=== PATIENT | male | born 1960 | race African-American/Black ===

== ENCOUNTER 2020-09-04 15:46 | Outpatient (RCR) | payer OTHER, SELFPAY ==
[2017-06-15 15:11] VITALS: BMI 32.7
[2020-09-04] MEDS: COVID-19 VACC, MRNA(PFIZER)/PF 30 MCG/0.3 ML SYRINGE IM (13:17)
[2020-09-25] MEDS: COVID-19 VACC, MRNA(PFIZER)/PF 30 MCG/0.3 ML SYRINGE IM (13:04)
== END 2020-09-04 23:59 ==
LOC: IMMUN 15:46
PROVIDERS: PCP Family Medicine; Visit Provider Family Medicine
DX: Z23 Encounter for immunization (principal)
CPT/HCPCS: 0001A; 0002A; 91300

== ENCOUNTER → 2023-06-22 | Outpatient (CLI) | payer BC, SELFPAY ==
--- NOTE | 2023-06-22 | ASPOS_PTH ---
PATHOLOGY RESULTS PATIENT: OTF YIN LOC: LAB U#:[id number] AGE/SX: 62/M ROOM: RE06/22/[address]: Dr. Jhony Cox MD : 1960 BED: DIS: 06/22/2023 SPEC #: [id number] RECD: 06/22/23 10:24 STATUS: KELLI RERos #: [id number] RUDY: 06/22/23 00:[address]: Jhony Cox DEPT: CYTOLOGY RECD BY: Valarie Casillas ENTERED: 06/22/23 10:24 SP TYPE: ASP HERE OTHR DR: Dr. Kermit Fuentes, DO Tissues: Parotid gland, NOS Procedures: Surgery Specimen Level IV Cytology Other Fine Needle Asp on Site HEADER OPERATION: Fine needle aspiration left parotid mass PRE-OP DIAGNOSIS: Left parotid mass TISSUE SUBMITTED: Left parotid mass DIAGNOSIS CYTOLOGY Fine needle aspiration, left parotid mass (smears and cell block): Benign epithelial lesion with cystic change. 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 AM:tima 06/23/2023 COMMENT A fine needle aspiration was performed and the specimen is evaluated at the time of FNA by Dr. Martins. Immediate Evaluation = Benign epithelial neoplasm with cyst change. Case has been reviewed in consultation with Dr. Berg who concurs with the above diagnosis. IDC:[facility] CYTOLOGY STUDY Slides are reviewed. CYTOLOGY GROSS Received is 2.5 ml of clear yellowish fluid labeled with the patient's name, and designated left parotid mass. Four imprints and two paps are made from the submitted fluid and the rest is added to CytoL[employer] for cell block preparation. Submitted for cytology study. / AM:tima 06/22/2023 TC:5 CPT: 55795, 68860, 76243, 37969
--- OUTSIDE RECORDS SUMMARY | 2023-06-22 10:18 | XMS RPT_ITS | CCD ---
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 Name Role Phone SONNY BLANCHARD, DR OSMAN Primary Care Physician ([facility] Anabel PT, Kayy Unavailable Unavailable GARRETT GARCIA, SOFYA Xavier Attending Unavailable ROMAR DO, DR OSMAN Primary Care Unavailable ROMAR DO, DR OSMAN Primary Care Unavailable ROMAR DO, DR OSMAN Attending Unavailable ROMAR DO, DR OSMAN Attending Unavailable ROMAR DO, DR OSMAN Primary Care Unavailable ROMAR DO, DR OSMAN Attending Unavailable ROMAR DO, DR OSMAN Primary Care Unavailable ROMAR DO, DR OSMAN Primary Care Unavailable ROMAR DO, DR OSMAN Attending Unavailable GARRETT GARCIA, SOFYA Xavier Attending Unavailable ROMAR DO, DR OSMAN Primary Care Unavailable ROMAR DO, DR OSMAN Primary Care Unavailable ROMAR DO, DR OSMAN Attending Unavailable ROMAR DO, DR OSMAN Primary Care Unavailable ROMAR DO, DR OSMAN Attending Unavailable THUY GARCIA, DR COLLINS Xavier Attending Unavailable ROMAR DO, DR OSMAN Primary Care Unavailable ROMAR DO, DR OSMAN Attending Unavailable ROMAR DO, DR OSMAN Primary Care Unavailable ROMAR DO, DR OSMAN Attending Unavailable ROMAR DO, DR OSMAN Primary Care Unavailable FROMMELT DO, CHALINO Attending Unavailable ROMAR DO, DR OSMAN Primary Care Unavailable Medications Current Medications Medication Drug Class(es) Dates Sig (Normalized) Sig (Original) amLODIPine 10 mg / benazepril hydrochloride 20 mg oral capsule (12 sources) Dihydropyridine Calcium Channel Jenni, Angiotensin Converting Enzyme Inhibitor Start: 03-21-2023 take 1 capsule by mouth once daily amlodipine-benaz epril 10 mg-20 mg oral capsule Dose = 1 cap(s), Oral, qDay, # 90 cap(s), 1 Refill(s), [facility], 187, cm, 03/15/23 8:32:00 EDT, Height, kg, 03/15/23 8:32:00 EDT, Dosing Weight Start Date: 03/21/23 Status: Ordered Completed/Discontinued Medications Medication Drug Class(es) Dates Sig (Normalized) Sig (Original) busPIRone hydrochloride 10 mg oral tablet (5 sources) Start: 07-20-2022 End: 03-13-2023 busPIRone 10 mg oral tablet Dose : 10 mg = 1 tab(s), Oral, BID, # 180 tab(s), 1 Refill(s), Pharmacy: [facility]/pharmacy #[id number], 185, cm, 09/14/22 8:32:00 EDT, Height, kg, 09/14/22 8:32:00 EDT, Dosing Weight Start Date: 09/14/22 Stop Date: 03/13/23 Status: Ordered Problems Problem Classification Problem Date Documented Date Episodic/Chronic Abdominal pain (8 sources) Generalized abdominal pain; Translations: [Generalized abdominal pain] 06-23-2022 Episodic Acute and chronic tonsillitis (1 source) Enlarged tonsil 05-30-2023 Chronic Acute bronchitis (1 source) Acute bronchitis 06-15-2023 Episodic Adjustment disorders (10 sources) Caregiver stress syndrome 08-05-2021 Chronic Anxiety disorders (8 sources) Anxiety 06-01-2022 Chronic Chronic kidney disease (10 sources) Chronic kidney disease stage 2 08-05-2021 Chronic Deficiency and other anemia (3 sources) Anemia 07-02-2022 Episodic Diabetes mellitus without complication (3 sources) Prediabetes 03-15-2023 Episodic Diseases of mouth; excluding dental (3 sources) Cyst of left parotid gland 05-23-2023 Episodic Diseases of white blood cells (5 sources) Neutropenia 08-25-2022 Chronic Essential hypertension (13 sources) Benign essential hypertension; Translations: [Hypertensive disorder] Onset: 03-16-2019 Chronic Lymphadenitis (1 source) Cervical lymphadenopathy 05-30-2023 Episodi c Mycoses (3 sources) Onychomycosis of toenails 03-15-2023 Episodic Nonspecific chest pain (9 sources) Chest discomfort 08-25-2021 Episodic Osteoarthritis (1 source) Osteoarthritis of right sternoclavicular joint 05-30-2023 Chronic Other and unspecified benign neoplasm (1 source) Adenolymphoma 05-30-2023 Episodic Other circulatory disease (1 source) Vascular calcification 05-30-2023 Episodic Other liver diseases (3 sources) Steatosis of liver 05-23-2023 Chronic Other non-traumatic joint disorders (10 sources) Shoulder pain 03-16-2019 Episodic Other nutritional; endocrine; and metabolic disorders (10 sources) Body mass index 30+ - obesity 08-05-2021 Chronic Other nutritional; endocrine; and metabolic disorders (1 source) Obesity 03-16-2019 Chronic Other nutritional; endocrine; and metabolic disorders (10 sources) Raised low density lipoprotein cholesterol 08-13-2021 Chronic Other nutritional; endocrine; and metabolic disorders (3 sources) Hyperbilirubinemia 03-15-2023 Chronic Other nutritional; endocrine; and metabolic disorders (7 sources) Unintentional weight loss 06-23-2022 Episodic Other nutritional; endocrine; and metabolic disorders (1 source) Abnormal weight loss; Translations: [Abnormal weight loss] Episodic Other screening for suspected conditions (not mental disorders or infectious disease) (2 sources) Renal function tests abnormal; Translations: [Abnormal results of kidney function studies] Episodic Other skin disorders (3 sources) Mass of neck 03-15-2023 Episodic Other skin disorders (3 sources) Mass of wrist 03-15-2023 Episodic Other upper respiratory infections (1 source) Sinusitis 06-15-2023 Chronic Spondylosis; intervertebral disc disorders; other back problems (1 source) Cervical spondylosis 05-30-2023 Chronic Thyroid disorders (20 sources) Goiter; Translations: [Thyroid nodule] 08-05-2021 Chronic Results Test Name Value Interpretation Reference Range Facil ity Vital Signs Date Time Vital Sign Value Performing Clinician Faci lity 06-30-2022 22:06-0500 Diastolic Blood Pressure Non-Invasive 68 1 CHALINO [facility] [employer] [facility] 06-30-2022 22:06-0500 Heart rate 70 /min [facility] [employer] [facility] 06-30-2022 22:06-0500 Respiratory rate 18 /min [facility] [employer] [facility] 06-30-2022 22:06-0500 Systolic Blood Pressure Non-Invasive 120 1 CHALINO SMITHT DO [facility] 06-30-2022 21:05-0500 Body temperature 98.06 [degF] CHALINO SMITHT DO [facility] 06-30-2022 21:05-0500 Diastolic Blood Pressure Non-Invasive 77 1 CHALINO SMITHT DO [facility] 06-30-2022 21:05-0500 Heart rate 66 /min CHALINO SMITHT DO [facility] 06-30-2022 21:05-0500 Respiratory rate 18 /min CHALINO SMITHT DO [facility] 06-30-2022 21:05-0500 Systolic Blood Pressure Non-Invasive 119 1 CHALINO SMITHT DO [facility] 06-16-2022 07:57-0500 Body height 188 cm NILSON ELY DO [facility] 06-16-2022 07:57-0500 Body temperature 98.42 [degF] NILSON ELY DO [facility] 06-16-2022 07:57-0500 Body weight 110 kg NILSON ELY DO [facility] 06-16-2022 07:57-0500 Diastolic Blood Pressure Non-Invasive 79 1 NILSON ELY DO [facility] 06-16-2022 07:57-0500 Heart rate 71 /min NILSON ELY DO [facility] 06-16-2022 07:57-0500 Respiratory rate 16 /min NILSON ELY DO [facility] 06-16-2022 07:57-0500 Systolic Blood Pressure Non-Invasive 114 1 NISLON ELY DO [facility] Encounters Encounter Date Encounter Type Care Provider Facility Start: 06-15-[address] DAWSON DENNIS DO Facili ty:B Start: 06-15-2023 End: 06-15-[address] DAWSON DENNIS DO [facility] Start: 05-26-2023 End: 05-27-[address] COLLINS DALEY MD Facility:B Start: 05-26-2023 End: 05-26-[address] DAWSON DENNIS DO [facility] Start: 04-13-2023 End: 04-14-[address] DAWSON DENNIS DO Facility:A Start: 04-11-2023 End: 04-12-[address] DAWSON DENNIS DO Facility:B Start: 03-15-2023 End: 03-20-[address] DAWSON DENNIS DO Facility:B Start: 02-24-2023 End: 02-25-[address] DAWSON DENNIS DO Facility:B Start: 09-08-2022 End: 09-09-[address] DAWSON DENNIS DO Facility:B Start: 09-08-2022 End: 09-08-[address] DAWSON DENNIS DO [facility] Start: 08-26-2022 End: 08-27-2022 ambulatory SOFYA TUCKER MD Facility:B Start: 08-26-2022 End: 08-26-2022 Patient encounter procedure SOFYA TUCKER MD [facility] Start: 08-25-2022 End: 08-26-2022 ambulatory SOFYA TUCKER MD Facility:A Start: 07-02-2022 End: 07-03-[address] DAWSON DENNIS DO Facility:B Start: 07-02-2022 End: 07-02-[address] DAWSON DENNIS DO [facility] Start: 06-30-2022 End: 07-01-2022 Emergency department patient visit CHALINO ESPINOZA DO Facility:B Start: 06-30-2022 End: 06-30-2022 Emergency department patient visit CHALINO ESPINOZA DO [facility] Start: 06-16-2022 End: 06-16-2022 Emergency department patient visit NILSON ELY DO [facility] Start: 01-12-2022 End: 01-12-[address] DAWSON DENNIS DO [facility] Start: 08-24-2021 End: 08-24-[address] DAWSON DENNIS DO [facility] Procedures Date Procedure Procedure Detail Performing Clinician Start: 03-10-2023 Oral surgery (qualif ier value) DR DAWSON DENNIS DO Immunizations Immunization Date Immunization Notes Care Provider [facility] 01-22-2022 SARS-CoV-2 mRNA (qwfpqvgwkkg-mblh-yqszg se) vaccine SOFYA TUCKER MD [facility] 05-13-2021 SARS-CoV-2 mRNA (tozinameran) vaccine NILSON ELY DO [facility] 04-07-2021 zoster vaccine recombinant NILSON ELY DO [facility] 01-22-2021 zoster vaccine, live DR DAWSON DENNIS DO [facility] 09-25-2020 SARS-CoV-2 mRNA (tozinameran) vaccine DR DAWSON DENNIS DO [facility] 09-04-2020 SARS-CoV-2 mRNA (tozinameran) vaccine DR DAWSON DENNIS DO [facility] Payers Date Payer Category Payer Unknown [id number] 2022 Unknown [id number] 1960 Unknown [id number] 2.16.8 [id number] 1960 Unknown [id number] 2.16.8 [id number] 1960 Unknown [id number] 2.16.8 [id number] 1960 Unknown [id number] 2.16.8 [id number] 1960 Unknown [id number] 2.16.8 [id number] 1960 Unknown [id number] 2.16.8 [id number]. 1960 Unknown [id number] 2.16.8 [id number] 1960 Unknown [id number] 2.16.8 [id number] 1960 Unknown [id number] 2.16.8 [id number] 1960 Unknown [id number] 2.16.8 [id number] 1960 Unknown [id number] 2.16.8 [id number] 1960 Unknown [id number] 2.16.8 [id number] Social History Date Type Detail Facility Start: 03-16-2019 Never smoked tobacco (f inding) [facility] Functional Status Date Assessment Result Facility 06-30-2022 Functional Status ID band on, Call device within reach, Bed in low position [facility] 06-16-2022 Functional Status Independent [facility] 06-16-2022 Functional Status ID band on, Call device within reach, Bed in low position, Wheels locked, Visitor at bedside [facility] Mental Status Date Assessment Result Facility 06-30-2022 Mental Status Oriented x 4 [facility] 06-16-2022 Mental Status Orientation Oriented x 4 [facility] 06-16-2022 Mental Status [facility] Clinical Notes 02-06-2021 to 07-01-2022 LaboratoryRadiologyRadiologyRadiologyLaboratory Note Date & Type Note Facility 07-01-2022 Hospital Discharge instructions Patient Education 06/30/2022 22:01:32 Rib Contusion Rib Contusion A rib contusion is a bruise to one or more rib bones. It may cause pain, tenderness, swelling and a purplish discoloration. There may be a sharp pain while breathing. You will be assessed for other injuries. You will likely be given pain medicine. Rib contusions heal on their own, without further treatment. However, pain may take weeks to months to go away. Note that a small crack (fracture) in the rib may cause the same symptoms as a rib contusion. The small crack may not be seen on a chest X-ray. However, the conditions are managed in the same way. Home care Rest. Avoid heavy lifting, strenuous exertion, or any activity that causes pain. Ice the area to reduce pain and swelling. Put ice cubes in a plastic bag or use a cold pack. (Wrap the cold source in a thin towel. Do not place it directly on your skin.) Ice the injured area for 20 minutes every 1 to 2 hours the first day. Continue with ice packs 3 to 4 times a day for the next 2 days, then as needed for the relief of pain and swelling. Take any prescribed pain medicine as directed by your healthcare provider. If none was prescribed, take acetaminophen, ibuprofen, or naproxen to control pain. If you have a significant injury, you may be given a device called an incentive spirometer to keep your lungs healthy. Use as directed. Follow-up care Follow up with your healthcare provider during the next week or as directed. When to seek medical advice Call your healthcare provider for any of the following: Shortness of breath or trouble breathing Increasing chest pain with breathing Coughing Dizziness, weakness, or fainting New or worsening pain Fever of 100.4 F (38 C) or higher, or as directed by your healthcare provider [phone] [employer]. [address] [place] [address]. All rights reserved. This information is not intended as a substitute for professional medical care. Always follow your healthcare professional's instructions. Follow Up Care 06/30/2022 21:01:12 With:DAWSON DENNIS DO Address: [address] [place] [phone] When:2-4 days [facility] 06-30-2022 Note Discharge Instructions Thank you for allowing [facility] to assist you with your healthcare needs. The following is important discharge information regarding your hospital visit. Diagnosis from Today's Visit Rib/trunk pain-swelling What to Do Next Instructions from Your Care Team No qualifying data available. Post Acute Orders No qualifying data available. You Need to Schedule the Following Appointments Follow Up with DAWSON DENNIS DO When Within 2-4 days Where: [address] [place] [id number] [phone] Allergies NKA Medications Please ask your primary doctor or pharmacist before taking any other medication not listed, including over the counter drugs, herbal medications, vitamins and or supplements as they may interact with your home medications. What How Much When Instructions Last Dose Unchanged amlodipine-benazepril (amlodipine-benazepril 10 mg-20 mg oral capsule) 1 cap by mouth Once a day Unchanged atorvastatin (atorvastatin 10 mg oral tablet) 1 tab(s) by mouth Once a day (in the evening) Unchanged hydroCHLOROthiazide (hydroCHLOROthiazide 12.5 mg oral capsule) 1 cap by mouth Once a day Unchanged ondansetron (ondansetron 4 mg oral tablet, disintegrating) 1 tab(s) by mouth Every 8 hours as needed for Nausea Duration: 14 Days allow tablet to dissolve on tongue Unchanged sertraline (sertraline 100 mg oral tablet) 1 tab(s) by mouth Once a day Please take this list to your next doctor s visit. Bring all medications you take, including over the counter medications, herbals and other supplements with you to your doctor s visit. Patients and families are reminded to discard old lists and to update any records with all medication providers or retail pharmacies. Education Materials Rib Contusion A rib contusion is a bruise to one or more rib bones. It may cause pain, tenderness, swelling and a purplish discoloration. There may be a sharp pain while breathing. You will be assessed for other injuries. You will likely be given pain medicine. Rib contusions heal on their own, without further treatment. However, pain may take weeks to months to go away. Note that a small crack (fracture) in the rib may cause the same symptoms as a rib contusion. The small crack may not be seen on a chest X-ray. However, the conditions are managed in the same way. Home care Rest. Avoid heavy lifting, strenuous exertion, or any activity that causes pain. Ice the area to reduce pain and swelling. Put ice cubes in a plastic bag or use a cold pack. (Wrap the cold source in a thin towel. Do not place it directly on your skin.) Ice the injured area for 20 minutes every 1 to 2 hours the first day. Continue with ice packs 3 to 4 times a day for the next 2 days, then as needed for the relief of pain and swelling. Take any prescribed pain medicine as directed by your healthcare provider. If none was prescribed, take acetaminophen, ibuprofen, or naproxen to control pain. If you have a significant injury, you may be given a device called an incentive spirometer to keep your lungs healthy. Use as directed. Follow-up care Follow up with your healthcare provider during the next week or as directed. When to seek medical advice Call your healthcare provider for any of the following: Shortness of breath or trouble breathing Increasing chest pain with breathing Coughing Dizziness, weakness, or fainting New or worsening pain Fever of 100.4 F (38 C) or higher, or as directed by your healthcare provider [phone] [employer]. [address] [place] [address]. All rights reserved. This information is not intended as a substitute for professional medical care. Always follow your healthcare professional's instructions. Additional Information VACCINATE! IT SAVES LIVES! Members of the community who have not yet received the COVID-19 vaccine and would like to receive it can visit one of [facility] vaccine clinics. There are many vaccine clinic locations within the [facility]. For locations and available times, please visit [email or web address] g. It is important to note that some COVID mobile vaccine clinics are held outdoors and may be canceled in rainy or stormy conditions. To learn more about pediatric vaccinations (ages 5-11), we invite you to visit the [facility] webpage. https://[email or web address].org/pag es/5382-Brurc-Etyyiqvagiu-[email or web address] qn-Libih-Tmeqmoqzk.html To learn more about the COVID-19 vaccine, we invite you to visit the [facility] website for a list of frequently asked questions. [email or web address]/assets/Patient a-fif-Wsthaowg/kaiyk-Thxuroe-Rrhzy ently_[email or web address]-Questions.pdf [facility] Patient Portal Access Instructions: Stay connected with your healthcare team and access your personal medical information anytime with the [facility] Patient Portal. If you would like a full copy of your medical records please contact the [facility] Medical Records Department Tuesday through Tuesday between 8a.m. and 4:30p.m. Please follow the directions below to access the portal: 1.Access the email account you provided upon registration to the [facility].2.Look for an invitation email from [facility].3.Open the email and access the invitation link: Accept Invitation to [employer].Fill in the required ferrara to create your account. Sign into www.[employer] 360 with your username and password that you created in the above steps to stay up to date. You can then view a summary of results, a summary of your visits, and the ability to download your summaries to your computer or send the information securely to a physician. Remember that your healthcare information is confidential, so carefully consider who you will allow to register on the [facility] Patient Portal for access to your information. You can also access the [facility] Patient Portal on the [employer]. Simply click on Health Records under Health Data and then click on the [employer] logo. HOW TO SAFELY DISPOSE OF PRESCRIPTION MEDICATIONS Please use one of the following methods to safely dispose of your unused medications. 1.Use a drug disposal kit: the drug disposal pouch allows you to safely discard your old and unused drugs. Ask your nurse to give you one when you are discharged.2.Visit a local take-back location: Many local pharmacies and police departments have programs that collect old and unwanted prescription drugs. Call your local pharmacy or go to http://[employer].Tradoria/0G4Zn1g to find one close to you.3.Make use of household items: Use cat litter or old coffee grounds to dispose medications if other options are not available. Mix your drugs with these household products, seal them in an airtight container and throw it into the garbage. Call [facility]: [phone] to be sure your drugs can be disposed of in this way. Some medicines may require a different approach.4.Never flush your medications down the toilet. IF YOU HAVE BEEN PRESCRIBED AN OPIOIDS FOR PAIN If you have been prescribed an opioid (such as hydrocodone, oxycodone or morphine), it is critical to understand the possible side effects and risks of opioid pain medications. Even when taken as directed, opioids can have several side effects including: Tolerance, meaning you might need to take more of a medication for the same pain relief. Nausea, vomiting and/or constipation. Sleepiness, dizziness, dry mouth, confusion, depression or itching. Physical dependence, meaning you have withdrawal symptoms when a medication is stopped ? this can develop within a few days. KNOW YOUR RESPONSIBILITIES It is important to know exactly how much and how often to take the opioid pain medications you are prescribed. Never take opioids in higher amounts or more often than prescribed. Do not combine opioids with alcohol or other drugs that cause drowsiness, such as benzodiazepines, also known as benzos, including diazepam and alprazolam, muscle relaxants or sleep aids. Never sell or share prescription opioids. This is illegal. Store opioids in a secure place and out of reach of others (including children, family, friends and visitors). The last page(s) of this document has been signed and retained as a CHART COPY Signatures Patient Education Materials Rib Contusion Medication Leaflets My discharge plan and instructions have been reviewed and explained to me and I,SHORT, OTF M understand my current condition and have read and understand these discharge instructions. I have received a written copy of the plan/instructions. If I have questions, I am aware that I should contact my doctor. Patient/Supervisor Salvage Signature: Date/Time: Relationship to Patient: ___ Witness Name/Signature: Date/Time: [facility] 06-30-2022 Note ORIGINAL EXAMINATION: 2 XRAY VIEWS OF THE RIGHT RIB06/30/2022 9:24 pm RIBS RIGHT HISTORY: ORDERING SYSTEM PROVIDED HISTORY: Reason for Exam: right lower rib pain/trauma FINDINGS: No displaced fracture seen. No aggressive bony lesions. Advanced degenerative changes seen of the visualized right glenohumeral joint. IMPRESSION: No displaced fractures Interpreted by: Nilson Chavez MD Preliminary Report By: Nilson Chavez MD Electronically signed By Nilson Chavez MD Dictated Date: 06/30/2022 9:54:09 PM Prelim Date: 06/30/2022 9:55:49 PM Sign Date: 06/30/2022 9:55:49 PM [facility] Note ORIGINAL EXAMINATION: 2 XRAY VIEWS OF THE RIGHT RIB06/30/2022 9:24 pm RIBS RIGHT HISTORY: ORDERING SYSTEM PROVIDED HISTORY: Reason for Exam: right lower rib pain/trauma FINDINGS: No displaced fracture seen. No aggressive bony lesions. Advanced degenerative changes seen of the visualized right glenohumeral joint. IMPRESSION: No displaced fractures Interpreted by: Nilson Chavez MD Preliminary Report By: Nilson Chavez MD Electronically signed By Nilson Chavez MD Dictated Date: 06/30/2022 9:54:09 PM Prelim Date: 06/30/2022 9:55:49 PM Sign Date: 06/30/2022 9:55:49 PM [facility] Discharge instructions Patient Education 06/16/2022 09:49:14 Abdominal Pain, Unknown Cause, (Male) Unknown Causes of Abdominal Pain (Male) Based on your visit today, the exact cause of your abdominal pain is not clear. Your exam and tests don't suggest a dangerous cause at this time. However, the signs of a serious problem may take more time to appear. Although your evaluation was reassuring today, sometimes early in the course of many conditions, exam and lab tests can appear normal. Therefore, it is important for you to watch for any new symptoms or worsening of your condition. It may not be obvious what caused your symptoms. Pay attention to things that do seem to make your symptoms worse or better and discuss this with your doctor when you follow up. The evaluation of abdominal pain in the emergency department may only require an exam by the doctor or it may include blood, urine or imaging studies, depending on many factors. Sometimes exams and tests can identify a cause but in many cases, a clear cause is not found. Further testing at follow up visits may help to suggest a clear diagnosis. Home care Rest as much as you can until your next exam. Try to avoid any medicines (unless otherwise directed by your doctor), foods, activities, or other factors that may have contributed to your symptoms. Try to eat foods that you know that you have tolerated well in the past. Certain diets may be recommended for some conditions that cause abdominal pain. However, since the cause of your symptoms may not be clear, discuss your diet more with your healthcare provider or specialist for further recommendations. If you have diarrhea, it may help to avoid dairy (lactose) for the time being. A low fat, low fiber diet can also help. Eating several small meals per day as opposed to 2 or 3 larger meals may help. Avoid dehydration. Make sure to drink plenty of water. Other options include broth, soup, gelatin, sports drinks, or other clear liquids. Watch closely for anything that may make your symptoms worse or better. Pay close attention to symptoms below that may mean your condition is getting worse. Follow-up care Follow up with your healthcare provider if your symptoms are not improving, or as advised. In some cases, you may need more testing. When to seek medical advice Call your healthcare provider right away if any of these occur: Pain is becoming worse You are unable to take your medicines or can't keep water down due to excessive vomiting Swelling of the abdomen Fever of 100.4 F (38 C) or higher, or as directed by your healthcare provider Blood in vomit or bowel movements (dark red or black color) Jaundice (yellow color of eyes and skin) New onset of weakness, dizziness or fainting New onset of chest, arm, back, neck or jaw pain [id number] [employer]. [address] [place] [address]. All rights reserved. This information is not intended as a substitute for professional medical care. Always follow your healthcare professional's instructions. Follow Up Care 06/16/2022 07:49:29 With:DAWSON DENNIS DO Address: [address] [place] [address] [phone] When:2-4 days [facility] 06-16-2022 Note Discharge Instructions Thank you for allowing [facility] to assist you with your healthcare needs. The following is important discharge information regarding your hospital visit. Diagnosis from Today's Visit Abdominal pain What to Do Next Instructions from Your Care Team No qualifying data available. Post Acute Orders No qualifying data available. You Need to Schedule the Following Appointments Follow Up with DAWSON DENNIS DO When Within 2-4 days Where: [address] [place] [address] [phone] Allergies NKA Medications Please ask your primary doctor or pharmacist before taking any other medication not listed, including over the counter drugs, herbal medications, vitamins and or supplements as they may interact with your home medications. What How Much When Instructions Last Dose Unchanged amlodipine-benazepril (amlodipine-benazepril 10 mg-20 mg oral capsule) 1 cap by mouth Once a day Unchanged atorvastatin (atorvastatin 10 mg oral tablet) 1 tab(s) by mouth Once a day (in the evening) Unchanged hydroCHLOROthiazide (hydroCHLOROthiazide 12.5 mg oral capsule) 1 cap by mouth Once a day Unchanged ondansetron (ondansetron 4 mg oral tablet, disintegrating) 1 tab(s) by mouth Every 8 hours as needed for Nausea Duration: 5 Days allow tablet to dissolve on tongue Unchanged sertraline (sertraline 50 mg oral tablet) See instructions Take 1/ 2 tablet daily for 4 days, then 1 tablet daily for 1 week, then 2 tablets daily Please take this list to your next doctor s visit. Bring all medications you take, including over the counter medications, herbals and other supplements with you to your doctor s visit. Patients and families are reminded to discard old lists and to update any records with all medication providers or retail pharmacies. Education Materials Unknown Causes of Abdominal Pain (Male) Based on your visit today, the exact cause of your abdominal pain is not clear. Your exam and tests don't suggest a dangerous cause at this time. However, the signs of a serious problem may take more time to appear. Although your evaluation was reassuring today, sometimes early in the course of many conditions, exam and lab tests can appear normal. Therefore, it is important for you to watch for any new symptoms or worsening of your condition. It may not be obvious what caused your symptoms. Pay attention to things that do seem to make your symptoms worse or better and discuss this with your doctor when you follow up. The evaluation of abdominal pain in the emergency department may only require an exam by the doctor or it may include blood, urine or imaging studies, depending on many factors. Sometimes exams and tests can identify a cause but in many cases, a clear cause is not found. Further testing at follow up visits may help to suggest a clear diagnosis. Home care Rest as much as you can until your next exam. Try to avoid any medicines (unless otherwise directed by your doctor), foods, activities, or other factors that may have contributed to your symptoms. Try to eat foods that you know that you have tolerated well in the past. Certain diets may be recommended for some conditions that cause abdominal pain. However, since the cause of your symptoms may not be clear, discuss your diet more with your healthcare provider or specialist for further recommendations. If you have diarrhea, it may help to avoid dairy (lactose) for the time being. A low fat, low fiber diet can also help. Eating several small meals per day as opposed to 2 or 3 larger meals may help. Avoid dehydration. Make sure to drink plenty of water. Other options include broth, soup, gelatin, sports drinks, or other clear liquids. Watch closely for anything that may make your symptoms worse or better. Pay close attention to symptoms below that may mean your condition is getting worse. Follow-up care Follow up with your healthcare provider if your symptoms are not improving, or as advised. In some cases, you may need more testing. When to seek medical advice Call your healthcare provider right away if any of these occur: Pain is becoming worse You are unable to take your medicines or can't keep water down due to excessive vomiting Swelling of the abdomen Fever of 100.4 F (38 C) or higher, or as directed by your healthcare provider Blood in vomit or bowel movements (dark red or black color) Jaundice (yellow color of eyes and skin) New onset of weakness, dizziness or fainting New onset of chest, arm, back, neck or jaw pain [id number] [employer]. [address] [place] [address]. All rights reserved. This information is not intended as a substitute for professional medical care. Always follow your healthcare professional's instructions. Additional Information VACCINATE! IT SAVES LIVES! Members of the community who have not yet received the COVID-19 vaccine and would like to receive it can visit one of [facility] vaccine clinics. There are many vaccine clinic locations within the [facility]. For locations and available times, please visit [email or web address] g. It is important to note that some COVID mobile vaccine clinics are held outdoors and may be canceled in rainy or stormy conditions. To learn more about pediatric vaccinations (ages 5-11), we invite you to visit the [facility] webpage. [email or web address] [email or web address]-Coxub-Amwjskipwtb-[email or web address] rz-Otjpe-Frcojtzrv.html To learn more about the COVID-19 vaccine, we invite you to visit the [facility] website for a list of frequently asked questions. [email or web address]/[email or web address] n-[email or web address]/ttjda-Wddsull-[email or web address] ently_[email or web address]-Questions.pdf [facility] Patient Portal Access Instructions: Stay connected with your healthcare team and access your personal medical information anytime with the [facility] Patient Portal. If you would like a full copy of your medical records please contact the [facility] Medical Records Department Tuesday through Tuesday between 8a.m. and 4:30p.m. Please follow the directions below to access the portal: 1.Access the email account you provided upon registration to the [facility].2.Look for an invitation email from [facility].3.Open the email and access the invitation link: Accept Invitation to [facility]4.Fill in the required ferrara to create your account. Sign into www.Live Life 360 with your username and password that you created in the above steps to stay up to date. You can then view a summary of results, a summary of your visits, and the ability to download your summaries to your computer or send the information securely to a physician. Remember that your healthcare information is confidential, so carefully consider who you will allow to register on the [facility] Patient Portal for access to your information. You can also access the [facility] Patient Portal on the [employer] jose angel. Simply click on Health Records under Health Data and then click on the [facility] logo. HOW TO SAFELY DISPOSE OF PRESCRIPTION MEDICATIONS Please use one of the following methods to safely dispose of your unused medications. 1.Use a drug disposal kit: the drug disposal pouch allows you to safely discard your old and unused drugs. Ask your nurse to give you one when you are discharged.2.Visit a local take-back location: Many local pharmacies and police departments have programs that collect old and unwanted prescription drugs. Call your local pharmacy or go to http://bit.ly/1R3Fy2f to find one close to you.3.Make use of household items: Use cat litter or old coffee grounds to dispose medications if other options are not available. Mix your drugs with these household products, seal them in an airtight container and throw it into the garbage. Call [facility]: [phone] to be sure your drugs can be disposed of in this way. Some medicines may require a different approach.4.Never flush your medications down the toilet. IF YOU HAVE BEEN PRESCRIBED AN OPIOIDS FOR PAIN If you have been prescribed an opioid (such as hydrocodone, oxycodone or morphine), it is critical to understand the possible side effects and risks of opioid pain medications. Even when taken as directed, opioids can have several side effects including: Tolerance, meaning you might need to take more of a medication for the same pain relief. Nausea, vomiting and/or constipation. Sleepiness, dizziness, dry mouth, confusion, depression or itching. Physical dependence, meaning you have withdrawal symptoms when a medication is stopped ? this can develop within a few days. KNOW YOUR RESPONSIBILITIES It is important to know exactly how much and how often to take the opioid pain medications you are prescribed. Never take opioids in higher amounts or more often than prescribed. Do not combine opioids with alcohol or other drugs that cause drowsiness, such as benzodiazepines, also known as benzos, including diazepam and alprazolam, muscle relaxants or sleep aids. Never sell or share prescription opioids. This is illegal. Store opioids in a secure place and out of reach of others (including children, family, friends and visitors). The last page(s) of this document has been signed and retained as a CHART COPY Signatures Patient Education Materials Abdominal Pain, Unknown Cause, (Male) Medication Leaflets My discharge plan and instructions have been reviewed and explained to me and I,OTF LEAL M understand my current condition and have read and understand these discharge instructions. I have received a written copy of the plan/instructions. If I have questions, I am aware that I should contact my doctor. Patient/Supervisor Salvage Signature: Date/Time: Relationship to Patient: ___ Witness Name/Signature: Date/Time: [facility] 06-16-2022 Note ORIGINAL EXAMINATION: TWO XRAY VIEWS OF THE ABDOMEN AND SINGLE XRAY VIEW OF THE CHEST 06/16/2022 8:43 am COMPARISON: CT abdomen/pelvis 10/11/2016, small-bowel series 08/20/2016 HISTORY: ORDERING SYSTEM PROVIDED HISTORY: Reason for Exam: pain Pain and tightness in abdomen for 1.5 weeks FINDINGS: CHEST: Cardiomediastinal contours are within normal limits. No focal consolidation. No visible pneumothorax or pleural effusion. ABDOMEN: The bowel gas pattern is nonobstructive. No dilated bowel loops or air-fluid levels are identified. No evidence of pneumoperitoneum. Included osseous structures are grossly unremarkable. IMPRESSION: No acute cardiopulmonary findings. Nonobstructive bowel gas pattern. Interpreted by: Lakia Victoria Preliminary Report By: Lakia Victoria Electronically signed By Lakia Victoria Dictated Date: 06/16/2022 8:51:33 AM Prelim Date: 06/16/2022 8:54:41 AM Sign Date: 06/16/2022 8:54:41 AM Ordering Provider: NILSON ELY [facility] 06-16-2022 Note ORIGINAL EXAMINATION: TWO XRAY VIEWS OF THE ABDOMEN AND SINGLE XRAY VIEW OF THE CHEST 06/16/2022 8:43 am COMPARISON: CT abdomen/pelvis 10/11/2016, small-bowel series 08/20/2016 HISTORY: ORDERING SYSTEM PROVIDED HISTORY: Reason for Exam: pain Pain and tightness in abdomen for 1.5 weeks FINDINGS: CHEST: Cardiomediastinal contours are within normal limits. No focal consolidation. No visible pneumothorax or pleural effusion. ABDOMEN: The bowel gas pattern is nonobstructive. No dilated bowel loops or air-fluid levels are identified. No evidence of pneumoperitoneum. Included osseous structures are grossly unremarkable. IMPRESSION: No acute cardiopulmonary findings. Nonobstructive bowel gas pattern. Interpreted by: Lakia Victoria Preliminary Report By: Lakia Victoria Electronically signed By Lakia Victoria Dictated Date: 06/16/2022 8:51:33 AM Prelim Date: 06/16/2022 8:54:41 AM Sign Date: 06/16/2022 8:54:41 AM Ordering Provider: NILSON [facility] 02-06-2021 Note HNO ID: [id number] Author: Geraldine Corrales APRN.DREDGE PUMP OPERATOR Service: ? Author Type: Nurse Practitioner Type: Progress Notes Filed: 02/06/2021 11:40 AM Note Text: SUBJECTIVE Otf Leal is a 60 year old male who presents with 1 week of symptoms that are stable. Symptoms include: Fever (?100.4F): No or Chills: No Cough: Yes Shortness of breath: No or Difficulty breathing: No Fatigue: Yes Muscle aches: No Headache: No New loss of smell or taste: No Sore throat: No Nasal congestion: No or Rhinorrhea: No Nausea: No or Vomiting: No Diarrhea: No High risk category assessment Age > 60 years old Exposures: Sick contacts? Yes- has been ill with COVID symptoms for past week. Family or close contacts with confirmed/probable COVID-19 in last 14 days? Yes He reports that he has never smoked. He has never used smokeless tobacco. BP 108/82 Pulse 67 Temp 36.8 ?C (98.2 ?F) Resp 14 Wt 123.6 kg (272 lb 6.4 oz) SpO2 97% BMI 35.94 kg/m? PAST MEDICAL HISTORY Diagnosis Date - HTN (hypertension), benign - Hypertrophy of prostate without urinary obstruction and other lower urinary tract symptoms (LUTS) - Mixed hyperlipidemia PAST SURGICAL HISTORY Procedure Laterality Date - COLONOSCOP W/ OR W/O [facility] SPE[facility] 04/28/2011 ALLERGIES Patient has no known allergies. MEDICATIONS loratadine (CLARITIN) 10 mg tablet Take 10 mg by mouth once daily. amLODIPine-benazepril (LOTREL) 10-20 mg per capsule Take 1 capsule by mouth once daily. Hydrochlorothiazide 12.5 mg ORAL capsule Take 1 capsule by mouth once daily. aspirin, enteric coated (ASPIR-LOW) 81 mg ORAL EC tablet Take 1 tablet by mouth once daily. FAMILY HISTORY Problem Relation Age of Onset - Cancer Mother Hodgkins lymphoma - Diabetes Father Social History Tobacco Use - Smoking status: Never Smoker - Smokeless tobacco: Never Used Substance Use Topics - Alcohol use: No - Drug use: No OBJECTIVE Physical Exam Vitals and nursing note reviewed. Constitutional: Appearance: Normal appearance. HENT: Mouth/Throat: Pharynx: Uvula midline. Cardiovascular: Rate and Rhythm: Normal rate and regular rhythm. Heart sounds: Normal heart sounds. Pulmonary: Effort: Pulmonary effort is normal. No respiratory distress. Breath sounds: Normal breath sounds. No wheezing or rales. Musculoskeletal: Cervical back: Neck supple. Skin: General: Skin is warm and dry. Findings: No erythema or rash. Neurological: Mental Status: He is alert. ASSESSMENT/PLAN ASSESSMENT/PLAN: 1. Suspected COVID-19 virus infection - ICD9: V01.79, ICD10: Z20.822 - 2019 CORONAVIRUS Geraldine JEREMY Corrales.DREDGE PUMP OPERATOR - Meets symptom-based criteria for testing and is high risk. - COVID swab collected at time of office visit - Instructed to isolate pending test results - Discussed symptom monitoring and supportive care - Red flag symptoms requiring follow up discussed This patient encounter involved the screening or treatment of novel coronavirus infection (COVID-19). [facility] Evaluation + Plan note Future Appointments Appointment Date:01/21/2022 08:00:00 AM Scheduled Provider:DAWSON DENNIS DO Location:[facility] Appointment Type: OV [facility] Evaluation + Plan note Future Appointments Appointment Date:07/15/2022 08:00:00 AM Scheduled Provider:DAWSON DENNIS DO Location:[facility] Appointment Type:PC OV Appointment Date:07/20/2022 08:00:00 AM Scheduled Provider:DAWSON DENNIS DO Location:[facility] Appointment Type: OV Follow Up [facility] Evaluation + Plan note Future Appointments Appointment Date:07/15/2022 08:00:00 AM Scheduled Provider:DAWSON DENNIS DO Location:[facility] Appointment Type: OV Appointment Date:07/20/2022 08:00:00 AM Scheduled Provider:DAWSON DENNIS DO Location:[facility] Appointment Type:PC OV Follow Up Appointment Date:09/01/2022 09:00:00 AM Scheduled Provider:DAWSON DENNIS DO Location:[facility] Appointment Type: OV Future Scheduled TestsBasic Metabolic Panel 06/23/22Cancer Antigen 125 06/23/22Prostate Specific Antigen 06/23/22AFP tumor marker 06/23/22Carcinoembryonic Antigen 06/23/22Complete Blood Count 06/23/22hCG, tumor marker 06/23/22US Thyroid 08/21/22 [facility] Evaluation + Plan note Future Appointments Appointment Date:07/15/2022 08:00:00 AM Scheduled Provider:DAWSON DENNIS DO Location:[facility] Appointment Type:PC OV Appointment Date:07/20/2022 08:00:00 AM Scheduled Provider:DAWSON DENNIS DO Location:[facility] Appointment Type:PC OV Follow Up Appointment Date:09/01/2022 09:00:00 AM Scheduled Provider:DAWSON DENNIS DO Location:[facility] Appointment Type:PC OV Diagnostic Tests PendingCancer Antigen 125 07/02/22AFP tumor marker 07/02/22hCG, tumor marker 07/02/22Carcinoembryonic Antigen 07/02/22 Future Scheduled TestsUS Thyroid 08/21/22 [facility] Evaluation + Plan note Future Appointments Appointment Date:09/14/2022 08:30:00 AM Scheduled Provider:DAWSON DENNIS DO Location:[facility] Appointment Type:PC OV Appointment Date:09/22/2022 11:30:00 AM Scheduled Provider: Location:[facility] Appointment Type:[facility] OV Follow Up Future Scheduled TestsUS Thyroid 08/21/22 [facility] Evaluation + Plan note Future Appointments Appointment Date:09/14/2022 08:30:00 AM Scheduled Provider:DAWSON DENNIS DO Location:[facility] Appointment Type:PC OV Appointment Date:09/22/2022 11:30:00 AM Scheduled Provider: Location:[facility] Appointment Type:[facility] OV Follow Up [facility] Evaluation + Plan note Future Appointments Appointment Date:08/23/2023 08:00:00 AM Scheduled Provider:DAWSON DENNIS DO Location:[facility] Appointment Type:PC OV Future Scheduled TestsHepatitis C Antibody IgG 03/17/23 [facility] Hospital course Narrative No data available for this section [facility] Hospital Discharge instructions No data available for this section [facility] Progress note No data available for this section [facility] Summary Purpose Family History No Family History Records Found No data available for this section No data available for this section No data available for this section No Family History Records Found Advance Directives No Advanced Directives Records FoundNo Advanced Directives Records Found Additional Source Comments (unrecognized sect ion and content) No Status Records FoundNo Status Records Found INFORMATION SOURCE (unrecogn ized section and content) DATE CREATED AUTHOR AUTHOR'S ORGANIZ ATION 06/19/2023 [facility] ([place]) Care Team (unrecognized sect ion and content) Care Team Personnel Name: Gilmer Little Cleryina Sultana PT Position: P3 Scheduling - Surveillance Analyst Advanced Member Role: Other Name: DAWSON DENNIS DO Position: P4 Physician - Primary Care Med Service: Active Provider Member Role: Primary Care Physician Address: Address: [address] [place] [address] Care Team Related Persons Name: TAVARES LEAL Address: [address] [place], [place] [id number] [place] Name: SHORT, EMERY Name: HUMPHREY, EMERY Name: MARTÍNEZ LEAL Care Team Personnel Name: Gilmer Little Cleryina Sultana PT Position: P3 Scheduling - Surveillance Analyst Advanced Member Role: Other Name: DAWSON DENNIS DO Position: P4 Physician - Primary Care Member Role: Primary Care Physician Address: Address: [address] [place] [address] Care Team Related Persons Name: TAVARES LEAL Address: Home [address] [place], [place] [id number] [place] Name: SHORT, EMERY Name: SHORT, EMERY Name: HUMPHREY MARTÍNEZ Care Team Personnel Name: Gilmer Little Clerk Kayy PT Position: P3 Scheduling - Surveillance Analyst Advanced Member Role: Other Name: DAWSON DENNIS DO Position: P4 Physician - Primary Care Member Role: Primary Care Physician Address: Address: [address] [place] [id number]- Care Team Related Persons Name: [facility] Address: Home [address] [place], [place] [phone] [place] Name: SHORT, EMERY Name: SHORT, EMERY Name: SHORT, MARTÍNEZ Care Team Personnel Name: Gilmer Little Clerk Kayy PT Position: P3 Scheduling - Surveillance Analyst Advanced Member Role: Other Name: DAWSON DENNIS DO Position: P4 Physician - Primary Care Member Role: Primary Care Physician Address: Address: [address] [place] [address] Care Team Related Persons Name: [facility] Address: Home [address] [place], [place] [id number] [place] Name: SHORT, EMERY Name: SHORT, EMERY Name: SHORT, [facility] Care Team Personnel Name: Gilmer Little Clerk Kayy PT Position: P3 Scheduling - Surveillance Analyst Advanced Member Role: Other Name: DAWSON DENNIS DO Position: P4 Physician - Primary Care Member Role: Primary Care Physician Address: Address: [address] [place] [phone] [place] [address] Care Team Related Persons Name: TAVARES LEAL Address: Home [address] [place], [place] [id number] [place] Name: SHORT, EMERY Name: SHORT, EMERY Name: SHORT, MARTÍNEZ Patient Care team informatio n (unrecognized section and content) Care Team Personnel Name: Gilmer Little Clerk Kayy PT Position: P3 Scheduling - Surveillance Analyst Advanced Member Role: Other Name: DAWSON DENNIS DO Position: P4 Physician - Primary Care Member Role: Primary Care Physician Address: Address: [address] [place] [id number] [place] [address] Care Team Related Persons Name: [facility] Address: Home [address] [place], [place] [id number] [place] Name: SHORT, EMERY Name: SHORT, EMERY Name: SHORT, MARTÍNEZ Care Team Personnel Name: Anabel Ssn/Ssbn Assistant Navigator Kayy PT Position: P3 Scheduling - Surveillance Analyst Advanced Member Role: Other Name: DAWSON DENNIS DO Position: P4 Physician - Primary Care Member Role: Primary Care Physician Address: Address: [address] [place] [address] Care Team Related Persons Name: TAVARES LEAL Address: [address] [phone] [place] Name: SHORT, EMERY Name: SHORT, EMERY Name: SHORT, MARTÍNEZ Care Team Personnel Name: Anabel Ssn/Ssbn Assistant Navigator Kayy PT Position: P3 Scheduling - Surveillance Analyst Advanced Member Role: Other Name: DAWSON DENNIS DO Position: P4 Physician - Primary Care Member Role: Primary Care Physician Address: Address: [address] [place] [address] Care Team Related Persons Name: TAVARES LEAL Address: [address] [phone] [place] Name: SHORT, EMERY Name: SHORT, EMERY Name: SHORT, MARTÍNEZ Care Team Personnel Name: Anabel Ssn/Ssbn Assistant Navigator Kayy PT Position: P3 Scheduling - Surveillance Analyst Advanced Member Role: Other Name: DAWSON DENNIS DO Position: P4 Physician - Primary Care Member Role: Primary Care Physician Address: Address: [address] [place] [address] Care Team Related Persons Name: TAVARES LEAL Address: [address] [phone] [place] Name: SHORT, EMERY Name: SHORT, EMERY Name: SHORT, MARÍTNEZ FOR RECORDS PERTAINING TO PATIENTS WHO ARE OR HAVE BEEN ENROLLED IN A CHEMICAL DEPENDENCY/SUBSTANCEABUSE PROGRAM, SOME INFORMATION MAY BE OMITTED. This clinical summary was aggregated from multiple sources. Caution should be exercised in using it in the provision of clinical care. This summary normalizes information from multiple sources, and as a consequence, information in this document may materially change the coding, format and clinical context of patient data. In addition, data may be omitted in some cases. CLINICAL DECISIONS SHOULD BE BASED ON THE PRIMARY CLINICAL RECORDS. [email or web address]. provides no warranty or guarantee of the accuracy or completeness of information in this document.
== END | disposition home or self-care (01) ==
LOC: LAB 09:10
PROVIDERS: PCP Student in an Organized Health Care Education/Training Program; Referring Provider Otolaryngology Otolaryngology/Facial Plastic Surgery; Visit Provider Otolaryngology Otolaryngology/Facial Plastic Surgery
DX: R22.1 Localized swelling, mass and lump, neck (principal)
CPT/HCPCS: 10021; 88161; 88305

== ENCOUNTER 2025-04-18 05:12 | Day surgery (SDC) | payer BC, SELFPAY ==
--- NOTE | 2025-04-16 17:05 | PAT.ANE_ITS ---
Pre-Assessment Diagnosis/Proposed Procedure Planned Operative Procedure(s): CSCOPE Anesthesia History Anesthesia History - civil structural designer: Anesthesia History - civil structural designer Hx Hospitalization No 04/16/25 12:39 Any Problems With Anesthesia No 04/16/25 12:39 Cholinesterase deficiency No 04/16/25 12:39 You/Your Family Experience No 04/16/25 12:39 fever (hyperthermia) with Relationship Recent Exposure to Contagious Disease Does patient have nerve No 04/16/25 12:39 stimulator Patient instructed to have device shut off --Does patient have Pacemaker or ICD? When Was Last Pacemaker Check QUESTION #4 FULL TEXT: You/Your Family Experience fever (hyperthermia) with Anesthesia Last Oral Intake Last Oral intake: Last Oral Intake NPO since Meds taken in AM with sips of water? Meds patient instructed to take am of surgery PONV PONV - civil structural designer: PONV - civil structural designer Female No 04/16/25 12:39 HX of Motion Sickness No 04/16/25 12:39 HX of N/V After Surgery No 04/16/25 12:39 Non-Smoker Yes 04/16/25 12:39 Duration of Surgery greater No 04/16/25 12:39 than 60 minutes Number of Risk Factors 1 04/16/25 12:39 PONV Score Low Risk 04/16/25 12:39 Height & Weight Height & Weight: Anesthesia: Height & Weight Height 6 ft 2 in 07/22/22 07:57 Respiratory Assessment Respiratory Assessment - civil structural designer: Respiratory Tract Infection Hx - civil structural designer Hx Respiratory Tract Infection No 04/16/25 12:39 STOP Sleep Apnea STOP Sleep Apnea - civil structural designer: STOP Sleep Apnea - civil structural designer Hx Hypertension Yes: CONTROLLED WITH MED 04/16/25 12:39 Hx Sleep Apnea No 04/16/25 12:39 CPAP BIPAP Do you snore loudly (louder No 04/16/25 12:39 than talking or can be heard Do you often feel tired/ Yes 04/16/25 12:39 fatigued/ sleepy during daytime? Has anyone observed you stop No 04/16/25 12:39 breathing during sleep? STOP Results Positive 04/16/25 12:39 QUESTION #5 FULL TEXT : Do you snore loudly (louder than talking or can be heard through closed doors)? Tobacco Use History Tobacco Use History - civil structural designer: Tobacco Use History - civil structural designer Tobacco Use Smoking Status Never smoker 04/16/25 12:39 Hx Tobacco Use No 04/16/25 12:39 Years Smoking Packs Smoked per Day Smoking Cessation Date was within the last 15 years Hx Smoking Cessation Date Hx Smoking Cessation Counseling Hematologic Medial History Hematologic Hx - civil structural designer: Hematologic Medical Hx - make up girl Hx of Blood Transfusion No 04/16/25 12:39 Hx of Transfusion in last 3 No 04/16/25 12:39 Months Date of Last Transfusion (if within last 3 months) Ever experience any problems No 04/16/25 12:39 with transfusion(s)? Specify any problems Hx of Preganancy in last 3 N/A 04/16/25 12:39 Months Nurse Filling Out Transfusion DSCHRIBER 04/16/25 12:39 & Questions: Date: 04/16/25 04/16/25 12:39 Time: 12:41 04/16/25 12:39 Patient unable to answer at this time (ie. 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 arthritis of cervical spine Cyst of left parotid gland Cervical radiculopathy Cervical lymphadenopathy Calcification of left carotid artery Anxiety BERTIN (generalized anxiety disorder) Home Medications Medication Instructions Recorded Last Taken Type atorvastatin 10 mg tablet 10 mg PO DAILY 07/22/22 Unkn own History hydrochlorothiazide 12.5 mg tablet 12.5 mg PO DAILY Unknown History amlodipine 10 mg-olmesartan 40 mg 1 tab PO QDAY Unknown History tablet apixaban 5 mg tablet 5 mg PO BID 09/18/2404/14/ 5 History buspirone 10 mg tablet 10 mg PO BID 09/18/24 Unknow n History cholecalciferol (vitamin D3) 100 100 mcg PO QDAY 09/18 Unknown History mcg (4,000 unit) tablet cyanocobalamin (vitamin B-12) 500 500 mcg PO QDAY 02/18 11/11 Unknown History mcg tablet tirzepatide 7.5 mg/0.5 mL 7.5 mg subcut MO 03/14/25 History subcutaneous pen injector (Dung) Allergy/AdvReac Type Severity Reaction Status Date / Time No Known Allergies Allergy Verified 04/16/25 12:37 Family History (Updated 03/14/25 @ 10:49 by Chey Cook) Brother Asthma Diabetes Mother Cancer Hodgkin's lymphoma Father CAD (coronary artery disease) Diabetes Hypertension Surgical History (Updated 04/16/25 @ 12:46 by Crystal Young) Hx of colonoscopy H/O uvulectomy Social History (Updated 03/14/25 @ 10:49 by Chey Cook) Smoking Status: Never smoker alcohol intake: current alcohol intake frequency: holidays/special occasions only Alcohol type: wine substance use type: does not use what type of physical activity do you participate in: walking and other details: golf frequency: 5-6 times per week Audit: Pertinent Findings Pertinent Findings EKG Perinent findings: EKG 07/08/2015. Sinus bradycardia. Recommendation Anesthesia Recommendation Anesthesia recommendation: OPTIMIZED for anesthesia
[2025-04-18] VITALS (7 sets, daily range): BP systolic 111–122; BP diastolic 69–86; PULSE 56–70; RESP 16; TEMP 36.3–36.7; O2SAT 100; BMI 30.4
--- OUTSIDE RECORDS SUMMARY | 2025-04-18 05:28 | XMS RPT_ITS | CCD ---
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 Name Role Phone SONNY BLANCHARD, DR OSMAN Primary Care Physician [phone] Anabel PT, Kayy Unavailable Unavailable ROMAR DO, DR OSAMN Primary Care Unavailable ROMAR DO, DR OSMAN Attending Unavailable ROMAR DO, DR OSMAN Primary Care Unavailable ROMAR DO, DR OSMAN Attending Unavailable ROMAR DO, DR OSMAN Primary Care Unavailable ROMAR DO, DR OSMAN Attending Unavailable CLOLINS MORRISSEY Attending Unavailable ROMAR DO, DR OSMAN Primary Care Unavailable ROMAR DO, DR OSMAN Primary Care Unavailable GISELE GARCIA, DR OSMAN Attending Unavailab le ROMAR DO, DR OSMAN Primary Care Unavailable ROMAR DO, DR OSMAN Attending Unavailable ROMAR DO, DR OSMAN Attending Unavailable ROMAR DO, DR OSMAN Primary Care Unavailable TERRA DO, DR RAMIRES Referring Unavailable TERRA DO, DR RAMIRES Attending Unavailable LOGAN, RAY Consulting Unavailable CAROLER SMALL ORDER CUTTER-LATENT PRINT EXAMINER, KAYY M Admitting Unavaila ble ROMAR DO, DR OSMAN Primary Care Unavailable ROMAR DO, DR OSMNA Primary Care Unavailable ROMAR DO, DR OSMAN [...] ROMAR DO, DR OSMAN Primary Care Unavailable DILIA SMALL ORDER CUTTER-LATENT PRINT EXAMINER, MONALISA Attending Unavai lable ROMAR DO, DR OSMAN Primary Care Unavailable ROMAR DO, DR OSMAN Attending Unavailable ROMAR DO, DR OSMAN Attending Unavailable ROMAR DO, DR OSMAN Primary Care Unavailable ROMAR DO, DR OSMAN Attending Unavailable ROMAR DO, DR OSMAN Primary Care Unavailable ROMAR DO, DR OSMAN Primary Care Unavailable SEBILLE SMALL ORDER CUTTER-LATENT PRINT EXAMINER, MONALISA Attending Unavai lable ROMAR DO, DR OSMAN Attending Unavailable ROMAR DO, DR OSMAN Primary Care Unavailable SEBILLE SMALL ORDER CUTTER-LATENT PRINT EXAMINER, MONALISA Attending Unavai lable ROMAR DO, DR OSMAN Primary Care Unavailable ROMAR DO, DR OSMAN Primary Care Unavailable SOFYA TUCKER MD Attending Unavailable ROMAR DO, DR OSMAN Attending Unavailable ROMAR DO, DR OSMAN Primary Care Unavailable ROMAR DO, DR OSMAN Attending Unavailable ROMAR DO, DR OSMAN Primary Care Unavailable ROMAR DO, DR OSMAN Attending Unavailable ROMAR DO, DR OSMAN Primary Care Unavailable ROMAR DO, DR OSMAN [facility] Care Unavailable ROMAR DO, DR OSMAN Attending Unavailable ROMAR DO, DR OSMAN [facility] Care Unavailable ROMAR DO, DR OSMAN Attending Unavailable ROMAR DO, DR OSMAN Primary Care Unavailable ROMAR DO, DR OSMAN Attending Unavailable TIFFANIE BURTON MD Attending Unavailable ROMAR DO, DR OSMAN [facility] Care Unavailable ROMAR DO, DR OSMAN Attending Unavailable ROMAR DO, DR OSMAN Primary Care Unavailable TIFFANIE BURTON MD Attending Unavailable ROMAR DO, DR OSMAN Primary Care Unavailable ROMAR DO, DR OSMAN Attending Unavailable ROMAR DO, DR OSMAN [facility] Care Unavailable ROMAR DO, DR OSMAN Attending Unavailable ROMAR DO, DR OSMAN Primary Care Unavailable ROMAR DO, DR OSMAN Attending Unavailable ROMAR DO, DR OSMAN Primary Care Unavailable Ubaldo Jules Attending Unavailable AjitharKermit Referring Unavailable Romar, Kermit Primary Care Unavailable Kermit Dennis Referring Unavailable Romar, Kermit Primary Care Unavailable Daylin Woody Attending Unavailable Medications Current Medications Medication Drug Class(es) Dates Sig (Normalized) Sig (Original) albuterol MDI (90 mcg/inh) CFC free inhalation aerosol (2 sources) Start: 12-07-2023 take 1 puff(s) by inhalation every four hours as needed for wheezing albuterol MDI (90 mcg/inh) CFC free inhalation aerosol 1 puff(s), Inhalation, q4h, PRN as needed for wheezing, # 18 gram(s), 0 Refill(s), [id number] 188, cm, 12/04/23 9:43:00 EDT, Height, kg, 12/05/23 6:41:00 EDT, Dosing Weight Start Date: 12/07/23 Status: Ordered amLODIPine 10 mg / benazepril hydrochloride 20 mg oral capsule (14 sources) Dihydropyridine Calcium Channel Jenni, Angiotensin Converting Enzyme Inhibitor Start: 08-23-2023 take 1 capsule by mouth once daily amlodipine-benaz epril 10 mg-20 mg oral capsule Dose = 1 cap(s), Oral, qDay, # 90 cap(s), 1 Refill(s), [id number] 183.5, cm, 08/23/23 15:37:00 EST, Height, kg, 08/23/23 15:37:00 EST, Dosing Weight Start Date: 08/23/23 Status: Ordered Start: 03-21-2023 take 1 capsule by [facility] once daily amlodipine-benazepril 10 mg-20 mg oral capsule Dose = 1 cap(s), Oral, qDay, # 90 cap(s), 1 Refill(s), Pharmacy: Pharmacy, 187, cm, 03/15/23 8:32:00 EDT, Height, kg, 03/15/23 8:32:00 EDT, Dosing Weight Start Date: 03/21/23 Status: Ordered Start: 06-23-2022 take 1 capsule by [facility] once daily amlodipine-benazepril 10 mg-20 mg oral capsule Dose = 1 cap(s), Oral, qDay, # 90 cap(s), 1 Refill(s), Pharmacy: Pharmacy, 184, cm, 06/23/22 8:21:00 EST, Height, kg, 06/23/22 8:21:00 EST, Dosing Weight Start Date: 06/23/22 Status: Ordered Start: 01-21-2022 take 1 capsule by [facility] once daily amlodipine-benazepril 10 mg-20 mg oral capsule Dose = 1 cap(s), Oral, qDay, # 90 cap(s), 1 Refill(s), Pharmacy: Pharmacy, 185, cm, 01/21/22 8:02:00 EDT, Height, kg, 01/21/22 8:02:00 EDT, Dosing Weight Start Date: 01/21/22 Status: Ordered Start: 06-17-2021 take 1 capsule by [facility] once daily amlodipine-benazepril 10 mg-20 mg oral capsule Dose = 1 cap(s), Oral, qDay, Temporary supply. Awaiting mail order delivery., # 90 cap(s), 0 Refill(s), Pharmacy: Pharmacy, 185, cm, 08/13/21 8:03:00 EST, Height, kg, 08/13/21 8:03:00 EST, Dosing Weight Start Date: 01/07/22 Status: Ordered amLODIPine 10 mg / olmesartan medoxomil 40 mg oral tablet (18 sources) Dihydropyridine Calcium Channel Jenni, Angiotensin 2 Receptor Jenni Start: 05-01-2024 End: 03-12-2025 take 1 tablet by mouth once daily amlodipine-olmesartan 10 mg-40 mg oral tablet Dose = 1 tab(s), Oral, qDay, # 90 tab(s), 1 Refill(s), [id number], 188, cm, 09/13/24 16:36:00 EDT, Height, kg, 09/13/24 16:36:00 EDT, Dosing Weight Start Date: 09/13/24 Stop Date: 03/12/25 Status: Ordered Quantity: 90.0 Unit: tab(s) Repeat number: 2 Start: 02-16-2024 End: 09-03-2024 take 1 tablet by mouth once daily amlodipine-olmesartan 5 mg-40 mg oral tablet Dose = 1 tab(s), Oral, qDay, # 100 tab(s), 1 Refill(s), [id number], 185.2, cm, 02/16/24 8:03:00 EDT, Height, kg, 02/16/24 7:55:00 EDT, Dosing Weight Start Date: 02/16/24 Stop Date: 09/03/24 Status: Ordered Start: 11-03-2023 End: 02-11-2024 take 1 tablet by mouth once daily amlodipine-olmesartan 5 mg-40 mg oral tablet Dose = 1 tab(s), Oral, qDay, # 100 tab(s), 0 Refill(s), Pharmacy: [facility]/pharmacy #[id number], 163.5, cm, 11/03/23 9:02:00 EDT, Height, kg, 11/03/23 9:02:00 EDT, Dosing Weight Start Date: 11/03/23 Stop Date: 02/11/24 Status: Ordered Start: 09-30-2023 End: 10-30-2023 take 1 tablet by mouth once daily amlodipine-olmesartan 5 mg-40 mg oral tablet Dose = 1 tab(s), Oral, qDay, # 30 tab(s), 0 Refill(s), Pharmacy: [facility] #[id number], 188, cm, 09/30/23 15:14:00 EDT, Height, kg, 09/30/23 15:14:00 EDT, Dosing Weight Start Date: 09/30/23 Stop Date: 10/30/23 Status: Ordered amoxicillin 875 mg / clavulanate 125 mg oral tablet (1 source) Penicillin-class Antibacterial Start: 12-09-2023 End: 12-19-2023 take 1 tablet by mouth every twelve hours at mealtime amoxicillin-clavulanate 875 mg-125 mg oral tablet 1 tab(s), Oral, q12h, with food or milk, X 10 day(s), # 20 tab(s), 0 Refill(s), 12/19/23 9:52:00 AM EDT, Pharmacy: [facility]/pharmacy #[id number], 185.2, cm, 12/09/23 9:02:00 EDT, Height, 111, kg, 12/09/23 9:02:00 EDT, Dosing Weight Start Date: 12/09/23 Stop Date: 12/19/23 Status: Ordered apixaban 5 mg oral tablet (17 sources) Factor Xa Inhibitor Start: 09-13-2024 End: 03-12-2025 apixaban 5 mg oral tablet Dose : 5 mg = 1 tab(s), Oral, BID, # 180 tab(s), 1 Refill(s), Pharmacy: [facility] #[id number], 188, cm, 09/13/24 16:36:00 EDT, Height, 119.1, kg, 09/13/24 16:36:00 EDT, Dosing Weight Start Date: 09/13/24 Stop Date: 03/12/25 Status: Ordered Quantity: 180.0 Unit: tab(s) Repeat number: 2 Start: 12-16-2023 End: 07-30-2024 apixaban 5 mg oral tablet Do se : 5 mg = 1 tab(s), Oral, BID, # 180 tab(s), 0 Refill(s), Pharmacy: [facility]/pharmacy #[id number], 185.2, cm, 05/01/24 8:30:00 EST, Height, 113.3, kg, 05/01/24 8:29:00 EST, Dosing Weight Start Date: 05/01/24 Stop Date: 07/30/24 Status: Ordered Quantity: 180.0 Unit: tab(s) Repeat number: 1 Start: 12-07-2023 apixaban 5 mg oral tablet Dose : 10 mg = 2 tab(s), Oral, BID, as directed on package labeling, # 22 tab(s), 0 Refill(s), Pharmacy: [facility] #[id number], 188, cm, 12/04/23 9:43:00 EDT, Height, 112.3, kg, 12/05/23 6:41:00 EDT, Dosing Weight Start Date: 12/07/23 Status: Ordered atorvastatin 10 mg oral tablet (20 sources) HMG-CoA Reductase Inhibitor Start: 09-13-2024 End: 04-01-2025 atorvastatin 10 mg oral tablet Dose : 10 mg = 1 tab(s), Oral, qPM, # 100 tab(s), 1 Refill(s), Pharmacy: [facility]/pharmacy #[id number], 188, cm, 09/13/24 16:36:00 EDT, Height, kg, 09/13/24 16:36:00 EDT, Dosing Weight Start Date: 09/13/24 Stop Date: 04/01/25 Status: Ordered Quantity: 100.0 Unit: tab(s) Repeat number: 2 Start: 02-16-2024 End: 09-03-2024 atorvastatin 10 mg oral tabl et Dose : 10 mg = 1 tab(s), Oral, qPM, # 100 tab(s), 1 Refill(s), [id number], 185.2, cm, 02/16/24 8:03:00 EDT, Height, kg, 02/16/24 7:55:00 EDT, Dosing Weight Start Date: 02/16/24 Stop Date: 09/03/24 Status: Ordered Quantity: 100.0 Unit: tab(s) Repeat number: 2 Start: 08-23-2023 atorvastatin 1 0 mg oral tablet Dose : 10 mg = 1 tab(s), Oral, qPM, # 90 tab(s), 1 Refill(s), [id number], 183.5, cm, 08/23/23 15:37:00 EST, Height, kg, 08/23/23 15:37:00 EST, Dosing Weight Start Date: 08/23/23 Status: Ordered Start: 03-21-2023 atorvastatin 1 0 mg oral tablet Dose : 10 mg = 1 tab(s), Oral, qPM, # 90 tab(s), 1 Refill(s), Pharmacy: Pharmacy, 187, cm, 03/15/23 8:32:00 EDT, Height, kg, 03/15/23 8:32:00 EDT, Dosing Weight Start Date: 03/21/23 Status: Ordered Start: 06-23-2022 atorvastatin 1 0 mg oral tablet Dose : 10 mg = 1 tab(s), Oral, qPM, # 90 tab(s), 1 Refill(s), Pharmacy: Pharmacy, 184, cm, 06/23/22 8:21:00 EST, Height, kg, 06/23/22 8:21:00 EST, Dosing Weight Start Date: 06/23/22 Status: Ordered Start: 01-21-2022 atorvastatin 1 0 mg oral tablet Dose : 10 mg = 1 tab(s), Oral, qPM, # 90 tab(s), 1 Refill(s), Pharmacy: Pharmacy, 185, cm, 01/21/22 8:02:00 EDT, Height, kg, 01/21/22 8:02:00 EDT, Dosing Weight Start Date: 01/21/22 Status: Ordered Start: 12-07-2021 atorvastatin 1 0 mg oral tablet Dose : 10 mg = 1 tab(s), Oral, qPM, # 90 tab(s), 0 Refill(s), Pharmacy: Pharmacy, 185, cm, 08/13/21 8:03:00 EST, Height, kg, 08/13/21 8:03:00 EST, Dosing Weight Start Date: 12/07/21 Status: Ordered Start: 08-13-2021 End: 10-12-2021 atorvastatin 10 mg oral tabl et Dose : 10 mg = 1 tab(s), Oral, qPM, # 60 tab(s), 0 Refill(s), [id number], 185, cm, 08/13/21 8:03:00 EST, Height, kg, 08/13/21 8:03:00 EST, Dosing Weight Start Date: 08/13/21 Stop Date: 10/12/21 Status: Ordered busPIRone hydrochloride 10 m g oral tablet (20 sources) Start: 09-13-2024 End: 04-01-2025 busPIRone 10 mg oral tablet Dose : 10 mg = 1 tab(s), Oral, BID, # 200 tab(s), 1 Refill(s), [id number], 188, cm, 09/13/24 16:36:00 EDT, Height, kg, 09/13/24 16:36:00 EDT, Dosing Weight Start Date: 09/13/24 Stop Date: 04/01/25 Status: Ordered Quantity: 200.0 Unit: tab(s) Repeat number: 2 Start: 08-23-2023 End: 09-03-2024 busPIRone 10 mg oral tablet Dose : 10 mg = 1 tab(s), Oral, BID, # 200 tab(s), 1 Refill(s), [id number], 185.2, cm, 02/16/24 8:03:00 EDT, Height, kg, 02/16/24 7:55:00 EDT, Dosing Weight Start Date: 02/16/24 Stop Date: 09/03/24 Status: Ordered Quantity: 200.0 Unit: tab(s) Repeat number: 2 Start: 07-20-2022 End: 03-13-2023 busPIRone 10 mg oral tablet Dose : 10 mg = 1 tab(s), Oral, BID, # 180 tab(s), 1 Refill(s), [id number], 185, cm, 09/14/22 8:32:00 EDT, Height, kg, 09/14/22 8:32:00 EDT, Dosing Weight Start Date: 09/14/22 Stop Date: 03/13/23 Status: Ordered cefdinir 300 mg oral capsule (1 source) Cephalosporin Antibacterial Start: 12-07-2023 End: 12-12-2023 cefdinir 300 mg oral capsule Dose : 300 mg = 1 cap(s), Oral, q12h, X 5 day(s), # 10 cap(s), 0 Refill(s), 12/12/23 9:00:00 PM EDT, [id number], 188, cm, 12/04/23 9:43:00 EDT, Height, 112.3, kg, 12/05/23 6:41:00 EDT, Dosing Weight Start Date: 12/07/23 Stop Date: 12/12/23 Status: Ordered cholecalciferol 0.1 mg oral tablet (15 sources) Vitamin D Start: 02-16-2024 End: 03-22-2025 cholecalciferol 100 mcg (4000 intl units) oral tablet Dose : 100 mcg = 1 tab(s), Oral, qDayM, with food, # 100 tab(s), 3 Refill(s), [id number], 185.2, cm, 02/16/24 8:03:00 EDT, Height, kg, 02/16/24 7:55:00 EDT, Dosing Weight Start Date: 02/16/24 Stop Date: 03/22/25 Status: Ordered Quantity: 100.0 Unit: tab(s) Repeat number: 4 Start: 10-17-2023 End: 01-25-2024 cholecalciferol 100 mcg (400 0 intl units) oral tablet Dose : 100 mcg = 1 tab(s), Oral, qDayM, with food, # 100 tab(s), 0 Refill(s), [id number], 182, cm, 10/07/23 11:01:00 EDT, Height, kg, 10/07/23 11:01:00 EDT, Dosing Weight Start Date: 10/17/23 Stop Date: 01/25/24 Status: Ordered ciclopirox 80 mg/ml topical solution (2 sources) Start: 03-15-2023 End: 01-15-2025 ciclopirox 8% topical solution Apply 1 jose angel, Topical, Daily, apply to affected toenails and surrounding area once daily, remove with alcohol every 7 days prior to reapplication, Apply to: toenails, X 48 week(s), # 6.6 mL, 1 Refill(s), Pharmacy: Pharmacy, 187, cm, 03/15/23 8:32:00 EDT, Height, 106.7, kg, 03/15/23 8:32:00 EDT, Dosing Weight Start Date: 03/15/23 Stop Date: 01/15/25 Status: Ordered codeine phosphate 2 mg/ml / guaiFENesin 20 mg/ml oral solution (1 source) Opioid Agonist Start: 06-15-2023 End: 06-22-2023 take 1 dose by mouth every four hours as needed for cough codeine-guaifenesin 10 mg-100 mg/5 mL oral syrup Dose = 5 mL, Oral, q4h, PRN as needed for cough, X 7 day(s), # 120 mL, 0 Refill(s), [id number], Sinusitis Acute bronchitis, 185.5, cm, 06/15/23 17:02:00 EST, Height, 107.9, kg, 06/15/23 17:02:00 EST, Dosing Weight Start Date: 06/15/23 Stop Date: 06/22/23 Status: Ordered dexamethasone 0.001 mg/mg / neomycin 0.0035 mg/mg / polymyxin b 10 unt/mg ophthalmic ointment (1 source) Aminoglycoside Antibacterial, Polymyxin-class Antibacterial, Corticosteroid Start: 07-28-2020 dexamethasone/neomycin /polymyxin B 1 mg-3.5 mg-10,000 units/g ophthalmic ointment 0 Refill(s) Start Date: 07/28/20 Status: Ordered dexamethasone/neomycin/ polymyxin B 1 mg-3.5 mg-10,000 units/g ophthalmic ointment (1 source) Start: 07-28-2020 dexamethasone/neomycin /polymyxin B 1 mg-3.5 mg-10,000 units/g ophthalmic ointment 0 Refill(s) Start Date: 07/28/20 Status: Ordered dextromethorphan hydrobromide 4 mg/ml / guaiFENesin 80 mg/ml oral solution (1 source) Uncompetitive Y-hrerhp-F-asparta te Receptor Antagonist, Sigma-1 Agonist Start: 12-09-2023 End: 01-06-2024 dextromethorphan-guaif enesin 20 mg-400 mg/5 mL oral liquid Dose = 5 mL, Oral, q4h, PRN Cough and congestion, not to exceed 6 doses/day. Do not take any other OTC medications containing dextromethorphan, mucinex, or guaifenesin while on this medication., X 14 day(s), # 120 mL, 1 Refill(s), Pharmacy: [facility]acy #[id number], 185.2, cm, 12/09/23 9:02:00 EDT, Height, kg, 12/09/23 9:02:00 EDT, Dosing Weight Start Date: 12/09/23 Stop Date: 01/06/24 Status: Ordered DME MISCellaneous (2 sources) Start: 11-03-2023 DME MISCellaneous See Instructions, BP cuff and machine, Dx: I10, # 1 EA, 0 Refill(s), 110.8 Start Date: 11/03/23 Status: Ordered 12 hr guaiFENesin 600 mg extended release oral tablet (1 source) Start: 12-07-2023 End: 12-08-2023 Mucinex 600 mg oral tablet, extended release Dose : 1,200 mg = 2 tab(s), Oral, BID, # 20 tab(s), 0 Refill(s), 12/08/23 12:50:00 PM EDT, Pharmacy: [facility] #[id number], 188, cm, 12/04/23 9:43:00 EDT, Height, kg, 12/05/23 6:41:00 EDT, Dosing Weight Start Date: 12/07/23 Stop Date: 12/08/23 Status: Ordered hydroCHLOROthiazide 12.5 mg oral capsule (20 sources) Thiazide Diuretic Start: 09-13-2024 End: 04-01-2025 hydroCHLOROthiazide 12.5 mg oral capsule Dose : 12.5 mg = 1 cap(s), Oral, qDay, # 100 cap(s), 1 Refill(s), [id number], 188, cm, 09/13/24 16:36:00 EDT, Height, kg, 09/13/24 16:36:00 EDT, Dosing Weight Start Date: 09/13/24 Stop Date: 04/01/25 Status: Ordered Quantity: 100.0 Unit: cap(s) Repeat number: 2 Start: 08-23-2023 End: 09-03-2024 hydroCHLOROthiazide 12.5 mg oral capsule Dose : 12.5 mg = 1 cap(s), Oral, qDay, # 100 cap(s), 1 Refill(s), [id number], 185.2, cm, 02/16/24 8:03:00 EDT, Height, kg, 02/16/24 7:55:00 EDT, Dosing Weight Start Date: 02/16/24 Stop Date: 09/03/24 Status: Ordered Quantity: 100.0 Unit: cap(s) Repeat number: 2 Start: 07-12-2023 hydroCHLOROthi azide 12.5 mg oral capsule Dose : 12.5 mg = 1 cap(s), Oral, qDay, # 90 cap(s), 0 Refill(s), [id number], 185.5, cm, 07/01/23 16:02:00 EST, Height, kg, 07/01/23 16:02:00 EST, Dosing Weight Start Date: 07/12/23 Status: Ordered Start: 04-19-2023 hydroCHLOROthi azide 12.5 mg oral capsule Dose : 12.5 mg = 1 cap(s), Oral, qDay, # 90 cap(s), 1 Refill(s), Pharmacy: Pharmacy, 187, cm, 03/15/23 8:32:00 EDT, Height, kg, 03/15/23 8:32:00 EDT, Dosing Weight Start Date: 04/19/23 Status: Ordered Start: 06-23-2022 hydroCHLOROthi azide 12.5 mg oral capsule Dose : 12.5 mg = 1 cap(s), Oral, qDay, # 90 cap(s), 1 Refill(s), Pharmacy: Pharmacy, 184, cm, 06/23/22 8:21:00 EST, Height, kg, 06/23/22 8:21:00 EST, Dosing Weight Start Date: 06/23/22 Status: Ordered Start: 01-21-2022 hydroCHLOROthi azide 12.5 mg oral capsule Dose : 12.5 mg = 1 cap(s), Oral, qDay, # 90 cap(s), 1 Refill(s), Pharmacy: Pharmacy, 185, cm, 01/21/22 8:02:00 EDT, Height, kg, 01/21/22 8:02:00 EDT, Dosing Weight Start Date: 01/21/22 Status: Ordered Start: 12-07-2021 hydroCHLOROthi azide 12.5 mg oral capsule Dose : 12.5 mg = 1 cap(s), Oral, qDay, # 90 cap(s), 0 Refill(s), Pharmacy: Pharmacy, 185, cm, 08/13/21 8:03:00 EST, Height, kg, 08/13/21 8:03:00 EST, Dosing Weight Start Date: 12/07/21 Status: Ordered Start: 06-17-2021 hydroCHLOROthi azide 12.5 mg oral capsule Dose : 12.5 mg = 1 cap(s), Oral, qDay, # 90 cap(s), 0 Refill(s), Pharmacy: Pharmacy, 188, cm, 09/05/20 8:20:00 EDT, Height, kg, 09/05/20 8:20:00 EDT, Dosing Weight Start Date: 06/17/21 Status: Ordered levoFLOXacin 750 mg oral tablet (1 source) Quinolone Antimicrobial Start: 06-15-2023 End: 06-25-2023 levoFLOXacin 750 mg oral tablet Dose : 750 mg = 1 tab(s), Oral, q24h, X 10 day(s), # 10 tab(s), 0 Refill(s), 1/6/24 6:07:00 PM EST, [id number], Sinusitis Acute bronchitis, 185.5, cm, 06/15/23 17:02:00 EST, Height, 107.9, kg, 06/15/23 17:02:00 EST, Dosing Weight Start Date: 06/15/23 Stop Date: 06/25/23 Status: Ordered loratadine 10 mg oral tablet (4 sources) Start: 06-29-2023 End: 12-26-2023 loratadine 10 mg oral tablet Dose : 10 mg = 1 tab(s), Oral, qDay, PRN as needed for allergy symptoms, # 90 tab(s), 1 Refill(s), [id number], 185.5, cm, 06/15/23 17:02:00 EST, Height, kg, 06/15/23 17:02:00 EST, Dosing Weight Start Date: 06/29/23 Stop Date: 12/26/23 Status: Ordered Start: 09-05-2020 Claritin 10 mg oral tablet Dose : 10 mg = 1 tab(s), Oral, qDay, # 30 tab(s), 11 Refill(s), [id number], Allergic rhinitis, 188, cm, 09/05/20 8:20:00 EDT, Height, kg, 09/05/20 8:20:00 EDT, Dosing Weight Start Date: 09/05/20 Status: Ordered ondansetron 4 mg oral tablet (4 sources) Serotonin-3 Receptor Antagonist Start: 12-07-2023 End: 12-08-2023 Zofran 4 mg oral tablet Dose : 4 mg = 1 tab(s), Oral, q8h, PRN Nausea/Vomiting, # 15 tab(s), 0 Refill(s), 12/08/23 12:47:00 PM EDT, [id number], 188, cm, 12/04/23 9:43:00 EDT, Height, kg, 12/05/23 6:41:00 EDT, Dosing Weight Start Date: 12/07/23 Stop Date: 12/08/23 Status: Ordered Start: 06-23-2022 End: 07-07-2022 ondansetron 4 mg oral tablet , disintegrating Dose : 4 mg = 1 tab(s), Oral, q8h, PRN Nausea, allow tablet to dissolve on tongue, X 14 day(s), # 42 tab(s), 0 Refill(s), 07/07/22 8:49:00 EST, Pharmacy: [facility]/pharmacy #[id number], 184, cm, 06/23/22 8:21:00 EST, Height, kg, 06/23/22 8:21:00 EST, Dosing Weight Start Date: 06/23/22 Stop Date: 07/07/22 Status: Ordered Start: 06-15-2022 End: 06-20-2022 ondansetron 4 mg oral tablet , disintegrating Dose : 4 mg = 1 tab(s), Oral, q8h, PRN Nausea, allow tablet to dissolve on tongue, X 5 day(s), # 15 tab(s), 0 Refill(s), 06/20/22 9:12:00 EST, [id number] 184, cm, 06/01/22 10:48:00 EST, Height, kg, 06/01/22 10:48:00 EST, Dosing Weight Start Date: 06/15/22 Stop Date: 06/20/22 Status: Ordered predniSONE 10 mg oral tablet (4 sources) Start: 11-03-2023 End: 11-11-2023 prednisone 10mg tab (TAPER) Taper 40-30-20-10 x 2 days each dose, Oral, qDayM, Take with food/meal. No NSAIDs while on this med., # 20 tab(s), 0 Refill(s), Pharmacy: [facility]/pharmacy #[id number], 163.5, cm, 11/03/23 9:02:00 EDT, Height, kg, 11/03/23 9:02:00 EDT, Dosing Weight Start Date: 11/03/23 Stop Date: 11/11/23 Status: Ordered Start: 09-30-2023 End: 10-08-2023 prednisone 10mg tab (TAPER) Taper 40-30-20-10 x 2 days each dose, Oral, qDayM, Take with food/meal. No NSAIDs while on this med., # 20 tab(s), 0 Refill(s), [id number] 188, cm, 09/30/23 15:14:00 EDT, Height, kg, 09/30/23 15:14:00 EDT, Dosing Weight Start Date: 09/30/23 Stop Date: 10/08/23 Status: Ordered Start: 07-01-2023 End: 07-09-2023 prednisone 10mg tab (TAPER) Taper 40-30-20-10 x 2 days each dose, Oral, qDayM, No NSAIDs while on med., # 20 tab(s), 0 Refill(s), [id number] 185.5, cm, 07/01/23 16:02:00 EST, Height, kg, 07/01/23 16:02:00 EST, Dosing Weight Start Date: 07/01/23 Stop Date: 07/09/23 Status: Ordered sertraline 100 mg oral tablet (3 sources) Serotonin Reuptake Inhibitor Start: 06-23-2022 sertraline 100 mg or al tablet Dose : 100 mg = 1 tab(s), Oral, qDay, # 90 tab(s), 0 Refill(s), Pharmacy: Pharmacy, 184, cm, 06/23/22 8:21:00 EST, Height, kg, 06/23/22 8:21:00 EST, Dosing Weight Start Date: 06/23/22 Status: Ordered Start: 06-01-2022 take 0.5 tablet by m outh once daily, then take 1 tablet by mouth once daily, then take 2 tablets by mouth once daily sertraline 50 mg oral tablet See Instructions, Take 1/2 tablet daily for 4 days, then 1 tablet daily for 1 week, then 2 tablets daily, # 60 tab(s), 3 Refill(s), [id number] 184, cm, 06/01/22 10:48:00 EST, Height Start Date: 06/01/22 Status: Ordered vitamin b12 0.5 mg sublingual tablet (16 sources) Vitamin B12 Start: 11-03-2023 End: 01-24-2025 cyanocobalamin 500 mcg sublingual tablet Dose : 500 mcg = 1 tab(s), Sublingual, qDay, dissolve under the tongue, # 90 tab(s), 0 Refill(s), Pharmacy: [facility]/pharmacy #[id number], 188, cm, 09/13/24 16:36:00 EDT, Height, kg, 09/13/24 16:36:00 EDT, Dosing Weight Start Date: 09/13/24 Stop Date: 12/12/24 Status: Ordered Quantity: 90.0 Unit: tab(s) Repeat number: 1 Vitamin D3 125 mcg (5000 intl units) oral capsule (3 sources) Start: 09-13-2024 Vitamin D3 125 mcg (5000 intl units) oral capsule Dose : 125 mcg = 1 cap(s), Oral, qDay, # 100 cap(s), 0 Refill(s) Start Date: 09/13/24 Status: Ordered Quantity: 100.0 Unit: cap(s) Repeat number: 1 Completed/Discontinued Medications Medication Drug Class(es) Dates Sig (Normalized) Sig (Original) 0.25 MG, 0.5 MG Dose 3 ML semaglutide 0.68 MG/ML Pen Injector (3 sources) Start: 08-07-2024 End: 09-06-2024 inject 0.5 mg by subcutaneous injection every week semaglutide 2 mg/3 mL (0.25 mg or 0.5 mg dose) subcutaneous solution Dose : 0.5 mg =, Subcutaneous, qWeek, rotate injection sites, # 5 EA, 0 Refill(s), Pharmacy: [facility], 183.5, cm, 07/03/24 8:01:00 EST, Height, kg, 07/03/24 7:55:00 EST, Dosing Weight Start Date: 08/07/24 Stop Date: 09/06/24 Status: Ordered Quantity: 5.0 Unit: EA Repeat number: 1 Start: 07-06-2024 semaglutide 2 mg/3 mL (0.25 mg or 0.5 mg dose) subcutaneous solution See Instructions, 0.25 mg Subcutaneous qWeek, # 3 mL, 0 Refill(s), Pharmacy: [facility], 183.5, cm, 07/03/24 8:01:00 EST, Height, kg, 07/03/24 7:55:00 EST, Dosing Weight Start Date: 07/06/24 Status: Ordered Quantity: 3.0 Unit: mL Repeat number: 1 Problems Active Problems Problem Classification Problem Date Documented Date Episodic/Chronic Abdominal pain (20 sources) Generalized abdominal pain; Translations: [Generalized abdominal pain] 06-23-2022 Episodic Acute and chronic tonsillitis (20 sources) Enlarged tonsil 05-30-2023 Chronic Acute bronchitis (3 sources) Acute bronchitis 06-15-2023 Episodic Adjustment disorders (20 sources) Caregiver stress syndrome 08-05-2021 Chronic Anxiety disorders (20 sources) Anxiety; Translations: [Anxiety disorder] Onset: 4 06-01-2022 Chronic Calculus of urinary tract (5 sources) Kidney stone 07-25-2024 Episodic Chronic kidney disease (20 sources) Chronic kidney disease stage 2; Translations: [Chronic kidney disease stage 3A ] Onset: 4 08-05-2021 Chronic Deficiency and other anemia (4 sources) Anemia; Translations: [Anemia, unspecified] Onset: 4 07-02-2022 Episodic Deficiency and other anemia (19 sources) Normocytic anemia 08-22-2023 Episodic Diabetes mellitus without complication (20 sources) Type 2 diabetes mellitus controlled by diet; Translations: [Type 2 diabetes mellitus without complication] Onset: 4 08-22-2023 Chronic Diabetes mellitus without complication (20 sources) Prediabetes 03-15-2023 Episodic Diseases of mouth; excluding dental (20 sources) Cyst of left parotid gland 05-23-2023 Episodic Diseases of white blood cells (20 sources) Neutropenia 08-25-2022 Chronic Disorders of lipid metabolism (7 sources) Hyperlipidemia 05-01-2024 Chronic Essential hypertension (20 sources) Benign essential hypertension; Translations: [Hypertensive disorder] Onset: 3 03-16-2019 Chronic Genitourinary symptoms and ill-defined conditions (15 sources) Nocturia 2023 Episodic Lymphadenitis (20 sources) Cervical lymphadenopathy 05-30-2023 Episodic Mycoses (20 sources) Onychomycosis of toenails 03-15-2023 Episodic Nausea and vomiting (16 sources) Nausea and vomiting; Translations: [Nausea with vomiting, unspecified] Onset: Episodic Nonspecific chest pain (20 sources) Chest discomfort 08-25-2021 Episodic Nutritional deficiencies (19 sources) Vitamin D deficiency; Translations: [Vitamin D deficiency, unspecified] 10-17-2023 Chronic Nutritional deficiencies (20 sources) Cobalamin deficiency; Translations: [Vitamin B deficiency] 08-22-2023 Episodic Osteoarthritis (20 sources) Osteoarthritis of right sternoclavicular joint; Translations: [Localized, primary osteoarthritis of the shoulder region] 05-30-2023 Chronic Other aftercare (1 source) Long-term current use of anticoagulant; 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] Onset: 4 Episodic Other aftercare (1 source) Other intermediate manager (current) drug therapy; Translations: [Other intermediate manager (current) drug therapy] Onset: 5 Episodic Other aftercare (1 source) Encounter for therapeutic drug level monitoring; Translations: [Encounter for therapeutic drug level monitoring] Onset: 5 Episodic Other and unspecified benign neoplasm (20 sources) Adenolymphoma 05-30-2023 Episodic Other bone disease and musculoskeletal deformities (1 source) Disorder of bone; Translations: [Other specified disorders of bone density and structure, right shoulder] Episodic Other circulatory disease (20 sources) Vascular calcification 05-30-2023 Episodic Other connective tissue disease (18 sources) Pain in calf 09-30-2023 Episodic Other connective tissue disease (18 sources) Swelling of lower limb 10-07-2023 Episodic Other connective tissue disease (16 sources) Tendinitis of right rotator cuff 11-03-2023 Episodic Other diseases of kidney and ureters (10 sources) Renal mass 07-25-2024 Chronic Other ear and sense organ disorders (18 sources) Impacted cerumen 10-07-2023 Episodic Other hematologic conditions (3 sources) Hyperglobulinemia 09-17-2024 Episodic Other injuries and conditions due to external causes (1 source) Injury of head; Translations: [Unspecified injury of head, initial encounter] Onset: 4 Episodic Other liver diseases (20 sources) Steatosis of liver 05-23-2023 Chronic Other non-traumatic joint disorders (20 sources) Shoulder pain 03-16-2019 Episodic Other non-traumatic joint disorders (1 source) Disorder of joint of shoulder region; Translations: [Other specified joint disorders, right shoulder] Episodic Other non-traumatic joint disorders (1 source) Bone spur of right shoulder; Translations: [Osteophyte, right shoulder] Episodic Other non-traumatic joint disorders (6 sources) Knee pain 09-13-2024 Episodic Other nutritional; endocrine; and metabolic disorders (20 sources) Body mass index 30+ - obesity 08-05-2021 Chronic Other nutritional; endocrine; and metabolic disorders (1 source) Obesity 03-16-2019 Chronic Other nutritional; endocrine; and metabolic disorders (20 sources) Raised low density lipoprotein cholesterol 08-13-2021 Chronic Other nutritional; endocrine; and metabolic disorders (20 sources) Hyperbilirubinemia 03-15-2023 Chronic Other nutritional; endocrine; and metabolic disorders (20 sources) Unintentional weight loss 06-23-2022 Episodic Other nutritional; endocrine; and metabolic disorders (1 source) Abnormal weight loss; Translations: [Abnormal weight loss] Episodic Other screening for suspected conditions (not mental disorders or infectious disease) (2 sources) Renal function tests abnormal; Translations: [Abnormal results of kidney function studies] Episodic Other skin disorders (20 sources) Mass of neck 03-15-2023 Episodic Other skin disorders (20 sources) Mass of wrist 03-15-2023 Episodic Other upper respiratory infections (2 sources) Sinusitis 06-15-2023 Chronic Pneumonia (except that caused by tuberculosis or sexually transmitted disease) (1 source) Pneumonia; Translations: [Pneumonia, unspecified organism] Onset: 4 Episodic Pulmonary heart disease (19 sources) Other pulmonary embolism without acute cor pulmonale; Translations: [Pulmonary embolism] Onset: 4 Episodic Spondylosis; intervertebral disc disorders; other back problems (20 sources) Cervical spondylosis 05-30-2023 Chronic Spondylosis; intervertebral disc disorders; other back problems (14 sources) Cervical radiculopathy; Translations: [Radiculopathy, cervical region] 01-05-2024 Episodic Thyroid disorders (20 sources) Goiter; Translations: [Thyroid nodule] 08-05-2021 Chronic Comment on above: 09/08, repeat one patricia rios 09/09 smaller TR2, no follow up needed Unclassified (20 sources) Patient encounter status 08-05-2021 Comment on above: 08/11 ASCVD risk 13.7 % Unclassified (20 sources) Glomerular filtration rate decreased 06-23-2022 Unclassified (15 sources) Pain of right shoulder region 2023 Unclassified (8 sources) Drug therapy finding 02-28-2024 Past or Other Problems Problem Classification Problem Date Documented Da te Episodic/Chronic Other non-traumatic joint disorders (2 sources) Pain in left knee; Translations: [Pain of left knee joint] Onset: 09-24-2024 Episodic Results Test Name Value Interpretation Reference Range Facility MR/Anthony 04-16-2025 MR/[facility] Medical Records Department [address] [place] [address] PAT - Anesthesia 04/16/25 1705 MR#: [id number] Acct: [id number] Name: OTF LEAL Rep #: [id number] : 1960 64 From: Dm Stephens MD PCP: Dr. Kermit Dennis, DO Status:PRE SDC Y Race: AA Location: EN Pre-Assessment Diagnosis/Proposed Procedure Planned Operative Procedure(s): CSCOPE Anesthesia History Anesthesia History - speech and language assistant: Anesthesia History - speech and language assistant Hx Hospitalization No 04/16/25 12:39 Any Problems With Anesthesia No 04/16/25 12:39 Cholinesterase deficiency No 04/16/25 12:39 You/Your Family Experience No 04/16/25 12:39 fever (hyperthermia) with Relationship Recent Exposure to Contagious Disease Does patient have nerve No 04/16/25 12:39 stimulator Patient instructed to have device shut off --Does patient have Pacemaker or ICD? When Was Last Pacemaker Check QUESTION #4 FULL TEXT: You/Your Family Experience fever (hyperthermia) with Anesthesia Last Oral Intake Last Oral intake: Last Oral Intake NPO since Meds taken in AM with sips of water? Meds patient instructed to take am of surgery PONV PONV - speech and language assistant: PONV - speech and language assistant Female No 04/16/25 12:39 HX of Motion Sickness No 04/16/25 12:39 HX of N/V After Surgery No 04/16/25 12:39 Non-Smoker Yes 04/16/25 12:39 Duration of Surgery greater No 04/16/25 12:39 than 60 minutes Number of Risk Factors 1 04/16/25 12:39 PONV Score Low Risk 04/16/25 12:39 Height Weight Height Weight: Anesthesia: Height Weight Height 6 ft 2 in 07/22/22 07:57 Respiratory Assessment Respiratory Assessment - speech and language assistant: Respiratory Tract Infection Hx - speech and language assistant Hx Respiratory Tract Infection No 04/16/25 12:39 STOP Sleep Apnea STOP Sleep Apnea - speech and language assistant: STOP Sleep Apnea - speech and language assistant Hx Hypertension Yes: CONTROLLED WITH MED 04/16/25 12:39 Hx Sleep Apnea No 04/16/25 12:39 CPAP BIPAP Do you snore loudly (louder No 04/16/25 12:39 than talking or can be heard Do you often feel tired/ Yes 04/16/25 12:39 fatigued/ sleepy during daytime? Has anyone observed you stop No 04/16/25 12:39 breathing during sleep? STOP Results Positive 04/16/25 12:39 QUESTION #5 FULL TEXT : Do you snore loudly (louder than talking or can be heard through closed doors)? Tobacco Use History Tobacco Use History - speech and language assistant: Tobacco Use History - speech and language assistant Tobacco Use Smoking Status Never smoker 04/16/25 12:39 Hx Tobacco Use No 04/16/25 12:39 Years Smoking Packs Smoked per Day Smoking Cessation Date was within the last 15 years Hx Smoking Cessation Date Hx Smoking Cessation Counseling Hematologic Medial History Hematologic Hx - speech and language assistant: Hematologic Medical Hx - rn documentation Hx of Blood Transfusion No 04/16/25 12:39 Hx of Transfusion in last 3 No 04/16/25 12:39 Months Date of Last Transfusion (if within last 3 months) Ever experience any problems No 04/16/25 12:39 with transfusion(s)? Specify any problems Hx of Preganancy in last 3 N/A 04/16/25 12:39 Months Nurse Filling Out Transfusion DSCHRIBER 04/16/25 12:39 Questions: Date: 04/16/25 04/16/25 12:39 Time: 12:41 04/16/25 12:39 Patient unable to answer at this time (ie. confused, unrespo /Reproduction History /Reproductive History - speech and language assistant: /Reproductive Hx- speech and language assistant Hx Now No 04/16/25 12:39 Gestational Age (in weeks): EDC: Hx Hx Para Hx Section SAB No 04/16/25 12:39 PFSH Medical History (Updated 04/16/25 @ 12:46 by Crystal Young) History of steroid therapy Diabetes DVT (deep venous thrombosis) Hypertension Cardiology follow-up encounter 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 Degenerative arthritis of cervical spine Cyst of left parotid gland Cervical radiculopathy Cervical lymphadenopathy Calcification of left carotid artery Anxiety BERTIN (generalized anxiety disorder) Home Medications ???Medication ???Instructions ???Recorded ???Last Taken ???Type atorvastatin 10 mg tablet 10 mg PO DAILY 07/22/22 Unknown Hi story hydrochlorothiazide 12.5 mg tablet 12.5 mg PO DAILY 07/22/22 Unknow n History amlodipine 10 mg-olmesartan 40 mg 1 tab PO QDAY 09/18/24 Unknown Hi story tablet apixaban 5 mg tablet 5 mg PO BID 09/18/24 04/14/25 Hist ory buspirone 10 mg tablet 10 mg PO BID 09/18/24 Unknown Hist ory cholecalciferol (vitamin D3) 100 100 mcg PO QDAY 09/18/24 Unknown H istory mcg (4,000 u (more content not included)... Normal [facility] Gastroenterology Visit Repor ton 03-14-2025 Gastroenterology Visit Report [facility] Gastroenterology [address] [place] [address] OFFICE VISIT Date of Service: 03/14/25 MR#: [id number] Acct: [id number] Name: OTF LEAL Rep #: [id number] : 1960 Provider: TARUN Dempsey Age/Sex: 64/M Location: [facility] Status: Signed Intake Vital Signs 07/22/22 07:57 Height 6 ft 2 in Intake Visit Reasons: PRE COLONOSCOPY Chief Complaint: Screening colonoscopy Allergies No Known Allergies Allergy (Verified 03/04/25 07:57) Medications ???Medication ???Instructions ???Recorded ???Confirmed ???Type atorvastatin 10 mg tablet 10 mg PO DAILY 07/22/22 03/04/25 H istory hydrochlorothiazide 12.5 mg tablet 12.5 mg PO DAILY 07/22/22 History amlodipine 10 mg-olmesartan 40 mg 1 tab PO QDAY 09/18/24 03/04/25 H istory tablet apixaban 5 mg tablet 5 mg PO BID 09/18/24 03/04/25 Hist ory buspirone 10 mg tablet 10 mg PO BID 09/18/24 03/04/25 His tory cholecalciferol (vitamin D3) 100 100 mcg PO QDAY 09/18/24 03/04/25 History mcg (4,000 unit) tablet cyanocobalamin (vitamin B-12) 500 500 mcg PO QDAY 03/04/25 03/04/25 History mcg tablet bisacodyl 5 mg tablet,delayed 20 mg (4 x 5 mg) PO ONCE #4 tabs 0 03/14/25 03/14/25 Rx release polyethylene glycol 3350 17 238 g PO ONCE #238 grams 03/14/25 03/14/25 Rx gram/dose oral powder tirzepatide 7.5 mg/0.5 mL 7.5 mg subcut QWEEK 03/14/2503/14 History subcutaneous pen injector (Dung) Nurse's Note: Pt was scheduled for colonoscopy on 04.18.25 at the end of their appt today. Reviewed prep instructions and which medications to hold prior to procedure with pt in office. A paper copy of Miralax prep instructions were given to pt. Pt denies any questions or concerns at this time. 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 Degenerative arthritis of cervical spine Cyst of left parotid gland Cervical radiculopathy Cervical lymphadenopathy Calcification of left carotid artery Anxiety Obesity due to excess calories Chronic kidney disease, stage 3a Hyperbilirubinemia Type 2 diabetes mellitus BERTIN (generalized anxiety disorder) Weight loss Hypertension Surgical History (Updated 03/14/25 @ 10:48 by Chey Cook) H/O uvulectomy H/O excision of ganglion cyst Family History (Updated 03/14/25 @ 10:49 by Chey Cook) Brother Asthma Diabetes Mother Cancer Hodgkin's lymphoma Father CAD (coronary artery disease) Diabetes Hypertension Social History (Updated 03/14/25 @ 10:49 by Chey Cook) Smoking Status: Never smoker alcohol intake: current alcohol intake frequency: holidays/special occasions only Alcohol type: wine substance use type: does not use what type of physical activity do you participate in: walking and other details: golf frequency: 5-6 times per week HPI HPI Chief Complaint: Screening colonoscopy Details: OTF SHORT, is a 64 M who presents to the office today for establishment. Patient referred from primary care provider to be scheduled for screening colonoscopy. Patient's last colonoscopy was in 2019 and he had 1 polyp. Pathology was consistent with a tubular adenoma. Recommendation was to repeat colonoscopy in 5 years. Patient denies any GI symptoms today. He has a normal bowel movement 2 times per day. Patient does have a cousin who had colon cancer who was diagnosed in his 40s. Patient is on Eliquis due to pulmonary embolisms that were found in November 2024. ROS Const Constitutional: No fatigue, fever(s) or weight change ENT ENT: No difficulty swallowing Gastro GI: No abdominal pain, belching, bloating, change in bowel habits, change in stool character, coffee ground emesis, constipation, cramping, diarrhea, heartburn, difficulty swallowing, feeling full early, excessive flatus, incontinent of stools, Vomiting blood/hematemesis, Blood in stool, loose stools, Black,tarry stools, nausea/dyspepsia, pain with swallowing, vomiting or other Musc Musculoskeletal: No joint pain Skin Skin: No yellowing of the eye or itchy eyes Psych Psychiatric: Positive for anxiety and No depression Endo Endocrine: No fatigue or weight change Aller/Imm Allergy/Immunologic: No itchy eyes Carlos/Lymp Hematologic/Lymphatic: No easy bleeding or easy bruising Exam Const General: cooperative, healthy appearing and comfortable Nutritional Appearance: average body habitus Orientation: alert [facility] Head: normal to inspection Ears: hearing grossly normal bilaterally Nose: external nose normal Eyes General: appearance normal, both e (more content not included)... Normal [facility] UPEon 12-17-2024 UPE Interpretation There was no appreciable protein detected by electrophoresis of concentrated urine. Normal [facility] Comment on above: Result Comment: Elec tronically Signed by: PARKER UMAÑA 12/17/2024 15:03 EDT Performed By: #### U PE #### [place] [address] SPEon 09-18-2024 SPE Interpretation Normal serum protein electrophoresis pattern. No abnormality detected. Normal [facility] Comment on above: Result Comment: Elec tronically Signed by: BETSY ALLEN 09/18/2024 13:30 EDT Performed By: #### U PE #### [address] [address] Albumin 3.6 G/dL Normal 3.3-5.0 [facility] Comment on above: Performed By: #### U PE #### [place] [address] Alpha 1 0.2 G/dL Normal 0.1-0.4 [facility] Comment on above: Performed By: #### U PE #### [place] [address] Alpha 2 0.7 G/dL Normal 0.6-1.2 [facility] Comment on above: Performed By: #### U PE #### [place] [address] Beta 1.1 G/dL Normal 0.6-1.3 [facility] Comment on above: Performed By: #### U PE #### [place] [id number] Gamma 1.6 G/dL Normal 0.7-1.6 [facility] Comment on above: Performed By: #### U PE #### [place] [address] Total Protein 7.3 G/dL Normal 5.7-8.2 [facility] Comment on above: Performed By: #### U PE #### [place] [address] XR KNEE THREE VIEWS LEFTon 0 09-16-2024 XR KNEE THREE VIEWS LEFT ORIGINAL EXAMINATION: THREE XRAY VIEWS OF THE LEFT KNEE09/14/2024 4:00 pm COMPARISON: None. HISTORY: ORDERING SYSTEM PROVIDED HISTORY: Reason for Exam: left knee pain chronic bilateral knee pain. increasing anterior lt knee pain since a golf outing about 2 weeks ago. FINDINGS: No acute fracture or dislocation is identified. No joint effusion is seen. Moderate to severe tricompartmental joint space loss and spurring visualized. Patellar enthesophytes seen. There is no radiopaque foreign body. IMPRESSION: No acute fracture or dislocation. Moderate to severe degenerative changes Interpreted by: Nilson Chavez MD Preliminary Report By: Nilson Chavez MD Electronically signed By Nilson Chavez MD Dictated Date: 09/16/2024 9:47:34 AM Prelim Date: 09/16/2024 9:48:11 AM Sign Date: 09/16/2024 9:48:11 AM Ordering Provider: KERMIT DENNIS [facility] XR KNEE THREE VIEWS RIGHTon 09-16-2024 XR KNEE THREE VIEWS RIGHT ORIGINAL EXAMINATION: THREE XRAY VIEWS OF THE RIGHT KNEE09/14/2024 4:01 pm COMPARISON: None. HISTORY: ORDERING SYSTEM PROVIDED HISTORY: Reason for Exam: right knee pain chronic bilateral knee pain FINDINGS: No acute fracture or dislocation is identified. No joint effusion is seen. Moderate to severe tricompartmental joint space loss and spurring seen. There is no radiopaque foreign body. IMPRESSION: No acute fracture or dislocation. Moderate to severe tricompartmental degenerative changes Interpreted by: Nilson Chavez MD Preliminary Report By: Nilson Chavez MD Electronically signed By Nilson Chavez MD Dictated Date: 09/16/2024 9:48:15 AM Prelim Date: 09/16/2024 9:48:43 AM Sign Date: 09/16/2024 9:48:43 AM Ordering Provider: KERMIT DENNIS [facility] .GFRon 09-14-2024 Estimated Glomerular Filtration Rate 52 ml/min/1.73sqm [facility] Comment on above: Result Comment: Stages of Chronic Kidney Disease (CKD) Stage Description eGFR(ml/min/1.73 sq.m.) CKD 1 Normal kidney function or >=90 normal kindney function with possible kidney damage (ex. Proteinuria) CKD 2 Kidney damage with mild loss 60-89 of kidney function CKD 3a Mild to moderate loss of kidney 45-59 function CKD 3b Moderate to severe loss of 30-44 of kindey function CKD 4 Severe loss of kidney function 15-29 CKD 5 Kidney failure <15 Note: (go live 2024) the eGFR calculation was updated to the 2020 CKD-EPI creatinine equation without a race factor to calculate the eGFR results. Performed By: #### G , [facility] #### [address] [address] CMPon 03-28-2025 Albumin Level 3.6 G/dL Normal 3.4-4.8 [facility] Comment on above: Performed By: #### G , CMP #### [address] [address] Albumin/Globulin [Mass ratio] 0.9 {ratio} Low 1.1-2.5 [facility] Comment on above: Performed By: #### G , CMP #### [address] [address] ALP [Catalytic activity/Vol] 71 U/L Normal 40-135 [facility] Comment on above: Performed By: #### G , CMP #### [address] [address] ALT [Catalytic activity/Vol] 24 U/L Normal 16-63 [facility] Comment on above: Performed By: #### G , CMP #### [place] [id number] AST [Catalytic activity/Vol] 16 U/L Normal 10-40 [facility] Comment on above: Performed By: #### G , CMP #### [address] [address] Bili Total 0.9 mg/dL Normal 0.2-1.0 [facility] Comment on above: Result Comment: Use of this assay is not recommended for patients undergoing treatment with eltrombopag due to the potential for falsely elevated results. Performed By: #### G , CMP #### [address] [address] BUN/Creatinine Ratio 17 ratio Normal 7-27 [facility] Comment on above: Performed By: #### G FR, CMP #### [address] [address] Calcium [Mass/Vol] 9.4 mg/dL Normal 8.4-10.2 [facility] Comment on above: Performed By: #### G FR, CMP #### [address] [address] Chloride [Moles/Vol] 102 mmol/L Normal 98-107 [facility] Comment on above: Performed By: #### G FR, CMP #### [address] [address] CO2 [Moles/Vol] 30 mmol/L Normal 23-31 [facility] Comment on above: Performed By: #### G FR, CMP #### [address] [address] Creatinine [Mass/Vol] 1.49 mg/dL High 0.70-1.30 [facility] Comment on above: Result Comment: Test ing performed on Siemens Dimension EXL analyzer using a modified kinetic Damon technique. Performed By: #### G , CMP #### [address] [address] Electrolyte Balance 5.0 mEq/L Normal 4.0-15.0 [facility] Comment on above: Performed By: #### G FR, CMP #### [address] [address] Globulin 4.0 G/dL High 1.5-3.8 [facility] Comment on above: Performed By: #### G FR, CMP #### [address] [address] Glucose [Mass/Vol] 89 mg/dL Normal 80-115 [facility] Comment on above: Performed By: #### G FR, CMP #### [address] [address] Potassium [Moles/Vol] 3.8 mmol/L Normal 3.5-5.1 [facility] Comment on above: Performed By: #### G FR, CMP #### [address] [address] Sodium [Moles/Vol] 137 mmol/L Normal 136-145 [facility] Comment on above: Performed By: #### G FR, CMP #### [address] [address] Total Protein 7.6 G/dL Normal 6.4-8.2 [facility] Comment on above: Performed By: #### Jorge PICKETT, CMP #### [address] [address] Urea nitrogen [Mass/Vol] 25 mg/dL High - [facility] Comment on above: Performed By: #### G , CMP #### [address] [address] .GFRon 08-07-2024 Estimated Glomerular Filtration Rate 48 ml/min/1.73sqm Normal [facility] Comment on above: Result Comment: Stages of Chronic Kidney Disease (CKD) Stage Description eGFR(ml/min/1.73 sq.m.) CKD 1 Normal kidney function or >=90 normal kindney function with possible kidney damage (ex. Proteinuria) CKD 2 Kidney damage with mild loss 60-89 of kidney function CKD 3a Mild to moderate loss of kidney 45-59 function CKD 3b Moderate to severe loss of 30-44 of kindey function CKD 4 Severe loss of kidney function 15-29 CKD 5 Kidney failure <15 Note: (go live 2024) the eGFR calculation was updated to the 2020 CKD-EPI creatinine equation without a race factor to calculate the eGFR results. Performed By: #### G , CMP #### [address] [address] CMPon 08-07-2024 Albumin Level 3.6 G/dL Normal 3.4-4.8 [facility] Comment on above: Performed By: #### Jorge PICKETT, CMP #### [address] [address] Albumin/Globulin [Mass ratio] 0.9 {ratio} Low 1.1-2.5 [facility] Comment on above: Performed By: #### Jorge PICKETT, CMP #### [address] [address] ALP [Catalytic activity/Vol] 73 U/L Normal 40-135 [facility] Comment on above: Performed By: #### G , CMP #### [address] [address] ALT [Catalytic activity/Vol] 18 U/L Normal 16-63 [facility] Comment on above: Performed By: #### G , CMP #### [place] [id number] AST [Catalytic activity/Vol] 13 U/L Normal 10-40 [facility] Comment on above: Performed By: #### G FR, CMP #### [place] [id number] Bili Total 1.2 mg/dL High 0.2-1.0 [facility] Comment on above: Result Comment: Use of this assay is not recommended for patients undergoing treatment with eltrombopag due to the potential for falsely elevated results. Performed By: #### G , CMP #### [place] [id number] BUN/Creatinine Ratio 12 ratio Normal 7-27 [facility] Comment on above: Performed By: #### G , CMP #### [place] [id number] Calcium [Mass/Vol] 9.0 mg/dL Normal 8.4-10.2 [facility] Comment on above: Performed By: #### G , CMP #### [place] [address] Chloride [Moles/Vol] 104 mmol/L Normal 98-107 [facility] Comment on above: Performed By: #### G FR, CMP #### [place] [id number] CO2 [Moles/Vol] 31 mmol/L Normal 23-31 [facility] Comment on above: Performed By: #### G FR, CMP #### [place] [id number] Creatinine [Mass/Vol] 1.59 mg/dL High 0.70-1.30 [facility] Comment on above: Result Comment: Test ing performed on Siemens Dimension EXL analyzer using a modified kinetic Damon technique. Performed By: #### G FR, CMP #### [place] [id number] Electrolyte Balance 8.0 mEq/L Normal 4.0-15.0 [facility] Comment on above: Performed By: #### Jorge , CMP #### [address] [address] Globulin 4.1 G/dL High 1.5-3.8 [facility] Comment on above: Performed By: #### G , CMP #### [place] [id number] Glucose [Mass/Vol] 123 mg/dL High 80-115 [facility] Comment on above: Performed By: #### Jorge PICKETT, CMP #### [place] [id number] Potassium [Moles/Vol] 4.3 mmol/L Normal 3.5-5.1 [facility] Comment on above: Performed By: #### Jorge PICKETT, CMP #### [place] [id number] Sodium [Moles/Vol] 143 mmol/L Normal 136-145 [facility] Comment on above: Performed By: #### Jorge PICKETT, CMP #### [place] [id number] Total Protein 7.7 G/dL Normal 6.4-8.2 [facility] Comment on above: Performed By: #### Jorge PICKETT, CMP #### [address] [address] Urea nitrogen [Mass/Vol] 19 mg/dL High 7-18 [facility] Comment on above: Performed By: #### Jorge PICKETT, CMP #### [address] [address] LABORATORYOrdered By: SYSTEM SYSTEM on 08-07-2024 Albumin BCP dye [Mass/Vol] 3.6 G/dL Normal 3.4 - 4.8 G/dL AO ADM SS Albumin/Globulin [Mass ratio] 0.9 {ratio} Low 1.1 - 2.5 ratio AO ADM SS ALP [Catalytic activity/Vol] 73 U/L Normal 40 - 135 U/L AO ADM SS ALT With P-5'-P [Catalytic activity/Vol] 18 U/L Normal 16 - 63 U/L AO ADM SS AST With P-5'-P [Catalytic activity/Vol] 13 U/L Normal 10 - 40 U/L AO ADM SS Bilirubin [Mass/Vol] 1.2 mg/dL High 0.2 - 1 .0 mg/dL AO ADM SS Comment on above: Interpretive Data: U se of this assay is not recommended for patients undergoing treatment with eltrombopag due to the potential for falsely elevated results. Calcium [Mass/Vol] 9.0 mg/dL Normal 8.4 - 10. 2 mg/dL AO ADM SS Chloride [Moles/Vol] 104 mmol/L Normal 98 - 10 7 mmol/L AO ADM SS CO2 [Moles/Vol] 31 mmol/L Normal 23 - 31 mmol/L AO ADM SS Creatinine [Mass/Vol] 1.59 mg/dL High 0.70 - 1.30 mg/dL AO ADM SS Comment on above: Interpretive Data: T esting performed on Siemens Dimension EXL analyzer using a modified kinetic Damon technique. Electrolyte Balance 8.0 mEq/L Normal 4.0 - 15 .0 mEq/L AO ADM SS Estimated Glomerular Filtration Rate 48 ml/min/1.73sqm Invalid Interpretation Code AO Chemistry S Comment on above: Interpretive Data: Stages of Chronic Kidney Disease (CKD) Stage Description eGFR(ml/min/1.73 sq.m.) CKD 1 Normal kidney function or >=90 normal kindney function with possible kidney damage (ex. Proteinuria) CKD 2 Kidney damage with mild loss 60-89 of kidney function CKD 3a Mild to moderate loss of kidney 45-59 function CKD 3b Moderate to severe loss of 30-44 of kindey function CKD 4 Severe loss of kidney function 15-29 CKD 5 Kidney failure <15 Note: (go live 2024) the eGFR calculation was updated to the 2020 CKD-EPI creatinine equation without a race factor to calculate the eGFR results. Globulin 4.1 G/dL High 1.5 - 3.8 G/dL AO ADM SS Glucose [Mass/Vol] 123 mg/dL High 80 - 115 mg/dL AO ADM SS Potassium [Moles/Vol] 4.3 mmol/L Normal 3.5 - 5.1 mmol/L AO ADM SS Protein [Mass/Vol] 7.7 G/dL Normal 6.4 - 8.2 G/dL AO ADM SS Sodium [Moles/Vol] 143 mmol/L Normal 136 - 145 mmol/L AO ADM SS Urea nitrogen [Mass/Vol] 19 mg/dL High 7 - 18 mg/dL AO ADM SS Urea nitrogen/Creatinine [Mass ratio] 12 ratio Normal 7 - 27 ratio AO ADM SS MRI KIDNEYon 08-07-2024 MRI KIDNEY ORIGINAL EXAMINATION: MRI OF THE ABDOMEN WITH AND WITHOUT CONTRAST, 08/07/2024 7:25 am TECHNIQUE: Multiplanar multisequence MRI of the abdomen was performed with and without the administration of intravenous contrast. COMPARISON: Ultrasound 07/25/[address] abdomen/pelvis 10/11/2016. HISTORY: ORDERING SYSTEM PROVIDED HISTORY: Reason for Exam: bilateral renal masses on US FINDINGS: Right kidney: Normal enhancement. Bilateral T2 hyperintense nonenhancing renal cysts measuring up to 6.1 cm. No suspicious enhancing renal mass. Left kidney: Normal enhancement. Bilateral simple appearing renal cysts measuring up to 3.2 cm. A few of the cysts demonstrate thin internal septations. A left inferior renal cyst demonstrates minimally increased signal on precontrast T1 images likely representing minimal hemorrhagic/proteinace ous content. No suspicious enhancing renal mass. Previously seen echogenic left inferior pole focus on comparison ultrasound is not well evaluated on this modality. Vasculature: Patent renal arteries. No filling defects in the renal veins or vena cava. Ureters: Normal. No obstructive uropathy. Accessory organs: Normal liver, gallbladder, pancreas, spleen, and adrenal glands. Pancreatic divisum. Lymph Nodes and Soft Tissues: No lymphadenopathy. Perirenal and pararenal spaces are normal. IMPRESSION: Bilateral Bosniak 1 and II benign renal cysts. No suspicious renal lesion. Pancreatic divisum. I have personally reviewed the images of this examination and agree with the resident's findings and interpretations. Interpreted by: Cathy Hammonds MD Preliminary Report By: Todd Strickland Electronically signed By Cathy Hammonds MD Dictated Date: 08/07/2024 9:08:32 AM Prelim Date: 08/07/2024 11:00:42 AM Sign Date: 08/07/2024 11:00:42 AM Ordering Provider: KERMIT José [facility] US RENALon 07-25-2024 US RENAL ORIGINAL EXAMINATION: ULTRASOUND OF THE KIDNEYS 07/25/2024 7:32 am COMPARISON: Abdominal ultrasound dated 04/11/2023 HISTORY: ORDERING SYSTEM PROVIDED HISTORY: Reason for Exam: chronic kidney disease stage 3a, rule out obstruction FINDINGS: Prostate volume of 25.7 mL. Bladder volume prevoid of 202.7 mL. Bladder wall thickness of 3.9 mm. No intraluminal debris or masses. Postvoid bladder volume of 7.2 mL which is in adequate postvoid residual. Ureteral jets were not visualized. The right kidney measures 12.5 cm. There is normal renal corticomedullary differentiation. Seen dating back to 04/11/2023 at the midpole of the right kidney there is an anechoic simple cyst with posterior acoustic enhancement measuring 5.9 x 6 x 7.5 cm, stable to minimally increased in size from prior. An additional anechoic cyst is also seen at the inferior pole measuring 4.2 x 3.3 x 3.9 cm, increased in size from prior and showing a internal septation. The left kidney measures 11.2 cm. At the inferior pole of the left kidney there is an anechoic simple cyst with posterior acoustic enhancement measuring 2.8 x 2.6 x 2.9 cm. There is an echogenic 0.7 x 0.5 x 1.3 cm focus at the inferior pole. There is no hydronephrosis. IMPRESSION: Bilateral renal cysts, mildly increased in size from prior with a cyst at the inferior pole of the right kidney showing and internal septation. Consider correlation with CT or MRI renal mass protocol for definitive Bosniak classification. Echogenic 1.3 cm focus at the inferior pole of the left kidney, difficult to evaluate if there is posterior acoustic shadowing, may reflect a nonobstructing calculus. No hydronephrosis. Interpreted by: Latasha Dobson Preliminary Report By: Latasha Dobson Electronically signed By Latasha Dobson Dictated Date: 07/25/2024 10:10:56 AM Prelim Date: 07/25/2024 10:17:25 AM Sign Date: 07/25/2024 10:17:25 AM Ordering Provider: KERMIT José [facility] LABORATORYOrdered By: Eli Carver on 07-03-2024 Albumin DL <= 20 mg/L (U) [Mass/Vol] 460 mcg/dL Invalid Interpretation Code AO ADM SS Albumin/Creatinine DL <= 20 mg/L (U) [Mass ratio] 4 mcg/mg Normal 0 - 30 mcg/mg AO Chemistry S Creatinine (U) [Mass/Vol] 116.3 mg/dL Invalid Interpretation Code AO ADM SS MALBRon 07-03-2024 U Creatinine 116.3 mg/dL Normal [facility] Comment on above: Performed By: #### M ALBR #### [address] [address] U Microalb 460 mcg/dL Normal [facility] Comment on above: Performed By: #### M ALBR #### [address] [address] U Ratio Alb/Cre 4 mcg/mg Normal 0-30 [facility] Comment on above: Performed By: #### M ALBR #### [address] [address] .Auto Diffon 06-26-2024 Basophil, Absolute 0.0 10 3/mcL Normal 0.0-0.2 [facility] Comment on above: Performed By: #### A MARIAH, ADIFF, CMP, LIPID, A1C, CBC, GFR, PHOS, PSA #### [place] [address] #### PTH #### [address] [address] Basophils/100 WBC (Bld) 0.6 % Normal 0.0-2.5 [facility] Comment on above: Performed By: #### A MARIAH, ADIFF, CMP, LIPID, A1C, CBC, GFR, PHOS, PSA #### [place] [address] #### PTH #### [address] [address] Eosinophil, Absolute 0.2 10 3/mcL Normal 0.0-0.7 [facility] Comment on above: Performed By: #### A MARIAH, ADIFF, CMP, LIPID, A1C, CBC, GFR, PHOS, PSA #### [place] [address] #### PTH #### [address] [address] Eosinophils/100 WBC (Bld) 3.6 % Normal 0.0-7.0 [facility] Comment on above: Performed By: #### A MARIAH, ADIFF, CMP, LIPID, A1C, CBC, GFR, PHOS, PSA #### [address] [address] #### PTH #### [address] [address] Lymphocyte, Absolute 1.9 10 3/mcL Normal 0.9-4.3 [facility] Comment on above: Performed By: #### A MARIAH, ADIFF, CMP, LIPID, A1C, CBC, GFR, PHOS, PSA #### [place] [address] #### PTH #### [address] [address] Lymphocytes/100 WBC (Bld) 40.6 % High 20.0-40.0 [facility] Comment on above: Performed By: #### A MARIAH, ADIFF, CMP, LIPID, A1C, CBC, GFR, PHOS, PSA #### [place] [address] #### PTH #### [address] [address] Monocyte, Absolute 0.6 10 3/mcL Normal 0.1-1.4 [facility] Comment on above: Performed By: #### A MARIAH, ADIFF, CMP, LIPID, A1C, CBC, GFR, PHOS, PSA #### [place] [address] #### PTH #### [address] [address] Monocytes/100 WBC (Bld) 13.1 % High 2.0-13.0 [facility] Comment on above: Performed By: #### A MARIAH, ADIFF, CMP, LIPID, A1C, CBC, GFR, PHOS, PSA #### [address] [address] #### PTH #### [address] [address] Neutrophils/100 WBC (Bld) 42.1 % Low 50.0-75.0 [facility] Comment on above: Performed By: #### A MARIAH, ADIFF, CMP, LIPID, A1C, CBC, GFR, PHOS, PSA #### [address] [address] #### PTH #### [address] [address] .GFRon 06-26-2024 GFR 62 ml/min/1.73sqm [facility] Comment on above: Result Comment: GFR Population mean for , Non- Americans Ages 20-29 = 116 mL/min/1.73 sq.m. Ages 30-39 = 107 mL/min/1.73 sq.m. Ages 40-49 = 99 mL/min/1.73 sq.m. Ages 50-59 = 93 mL/min/1.73 sq.m. Ages 60-69 = 85 mL/min/1.73 sq.m. Ages 70+ = 75 mL/min/1.73 sq.m. Chronic Kidney Disease: Less than 60 mL/min/1.73 square meters End Stage Renal Disease: Less than 15 mL/min/1.73 square meters Performed By: #### U PE #### [address] [address] GFR Non- 51 ml/min/1.73sqm Normal [facility] Comment on above: Result Comment: GFR Population mean for , Non- Americans Ages 20-29 = 116 mL/min/1.73 sq.m. Ages 30-39 = 107 mL/min/1.73 sq.m. Ages 40-49 = 99 mL/min/1.73 sq.m. Ages 50-59 = 93 mL/min/1.73 sq.m. Ages 60-69 = 85 mL/min/1.73 sq.m. Ages 70+ = 75 mL/min/1.73 sq.m. Chronic Kidney Disease: Less than 60 mL/min/1.73 square meters End Stage Renal Disease: Less than 15 mL/min/1.73 square meters Performed By: #### U PE #### [place] [address] .NEUABSon 06-26-2024 Neutrophil, Absolute 2.0 10 3/mcL Low 2.3-8.1 [facility] Comment on above: Performed By: #### U PE #### [place] [address] A1Con 06-26-2024 Glucose [Mass/Vol] 140 mg/dL Normal [facility] Comment on above: Result Comment: Mariajose mated Average Glucose calculated by equation ((28.7xA1C)-46.7) Estimated average glucose (eAG) is a calculated value from Hemoglobin A1C and is parts representative of the average blood glucose level in the last 2-3 month period. Normal range: less than 114 mg/dL Performed By: #### U PE #### [place] [address] HbA1c (Bld) [Mass fraction] 6.5 % High 4.3-6.4 [facility] Comment on above: Performed By: #### U PE #### [place] [address] BILAIon 06-26-2024 Bili Indirect 1.1 mg/dL Normal [facility] Comment on above: Performed By: #### U PE #### [place] [address] Bili Direct 0.3 mg/dL High 0.0-0.2 [facility] Comment on above: Result Comment: Use of this assay is not recommended for patients undergoing treatment with eltrombopag due to the potential for falsely elevated results. Performed By: #### U PE #### [place] [address] Bili Total 1.4 mg/dL High 0.2-1.0 [facility] Comment on above: Result Comment: Use of this assay is not recommended for patients undergoing treatment with eltrombopag due to the potential for falsely elevated results. Performed By: #### U PE #### [place] [address] CBCon 06-26-2024 Erythrocyte distribution width (RBC) [Ratio] 13.8 % Normal 11.5-15.5 [facility] Comment on above: Performed By: #### A MARIAH, ADIFF, CMP, LIPID, A1C, CBC, GFR, PHOS, PSA #### [address] [address] #### PTH #### [place] [address] Hematocrit (Bld) [Volume fraction] 43.4 % Normal 40.0-52.0 [facility] Comment on above: Performed By: #### A MARIAH, ADIFF, CMP, LIPID, A1C, CBC, GFR, PHOS, PSA #### [address] [address] #### PTH #### [place] [address] Hgb 14.5 G/dL Normal 13.0-17.5 [facility] Comment on above: Performed By: #### A MARIAH, ADIFF, CMP, LIPID, A1C, CBC, GFR, PHOS, PSA #### [address] [address] #### PTH #### [place] [address] MCH (RBC) [Entitic mass] 30.4 pg Normal 27.0-33.0 [facility] Comment on above: Performed By: #### A MARIAH, ADIFF, CMP, LIPID, A1C, CBC, GFR, PHOS, PSA #### [address] [address] #### PTH #### [place] [address] MCHC 33.4 G/dL Normal 32.0-36.0 [facility] Comment on above: Performed By: #### A MARIAH, ADIFF, CMP, LIPID, A1C, CBC, GFR, PHOS, PSA #### [place] [address] #### PTH #### [place] [address] MCV (RBC) [Entitic vol] 91.1 fL Normal 81.0-100.0 [facility] Comment on above: Performed By: #### A MARIAH, ADIFF, CMP, LIPID, A1C, CBC, GFR, PHOS, PSA #### [place] [address] #### PTH #### [place] [address] Platelet 231 10 3/mcL Normal 150-450 [facility] Comment on above: Performed By: #### A MARIAH, ADIFF, CMP, LIPID, A1C, CBC, GFR, PHOS, PSA #### [place] [address] #### PTH #### [place] [address] Platelet mean volume (Bld) [Entitic vol] 7.6 fL Normal 6.4-10.5 [facility] Comment on above: Performed By: #### A MARIAH, ADIFF, CMP, LIPID, A1C, CBC, GFR, PHOS, PSA #### [place] [address] #### PTH #### [place] [address] RBC 4.76 10 6/mcL Normal 4.50-6.00 [facility] Comment on above: Performed By: #### A MARIAH, ADIFF, CMP, LIPID, A1C, CBC, GFR, PHOS, PSA #### [place] [address] #### PTH #### [place] [address] WBC 4.7 10 3/mcL Normal 4.5-10.8 [facility] Comment on above: Performed By: #### A MARIAH, ADIFF, CMP, LIPID, A1C, CBC, GFR, PHOS, PSA #### [address] [place] [address] #### PTH #### [address] [address] CMPon 06-26-2024 Albumin Level 3.5 G/dL Normal 3.4-4.8 [facility] Comment on above: Performed By: #### U PE #### [place] [id number] Albumin/Globulin [Mass ratio] 1.0 {ratio} Low 1.1-2.5 [facility] Comment on above: Performed By: #### U PE #### [place] [id number] ALP [Catalytic activity/Vol] 73 U/L Normal 40-135 [facility] Comment on above: Performed By: #### U PE #### [place] [address] ALT [Catalytic activity/Vol] 24 U/L Normal 16-63 [facility] Comment on above: Performed By: #### U PE #### [place] [id number] AST [Catalytic activity/Vol] 16 U/L Normal 10-40 [facility] Comment on above: Performed By: #### U PE #### [place] [address] Bili Total 1.4 mg/dL High 0.2-1.0 [facility] Comment on above: Result Comment: Use of this assay is not recommended for patients undergoing treatment with eltrombopag due to the potential for falsely elevated results. Performed By: #### U PE #### [place] [id number] BUN/Creatinine Ratio 12 ratio Normal 7-27 [facility] Comment on above: Performed By: #### U PE #### [place] [id number] Calcium [Mass/Vol] 8.9 mg/dL Normal 8.4-10.2 [facility] Comment on above: Performed By: #### U PE #### [place] [address] Chloride [Moles/Vol] 107 mmol/L Normal 98-107 [facility] Comment on above: Performed By: #### U PE #### [address] [address] CO2 [Moles/Vol] 29 mmol/L Normal 23-31 [facility] Comment on above: Performed By: #### U PE #### [address] [address] Creatinine [Mass/Vol] 1.40 mg/dL High 0.70-1.30 [facility] Comment on above: Result Comment: Test ing performed on Siemens Dimension EXL analyzer using a modified kinetic Damon technique. Performed By: #### U PE #### [address] [address] Electrolyte Balance 7.0 mEq/L Normal 4.0-15.0 [facility] Comment on above: Performed By: #### U PE #### [address] [address] Globulin 3.6 G/dL Normal [facility] Comment on above: Performed By: #### U PE #### [address] [address] Glucose [Mass/Vol] 124 mg/dL High 80-115 [facility] Comment on above: Performed By: #### U PE #### [address] [address] Potassium [Moles/Vol] 4.1 mmol/L Normal 3.5-5.1 [facility] Comment on above: Performed By: #### U PE #### [address] [address] Sodium [Moles/Vol] 143 mmol/L Normal 136-145 [facility] Comment on above: Performed By: #### U PE #### [address] [address] Total Protein 7.1 G/dL Normal 6.4-8.2 [facility] Comment on above: Performed By: #### U PE #### [address] [address] Urea nitrogen [Mass/Vol] 17 mg/dL Normal 7-18 [facility] Comment on above: Performed By: #### U PE #### [address] [address] LABORATORYOrdered By: SYSTEM SYSTEM on 06-26-2024 Albumin BCP dye [Mass/Vol] 3.5 G/dL Normal 3.4 - 4.8 G/dL AO ADM SS Albumin/Globulin [Mass ratio] 1.0 {ratio} Low 1.1 - 2.5 ratio AO ADM SS ALP [Catalytic activity/Vol] 73 U/L Normal 40 - 135 U/L AO ADM SS ALT With P-5'-P [Catalytic activity/Vol] 24 U/L Normal 16 - 63 U/L AO ADM SS AST With P-5'-P [Catalytic activity/Vol] 16 U/L Normal 10 - 40 U/L AO ADM SS Basophils (Bld) [#/Vol] 0.0 103/mcL Normal 0.0 - 0.2 10^3/mcL AO Workflow SS Basophils/100 WBC (Bld) 0.6 % Normal 0.0 - 2.5 % AO Workflow SS Bilirubin.direct [Mass/Vol] 0.3 mg/dL High 0.0 - 0.2 mg/dL AO ADM SS Comment on above: Interpretive Data: U se of this assay is not recommended for patients undergoing treatment with eltrombopag due to the potential for falsely elevated results. Bilirubin.direct [Mass/Vol] 1.1 mg/dL Invalid Interpretation Code AO Chemistry S Calcium [Mass/Vol] 8.9 mg/dL Normal 8.4 - 10. 2 mg/dL AO ADM SS Chloride [Moles/Vol] 107 mmol/L Normal 98 - 10 7 mmol/L AO ADM SS CO2 [Moles/Vol] 29 mmol/L Normal 23 - 31 mmol/L AO ADM SS Creatinine [Mass/Vol] 1.40 mg/dL High 0.70 - 1.30 mg/dL AO ADM SS Comment on above: Interpretive Data: T esting performed on Siemens Dimension EXL analyzer using a modified kinetic Damon technique. Electrolyte Balance 7.0 mEq/L Normal 4.0 - 15 .0 mEq/L AO ADM SS Eosinophil, Absolute 0.2 103/mcL Normal 0.0 - 0 .7 10^3/mcL AO Workflow SS Eosinophils/100 WBC (Bld) 3.6 % Normal 0.0 - 7.0 % AO Workflow SS Erythrocyte distribution width (RBC) [Ratio] 13.8 % Normal 11.5 - 15.5 % AO Workflow SS GFR/1.73 sq M.predicted among blacks MDRD (S/P/Bld) [Vol rate/Area] 62 ml/min/1.73sqm Invalid Interpretation Code AO Chemistry S Comment on above: Interpretive Data: GFR Population mean for , Non- Americans Ages 20-29 = 116 mL/min/1.73 sq.m. Ages 30-39 = 107 mL/min/1.73 sq.m. Ages 40-49 = 99 mL/min/1.73 sq.m. Ages 50-59 = 93 mL/min/1.73 sq.m. Ages 60-69 = 85 mL/min/1.73 sq.m. Ages 70+ = 75 mL/min/1.73 sq.m. Chronic Kidney Disease: Less than 60 mL/min/1.73 square meters End Stage Renal Disease: Less than 15 mL/min/1.73 square meters GFR/1.73 sq M.predicted among non-blacks MDRD (S/P/Bld) [Vol rate/Area] 51 ml/min/1.73sqm Invalid Interpretation Code AO Chemistry S Comment on above: Interpretive Data: GFR Population mean for , Non- Americans Ages 20-29 = 116 mL/min/1.73 sq.m. Ages 30-39 = 107 mL/min/1.73 sq.m. Ages 40-49 = 99 mL/min/1.73 sq.m. Ages 50-59 = 93 mL/min/1.73 sq.m. Ages 60-69 = 85 mL/min/1.73 sq.m. Ages 70+ = 75 mL/min/1.73 sq.m. Chronic Kidney Disease: Less than 60 mL/min/1.73 square meters End Stage Renal Disease: Less than 15 mL/min/1.73 square meters Globulin 3.6 G/dL Invalid Interpretation Code AO ADM SS Glucose [Mass/Vol] 124 mg/dL High 80 - 115 mg/dL AO ADM SS Glucose [Mass/Vol] 140 mg/dL Invalid Interpretation Code AO Chemistry S Comment on above: Interpretive Data: E stimated average glucose (eAG) is a calculated value from Hemoglobin A1C and is parts representative of the average blood glucose level in the last 2-3 month period. Normal range: less than 114 mg/dL HbA1c (Bld) [Mass fraction] 6.5 % High 4.3 - 6.4 % AO ADM SS Hematocrit (Bld) [Volume fraction] 43.4 % Normal 40.0 - 52.0 % AO Workflow SS Hemoglobin (Bld) [Mass/Vol] 14.5 G/dL Normal 13.0 - 17.5 G/dL AO Workflow SS Lymphocytes (Bld) [#/Vol] 1.9 103/mcL Normal 0.9 - 4.3 10^3/mcL AO Workflow SS Lymphocytes/100 WBC (Bld) 40.6 % High 20.0 - 40.0 % AO Workflow SS MCH (RBC) [Entitic mass] 30.4 pg Normal 27.0 - 33.0 pg AO Workflow SS MCHC 33.4 G/dL Normal 32.0 - 36.0 G/dL AO Workflow SS MCV (RBC) [Entitic vol] 91.1 fL Normal 81.0 - 100.0 fL AO Workflow SS Monocytes (Bld) [#/Vol] 0.6 103/mcL Normal 0.1 - 1.4 10^3/mcL AO Workflow SS Monocytes/100 WBC (Bld) 13.1 % High 2.0 - 13.0 % AO Workflow SS Neutrophils (Bld) [#/Vol] 2.0 103/mcL Low 2.3 - 8.1 10^3/mcL AO Workflow SS Neutrophils/100 WBC (Bld) 42.1 % Low 50.0 - 75.0 % AO Workflow SS Parathyrin.intact [Mass/Vol] 67.3 pg/mL Normal 18.5 - 88.0 pg/mL AH ADM SS Phosphate [Mass/Vol] 3.1 mg/dL Normal 2.3 - 4 .1 mg/dL AO ADM SS Platelet mean volume (Bld) [Entitic vol] 7.6 fL Normal 6.4 - 10.5 fL AO Workflow SS Platelets (Bld) [#/Vol] 231 103/mcL Normal 150 - 450 10^3/mcL AO Workflow SS Potassium [Moles/Vol] 4.1 mmol/L Normal 3.5 - 5.1 mmol/L AO ADM SS Prostate specific Ag [Mass/Vol] 0.64 ng/mL Normal 0.00 - 4.00 ng/mL AO ADM SS Protein [Mass/Vol] 7.1 G/dL Normal 6.4 - 8.2 G/dL AO ADM SS RBC (Bld) [#/Vol] 4.76 106/mcL Normal 4.50 - 6.0 0 10^6/mcL AO Workflow SS Sodium [Moles/Vol] 143 mmol/L Normal 136 - 145 mmol/L AO ADM SS Urea nitrogen [Mass/Vol] 17 mg/dL Normal 7 - 18 mg/dL AO ADM SS Urea nitrogen/Creatinine [Mass ratio] 12 ratio Normal 7 - 27 ratio AO ADM SS WBC (Bld) [#/Vol] 4.7 103/mcL Normal 4.5 - 10.8 10^3/mcL AO Workflow SS LABORATORYOrdered By: Eli Carver on 06-26-2024 Cholesterol [Mass/Vol] 141 mg/dL Normal 0 - 200 mg/dL AO ADM SS Comment on above: Interpretive Data: C holesterol Reference Interval: Less than 200 Desirable 200-239 Borderline high risk 240 and above High risk Cholesterol in HDL [Mass/Vol] 51 mg/dL Normal 40 - 60 mg/dL AO ADM SS Cholesterol in LDL [Mass/Vol] 81 mg/dL Normal 0 - 130 mg/dL AO ADM SS Triglyceride [Mass/Vol] 44 mg/dL Normal 0 - 150 mg/dL AO ADM SS Comment on above: Interpretive Data: T riglyceride Reference Interval: Less than 150 Normal 150-199 Borderline high risk 200-499 High risk 500 or higher Very high risk LIPIDon 06-26-2024 Cholesterol [Mass/Vol] 141 mg/dL Normal 0-200 [facility] Comment on above: Result Comment: Chol esterol Reference Interval: Less than 200 Desirable 200-239 Borderline high risk 240 and above High risk Performed By: #### U PE #### [address] [address] Cholesterol in HDL [Mass/Vol] 51 mg/dL Normal 40-60 [facility] Comment on above: Performed By: #### U PE #### [address] [address] Cholesterol in LDL [Mass/Vol] 81 mg/dL Normal 0-130 [facility] Comment on above: Performed By: #### U PE #### [place] [address] Triglyceride [Mass/Vol] 44 mg/dL Normal 0-150 [facility] Comment on above: Result Comment: Trig lyceride Reference Interval: Less than 150 Normal 150-199 Borderline high risk 200-499 High risk 500 or higher Very high risk Performed By: #### U PE #### [place] [address] Laboratory - Chemistry and C hemistry - challengeOrdered By: SYSTEM SYSTEM on 06-26-2024 Bilirubin [Mass/Vol] 1.4 mg/dL High 0.2 - 1 .0 mg/dL AO ADM SS Comment on above: Interpretive Data: U se of this assay is not recommended for patients undergoing treatment with eltrombopag due to the potential for falsely elevated results. PHOSon 06-26-2024 Phosphate [Mass/Vol] 3.1 mg/dL Normal 2.3-4.1 [facility] Comment on above: Performed By: #### U PE #### [place] [address] PSAon 06-26-2024 Prostate Specific Antigen 0.64 ng/mL Normal 0.00-4.00 [facility] Comment on above: Performed By: #### U PE #### [place] [address] PTHon 06-26-2024 PTH, Intact 67.3 pg/mL Normal 18.5-88.0 [facility] Comment on above: Performed By: #### U PE #### [place] [address] CUSon 03-02-2024 Copper Lvl 98 UG/DL Normal 69-132 [facility] Comment on above: Result Comment: This test was developed and its performance characteristics determined by [employer]. It has not been cleared or approved by the Food and Drug Administration. Detection Limit = 5 Performed At: [address] [id number] Mickey Ramos MD Ph:[phone] Performed By: #### H IV, [id number] #### [facility] [address] [place] [address] HIVon 02-28-2024 HIV 1/2 Ab Non-Reactive Normal Non-Reactive [facility] Comment on above: Result Comment: Spec imen is negative for anti-HIV-1 and anti-HIV-2. Performed By: #### H IV, [id number] #### [facility] [address] [place] [address] LABORATORYOrdered By: Ana wheeler on 02-28-2024 HIV 1+2 Ab IA Ql Negative Invalid Interpretation Code AH Chemistry S HIV 1/2 Ab Non-Reactive (02/28/24 10:35 AM) Normal Non-Reactive AH ADM SS .GFRon 02-22-2024 GFR Non- 52 ml/min/1.73sqm Normal [facility] ([place]) Comment on above: Result Comment: GFR Population mean for , Non- Americans Ages 20-29 = 116 mL/min/1.73 sq.m. Ages 30-39 = 107 mL/min/1.73 sq.m. Ages 40-49 = 99 mL/min/1.73 sq.m. Ages 50-59 = 93 mL/min/1.73 sq.m. Ages 60-69 = 85 mL/min/1.73 sq.m. Ages 70+ = 75 mL/min/1.73 sq.m. Chronic Kidney Disease: Less than 60 mL/min/1.73 square meters End Stage Renal Disease: Less than 15 mL/min/1.73 square meters Performed By: #### G FR, ANEU, CMP, FERR, TSH, LD, FES, CBC, ADIFF ####[address] [place], [place] [address]#### B12, FOL ####[place] [address] GFR 64 ml/min/1.73sqm Normal [facility] ([place]) Comment on above: Result Comment: GFR Population mean for , Non- Americans Ages 20-29 = 116 mL/min/1.73 sq.m. Ages 30-39 = 107 mL/min/1.73 sq.m. Ages 40-49 = 99 mL/min/1.73 sq.m. Ages 50-59 = 93 mL/min/1.73 sq.m. Ages 60-69 = 85 mL/min/1.73 sq.m. Ages 70+ = 75 mL/min/1.73 sq.m. Chronic Kidney Disease: Less than 60 mL/min/1.73 square meters End Stage Renal Disease: Less than 15 mL/min/1.73 square meters Performed By: #### G FR, ANEU, CMP, FERR, TSH, LD, FES, CBC, ADIFF ####[place] [address]#### B12, FOL ####[place] [address] CMPon 02-22-2024 Albumin Level 3.7 G/dL Normal 3.4-4.8 [facility] ([place]) Comment on above: Performed By: #### G FR, ANEU, CMP, FERR, TSH, LD, FES, CBC, ADIFF ####[place] [address]#### B12, FOL ####[place] [address] Albumin/Globulin [Mass ratio] 0.9 {ratio} Low 1.1-2.5 [facility] ([place]) Comment on above: Performed By: #### G FR, ANEU, CMP, FERR, TSH, LD, FES, CBC, ADIFF ####[place] [address]#### B12, FOL ####[address] [address] ALP [Catalytic activity/Vol] 77 U/L Normal 40-135 [facility] ([place]) Comment on above: Performed By: #### G FR, ANEU, CMP, FERR, TSH, LD, FES, CBC, ADIFF ####[place] [address]#### B12, FOL ####[address] [address] ALT [Catalytic activity/Vol] 24 U/L Normal 16-63 [facility] ([place]) Comment on above: Performed By: #### G FR, ANEU, CMP, FERR, TSH, LD, FES, CBC, ADIFF ####[place] [address] [place] [address]#### B12, FOL ####[place] [address] AST [Catalytic activity/Vol] 18 U/L Normal 10-40 [facility] ([place]) Comment on above: Performed By: #### G FR, ANEU, CMP, FERR, TSH, LD, FES, CBC, ADIFF ####[place] [address]#### B12, FOL ####[place] [address] Bili Total 1.2 mg/dL High 0.2-1.0 [facility] ([place]) Comment on above: Result Comment: Use of this assay is not recommended for patients undergoing treatment with eltrombopag due to the potential for falsely elevated results. Performed By: #### G FR, ANEU, CMP, FERR, TSH, LD, FES, CBC, ADIFF ####[place] [address]#### B12, FOL ####[place] [address] BUN/Creatinine Ratio 12 ratio Normal 7-27 [facility] ([place]) Comment on above: Performed By: #### G FR, ANEU, CMP, FERR, TSH, LD, FES, CBC, ADIFF ####[place] [address] [place] [address]#### B12, FOL ####[place] [address] Calcium [Mass/Vol] 9.0 mg/dL Normal 8.4-10.2 [facility] ([place]) Comment on above: Performed By: #### G FR, ANEU, CMP, FERR, TSH, LD, FES, CBC, ADIFF ####[place] [address]#### B12, FOL ####[address] [address] Chloride [Moles/Vol] 104 mmol/L Normal 98-107 [facility] ([place]) Comment on above: Performed By: #### G FR, ANEU, CMP, FERR, TSH, LD, FES, CBC, ADIFF ####[place] [address]#### B12, FOL ####[place] [address] CO2 [Moles/Vol] 26 mmol/L Normal 23-31 [facility] ([place] Comment on above: Performed By: #### G FR, ANEU, CMP, FERR, TSH, LD, FES, CBC, ADIFF ####[place] [address]#### B12, FOL ####[place] [address] Creatinine [Mass/Vol] 1.37 mg/dL High 0.70-1.30 [facility] ([place]) Comment on above: Result Comment: Test ing performed on Siemens Dimension EXL analyzer using a modified kinetic Damon technique. Performed By: #### G FR, ANEU, CMP, FERR, TSH, LD, FES, CBC, ADIFF ####[place] [address]#### B12, FOL ####[place] [address] Electrolyte Balance 10.0 mEq/L Normal 4.0-15.0 [facility] ([place]) Comment on above: Performed By: #### G FR, ANEU, CMP, FERR, TSH, LD, FES, CBC, ADIFF ####[place] [address]#### B12, FOL ####[place] [address] Globulin 4.1 G/dL Normal [facility] ([place]) Comment on above: Performed By: #### G FR, ANEU, CMP, FERR, TSH, LD, FES, CBC, ADIFF ####[place] [address]#### B12, FOL ####[address] [address] Glucose [Mass/Vol] 117 mg/dL High 80-115 [facility] ([place]) Comment on above: Performed By: #### G FR, ANEU, CMP, FERR, TSH, LD, FES, CBC, ADIFF ####[place] [address]#### B12, FOL ####[address] [address] Potassium [Moles/Vol] 4.1 mmol/L Normal 3.5-5.1 [facility] ([place] Comment on above: Performed By: #### G FR, ANEU, CMP, FERR, TSH, LD, FES, CBC, ADIFF ####[place] [address]#### B12, FOL ####[address] [address] Sodium [Moles/Vol] 140 mmol/L Normal 136-145 [facility] ([place]) Comment on above: Performed By: #### G FR, ANEU, CMP, FERR, TSH, LD, FES, CBC, ADIFF ####[place] [address]#### B12, FOL ####[address] [address] Total Protein 7.8 G/dL Normal 6.4-8.2 [facility] ([place]) Comment on above: Performed By: #### G FR, ANEU, CMP, FERR, TSH, LD, FES, CBC, ADIFF ####[place] [address]#### B12, FOL ####[address] [address] Urea nitrogen [Mass/Vol] 16 mg/dL Normal 7-18 [facility] ([place] Comment on above: Performed By: #### G FR, ANEU, CMP, FERR, TSH, LD, FES, CBC, ADIFF ####[place] [address]#### B12, FOL ####[place] [address] Prakash 02-22-2024 Ferritin [Mass/Vol] 238.0 ng/mL Normal 26.0-388.0 [facility] ([place] Comment on above: Performed By: #### G FR, ANEU, CMP, FERR, TSH, LD, FES, CBC, ADIFF ####[place] [address]#### B12, FOL ####[place] [address] LDHon 02-22-2024 LDH 185 U/L Normal 85-227 [facility] ([place] Comment on above: Performed By: #### G FR, ANEU, CMP, FERR, TSH, LD, FES, CBC, ADIFF ####[place] [address]#### B12, FOL ####[place] [address] TSHon 02-22-2024 TSH Qn 1.51 m[IU]/L Normal 0.36-3.74 [facility] ([place] Comment on above: Performed By: #### G FR, ANEU, CMP, FERR, TSH, LD, FES, CBC, ADIFF ####[place] [address]#### B12, FOL ####[place] [address] .Auto Diffon 02-21-2024 Basophil, Absolute 0.0 10 3/mcL Normal 0.0-0.2 [facility] ([place] Comment on above: Performed By: #### G FR, ANEU, CMP, FERR, TSH, LD, FES, CBC, ADIFF ####[place] [address]#### B12, FOL ####[place] [address] Basophils/100 WBC (Bld) 0.6 % Normal 0.0-2.5 [facility] ([place] Comment on above: Performed By: #### G FR, ANEU, CMP, FERR, TSH, LD, FES, CBC, ADIFF ####[place] [address]#### B12, FOL ####[address] [address] Eosinophil, Absolute 0.2 10 3/mcL Normal 0.0-0.4 [facility] ([place]) Comment on above: Performed By: #### G FR, ANEU, CMP, FERR, TSH, LD, FES, CBC, ADIFF ####[place] [address]#### B12, FOL ####[address] [address] Eosinophils/100 WBC (Bld) 4.6 % Normal 0.0-7.0 [facility] ([place]) Comment on above: Performed By: #### G FR, ANEU, CMP, FERR, TSH, LD, FES, CBC, ADIFF ####[place] [address]#### B12, FOL ####[address] [address] Lymphocyte, Absolute 1.5 10 3/mcL Normal 0.8-3.9 [facility] ([place]) Comment on above: Performed By: #### G FR, ANEU, CMP, FERR, TSH, LD, FES, CBC, ADIFF ####[place] [address]#### B12, FOL ####[address] [address] Lymphocytes/100 WBC (Bld) 33.5 % Normal 10.0-50.0 [facility] ([place]) Comment on above: Performed By: #### G FR, ANEU, CMP, FERR, TSH, LD, FES, CBC, ADIFF ####[place] [address]#### B12, FOL ####[address] [address] Monocyte, Absolute 0.5 10 3/mcL Normal 0.2-1.0 [facility] ([place] Comment on above: Performed By: #### G FR, ANEU, CMP, FERR, TSH, LD, FES, CBC, ADIFF ####[place] [address]#### B12, FOL ####[address] [address] Monocytes/100 WBC (Bld) 12.0 % Normal 1.7-13.0 [facility] ([place] Comment on above: Performed By: #### G FR, ANEU, CMP, FERR, TSH, LD, FES, CBC, ADIFF ####[place] [address]#### B12, FOL ####[place] [address] Neutrophils/100 WBC (Bld) 49.3 % Normal 37.0-80.0 [facility] ([place] Comment on above: Performed By: #### G FR, ANEU, CMP, FERR, TSH, LD, FES, CBC, ADIFF ####[place] [address]#### B12, FOL ####[place] [address] .NEUABSon 02-21-2024 Neutrophil, Absolute 2.2 10 3/mcL Low 2.9-6.2 [facility] ([place]) Comment on above: Performed By: #### G FR, ANEU, CMP, FERR, TSH, LD, FES, CBC, ADIFF ####[place] [address]#### B12, FOL ####[place] [address] B12on 02-21-2024 Cobalamin (Vitamin B12) [Mass/Vol] 740 pg/mL Normal 211-911 [facility] ([place]) Comment on above: Performed By: #### G FR, ANEU, CMP, FERR, TSH, LD, FES, CBC, ADIFF ####[place] [address]#### B12, FOL ####[place] [address] CBCon 02-21-2024 Erythrocyte distribution width (RBC) [Ratio] 15.3 % High 11.5-14.5 [facility] ([place] Comment on above: Performed By: #### G FR, ANEU, CMP, FERR, TSH, LD, FES, CBC, ADIFF ####[place] [address]#### B12, FOL ####[place] [address] Hematocrit (Bld) [Volume fraction] 41.1 % Low 42.0-52.0 [facility] ([place] Comment on above: Performed By: #### G FR, ANEU, CMP, FERR, TSH, LD, FES, CBC, ADIFF ####[place] [address]#### B12, FOL ####[place] [address] Hgb 13.7 G/dL Low 14.0-18.0 [facility] ([place] Comment on above: Performed By: #### G FR, ANEU, CMP, FERR, TSH, LD, FES, CBC, ADIFF ####[place] [address]#### B12, FOL ####[place] [address] MCH (RBC) [Entitic mass] 30.0 pg Normal 27.0-31.2 [facility] ([place] Comment on above: Performed By: #### G FR, ANEU, CMP, FERR, TSH, LD, FES, CBC, ADIFF ####[place] [address]#### B12, FOL ####[place] [address] MCHC 33.2 G/dL Normal 31.8-35.4 [facility] ([place] Comment on above: Performed By: #### G FR, ANEU, CMP, FERR, TSH, LD, FES, CBC, ADIFF ####[place] [address]#### B12, FOL ####[address] [address] MCV (RBC) [Entitic vol] 90.3 fL Normal 80.0-94.0 [facility] ([place] Comment on above: Performed By: #### G FR, ANEU, CMP, FERR, TSH, LD, FES, CBC, ADIFF ####[place] [address]#### B12, FOL ####[place] [address] Platelet 235 10 3/mcL Normal 130-400 [facility] ([place] Comment on above: Performed By: #### G FR, ANEU, CMP, FERR, TSH, LD, FES, CBC, ADIFF ####[place] [address]#### B12, FOL ####[place] [address] Platelet mean volume (Bld) [Entitic vol] 7.8 fL Normal 7.4-10.4 [facility] ([place] Comment on above: Performed By: #### G FR, ANEU, CMP, FERR, TSH, LD, FES, CBC, ADIFF ####[place] [address]#### B12, FOL ####[address] [address] RBC 4.56 10 6/mcL Normal 4.04-6.13 [facility] ([place] Comment on above: Performed By: #### G FR, ANEU, CMP, FERR, TSH, LD, FES, CBC, ADIFF ####[place] [address] [place] [address]#### B12, FOL ####[place] [address] WBC 4.4 10 3/mcL Low 4.6-10.8 [facility] ([place] Comment on above: Performed By: #### G FR, ANEU, CMP, FERR, TSH, LD, FES, CBC, ADIFF ####[place] [address]#### B12, FOL ####[place] [address] FESon 02-21-2024 Iron [Mass/Vol] 86 ug/dL Normal 65-175 [facility] ([place] Comment on above: Performed By: #### G FR, ANEU, CMP, FERR, TSH, LD, FES, CBC, ADIFF ####[place] [address]#### B12, FOL ####[place] [address] Iron Sat 35 % Normal [facility] ([place] Comment on above: Performed By: #### G FR, ANEU, CMP, FERR, TSH, LD, FES, CBC, ADIFF ####[place] [address]#### B12, FOL ####[place] [address] TIBC 246 mcg/dL Low 250-450 [facility] ([place] Comment on above: Performed By: #### G FR, ANEU, CMP, FERR, TSH, LD, FES, CBC, ADIFF ####[place] [address]#### B12, FOL ####[place] [address] FOLon 02-21-2024 Folate 12.15 ng/mL Normal 5.38-24.00 [facility] ([place]) Comment on above: Performed By: #### G FR, ANEU, CMP, FERR, TSH, LD, FES, CBC, ADIFF ####[place] [address]#### B12, FOL ####[place] [id number] LABORATORYOrdered By: SYSTEM SYSTEM on 02-21-2024 Basophil, Absolute 0.0 103/mcL Normal 0.0 - 0.2 10^3/mcL AO Workflow SS Basophils/100 WBC (Bld) 0.6 % Normal 0.0 - 2.5 % AO Workflow SS Cobalamin (Vitamin B12) [Mass/Vol] 740 pg/mL Normal 211 - 911 pg/mL ADM SS Eosinophil, Absolute 0.2 103/mcL Normal 0.0 - 0 .4 10^3/mcL AO Workflow SS Eosinophils/100 WBC (Bld) 4.6 % Normal 0.0 - 7.0 % AO Workflow SS Erythrocyte distribution width (RBC) [Ratio] 15.3 % High 11.5 - 14.5 % AO Workflow SS Folate [Mass/Vol] 12.15 ng/mL Normal 5.38 - 24. 00 ng/mL ADM SS Hematocrit (Bld) [Volume fraction] 41.1 % Low 42.0 - 52.0 % AO Workflow SS Hemoglobin (Bld) [Mass/Vol] 13.7 G/dL Low 14.0 - 18.0 G/dL AO Workflow SS Iron [Mass/Vol] 86 ug/dL Normal 65 - 175 mcg/dL AO ADM SS Iron binding capacity [Mass/Vol] 246 mcg/dL Low 250 - 450 mcg/dL AO ADM SS Iron Sat 35 % Invalid Interpretation Code AO ADM SS Lymphocyte, Absolute 1.5 103/mcL Normal 0.8 - 3 .9 10^3/mcL AO Workflow SS Lymphocytes/100 WBC (Bld) 33.5 % Normal 10.0 - 50.0 % AO Workflow SS MCH (RBC) [Entitic mass] 30.0 pg Normal 27.0 - 31.2 pg AO Workflow SS MCHC 33.2 G/dL Normal 31.8 - 35.4 G/dL AO Workflow SS MCV (RBC) [Entitic vol] 90.3 fL Normal 80.0 - 94.0 fL AO Workflow SS Monocyte, Absolute 0.5 103/mcL Normal 0.2 - 1.0 10^3/mcL AO Workflow SS Monocytes/100 WBC (Bld) 12.0 % Normal 1.7 - 13.0 % AO Workflow SS Neutrophil, Absolute 2.2 103/mcL Low 2.9 - 6 .2 10^3/mcL AO Workflow SS Neutrophils/100 WBC (Bld) 49.3 % Normal 37.0 - 80.0 % AO Workflow SS Platelet mean volume (Bld) [Entitic vol] 7.8 fL Normal 7.4 - 10.4 fL AO Workflow SS Platelets (Bld) [#/Vol] 235 103/mcL Normal 130 - 400 10^3/mcL AO Workflow SS RBC (Bld) [#/Vol] 4.56 106/mcL Normal 4.04 - 6.1 3 10^6/mcL AO Workflow SS WBC (Bld) [#/Vol] 4.4 103/mcL Low 4.6 - 10.8 10^3/mcL AO Workflow SS LABORATORYOrdered By: Eli Carver on 02-16-2024 Albumin DL <= 20 mg/L (U) [Mass/Vol] 664 mcg/dL Invalid Interpretation Code AO ADM SS Albumin/Creatinine DL <= 20 mg/L (U) [Mass ratio] 5 mcg/mg Normal 0 - 30 mcg/mg AO ADM SS Creatinine (U) [Mass/Vol] 145.2 mg/dL Normal 39.0 - 259.0 mg/dL AO ADM SS MALBRon 02-16-2024 U Creatinine 145.2 mg/dL Normal 39.0-259.0 [facility] ([place]) Comment on above: Performed By: #### M ALBR ####[id number] [place], [place] [address] U Microalb 664 mcg/dL Normal [facility] ([place]) Comment on above: Performed By: #### M ALBR ####[id number] [place], [place] [address] U Ratio Alb/Cre 5 mcg/mg Normal 0-30 [facility] ([place]) Comment on above: Performed By: #### M ALBR ####[id number] [place], [place] [address] CT HEAD OR BRAIN W/O CONTRAS Ton 02-14-2024 CT HEAD OR BRAIN W/O CONTRAST ORIGINAL EXAMINATION: CT OF THE HEAD WITHOUT CONTRAST 02/14/2024 9:43 pm TECHNIQUE: CT of the head was performed without the administration of intravenous contrast. Automated exposure control, iterative reconstruction, and/or weight based adjustment of the mA/kV was utilized to reduce the radiation dose to as low as reasonably achievable. COMPARISON: CT head 12/07/2023 HISTORY: ORDERING SYSTEM PROVIDED HISTORY: Reason for Exam: slipped on deck and hit head, is on blood thinners INJURY FINDINGS: BRAIN/VENTRICLES: No evidence of acute intracranial hemorrhage, midline shift, or mass effect. Godoy-white matter differentiation is maintained without evidence of acute large territorial infarction. No intra-axial mass or extra-axial fluid collection. The ventricular system and basal cisterns are patent. Scattered white matter hypodensities are nonspecific but statistically most consistent with mild chronic microvascular angiopathy. The ventricles are enlarged with commensurate enlargement of the sulci most consistent with mild volume loss. Carotid siphon calcifications are present. ORBITS: The visualized portions of the orbits demonstrate no acute abnormality. SINUSES: The visible paranasal sinuses and mastoid air cells are essentially clear. SOFT TISSUE/SKULL: No acute abnormality of the visualized skull or soft tissues. IMPRESSION: No acute intracranial abnormality. I have personally reviewed the images of this examination and agree with the resident's findings and interpretation. Interpreted by: Parker Seo Preliminary Report By: Gamaliel Gonzalez Electronically signed By Parker Seo Dictated Date: 02/14/2024 10:19:15 PM Prelim Date: 02/14/2024 10:27:39 PM Sign Date: 02/14/2024 10:35:11 PM Ordering Provider: DAWSON JAQUEZ Normal [facility]) Prakash 01-10-2024 Ferritin [Mass/Vol] 280.0 ng/mL Normal 26.0-388.0 [facility]) Comment on above: Performed By: #### F ERR, FES #### [address] [address] FESon 01-10-2024 Iron [Mass/Vol] 69 ug/dL Normal 65-175 [facility]) Comment on above: Performed By: #### F ERR, FES #### [address] [address] Iron Sat 27 % Normal [facility] ([place]) Comment on above: Performed By: #### F ERR, FES #### [address] [address] TIBC 253 mcg/dL Normal 250-450 [facility] ([place] Comment on above: Performed By: #### F ERR, FES #### [place] [address] [place], [place] [address] B12on 01-07-2024 Cobalamin (Vitamin B12) [Mass/Vol] 653 pg/mL Normal 211-911 [facility] ([place] Comment on above: Performed By: #### G FR, BMP, ANEU, ADIFF, CBC, VIDH ####[place] [address] [place], [place] [address]#### B12 ####[place] [address] XR SPINE CERVICAL W/ OBLIQUE S 5 VIEWSon 01-07-2024 XR SPINE CERVICAL W/ OBLIQUES 5 VIEWS ORIGINAL EXAMINATION: FIVE XRAY VIEWS OF THE CERVICAL SPINE01/05/2024 5:21 pm COMPARISON: 11/17/2018 HISTORY: ORDERING SYSTEM PROVIDED HISTORY: Reason for Exam: left C5-C6 radiculopathy symptoms, FINDINGS: Lateral view shows normal cervical body height and alignment with no aggressive lesion or compression fracture. There is moderate to severe disc space narrowing at multiple levels with endplate spurring. Multilevel [id number] facet arthropathy. Oblique views show multilevel at least moderate foraminal stenosis in the lower cervical region. Normal C1-C2 and prevertebral soft tissue space. IMPRESSION: Moderate degenerative changes with bilateral multilevel foraminal stenosis. Interpreted by: Kraig Dempsey MD Preliminary Report By: Kraig Dempsey MD Electronically signed By Kraig Dempsey MD Dictated Date: 01/07/2024 4:03:13 PM Prelim Date: 01/07/2024 4:04:11 PM Sign Date: 01/07/2024 4:04:11 PM Ordering Provider: KERMIT José [facility] ([place]) .Auto Diffon 01-06-2024 Basophil, Absolute 0.0 10 3/mcL Normal 0.0-0.2 [facility] ([place]) Comment on above: Performed By: #### F ERR, FES #### [place] [address] [place], [place] [address] Basophils/100 WBC (Bld) 0.2 % Normal 0.0-2.5 [facility] ([place] Comment on above: Performed By: #### F ERR, FES #### [address] [address] Eosinophil, Absolute 0.1 10 3/mcL Normal 0.0-0.4 [facility] ([place]) Comment on above: Performed By: #### F ERR, FES #### [address] [address] Eosinophils/100 WBC (Bld) 1.7 % Normal 0.0-7.0 [facility] ([place]) Comment on above: Performed By: #### F ERR, FES #### [address] [address] Lymphocyte, Absolute 2.1 10 3/mcL Normal 0.8-3.9 [facility] ([place]) Comment on above: Performed By: #### F ERR, FES #### [address] [address] Lymphocytes/100 WBC (Bld) 38.6 % Normal 10.0-50.0 [facility] ([place]) Comment on above: Performed By: #### F ERR, FES #### [address] [address] Monocyte, Absolute 0.6 10 3/mcL Normal 0.2-1.0 [facility] ([place]) Comment on above: Performed By: #### F ERR, FES #### [address] [address] Monocytes/100 WBC (Bld) 11.0 % Normal 1.7-13.0 [facility] ([place]) Comment on above: Performed By: #### F ERR, FES #### [address] [address] Neutrophils/100 WBC (Bld) 48.5 % Normal 37.0-80.0 [facility] ([place]) Comment on above: Performed By: #### F ERR, FES #### [address] [address] .GFRon 01-06-2024 GFR 69 ml/min/1.73sqm Normal [facility] ([place]) Comment on above: Result Comment: GFR Population mean for , Non- Americans Ages 20-29 = 116 mL/min/1.73 sq.m. Ages 30-39 = 107 mL/min/1.73 sq.m. Ages 40-49 = 99 mL/min/1.73 sq.m. Ages 50-59 = 93 mL/min/1.73 sq.m. Ages 60-69 = 85 mL/min/1.73 sq.m. Ages 70+ = 75 mL/min/1.73 sq.m. Chronic Kidney Disease: Less than 60 mL/min/1.73 square meters End Stage Renal Disease: Less than 15 mL/min/1.73 square meters Performed By: #### G FR, BMP, ANEU, ADIFF, CBC, VIDH ####[address] [place] [address]#### B12 ####[place] [address] GFR Non- 57 ml/min/1.73sqm Normal [facility] ([place]) Comment on above: Result Comment: GFR Population mean for , Non- Americans Ages 20-29 = 116 mL/min/1.73 sq.m. Ages 30-39 = 107 mL/min/1.73 sq.m. Ages 40-49 = 99 mL/min/1.73 sq.m. Ages 50-59 = 93 mL/min/1.73 sq.m. Ages 60-69 = 85 mL/min/1.73 sq.m. Ages 70+ = 75 mL/min/1.73 sq.m. Chronic Kidney Disease: Less than 60 mL/min/1.73 square meters End Stage Renal Disease: Less than 15 mL/min/1.73 square meters Performed By: #### G FR, BMP, ANEU, ADIFF, CBC, VIDH ####[address] [place], [place] [address]#### B12 ####[address] [address] .NEUABSon 01-06-2024 Neutrophil, Absolute 2.6 10 3/mcL Low 2.9-6.2 [facility] ([place]) Comment on above: Performed By: #### G FR, BMP, ANEU, ADIFF, CBC, VIDH ####[place] [address]#### B12 ####[address] [address] BMPon 01-06-2024 BUN/Creatinine Ratio 10 ratio Normal 7-27 [facility] ([place]) Comment on above: Performed By: #### G FR, BMP, ANEU, ADIFF, CBC, VIDH ####[place] [address]#### B12 ####[place] [address] Calcium [Mass/Vol] 9.0 mg/dL Normal 8.4-10.2 [facility] ([place]) Comment on above: Performed By: #### G FR, BMP, ANEU, ADIFF, CBC, VIDH ####[place] [address]#### B12 ####[place] [address] Chloride [Moles/Vol] 105 mmol/L Normal 98-107 [facility] ([place]) Comment on above: Performed By: #### G FR, BMP, ANEU, ADIFF, CBC, VIDH ####[place] [address]#### B12 ####[place] [address] CO2 [Moles/Vol] 30 mmol/L Normal 23-31 [facility] ([place]) Comment on above: Performed By: #### G FR, BMP, ANEU, ADIFF, CBC, VIDH ####[place] [address]#### B12 ####[place] [address] Creatinine [Mass/Vol] 1.27 mg/dL Normal 0.70-1.30 [facility] ([place]) Comment on above: Performed By: #### G FR, BMP, ANEU, ADIFF, CBC, VIDH ####[place] [address]#### B12 ####[address] [address] Electrolyte Balance 5.0 mEq/L Normal 4.0-15.0 [facility] ([place]) Comment on above: Performed By: #### G FR, BMP, ANEU, ADIFF, CBC, VIDH ####[place] [address]#### B12 ####[address] [address] Glucose [Mass/Vol] 81 mg/dL Normal 80-115 [facility] ([place]) Comment on above: Performed By: #### G FR, BMP, ANEU, ADIFF, CBC, VIDH ####[place] [address]#### B12 ####[address] [address] Potassium [Moles/Vol] 3.7 mmol/L Normal 3.5-5.1 [facility] ([place]) Comment on above: Performed By: #### G FR, BMP, ANEU, ADIFF, CBC, VIDH ####[place] [address]#### B12 ####[address] [address] Sodium [Moles/Vol] 140 mmol/L Normal 136-145 [facility] ([place]) Comment on above: Performed By: #### G FR, BMP, ANEU, ADIFF, CBC, VIDH ####[place] [address]#### B12 ####[address] [address] Urea nitrogen [Mass/Vol] 13 mg/dL Normal 7-18 [facility] ([place]) Comment on above: Performed By: #### G FR, BMP, ANEU, ADIFF, CBC, VIDH ####Siva [address] [address]#### B12 ####[place] [address] CBCon 01-06-2024 Erythrocyte distribution width (RBC) [Ratio] 15.3 % High 11.5-14.5 [facility] ([place]) Comment on above: Performed By: #### F ERR, FES #### [address] [address] Hematocrit (Bld) [Volume fraction] 38.2 % Low 42.0-52.0 [facility] ([place]) Comment on above: Performed By: #### F ERR, FES #### [address] [address] Hgb 12.6 G/dL Low 14.0-18.0 [facility] ([place]) Comment on above: Performed By: #### F ERR, FES #### [address] [address] MCH (RBC) [Entitic mass] 29.7 pg Normal 27.0-31.2 [facility] ([place] Comment on above: Performed By: #### F ERR, FES #### [address] [address] MCHC 32.9 G/dL Normal 31.8-35.4 [facility] ([place] Comment on above: Performed By: #### F ERR, FES #### [address] [address] MCV (RBC) [Entitic vol] 90.3 fL Normal 80.0-94.0 [facility] ([place]) Comment on above: Performed By: #### F ERR, FES #### [address] [address] Platelet 207 10 3/mcL Normal 130-400 [facility] ([place]) Comment on above: Performed By: #### F ERR, FES #### [address] [address] Platelet mean volume (Bld) [Entitic vol] 7.9 fL Normal 7.4-10.4 [facility] ([place]) Comment on above: Performed By: #### F ERR, FES #### [address] [address] RBC 4.23 10 6/mcL Normal 4.04-6.13 [facility] ([place]) Comment on above: Performed By: #### F ERR, FES #### [address] [address] WBC 5.4 10 3/mcL Normal 4.6-10.8 [facility] ([place]) Comment on above: Performed By: #### F ERR, FES #### [address] [address] LABORATORYOrdered By: SYSTEM SYSTEM on 01-06-2024 25-hydroxyvitamin D3 [Mass/Vol] 44.4 ng/mL Invalid Interpretation Code AO ADM SS Comment on above: Interpretive Data: I nterpretive Values Based on Total 25(OH) Vitamin D: Deficient <20 ng/mL Insufficient 20 - <30 ng/mL Sufficient 30-100 ng/mL Basophil, Absolute 0.0 103/mcL Normal 0.0 - 0.2 10^3/mcL AO Workflow SS Basophils/100 WBC (Bld) 0.2 % Normal 0.0 - 2.5 % AO Workflow SS Calcium [Mass/Vol] 9.0 mg/dL Normal 8.4 - 10. 2 mg/dL AO ADM SS Chloride [Moles/Vol] 105 mmol/L Normal 98 - 10 7 mmol/L AO ADM SS CO2 [Moles/Vol] 30 mmol/L Normal 23 - 31 mmol/L AO ADM SS Creatinine [Mass/Vol] 1.27 mg/dL Normal 0.70 - 1.30 mg/dL AO ADM SS Electrolyte Balance 5.0 mEq/L Normal 4.0 - 15 .0 mEq/L AO ADM SS Eosinophil, Absolute 0.1 103/mcL Normal 0.0 - 0 .4 10^3/mcL AO Workflow SS Eosinophils/100 WBC (Bld) 1.7 % Normal 0.0 - 7.0 % AO Workflow SS Erythrocyte distribution width (RBC) [Ratio] 15.3 % High 11.5 - 14.5 % AO Workflow SS GFR/1.73 sq M.predicted among blacks MDRD (S/P/Bld) [Vol rate/Area] 69 ml/min/1.73sqm Invalid Interpretation Code AO Chemistry S Comment on above: Interpretive Data: GFR Population mean for , Non- Americans Ages 20-29 = 116 mL/min/1.73 sq.m. Ages 30-39 = 107 mL/min/1.73 sq.m. Ages 40-49 = 99 mL/min/1.73 sq.m. Ages 50-59 = 93 mL/min/1.73 sq.m. Ages 60-69 = 85 mL/min/1.73 sq.m. Ages 70+ = 75 mL/min/1.73 sq.m. Chronic Kidney Disease: Less than 60 mL/min/1.73 square meters End Stage Renal Disease: Less than 15 mL/min/1.73 square meters GFR/1.73 sq M.predicted among non-blacks MDRD (S/P/Bld) [Vol rate/Area] 57 ml/min/1.73sqm Invalid Interpretation Code AO Chemistry S Comment on above: Interpretive Data: GFR Population mean for , Non- Americans Ages 20-29 = 116 mL/min/1.73 sq.m. Ages 30-39 = 107 mL/min/1.73 sq.m. Ages 40-49 = 99 mL/min/1.73 sq.m. Ages 50-59 = 93 mL/min/1.73 sq.m. Ages 60-69 = 85 mL/min/1.73 sq.m. Ages 70+ = 75 mL/min/1.73 sq.m. Chronic Kidney Disease: Less than 60 mL/min/1.73 square meters End Stage Renal Disease: Less than 15 mL/min/1.73 square meters Glucose [Mass/Vol] 81 mg/dL Normal 80 - 115 mg/dL AO ADM SS Hematocrit (Bld) [Volume fraction] 38.2 % Low 42.0 - 52.0 % AO Workflow SS Hemoglobin (Bld) [Mass/Vol] 12.6 G/dL Low 14.0 - 18.0 G/dL AO Workflow SS Lymphocyte, Absolute 2.1 103/mcL Normal 0.8 - 3 .9 10^3/mcL AO Workflow SS Lymphocytes/100 WBC (Bld) 38.6 % Normal 10.0 - 50.0 % AO Workflow SS MCH (RBC) [Entitic mass] 29.7 pg Normal 27.0 - 31.2 pg AO Workflow SS MCHC 32.9 G/dL Normal 31.8 - 35.4 G/dL AO Workflow SS MCV (RBC) [Entitic vol] 90.3 fL Normal 80.0 - 94.0 fL AO Workflow SS Monocyte, Absolute 0.6 103/mcL Normal 0.2 - 1.0 10^3/mcL AO Workflow SS Monocytes/100 WBC (Bld) 11.0 % Normal 1.7 - 13.0 % AO Workflow SS Neutrophil, Absolute 2.6 103/mcL Low 2.9 - 6 .2 10^3/mcL AO Workflow SS Neutrophils/100 WBC (Bld) 48.5 % Normal 37.0 - 80.0 % AO Workflow SS Platelet mean volume (Bld) [Entitic vol] 7.9 fL Normal 7.4 - 10.4 fL AO Workflow SS Platelets (Bld) [#/Vol] 207 103/mcL Normal 130 - 400 10^3/mcL AO Workflow SS Potassium [Moles/Vol] 3.7 mmol/L Normal 3.5 - 5.1 mmol/L AO ADM SS RBC (Bld) [#/Vol] 4.23 106/mcL Normal 4.04 - 6.1 3 10^6/mcL AO Workflow SS Sodium [Moles/Vol] 140 mmol/L Normal 136 - 145 mmol/L AO ADM SS Urea nitrogen [Mass/Vol] 13 mg/dL Normal 7 - 18 mg/dL AO ADM SS Urea nitrogen/Creatinine [Mass ratio] 10 ratio Normal 7 - 27 ratio AO ADM SS WBC (Bld) [#/Vol] 5.4 103/mcL Normal 4.6 - 10.8 10^3/mcL AO Workflow SS VIDHon 01-06-2024 Vit. D 25-Hydroxy 44.4 ng/mL Normal [facility] ([place]) Comment on above: Result Comment: Inte rpretive Values Based on Total 25(OH) Vitamin D: Deficient <20 ng/mL Insufficient 20 - <30 ng/mL Sufficient 30-100 ng/mL Performed By: #### G FR, BMP, ANEU, ADIFF, CBC, VIDH ####[address] [address]#### B12 ####[address] [address] MYCOon 12-10-2023 Mycoplasma IgG Positive Normal [facility] ([place]) Comment on above: Result Comment: INTE RPRETATION OF MYCOPLASMA IgG BY EIA: Negative: No detectable M. pneumoniae IgG antibody. Positive: Mycoplasma pneumoniae IgG antibody Detected. Equivocal: Equivocal for IgG antibodies to Mycoplasma pneumoniae. Suggest repeat testing in 10-14 days. Performed By: #### M YCO ####[place] [address] .Auto Diffon 12-07-2023 Basophil, Absolute 0.0 10 3/mcL Normal 0.0-0.2 [facility] ([place]) Comment on above: Performed By: #### A NILAM LEMUS, CBC ####[place] [address] [place], [place] [address] Basophils/100 WBC (Bld) 0.3 % Normal 0.0-2.5 [facility] ([place]) Comment on above: Performed By: #### A NILAM LEMUS, CBC ####[facility] [place], [place] [address] Eosinophil, Absolute 0.0 10 3/mcL Normal 0.0-0.4 [facility] ([place]) Comment on above: Performed By: #### A NILAM LEMUS, CBC ####[facility] [place], [place] [address] Eosinophils/100 WBC (Bld) 0.2 % Normal 0.0-7.0 [facility] ([place]) Comment on above: Performed By: #### A NILAM ELMUS, CBC ####[facility] [place], [place] [address] Lymphocyte, Absolute 1.0 10 3/mcL Normal 0.8-3.9 [facility] ([place]) Comment on above: Performed By: #### A MARIAHNILAM, CBC ####[facility] [place], [place] [address] Lymphocytes/100 WBC (Bld) 7.7 % Low 10.0-50.0 [facility] ([place]) Comment on above: Performed By: #### A NILAM LEMUS, CBC ####[address] [place], [place] [address] Monocyte, Absolute 1.9 10 3/mcL High 0.2-1.0 [facility] ([place] Comment on above: Performed By: #### A JOLENE LEMUSIFF, CBC ####[address] [place], [place] [address] Monocytes/100 WBC (Bld) 15.0 % High 1.7-13.0 [facility] ([place]) Comment on above: Performed By: #### A JOLENE LEMUSIFF, CBC ####[address] [place], [place] [address] Neutrophils/100 WBC (Bld) 76.8 % Normal 37.0-80.0 [facility] ([place]) Comment on above: Performed By: #### A NILAM LEMUS, CBC ####[address] [place], [place] [address] .GFRon 12-07-2023 GFR 87 ml/min/1.73sqm Normal [facility] ([place]) Comment on above: Result Comment: GFR Population mean for , Non- Americans Ages 20-29 = 116 mL/min/1.73 sq.m. Ages 30-39 = 107 mL/min/1.73 sq.m. Ages 40-49 = 99 mL/min/1.73 sq.m. Ages 50-59 = 93 mL/min/1.73 sq.m. Ages 60-69 = 85 mL/min/1.73 sq.m. Ages 70+ = 75 mL/min/1.73 sq.m. Chronic Kidney Disease: Less than 60 mL/min/1.73 square meters End Stage Renal Disease: Less than 15 mL/min/1.73 square meters Performed By: #### G FR, MG, BMP ####[address] [place], [place] [address] GFR Non- 72 ml/min/1.73sqm Normal [facility] ([place]) Comment on above: Result Comment: GFR Population mean for , Non- Americans Ages 20-29 = 116 mL/min/1.73 sq.m. Ages 30-39 = 107 mL/min/1.73 sq.m. Ages 40-49 = 99 mL/min/1.73 sq.m. Ages 50-59 = 93 mL/min/1.73 sq.m. Ages 60-69 = 85 mL/min/1.73 sq.m. Ages 70+ = 75 mL/min/1.73 sq.m. Chronic Kidney Disease: Less than 60 mL/min/1.73 square meters End Stage Renal Disease: Less than 15 mL/min/1.73 square meters Performed By: #### G FR, MG, BMP ####[address] [place], [place] [address] .NEUABSon 12-07-2023 Neutrophil, Absolute 9.7 10 3/mcL High 2.9-6.2 [facility] ([place]) Comment on above: Performed By: #### NILAM SINHA, CBC ####[address] [place], [place] [address] BMPon 12-07-2023 BUN/Creatinine Ratio 12 ratio Normal 7-27 [facility] ([place]) Comment on above: Performed By: #### Jorge FR, MG, BMP ####[address] [place], [place] [address] Calcium [Mass/Vol] 8.4 mg/dL Normal 8.4-10.2 [facility] ([place]) Comment on above: Performed By: #### Jorge FR, MG, BMP ####[address] [place], [place] [address] Chloride [Moles/Vol] 99 mmol/L Normal 98-107 [facility] ([place] Comment on above: Performed By: #### G FR, MG, BMP ####[address] [place], [place] [address] CO2 [Moles/Vol] 32 mmol/L High 23-31 [facility] ([place] Comment on above: Performed By: #### G FR, MG, BMP ####[address] [place], [place] [address] Creatinine [Mass/Vol] 1.04 mg/dL Normal 0.70-1.30 [facility] ([place]) Comment on above: Performed By: #### MG LILIAN, BMP ####[address] [place], [place] [address] Electrolyte Balance 6.0 mEq/L Normal 4.0-15.0 [facility] ([place]) Comment on above: Performed By: #### MG LILIAN, BMP ####[address] [place], [place] [address] Glucose [Mass/Vol] 147 mg/dL High 80-115 [facility] ([place] Comment on above: Performed By: #### MG LILIAN, BMP ####[address] [place], [place] [address] Potassium [Moles/Vol] 3.6 mmol/L Normal 3.5-5.1 [facility] ([place] Comment on above: Performed By: #### MG LILIAN, BMP ####[address] [place], [place] [address] Sodium [Moles/Vol] 137 mmol/L Normal 136-145 [facility] ([place] Comment on above: Performed By: #### MG LILIAN, BMP ####[address] [place], [place] [address] Urea nitrogen [Mass/Vol] 13 mg/dL Normal 7-18 [facility] ([place] Comment on above: Performed By: #### MG LILIAN, BMP ####[address] [place], [place] [address] CBCon 12-07-2023 Erythrocyte distribution width (RBC) [Ratio] 14.2 % Normal 11.5-14.5 [facility] ([place] Comment on above: Performed By: #### A NILAM LEMUS, CBC ####[address] [place], [place] [address] Hematocrit (Bld) [Volume fraction] 38.4 % Low 42.0-52.0 [facility] ([place] Comment on above: Performed By: #### A NILAM LEMUS, CBC ####[address] [place], [place] [address] Hgb 12.6 G/dL Low 14.0-18.0 [facility] ([place] Comment on above: Performed By: #### A NILAM LEMUS, CBC ####[address] [place], [place] [address] MCH (RBC) [Entitic mass] 29.5 pg Normal 27.0-31.2 [facility] ([place]) Comment on above: Performed By: #### A NILAM LEMUS, CBC ####[address] [place], [place] [address] MCHC 32.9 G/dL Normal 31.8-35.4 [facility] ([place] Comment on above: Performed By: #### A NILAM LEMUS, CBC ####[address] [place], [place] [address] MCV (RBC) [Entitic vol] 89.8 fL Normal 80.0-94.0 [facility] ([place]) Comment on above: Performed By: #### A INLAM LEMUS, CBC ####[address] [place], [place] [address] Platelet 283 10 3/mcL Normal 130-400 [facility] ([place]) Comment on above: Performed By: #### A NILAM LEMUS, CBC ####[address] [place], [place] [address] Platelet mean volume (Bld) [Entitic vol] 6.9 fL Low 7.4-10.4 [facility] ([place]) Comment on above: Performed By: #### A NILAM LEMUS, CBC ####[address] [place], [place] [address] RBC 4.28 10 6/mcL Normal 4.04-6.13 [facility] ([place]) Comment on above: Performed By: #### A NILAM LEMUS, CBC ####[address] [place], [place] [address] WBC 12.6 10 3/mcL High 4.6-10.8 [facility] ([place]) Comment on above: Performed By: #### A NILAM LEMUS, CBC ####[place] [address] [place], [place] [address] CT HEAD OR BRAIN W/O LAURA Velasquez 12-07-2023 CT HEAD OR BRAIN W/O CONTRAST ORIGINAL EXAMINATION: CT OF THE HEAD WITHOUT CONTRAST 12/07/2023 10:25 am TECHNIQUE: CT of the head was performed without the administration of intravenous contrast. Automated exposure control, iterative reconstruction, and/or weight based adjustment of the mA/kV was utilized to reduce the radiation dose to as low as reasonably achievable. COMPARISON: None available HISTORY: ORDERING SYSTEM PROVIDED HISTORY: Reason for Exam: headaches. Pneumonia. Patient had PEs a couple days ago. FINDINGS: [employer] (topogram) images: Unremarkable BRAIN/VENTRICLES: No evidence of acute hemorrhage, mass effect, or midline shift. The godoy white matter differentiation is well maintained. No evidence of intra-axial mass lesion or extra-axial fluid collection. The ventricular system basal cisterns are patent and normal in morphology. Atherosclerotic calcifications are present in the cavernous carotid arteries. ORBITS: The visualized portions of the orbits demonstrate no acute abnormality. SINUSES: Dependent fluid within the right maxillary sinus. Aerated secretions in the ethmoid air cells bilaterally. The mild aerated secretions left maxillary sinus. May represent acute sinusitis in the appropriate clinical setting. Mastoid air cells are clear. The SOFT TISSUE/SKULL: No acute abnormality of the visualized skull or soft tissues. IMPRESSION: Acute sinusitis. No acute intracranial hemorrhage, hydrocephalus, or mass effect. I have personally reviewed the images of this examination and agree with the resident's findings and interpretation. Interpreted by: Collins Morrissey MD Preliminary Report By: Law Bruce Electronically signed By Collins Morrissey MD Dictated Date: 12/07/2023 10:29:54 AM Prelim Date: 12/07/2023 11:24:53 AM Sign Date: 12/07/2023 11:24:53 AM Ordering Provider: KAYY José [facility] ([place]) LABORATORYOrdered By: SYSTEM SYSTEM on 12-07-2023 Basophil, Absolute 0.0 103/mcL Normal 0.0 - 0.2 10^3/mcL AO Workflow SS Basophils/100 WBC (Bld) 0.3 % Normal 0.0 - 2.5 % AO Workflow SS Eosinophil, Absolute 0.0 103/mcL Normal 0.0 - 0 .4 10^3/mcL AO Workflow SS Eosinophils/100 WBC (Bld) 0.2 % Normal 0.0 - 7.0 % AO Workflow SS Erythrocyte distribution width (RBC) [Ratio] 14.2 % Normal 11.5 - 14.5 % AO Workflow SS Hematocrit (Bld) [Volume fraction] 38.4 % Low 42.0 - 52.0 % AO Workflow SS Hemoglobin (Bld) [Mass/Vol] 12.6 G/dL Low 14.0 - 18.0 G/dL AO Workflow SS Lymphocyte, Absolute 1.0 103/mcL Normal 0.8 - 3 .9 10^3/mcL AO Workflow SS Lymphocytes/100 WBC (Bld) 7.7 % Low 10.0 - 50.0 % AO Workflow SS MCH (RBC) [Entitic mass] 29.5 pg Normal 27.0 - 31.2 pg AO Workflow SS MCHC 32.9 G/dL Normal 31.8 - 35.4 G/dL AO Workflow SS MCV (RBC) [Entitic vol] 89.8 fL Normal 80.0 - 94.0 fL AO Workflow SS Monocyte, Absolute 1.9 103/mcL High 0.2 - 1.0 10^3/mcL AO Workflow SS Monocytes/100 WBC (Bld) 15.0 % High 1.7 - 13.0 % AO Workflow SS Neutrophil, Absolute 9.7 103/mcL High 2.9 - 6 .2 10^3/mcL AO Workflow SS Neutrophils/100 WBC (Bld) 76.8 % Normal 37.0 - 80.0 % AO Workflow SS Platelet mean volume (Bld) [Entitic vol] 6.9 fL Low 7.4 - 10.4 fL AO Workflow SS Platelets (Bld) [#/Vol] 283 103/mcL Normal 130 - 400 10^3/mcL AO Workflow SS RBC (Bld) [#/Vol] 4.28 106/mcL Normal 4.04 - 6.1 3 10^6/mcL AO Workflow SS WBC (Bld) [#/Vol] 12.6 103/mcL High 4.6 - 10.8 10^3/mcL AO Workflow SS Calcium [Mass/Vol] 8.4 mg/dL Normal 8.4 - 10. 2 mg/dL AO ADM SS Chloride [Moles/Vol] 99 mmol/L Normal 98 - 10 7 mmol/L AO ADM SS CO2 [Moles/Vol] 32 mmol/L High 23 - 31 mmol/L AO ADM SS Creatinine [Mass/Vol] 1.04 mg/dL Normal 0.70 - 1.30 mg/dL AO ADM SS Electrolyte Balance 6.0 mEq/L Normal 4.0 - 15 .0 mEq/L AO ADM SS GFR/1.73 sq M.predicted among blacks MDRD (S/P/Bld) [Vol rate/Area] 87 ml/min/1.73sqm Invalid Interpretation Code AO Chemistry S Comment on above: Interpretive Data: GFR Population mean for , Non- Americans Ages 20-29 = 116 mL/min/1.73 sq.m. Ages 30-39 = 107 mL/min/1.73 sq.m. Ages 40-49 = 99 mL/min/1.73 sq.m. Ages 50-59 = 93 mL/min/1.73 sq.m. Ages 60-69 = 85 mL/min/1.73 sq.m. Ages 70+ = 75 mL/min/1.73 sq.m. Chronic Kidney Disease: Less than 60 mL/min/1.73 square meters End Stage Renal Disease: Less than 15 mL/min/1.73 square meters GFR/1.73 sq M.predicted among non-blacks MDRD (S/P/Bld) [Vol rate/Area] 72 ml/min/1.73sqm Invalid Interpretation Code AO Chemistry S Comment on above: Interpretive Data: GFR Population mean for , Non- Americans Ages 20-29 = 116 mL/min/1.73 sq.m. Ages 30-39 = 107 mL/min/1.73 sq.m. Ages 40-49 = 99 mL/min/1.73 sq.m. Ages 50-59 = 93 mL/min/1.73 sq.m. Ages 60-69 = 85 mL/min/1.73 sq.m. Ages 70+ = 75 mL/min/1.73 sq.m. Chronic Kidney Disease: Less than 60 mL/min/1.73 square meters End Stage Renal Disease: Less than 15 mL/min/1.73 square meters Glucose [Mass/Vol] 147 mg/dL High 80 - 115 mg/dL AO ADM SS Magnesium [Mass/Vol] 1.8 mg/dL Normal 1.8 - 2 .4 mg/dL AO ADM SS Potassium [Moles/Vol] 3.6 mmol/L Normal 3.5 - 5.1 mmol/L AO ADM SS Sodium [Moles/Vol] 137 mmol/L Normal 136 - 145 mmol/L AO ADM SS Urea nitrogen [Mass/Vol] 13 mg/dL Normal 7 - 18 mg/dL AO ADM SS Urea nitrogen/Creatinine [Mass ratio] 12 ratio Normal 7 - 27 ratio AO ADM SS MGon 12-07-2023 Magnesium [Mass/Vol] 1.8 mg/dL Normal 1.8-2.4 [facility] ([place]) Comment on above: Performed By: #### G FR, MG, BMP ####[address] [place], [place] [address] .Auto Diffon 12-06-2023 Basophil, Absolute 0.1 10 3/mcL Normal 0.0-0.2 [facility] ([place]) Comment on above: Performed By: #### M G, GFR, ADIFF, CBC, BMP, ANEU ####[address] [place], [place] [address] Basophils/100 WBC (Bld) 0.5 % Normal 0.0-2.5 [facility] ([place]) Comment on above: Performed By: #### M G, GFR, ADIFF, CBC, BMP, ANEU ####[address] [place], [place] [address] Eosinophil, Absolute 0.1 10 3/mcL Normal 0.0-0.4 [facility] ([place]) Comment on above: Performed By: #### M G, GFR, ADIFF, CBC, BMP, ANEU ####[address] [place], [place] [address] Eosinophils/100 WBC (Bld) 0.4 % Normal 0.0-7.0 [facility] ([place]) Comment on above: Performed By: #### M G, GFR, ADIFF, CBC, BMP, ANEU ####[address] [place], [place] [address] Lymphocyte, Absolute 1.3 10 3/mcL Normal 0.8-3.9 [facility] ([place]) Comment on above: Performed By: #### M G, GFR, ADIFF, CBC, BMP, ANEU ####[address] [place], [place] [address] Lymphocytes/100 WBC (Bld) 10.4 % Normal 10.0-50.0 [facility] ([place] Comment on above: Performed By: #### M G, GFR, ADIFF, CBC, BMP, ANEU ####[address] [place], [place] [address] Monocyte, Absolute 1.9 10 3/mcL High 0.2-1.0 [facility] ([place]) Comment on above: Performed By: #### M G, GFR, ADIFF, CBC, BMP, ANEU ####[address] [place], [place] [address] Monocytes/100 WBC (Bld) 14.6 % High 1.7-13.0 [facility] ([place]) Comment on above: Performed By: #### M G, GFR, ADIFF, CBC, BMP, ANEU ####[address] [place], [place] [address] Neutrophils/100 WBC (Bld) 74.1 % Normal 37.0-80.0 [facility] ([place]) Comment on above: Performed By: #### M G, GFR, ADIFF, CBC, BMP, ANEU ####[id number] [place], [place] [address] .GFRon 12-06-2023 GFR Non- 68 ml/min/1.73sqm Normal [facility] ([place]) Comment on above: Result Comment: GFR Population mean for , Non- Americans Ages 20-29 = 116 mL/min/1.73 sq.m. Ages 30-39 = 107 mL/min/1.73 sq.m. Ages 40-49 = 99 mL/min/1.73 sq.m. Ages 50-59 = 93 mL/min/1.73 sq.m. Ages 60-69 = 85 mL/min/1.73 sq.m. Ages 70+ = 75 mL/min/1.73 sq.m. Chronic Kidney Disease: Less than 60 mL/min/1.73 square meters End Stage Renal Disease: Less than 15 mL/min/1.73 square meters Performed By: #### Shaka G, GFR, ADIFF, CBC, BMP, ANEU ####[address] [place], [place] [address] GFR 82 ml/min/1.73sqm Normal [facility] ([place]) Comment on above: Result Comment: GFR Population mean for , Non- Americans Ages 20-29 = 116 mL/min/1.73 sq.m. Ages 30-39 = 107 mL/min/1.73 sq.m. Ages 40-49 = 99 mL/min/1.73 sq.m. Ages 50-59 = 93 mL/min/1.73 sq.m. Ages 60-69 = 85 mL/min/1.73 sq.m. Ages 70+ = 75 mL/min/1.73 sq.m. Chronic Kidney Disease: Less than 60 mL/min/1.73 square meters End Stage Renal Disease: Less than 15 mL/min/1.73 square meters Performed By: #### Shaka G, GFR, ADIFF, CBC, BMP, ANEU ####[address] [place], [place] [address] .NEUABSon 12-06-2023 Neutrophil, Absolute 9.6 10 3/mcL High 2.9-6.2 [facility] ([place]) Comment on above: Performed By: #### Shaka G, GFR, ADIFF, CBC, BMP, ANEU ####[address] [place], [place] [address] APTTon 12-06-2023 aPTT Coag (Bld) [Time] 45.6 s High 25.0-35.0 [facility] ([place]) Comment on above: Result Comment: For Heparin anticoagulation therapy, the recommended therapeutic range is: 45.4-75.9 seconds. Patients on heparin therapy may have an extreme result. Performed By: #### Shaka G, GFR, ADIFF, CBC, BMP, ANEU ####[address] [place], [place] [address] Heparin dose (APTT) Heparin IV Normal [facility] ([place]) Comment on above: Performed By: #### M G, GFR, ADIFF, CBC, BMP, ANEU ####[address] [place], [place] [address] BMPon 12-06-2023 BUN/Creatinine Ratio 9 ratio Normal 7-27 [facility] ([place]) Comment on above: Performed By: #### M G, GFR, ADIFF, CBC, BMP, ANEU ####[address] [place], [place] [address] Calcium [Mass/Vol] 8.3 mg/dL Low 8.4-10.2 [facility] ([place]) Comment on above: Performed By: #### M G, GFR, ADIFF, CBC, BMP, ANEU ####[address] [place], [place] [address] Chloride [Moles/Vol] 99 mmol/L Normal 98-107 [facility] ([place]) Comment on above: Performed By: #### M G, GFR, ADIFF, CBC, BMP, ANEU ####[address] [place], [place] [address] CO2 [Moles/Vol] 34 mmol/L High 23-31 [facility] ([place] Comment on above: Performed By: #### M G, GFR, ADIFF, CBC, BMP, ANEU ####[address] [place], [place] [address] Creatinine [Mass/Vol] 1.10 mg/dL Normal 0.70-1.30 [facility] ([place] Comment on above: Performed By: #### M G, GFR, ADIFF, CBC, BMP, ANEU ####[address] [place], [place] [address] Electrolyte Balance 5.0 mEq/L Normal 4.0-15.0 [facility] ([place]) Comment on above: Performed By: #### M G, GFR, ADIFF, CBC, BMP, ANEU ####[address] [place], [place] [address] Glucose [Mass/Vol] 122 mg/dL High 80-115 [facility] ([place] Comment on above: Performed By: #### M G, GFR, ADIFF, CBC, BMP, ANEU ####[address] [place], [place] [address] Potassium [Moles/Vol] 3.8 mmol/L Normal 3.5-5.1 [facility] ([place] Comment on above: Performed By: #### M G, GFR, ADIFF, CBC, BMP, ANEU ####[address] [place], [place] [address] Sodium [Moles/Vol] 138 mmol/L Normal 136-145 [facility] ([place] Comment on above: Performed By: #### M G, GFR, ADIFF, CBC, BMP, ANEU ####[address] [place], [place] [address] Urea nitrogen [Mass/Vol] 10 mg/dL Normal 7-18 [facility] ([place] Comment on above: Performed By: #### M G, GFR, ADIFF, CBC, BMP, ANEU ####[address] [place], [place] [address] CBCon 12-06-2023 Erythrocyte distribution width (RBC) [Ratio] 13.9 % Normal 11.5-14.5 [facility] ([place] Comment on above: Performed By: #### M G, GFR, ADIFF, CBC, BMP, ANEU ####[address] [place], [place] [address] Hematocrit (Bld) [Volume fraction] 37.8 % Low 42.0-52.0 [facility] ([place] Comment on above: Performed By: #### M G, GFR, ADIFF, CBC, BMP, ANEU ####[address] [place], [place] [address] Hgb 12.4 G/dL Low 14.0-18.0 [facility] ([place] Comment on above: Performed By: #### M G, GFR, ADIFF, CBC, BMP, ANEU ####[address] [place], [place] [address] MCH (RBC) [Entitic mass] 29.9 pg Normal 27.0-31.2 [facility] ([place] Comment on above: Performed By: #### M G, GFR, ADIFF, CBC, BMP, ANEU ####[address] [place], [place] [address] MCHC 32.8 G/dL Normal 31.8-35.4 [facility] ([place] Comment on above: Performed By: #### M G, GFR, ADIFF, CBC, BMP, ANEU ####[address] [place], [place] [address] MCV (RBC) [Entitic vol] 91.0 fL Normal 80.0-94.0 [facility] ([place] Comment on above: Performed By: #### Shaka G, GFR, ADIFF, CBC, BMP, ANEU ####[address] [place], [place] [address] Platelet 221 10 3/mcL Normal 130-400 [facility] ([place] Comment on above: Performed By: #### Shaka G, GFR, ADIFF, CBC, BMP, ANEU ####[address] [place], [place] [address] Platelet mean volume (Bld) [Entitic vol] 7.6 fL Normal 7.4-10.4 [facility] ([place] Comment on above: Performed By: #### Shaka G, GFR, ADIFF, CBC, BMP, ANEU ####[address] [place], [place] [address] RBC 4.15 10 6/mcL Normal 4.04-6.13 [facility] ([place] Comment on above: Performed By: #### M G, GFR, ADIFF, CBC, BMP, ANEU ####[address] [place], [place] [address] WBC 13.0 10 3/mcL High 4.6-10.8 [facility] ([place] Comment on above: Performed By: #### M G, GFR, ADIFF, CBC, BMP, ANEU ####[address] [place], [place] [address] LABORATORYOrdered By: SYSTEM SYSTEM on 12-06-2023 Calcium [Mass/Vol] 8.3 mg/dL Low 8.4 - 10. 2 mg/dL AO ADM SS Chloride [Moles/Vol] 99 mmol/L Normal 98 - 10 7 mmol/L AO ADM SS CO2 [Moles/Vol] 34 mmol/L High 23 - 31 mmol/L AO ADM SS Creatinine [Mass/Vol] 1.10 mg/dL Normal 0.70 - 1.30 mg/dL AO ADM SS Electrolyte Balance 5.0 mEq/L Normal 4.0 - 15 .0 mEq/L AO ADM SS GFR/1.73 sq M.predicted among blacks MDRD (S/P/Bld) [Vol rate/Area] 82 ml/min/1.73sqm Invalid Interpretation Code AO Chemistry S Comment on above: Interpretive Data: GFR Population mean for , Non- Americans Ages 20-29 = 116 mL/min/1.73 sq.m. Ages 30-39 = 107 mL/min/1.73 sq.m. Ages 40-49 = 99 mL/min/1.73 sq.m. Ages 50-59 = 93 mL/min/1.73 sq.m. Ages 60-69 = 85 mL/min/1.73 sq.m. Ages 70+ = 75 mL/min/1.73 sq.m. Chronic Kidney Disease: Less than 60 mL/min/1.73 square meters End Stage Renal Disease: Less than 15 mL/min/1.73 square meters GFR/1.73 sq M.predicted among non-blacks MDRD (S/P/Bld) [Vol rate/Area] 68 ml/min/1.73sqm Invalid Interpretation Code AO Chemistry S Comment on above: Interpretive Data: GFR Population mean for , Non- Americans Ages 20-29 = 116 mL/min/1.73 sq.m. Ages 30-39 = 107 mL/min/1.73 sq.m. Ages 40-49 = 99 mL/min/1.73 sq.m. Ages 50-59 = 93 mL/min/1.73 sq.m. Ages 60-69 = 85 mL/min/1.73 sq.m. Ages 70+ = 75 mL/min/1.73 sq.m. Chronic Kidney Disease: Less than 60 mL/min/1.73 square meters End Stage Renal Disease: Less than 15 mL/min/1.73 square meters Glucose [Mass/Vol] 122 mg/dL High 80 - 115 mg/dL AO ADM SS Magnesium [Mass/Vol] 1.8 mg/dL Normal 1.8 - 2 .4 mg/dL AO ADM SS Potassium [Moles/Vol] 3.8 mmol/L Normal 3.5 - 5.1 mmol/L AO ADM SS Sodium [Moles/Vol] 138 mmol/L Normal 136 - 145 mmol/L AO ADM SS Urea nitrogen [Mass/Vol] 10 mg/dL Normal 7 - 18 mg/dL AO ADM SS Urea nitrogen/Creatinine [Mass ratio] 9 ratio Normal 7 - 27 ratio AO ADM SS Basophil, Absolute 0.1 103/mcL Normal 0.0 - 0.2 10^3/mcL AO Workflow SS Basophils/100 WBC (Bld) 0.5 % Normal 0.0 - 2.5 % AO Workflow SS Eosinophil, Absolute 0.1 103/mcL Normal 0.0 - 0 .4 10^3/mcL AO Workflow SS Eosinophils/100 WBC (Bld) 0.4 % Normal 0.0 - 7.0 % AO Workflow SS Erythrocyte distribution width (RBC) [Ratio] 13.9 % Normal 11.5 - 14.5 % AO Workflow SS Hematocrit (Bld) [Volume fraction] 37.8 % Low 42.0 - 52.0 % AO Workflow SS Hemoglobin (Bld) [Mass/Vol] 12.4 G/dL Low 14.0 - 18.0 G/dL AO Workflow SS Lymphocyte, Absolute 1.3 103/mcL Normal 0.8 - 3 .9 10^3/mcL AO Workflow SS Lymphocytes/100 WBC (Bld) 10.4 % Normal 10.0 - 50.0 % AO Workflow SS MCH (RBC) [Entitic mass] 29.9 pg Normal 27.0 - 31.2 pg AO Workflow SS MCHC 32.8 G/dL Normal 31.8 - 35.4 G/dL AO Workflow SS MCV (RBC) [Entitic vol] 91.0 fL Normal 80.0 - 94.0 fL AO Workflow SS Monocyte, Absolute 1.9 103/mcL High 0.2 - 1.0 10^3/mcL AO Workflow SS Monocytes/100 WBC (Bld) 14.6 % High 1.7 - 13.0 % AO Workflow SS Neutrophil, Absolute 9.6 103/mcL High 2.9 - 6 .2 10^3/mcL AO Workflow SS Neutrophils/100 WBC (Bld) 74.1 % Normal 37.0 - 80.0 % AO Workflow SS Platelet mean volume (Bld) [Entitic vol] 7.6 fL Normal 7.4 - 10.4 fL AO Workflow SS Platelets (Bld) [#/Vol] 221 103/mcL Normal 130 - 400 10^3/mcL AO Workflow SS RBC (Bld) [#/Vol] 4.15 106/mcL Normal 4.04 - 6.1 3 10^6/mcL AO Workflow SS WBC (Bld) [#/Vol] 13.0 103/mcL High 4.6 - 10.8 10^3/mcL AO Workflow SS LABORATORYOrdered By: Pamela Aguilar on 12-06-2023 aPTT Coag (PPP) [Time] 45.6 s High 25.0 - 35.0 seconds AO [facility] SS Comment on above: Interpretive Data: F or Heparin anticoagulation therapy, the recommended therapeutic range is: 45.4-75.9 seconds. Patients on heparin therapy may have an extreme result. Heparin dose (APTT) Heparin IV (12/06/23 5:38 AM) Normal AO Coagulation S MGon 12-06-2023 Magnesium [Mass/Vol] 1.8 mg/dL Normal 1.8-2.4 [facility] ([place]) Comment on above: Performed By: #### M G, GFR, ADIFF, CBC, BMP, ANEU ####[address] [place], [place] [address] MYCOon 12-06-2023 Mycoplasma IgM Negative Normal [facility] ([place]) Comment on above: Result Comment: INTE RPRETATION OF MYCOPLASMA IgM: Negative: IgM to M. pneumoniae Absent, or at levels below the assay limit of detection. Positive: IgM to M. pneumoniae Present. Invalid: Test results are invalid due to invalid internal control. Assay was performed in duplicate. Repeat testing is suggested if clinically indicated. Performed By: #### M YCO ####[address] [address] XR ABDOMEN APon 12-06-2023 XR ABDOMEN AP ORIGINAL EXAMINATION: ONE SUPINE XRAY VIEW(S) OF THE ABDOMEN12/06/2023 11:20 am ABDOMEN 1 VIEW/KUB TECHNIQUE: AP abdomen x-ray. COMPARISON: 06/16/2022 x-ray abdomen HISTORY: ORDERING SYSTEM PROVIDED HISTORY: Reason for Exam: nausea/vomiting FINDINGS: No evidence of intraperitoneal free air. Nonobstructive bowel gas pattern. A few phleboliths observed. Degenerative changes of the bilateral SI joints, pubic symphysis. No abnormal calcifications seen over the expected renal shadow or expected course of the ureters or urinary bladder. IMPRESSION: No cause for nausea or vomiting observed. I have personally reviewed the images of this examination and agree with the resident's findings and interpretation. Interpreted by: Ac Marcelino DO Preliminary Report By: Law Bruce Electronically signed By Ac Marcelino DO Dictated Date: 12/06/2023 11:24:36 AM Prelim Date: 12/06/2023 11:39:46 AM Sign Date: 12/06/2023 11:39:46 AM Ordering Provider: SAWYER QUEEN [facility]) XR CHEST 2 VIEWSon XR CHEST 2 VIEWS ORIGINAL HISTORY: Abnormal breath sounds COMPARISON: 2 days previously FINDINGS: There hazy opacities throughout the left base, possibly with a small underlying effusion. There is subsegmental atelectasis on the right. The pulmonary vasculature is unremarkable in appearance. The cardiac silhouette is somewhat obscured. IMPRESSION: Left lower lung consolidation. Right atelectasis. Interpreted by: Georgina Leal MD Preliminary Report By: Georgina Leal MD Electronically signed By Georgina Leal MD Dictated Date: 12/06/2023 12:43:44 PM Prelim Date: 12/06/2023 12:44:28 PM Sign Date: 12/06/2023 12:44:28 PM Ordering Provider: SAWYER QUEEN [facility] ([place]) .Auto Diffon 12-05-2023 Basophil, Absolute 0.0 10 3/mcL Normal 0.0-0.2 [facility] ([place]) Comment on above: Performed By: #### A DIFF, GFR, ANEU, BMP, CBC, MG ####[address] [place], [place] [address] Basophils/100 WBC (Bld) 0.4 % Normal 0.0-2.5 [facility] ([place] Comment on above: Performed By: #### A DIFF, GFR, ANEU, BMP, CBC, MG ####[address] [place], [place] [address] Eosinophil, Absolute 0.1 10 3/mcL Normal 0.0-0.4 [facility] ([place]) Comment on above: Performed By: #### A DIFF, GFR, ANEU, BMP, CBC, MG ####[address] [place], [place] [address] Eosinophils/100 WBC (Bld) 0.5 % Normal 0.0-7.0 [facility] ([place]) Comment on above: Performed By: #### A DIFF, GFR, ANEU, BMP, CBC, MG ####[address] [place], [place] [address] Lymphocyte, Absolute 1.5 10 3/mcL Normal 0.8-3.9 [facility] ([place]) Comment on above: Performed By: #### A DIFF, GFR, ANEU, BMP, CBC, MG ####[address] [place], [place] [address] Lymphocytes/100 WBC (Bld) 12.4 % Normal 10.0-50.0 [facility] ([place]) Comment on above: Performed By: #### A DIFF, GFR, ANEU, BMP, CBC, MG ####[address] [place], [place] [address] Monocyte, Absolute 1.8 10 3/mcL High 0.2-1.0 [facility] ([place]) Comment on above: Performed By: #### A DIFF, GFR, ANEU, BMP, CBC, MG ####[address] [place], [place] [address] Monocytes/100 WBC (Bld) 15.3 % High 1.7-13.0 [facility] ([place]) Comment on above: Performed By: #### A DIFF, GFR, ANEU, BMP, CBC, MG ####[address] [place], [place] [address] Neutrophils/100 WBC (Bld) 71.4 % Normal 37.0-80.0 [facility] ([place]) Comment on above: Performed By: #### A DIFF, GFR, ANEU, BMP, CBC, MG ####[place] [address] [place], [place] [address] .GFRon 12-05-2023 GFR 72 ml/min/1.73sqm Normal [facility] ([place]) Comment on above: Result Comment: GFR Population mean for , Non- Americans Ages 20-29 = 116 mL/min/1.73 sq.m. Ages 30-39 = 107 mL/min/1.73 sq.m. Ages 40-49 = 99 mL/min/1.73 sq.m. Ages 50-59 = 93 mL/min/1.73 sq.m. Ages 60-69 = 85 mL/min/1.73 sq.m. Ages 70+ = 75 mL/min/1.73 sq.m. Chronic Kidney Disease: Less than 60 mL/min/1.73 square meters End Stage Renal Disease: Less than 15 mL/min/1.73 square meters Performed By: #### A DIFF, GFR, ANEU, BMP, CBC, MG ####[place] [address] [place], [place] [address] GFR Non- 59 ml/min/1.73sqm Normal [facility] ([place] Comment on above: Result Comment: GFR Population mean for , Non- Americans Ages 20-29 = 116 mL/min/1.73 sq.m. Ages 30-39 = 107 mL/min/1.73 sq.m. Ages 40-49 = 99 mL/min/1.73 sq.m. Ages 50-59 = 93 mL/min/1.73 sq.m. Ages 60-69 = 85 mL/min/1.73 sq.m. Ages 70+ = 75 mL/min/1.73 sq.m. Chronic Kidney Disease: Less than 60 mL/min/1.73 square meters End Stage Renal Disease: Less than 15 mL/min/1.73 square meters Performed By: #### A DIFF, GFR, ANEU, BMP, CBC, MG ####[place] [address] [place], [place] [address] .NEUABSon 12-05-2023 Neutrophil, Absolute 8.4 10 3/mcL High 2.9-6.2 [facility] ([place]) Comment on above: Performed By: #### A DIFF, GFR, ANEU, BMP, CBC, MG ####[address] [place], [place] [address] APTTon 12-05-2023 aPTT Coag (Bld) [Time] 62.6 s High 25.0-35.0 [facility] ([place]) Comment on above: Result Comment: For Heparin anticoagulation therapy, the recommended therapeutic range is: 45.4-75.9 seconds. Patients on heparin therapy may have an extreme result. Performed By: #### A DIFF, GFR, ANEU, BMP, CBC, MG ####[address] [place], [place] [address] Heparin dose (APTT) Heparin IV Normal [facility] ([place]) Comment on above: Performed By: #### A DIFF, GFR, ANEU, BMP, CBC, MG ####[address] [place], [place] [address] aPTT Coag (Bld) [Time] 66.2 s High 25.0-35.0 [facility] ([place] Comment on above: Result Comment: For Heparin anticoagulation therapy, the recommended therapeutic range is: 45.4-75.9 seconds. Patients on heparin therapy may have an extreme result. Heparin dose (APTT) Heparin IV Normal [facility] ([place]) BMPon 12-05-2023 BUN/Creatinine Ratio 8 ratio Normal 7-27 [facility] ([place] Comment on above: Performed By: #### A DIFF, GFR, ANEU, BMP, CBC, MG ####[address] [place], [place] [address] Calcium [Mass/Vol] 8.1 mg/dL Low 8.4-10.2 [facility] ([place] Comment on above: Performed By: #### A DIFF, GFR, ANEU, BMP, CBC, MG ####[address] [place], [place] [address] Chloride [Moles/Vol] 102 mmol/L Normal 98-107 [facility] ([place]) Comment on above: Performed By: #### A DIFF, GFR, ANEU, BMP, CBC, MG ####[address] [place], [place] [address] CO2 [Moles/Vol] 32 mmol/L High 23-31 [facility] ([place] Comment on above: Performed By: #### A DIFF, GFR, ANEU, BMP, CBC, MG ####[address] [place], [place] [address] Creatinine [Mass/Vol] 1.23 mg/dL Normal 0.70-1.30 [facility] ([place] Comment on above: Performed By: #### A DIFF, GFR, ANEU, BMP, CBC, MG ####[address] [place], [place] [address] Electrolyte Balance 4.0 mEq/L Normal 4.0-15.0 [facility] ([place]) Comment on above: Performed By: #### A DIFF, GFR, ANEU, BMP, CBC, MG ####[address] [place], [place] [address] Glucose [Mass/Vol] 139 mg/dL High 80-115 [facility] ([place] Comment on above: Performed By: #### A DIFF, GFR, ANEU, BMP, CBC, MG ####[address] [place], [place] [address] Potassium [Moles/Vol] 4.0 mmol/L Normal 3.5-5.1 [facility] ([place] Comment on above: Performed By: #### A DIFF, GFR, ANEU, BMP, CBC, MG ####[address] [place], [place] [address] Sodium [Moles/Vol] 138 mmol/L Normal 136-145 [facility] ([place] Comment on above: Performed By: #### A DIFF, GFR, ANEU, BMP, CBC, MG ####[address] [place], [place] [address] Urea nitrogen [Mass/Vol] 10 mg/dL Normal 7-18 [facility] ([place]) Comment on above: Performed By: #### A DIFF, GFR, ANEU, BMP, CBC, MG ####[address] [place] [address] CBCon 12-05-2023 Erythrocyte distribution width (RBC) [Ratio] 14.3 % Normal 11.5-14.5 [facility] ([place]) Comment on above: Performed By: #### A DIFF, GFR, ANEU, BMP, CBC, MG ####[address] [place], [place] [address] Hematocrit (Bld) [Volume fraction] 39.8 % Low 42.0-52.0 [facility] ([place] Comment on above: Performed By: #### A DIFF, GFR, ANEU, BMP, CBC, MG ####[address] [place], [place] [address] Hgb 12.9 G/dL Low 14.0-18.0 [facility] ([place] Comment on above: Performed By: #### A DIFF, GFR, ANEU, BMP, CBC, MG ####[address] [place], [place] [address] MCH (RBC) [Entitic mass] 29.5 pg Normal 27.0-31.2 [facility] ([place] Comment on above: Performed By: #### A DIFF, GFR, ANEU, BMP, CBC, MG ####[address] [place], [place] [address] MCHC 32.3 G/dL Normal 31.8-35.4 [facility] ([place] Comment on above: Performed By: #### A DIFF, GFR, ANEU, BMP, CBC, MG ####[address] [place], [place] [address] MCV (RBC) [Entitic vol] 91.4 fL Normal 80.0-94.0 [facility] ([place] Comment on above: Performed By: #### A DIFF, GFR, ANEU, BMP, CBC, MG ####[address] [place], [place] [address] Platelet 187 10 3/mcL Normal 130-400 [facility] ([place] Comment on above: Performed By: #### A DIFF, GFR, ANEU, BMP, CBC, MG ####[address] [place], [place] [address] Platelet mean volume (Bld) [Entitic vol] 7.3 fL Low 7.4-10.4 [facility] ([place] Comment on above: Performed By: #### A DIFF, GFR, ANEU, BMP, CBC, MG ####[address] [place], [place] [address] RBC 4.36 10 6/mcL Normal 4.04-6.13 [facility] ([place] Comment on above: Performed By: #### A DIFF, GFR, ANEU, BMP, CBC, MG ####[address] [place], [place] [address] WBC 11.8 10 3/mcL High 4.6-10.8 [facility] ([place] Comment on above: Performed By: #### A DIFF, GFR, ANEU, BMP, CBC, MG ####[address] [place], [place] [address] CVFLURVon 12-05-2023 FLU A PCR Negative Normal Negative [facility] ([place] Comment on above: Result Comment: Note s Performed By: #### C VFLURV ####[place] [address] FLU B PCR Negative Normal Negative [facility] ([place]) Comment on above: Result Comment: Note s Performed By: #### C VFLURV ####[place] [address] RSV PCR Negative Normal Negative [facility] ([place] Comment on above: Result Comment: Note s Performed By: #### C VFLURV ####[place] [address] SARS-CoV-2 (COVID-19) RNA ELDA+probe Ql (Unsp spec) Negative Normal Negative [facility] ([place]) Comment on above: Result Comment: Note s This test has been authorized by FDA under an EUA for use by authorized laboratories and has not been FDA cleared or approved. Results from the Xpert Xpress SARS-CoV-2/Flu/RSV or Xpert Xpress SARS-CoV-2 only test should be correlated with the clinical history, epidemiological data, and other data available to the clinician evaluating the patient. Performance of the Xpert Xpress SARS-CoV-2/Flu/RSV or Xpert Xpress SARS-CoV-2 only test has only been established in nasopharyngeal swab specimens. Erroneous test results might occur from improper specimen collection; failure to follow the recommended sample collection, handling, and storage procedures; technical error; or sample mix-up.False negative results may occur if virus is present at levels below the analytical limit of detection. Viral nucleic acid may persist in vivo, independent of virus viability. Detection of analyte target(s) does not imply that the corresponding virus(es) are infectious or are the causative agents for clinical symptoms.Recent patient exposure to FluMist or other live attenuated influenza vaccines may cause inaccurate positive results. Performed By: #### [facility] ####[place] [address] LABORATORYOrdered By: Gemma Grady on 12-05-2023 aPTT Coag (PPP) [Time] 62.6 s High 25.0 - 35.0 seconds AO [facility] SS Comment on above: Interpretive Data: F or Heparin anticoagulation therapy, the recommended therapeutic range is: 45.4-75.9 seconds. Patients on heparin therapy may have an extreme result. Heparin dose (APTT) Heparin IV (12/05/23 5:24 AM) Normal AO Coagulation S LABORATORYOrdered By: SYSTEM SYSTEM on 12-05-2023 Basophil, Absolute 0.0 103/mcL Normal 0.0 - 0.2 10^3/mcL AO Workflow SS Basophils/100 WBC (Bld) 0.4 % Normal 0.0 - 2.5 % AO Workflow SS Calcium [Mass/Vol] 8.1 mg/dL Low 8.4 - 10. 2 mg/dL AO ADM SS Chloride [Moles/Vol] 102 mmol/L Normal 98 - 10 7 mmol/L AO ADM SS CO2 [Moles/Vol] 32 mmol/L High 23 - 31 mmol/L AO ADM SS Creatinine [Mass/Vol] 1.23 mg/dL Normal 0.70 - 1.30 mg/dL AO ADM SS Electrolyte Balance 4.0 mEq/L Normal 4.0 - 15 .0 mEq/L AO ADM SS Eosinophil, Absolute 0.1 103/mcL Normal 0.0 - 0 .4 10^3/mcL AO Workflow SS Eosinophils/100 WBC (Bld) 0.5 % Normal 0.0 - 7.0 % AO Workflow SS Erythrocyte distribution width (RBC) [Ratio] 14.3 % Normal 11.5 - 14.5 % AO Workflow SS GFR/1.73 sq M.predicted among blacks MDRD (S/P/Bld) [Vol rate/Area] 72 ml/min/1.73sqm Invalid Interpretation Code AO Chemistry S Comment on above: Interpretive Data: GFR Population mean for , Non- Americans Ages 20-29 = 116 mL/min/1.73 sq.m. Ages 30-39 = 107 mL/min/1.73 sq.m. Ages 40-49 = 99 mL/min/1.73 sq.m. Ages 50-59 = 93 mL/min/1.73 sq.m. Ages 60-69 = 85 mL/min/1.73 sq.m. Ages 70+ = 75 mL/min/1.73 sq.m. Chronic Kidney Disease: Less than 60 mL/min/1.73 square meters End Stage Renal Disease: Less than 15 mL/min/1.73 square meters GFR/1.73 sq M.predicted among non-blacks MDRD (S/P/Bld) [Vol rate/Area] 59 ml/min/1.73sqm Invalid Interpretation Code AO Chemistry S Comment on above: Interpretive Data: GFR Population mean for , Non- Americans Ages 20-29 = 116 mL/min/1.73 sq.m. Ages 30-39 = 107 mL/min/1.73 sq.m. Ages 40-49 = 99 mL/min/1.73 sq.m. Ages 50-59 = 93 mL/min/1.73 sq.m. Ages 60-69 = 85 mL/min/1.73 sq.m. Ages 70+ = 75 mL/min/1.73 sq.m. Chronic Kidney Disease: Less than 60 mL/min/1.73 square meters End Stage Renal Disease: Less than 15 mL/min/1.73 square meters Glucose [Mass/Vol] 139 mg/dL High 80 - 115 mg/dL AO ADM SS Hematocrit (Bld) [Volume fraction] 39.8 % Low 42.0 - 52.0 % AO Workflow SS Hemoglobin (Bld) [Mass/Vol] 12.9 G/dL Low 14.0 - 18.0 G/dL AO Workflow SS Lymphocyte, Absolute 1.5 103/mcL Normal 0.8 - 3 .9 10^3/mcL AO Workflow SS Lymphocytes/100 WBC (Bld) 12.4 % Normal 10.0 - 50.0 % AO Workflow SS Magnesium [Mass/Vol] 1.8 mg/dL Normal 1.8 - 2 .4 mg/dL AO ADM SS MCH (RBC) [Entitic mass] 29.5 pg Normal 27.0 - 31.2 pg AO Workflow SS MCHC 32.3 G/dL Normal 31.8 - 35.4 G/dL AO Workflow SS MCV (RBC) [Entitic vol] 91.4 fL Normal 80.0 - 94.0 fL AO Workflow SS Monocyte, Absolute 1.8 103/mcL High 0.2 - 1.0 10^3/mcL AO Workflow SS Monocytes/100 WBC (Bld) 15.3 % High 1.7 - 13.0 % AO Workflow SS Neutrophil, Absolute 8.4 103/mcL High 2.9 - 6 .2 10^3/mcL AO Workflow SS Neutrophils/100 WBC (Bld) 71.4 % Normal 37.0 - 80.0 % AO Workflow SS Platelet mean volume (Bld) [Entitic vol] 7.3 fL Low 7.4 - 10.4 fL AO Workflow SS Platelets (Bld) [#/Vol] 187 103/mcL Normal 130 - 400 10^3/mcL AO Workflow SS Potassium [Moles/Vol] 4.0 mmol/L Normal 3.5 - 5.1 mmol/L AO ADM SS RBC (Bld) [#/Vol] 4.36 106/mcL Normal 4.04 - 6.1 3 10^6/mcL AO Workflow SS Sodium [Moles/Vol] 138 mmol/L Normal 136 - 145 mmol/L AO ADM SS Urea nitrogen [Mass/Vol] 10 mg/dL Normal 7 - 18 mg/dL AO ADM SS Urea nitrogen/Creatinine [Mass ratio] 8 ratio Normal 7 - 27 ratio AO ADM SS WBC (Bld) [#/Vol] 11.8 103/mcL High 4.6 - 10.8 10^3/mcL AO Workflow SS LABORATORYOrdered By: Olinda Lees on 12-05-2023 M. pneumoniae IgM IA Ql (S) Negative 14 (12/05/23 5:24 AM) Normal [facility] Viro/Sero SS Comment on above: Interpretive Data: I NTERPRETATION OF MYCOPLASMA IgM: Negative: IgM to M. pneumoniae Absent, or at levels below the assay limit of detection. Positive: IgM to M. pneumoniae Present. Invalid: Test results are invalid due to invalid internal control. Assay was performed in duplicate. Repeat testing is suggested if clinically indicated. MGon 12-05-2023 Magnesium [Mass/Vol] 1.8 mg/dL Normal 1.8-2.4 [facility] ([place]) Comment on above: Performed By: #### A DIFF, GFR, ANEU, BMP, CBC, MG ####[address] [address] No Panel Informationon 12-04 Legionella Urine Ag Presumptive negative for L. pneumophila serogroup 1 antigen in urine, suggesting no recent or current infection. Legionnaire's disease cannot be ruled out since other serogroups and species may also cause disease. [facility] .Auto Diffon 12-04-2023 Basophil, Absolute 0.1 10 3/mcL Normal 0.0-0.2 [facility] ([place]) Comment on above: Performed By: #### F ERR, FES #### [address] [address] Basophils/100 WBC (Bld) 0.6 % Normal 0.0-2.5 [facility] ([place]) Comment on above: Performed By: #### F ERR, FES #### [address] [address] Eosinophil, Absolute 0.0 10 3/mcL Normal 0.0-0.4 [facility] ([place]) Comment on above: Performed By: #### F ERR, FES #### [address] [address] Eosinophils/100 WBC (Bld) 0.4 % Normal 0.0-7.0 [facility] ([place] Comment on above: Performed By: #### F ERR, FES #### [address] [address] Lymphocyte, Absolute 1.1 10 3/mcL Normal 0.8-3.9 [facility] ([place]) Comment on above: Performed By: #### F ERR, FES #### [address] [address] Lymphocytes/100 WBC (Bld) 12.3 % Normal 10.0-50.0 [facility] ([place] Comment on above: Performed By: #### F ERR, FES #### [address] [address] Monocyte, Absolute 1.3 10 3/mcL High 0.2-1.0 [facility] ([place] Comment on above: Performed By: #### F ERR, FES #### [address] [address] Monocytes/100 WBC (Bld) 14.6 % High 1.7-13.0 [facility] ([place] Comment on above: Performed By: #### F ERR, FES #### [address] [address] Neutrophils/100 WBC (Bld) 72.1 % Normal 37.0-80.0 [facility] ([place] Comment on above: Performed By: #### F ERR, FES #### [address] [address] .GFRon 12-04-2023 GFR 61 ml/min/1.73sqm Normal [facility] ([place] Comment on above: Result Comment: GFR Population mean for , Non- Americans Ages 20-29 = 116 mL/min/1.73 sq.m. Ages 30-39 = 107 mL/min/1.73 sq.m. Ages 40-49 = 99 mL/min/1.73 sq.m. Ages 50-59 = 93 mL/min/1.73 sq.m. Ages 60-69 = 85 mL/min/1.73 sq.m. Ages 70+ = 75 mL/min/1.73 sq.m. Chronic Kidney Disease: Less than 60 mL/min/1.73 square meters End Stage Renal Disease: Less than 15 mL/min/1.73 square meters Performed By: #### F ERR, FES #### [address] [address] GFR Non- 50 ml/min/1.73sqm Normal [facility] ([place] Comment on above: Result Comment: GFR Population mean for , Non- Americans Ages 20-29 = 116 mL/min/1.73 sq.m. Ages 30-39 = 107 mL/min/1.73 sq.m. Ages 40-49 = 99 mL/min/1.73 sq.m. Ages 50-59 = 93 mL/min/1.73 sq.m. Ages 60-69 = 85 mL/min/1.73 sq.m. Ages 70+ = 75 mL/min/1.73 sq.m. Chronic Kidney Disease: Less than 60 mL/min/1.73 square meters End Stage Renal Disease: Less than 15 mL/min/1.73 square meters Performed By: #### F ERR, FES #### [place] [address] .MDWon 12-04-2023 Monocyte Distribution Width 19.21 Normal 0.00-20.00 [facility] ([place]) Comment on above: Result Comment: For ED adult patients suspected of sepsis, MDW<=20.0 does not rule out sepsis or risk of sepsis Performed By: #### F ERR, FES #### [address] [address] .NEUABSon 12-04-2023 Neutrophil, Absolute 6.2 10 3/mcL Normal 2.9-6.2 [facility] ([place]) Comment on above: Performed By: #### F ERR, FES #### [place] [address] APTTon 12-04-2023 aPTT Coag (Bld) [Time] 63.0 s High 25.0-35.0 [facility] ([place]) Comment on above: Result Comment: For Heparin anticoagulation therapy, the recommended therapeutic range is: 45.4-75.9 seconds. Patients on heparin therapy may have an extreme result. Heparin dose (APTT) Heparin IV [facility] ([place] aPTT Coag (Bld) [Time] 119.0 s High 25.0-35.0 [facility] ([place] Comment on above: Result Comment: For Heparin anticoagulation therapy, the recommended therapeutic range is: 45.4-75.9 seconds. Patients on heparin therapy may have an extreme result. Heparin dose (APTT) Heparin Bolus Normal [facility] ([place]) aPTT Coag (Bld) [Time] 29.5 s Normal 25.0-35.0 [facility] ([place] Comment on above: Order Comment: PT/PT T ran off dimer tube collected earlier at 0507 per ER nurse Parker Result Comment: Samp le collected at 0507 orginally for Dimer Use this sample for baseline APTT result per CAM Ko For Heparin anticoagulation therapy, the recommended therapeutic range is: 45.4-75.9 seconds. Patients on heparin therapy may have an extreme result. Performed By: #### P RO #### [address] [address] Heparin dose (APTT) Heparin IV Normal [facility] ([place]) Comment on above: Order Comment: PT/PT T ran off dimer tube collected earlier at 0507 per ER nurse Parker Performed By: #### P RO #### [address] [address] BMPon 12-04-2023 BUN/Creatinine Ratio 9 ratio Normal 7-27 [facility] ([place] Comment on above: Performed By: #### F ERR, FES #### [address] [address] Calcium [Mass/Vol] 8.2 mg/dL Low 8.4-10.2 [facility] ([place]) Comment on above: Performed By: #### F ERR, FES #### [address] [address] Chloride [Moles/Vol] 104 mmol/L Normal 98-107 [facility] ([place] Comment on above: Performed By: #### F ERR, FES #### [address] [address] CO2 [Moles/Vol] 30 mmol/L Normal 23-31 [facility] ([place] Comment on above: Performed By: #### F ERR, FES #### [address] [address] Creatinine [Mass/Vol] 1.42 mg/dL High 0.70-1.30 [facility] ([place] Comment on above: Performed By: #### F ERR, FES #### [address] [address] Electrolyte Balance 5.0 mEq/L Normal 4.0-15.0 [facility] ([place]) Comment on above: Performed By: #### F ERR, FES #### [address] [address] Glucose [Mass/Vol] 142 mg/dL High 80-115 [facility] ([place]) Comment on above: Performed By: #### F ERR, FES #### [address] [address] Potassium [Moles/Vol] 3.7 mmol/L Normal 3.5-5.1 [facility] ([place] Comment on above: Performed By: #### F ERR, FES #### [address] [address] Sodium [Moles/Vol] 139 mmol/L Normal 136-145 [facility] ([place] Comment on above: Performed By: #### F ERR, FES #### [address] [address] Urea nitrogen [Mass/Vol] 13 mg/dL Normal 7-18 [facility] ([place] Comment on above: Performed By: #### F ERR, FES #### [address] [address] CBCon 12-04-2023 Erythrocyte distribution width (RBC) [Ratio] 14.4 % Normal 11.5-14.5 [facility] ([place] Comment on above: Performed By: #### F ERR, FES #### [address] [address] Hematocrit (Bld) [Volume fraction] 40.2 % Low 42.0-52.0 [facility] ([place] Comment on above: Performed By: #### F ERR, FES #### [address] [address] Hgb 13.3 G/dL Low 14.0-18.0 [facility] ([place] Comment on above: Performed By: #### F ERR, FES #### [address] [address] MCH (RBC) [Entitic mass] 29.9 pg Normal 27.0-31.2 [facility] ([place] Comment on above: Performed By: #### F ERR, FES #### [address] [address] MCHC 33.2 G/dL Normal 31.8-35.4 [facility] ([place] Comment on above: Performed By: #### F ERR, FES #### [address] [address] MCV (RBC) [Entitic vol] 90.3 fL Normal 80.0-94.0 [facility] ([place] Comment on above: Performed By: #### F ERR, FES #### [address] [address] Platelet 196 10 3/mcL Normal 130-400 [facility] ([place] Comment on above: Performed By: #### F ERR, FES #### [address] [address] Platelet mean volume (Bld) [Entitic vol] 7.2 fL Low 7.4-10.4 [facility] ([place] Comment on above: Performed By: #### F ERR, FES #### [address] [address] RBC 4.46 10 6/mcL Normal 4.04-6.13 [facility] ([place] Comment on above: Performed By: #### F ERR, FES #### [address] [address] WBC 8.6 10 3/mcL Normal 4.6-10.8 [facility] ([place] Comment on above: Performed By: #### F MIGUEL ÁNGEL, [facility] #### [place] [place], [place] [address] CT ANGIOGRAPHY CHEST W/CONTR Maxi 12-04-2023 CT ANGIOGRAPHY CHEST W/CONTRAST ORIGINAL EXAMINATION: CTA OF THE CHEST 12/04/2023 6:30 am TECHNIQUE: CTA of the chest was performed after the administration of intravenous contrast. Multiplanar reformatted images are provided for review. MIP images are provided for review. Automated exposure control, iterative reconstruction, and/or weight based adjustment of the mA/kV was utilized to reduce the radiation dose to as low as reasonably achievable. COMPARISON: None. HISTORY: ORDERING SYSTEM PROVIDED HISTORY: Reason for Exam: chest pain; suspect PE FINDINGS: Acute pulmonary emboli within the segmental and subsegmental pulmonary arteries supplying the left upper lobe and lingula. No saddle embolism. Pulmonary arteries are dilated measuring up to 2.8 cm at the level of the right main and 3.0 cm at the left main pulmonary arteries. Small left effusion. Hazy airspace disease at the left lung base. Heart size is mildly enlarged. Aorta is normal in caliber. No pneumothorax. No acute upper abdominal findings. No suspicious osseous lesions. IMPRESSION: Multiple pulmonary emboli within segmental and subsegmental arteries supplying the left lower lobe and lingula. Small left effusion. Patchy airspace disease in the left lower lobe could represent developing pulmonary infarct, atelectasis, or infiltrate. Interpreted by: Xavier Solitario MD Preliminary Report By: Xavier Solitario MD Electronically signed By Xavier Solitario MD Dictated Date: 12/04/2023 7:03:46 AM Prelim Date: 12/04/2023 7:06:42 AM Sign Date: 12/04/2023 7:06:42 AM Ordering Provider: WENDY José [facility] ([place]) DIMERon 12-04-2023 D-Dimer 1620 ng/mL D-DU High 0-230 [facility] ([place]) Comment on above: Result Comment: Resu lts reported in D-DU ng/mL. Positive for D-dimer. A positive D-Dimer may occur in the following: DVT, PE, DIC, Trauma, Cancer, Sepsis, , Rheumatoid arthritis, Myocardial infarction and Cirrhosis. The presence of Rheumatoid Factor and HAMA (human mouse antibody) produces an overestimation of test results. The result of the D-Dimer test should be evaluated in the context of all the clinical and laboratory data available. In those instances where the laboratory result does not agree with the clinical evaluation, additional tests should be performed accordingly. If the D-Dimer result is used to exclude DVT or PE, the recommended cutoff value is less than 230 ng/mL. The D-Dimer result should not be used alone to rule in DVT/PE, but should be used in conjunction with a clinical pretest probability (PTP)assessment model to exclude venous thromboembolism (VTE) in outpatients suspected of deep venous thrombosis (DVT) and pulmonary embolism (PE). Performed By: #### F [facility], [facility] #### [address] [place], [place] [address] LABORATORYOrdered By: Gemma Grady on 12-04-2023 aPTT Coag (PPP) [Time] 66.2 s High 25.0 - 35.0 seconds AO HemoHub SS Comment on above: Interpretive Data: F or Heparin anticoagulation therapy, the recommended therapeutic range is: 45.4-75.9 seconds. Patients on heparin therapy may have an extreme result. Heparin dose (APTT) Heparin IV (12/04/23 11:59 PM) Normal AO Coagulation S Fibrin D-dimer DDU (PPP) [Mass/Vol] 1620 ng/mL D-DU High 0 - 230 ng/mL D-DU AO HemoHub SS Comment on above: Result Comment: Resu lts reported in D-DU ng/mL. Positive for D-dimer. A positive D-Dimer may occur in the following: DVT, PE, DIC, Trauma, Cancer, Sepsis, , Rheumatoid arthritis, Myocardial infarction and Cirrhosis. The presence of Rheumatoid Factor and HAMA (human mouse antibody) produces an overestimation of test results. Interpretive Data: T he result of the D-Dimer test should be evaluated in the context of all the clinical and laboratory data available. In those instances where the laboratory result does not agree with the clinical evaluation, additional tests should be performed accordingly. If the D-Dimer result is used to exclude DVT or PE, the recommended cutoff value is less than 230 ng/mL. The D-Dimer result should not be used alone to rule in DVT/PE, but should be used in conjunction with a clinical pretest probability (PTP)assessment model to exclude venous thromboembolism (VTE) in outpatients suspected of deep venous thrombosis (DVT) and pulmonary embolism (PE). LABORATORYOrdered By: Eli Porter on 12-04-2023 FLUAV RNA ELDA+probe Ql (Resp) Negative 11 (12/04/23 7:15 PM) Normal Negative [facility] Viro/Sero SS Comment on above: Result Comment: Note s FLUBV RNA ELDA+probe Ql (Resp) Negative 12 (12/04/23 7:15 PM) Normal Negative [facility] Auto Viro/Sero SS Comment on above: Result Comment: Note s RSV PCR Negative 13 (12/04/23 7:15 PM) Normal Negative [facility] Auto Viro/Sero SS Comment on above: Result Comment: Note s SARS-CoV-2 (COVID-19) RNA ELDA+probe Ql (Resp) Negative 9, 10 (12/04/23 7:15 PM) Normal Negative [facility] Auto Viro/Sero SS Comment on above: Result Comment: Note s Interpretive Data: T his test has been authorized by FDA under an EUA for use by authorized laboratories and has not been FDA cleared or approved. Results from the Xpert Xpress SARS-CoV-2/Flu/RSV or Xpert Xpress SARS-CoV-2 only test should be correlated with the clinical history, epidemiological data, and other data available to the clinician evaluating the patient. Performance of the Xpert Xpress SARS-CoV-2/Flu/RSV or Xpert Xpress SARS-CoV-2 only test has only been established in nasopharyngeal swab specimens. Erroneous test results might occur from improper specimen collection; failure to follow the recommended sample collection, handling, and storage procedures; technical error; or sample mix-up.False negative results may occur if virus is present at levels below the analytical limit of detection. Viral nucleic acid may persist in vivo, independent of virus viability. Detection of analyte target(s) does not imply that the corresponding virus(es) are infectious or are the causative agents for clinical symptoms.Recent patient exposure to FluMist or other live attenuated influenza vaccines may cause inaccurate positive results. LABORATORYOrdered By: Alexis Che on 12-04-2023 Blood Glucose Testing Reason Routine (12/04/23 12:20 PM) [facility] Glucose [Mass/Vol] 126 mg/dL High 82 - 115 mg/dL [facility] LABORATORYOrdered By: Ana Luisa Pinto on 12-04-2023 INR Coag (PPP) [Relative time] 1.2 {INR} Invalid Interpretation Code AO HemoHub SS Comment on above: Interpretive Data: Chela bernal [employer] (CHEST, 1991, 102:[id number]) recommended therapeutic range for oral anticoagulant therapy is: LOW RISK: Prophylaxis of venous thrombosis INR: 2.0-3.0 Treatment of pulmonary embolism 2.0-3.0 Prevention of systemic embolism 2.0-3.0 HIGH RISK: Mechanical prosthetic valves 2.5-3.5 PT Coag (PPP) [Time] 14.1 s Normal 9.0 - 1 4.4 seconds AO HemoHub SS LABORATORYOrdered By: SYSTEM SYSTEM on 12-04-2023 Monocyte distribution width Auto (Bld) [Entitic vol] 19.21 1 Normal 0.00 - 20.00 AO Workflow SS Comment on above: Result Comment: For ED adult patients suspected of sepsis, MDW<=20.0 does not rule out sepsis or risk of sepsis Troponin I.cardiac DL <= 0.01 ng/mL [Mass/Vol] 6 ng/L Normal 0 - 76 ng/L AO ADM SS Comment on above: Interpretive Data: H igh Sensitive Troponin I Reference Ranges: Female: 0-51 ng/L Male: 0-76 ng/L Testing performed on [employer] using a homogeneous sandwich chemiluminescent immunoassay based on [employer] technology. PROon 12-04-2023 PT Coag (PPP) [Time] 14.1 s Normal 9.0-14.4 [facility] ([place]) Comment on above: Performed By: #### P RO #### [facility] [address] [place], [place] [address] PT International Ratio 1.2 Normal [facility] ([place]) Comment on above: Result Comment: [employer] (CHEST, 1991, [id number]) recommended therapeutic range for oral anticoagulant therapy is: LOW RISK: Prophylaxis of venous thrombosis INR: 2.0-3.0 Treatment of pulmonary embolism 2.0-3.0 Prevention of systemic embolism 2.0-3.0 HIGH RISK: Mechanical prosthetic valves 2.5-3.5 Performed By: #### P RO #### [address] [place], [place] [address] [facility]2023 High Sensitivity Troponin I 6 ng/L Normal 0-76 [facility] ([place]) Comment on above: Result Comment: High Sensitive Troponin I Reference Ranges: Female: 0-51 ng/L Male: 0-76 ng/L Testing performed on [employer] using a homogeneous sandwich chemiluminescent immunoassay based on [employer] technology. Performed By: #### F ERR, FES #### [address] [place], [place] [address] XR CHEST 2 VIEWSon 4 XR CHEST 2 VIEWS ORIGINAL EXAMINATION: TWO XRAY VIEWS OF THE CHEST 12/04/2023 5:31 am COMPARISON: None. HISTORY: ORDERING SYSTEM PROVIDED HISTORY: Reason for Exam: Chest Pain FINDINGS: Heart size is normal. Mild hazy airspace disease at the lung bases. No pneumothorax. No large effusion. IMPRESSION: Mild hazy airspace disease at the lung bases. Interpreted by: Xavier Solitario MD Preliminary Report By: Xavier Solitario MD Electronically signed By Xavier Solitario MD Dictated Date: 12/04/2023 5:54:10 AM Prelim Date: 12/04/2023 5:58:34 AM Sign Date: 12/04/2023 5:58:34 AM Ordering Provider: WENDY José [facility] ([place] XR SHOULDER MINIMUM 2 VIEWS RIGHTon 11-06-2023 XR SHOULDER MINIMUM 2 VIEWS RIGHT ORIGINAL EXAMINATION: 5 XRAY VIEWS OF THE RIGHT SHOULDER 11/03/2023 3:08 pm COMPARISON: None. HISTORY: ORDERING SYSTEM PROVIDED HISTORY: Reason for Exam: right shoulder pain Chronic right shoulder pain, no known injury. Limited range of motion IMPRESSION: AC joint is maintained with mild degenerative change. Severe glenohumeral joint osteoarthritis with joint space narrowing, subchondral sclerosis, subchondral cysts and marginal rim osteophytes. No acute fracture. Interpreted by: Latasha Dobson Preliminary Report By: Latasha Dobson Electronically signed By Latasha Dobson Dictated Date: 11/06/2023 6:28:09 PM Prelim Date: 11/06/2023 6:30:46 PM Sign Date: 11/06/2023 6:30:46 PM Ordering Provider: KERMIT José [facility] ([place]) METon 10-24-2023 Methylmalonic Acid 150 nmol/L Normal 0-378 [facility] ([place]) Comment on above: Result Comment: This test was developed and its performance characteristics determined by [facility]. It has not been cleared or approved by the Food and Drug Administration. Performed At: [facility] [id number] Mickey Ramos MD Ph:[phone] Performed By: #### P RO #### [address] [address] .GFRon 10-17-2023 GFR Non- 52 ml/min/1.73sqm Normal [facility] ([place]) Comment on above: Result Comment: GFR Population mean for , Non- Americans Ages 20-29 = 116 mL/min/1.73 sq.m. Ages 30-39 = 107 mL/min/1.73 sq.m. Ages 40-49 = 99 mL/min/1.73 sq.m. Ages 50-59 = 93 mL/min/1.73 sq.m. Ages 60-69 = 85 mL/min/1.73 sq.m. Ages 70+ = 75 mL/min/1.73 sq.m. Chronic Kidney Disease: Less than 60 mL/min/1.73 square meters End Stage Renal Disease: Less than 15 mL/min/1.73 square meters Performed By: #### P RO #### [address] [address] GFR 63 ml/min/1.73sqm Normal [facility] ([place]) Comment on above: Result Comment: GFR Population mean for , Non- Americans Ages 20-29 = 116 mL/min/1.73 sq.m. Ages 30-39 = 107 mL/min/1.73 sq.m. Ages 40-49 = 99 mL/min/1.73 sq.m. Ages 50-59 = 93 mL/min/1.73 sq.m. Ages 60-69 = 85 mL/min/1.73 sq.m. Ages 70+ = 75 mL/min/1.73 sq.m. Chronic Kidney Disease: Less than 60 mL/min/1.73 square meters End Stage Renal Disease: Less than 15 mL/min/1.73 square meters Performed By: #### P RO #### [place] [address] B12on 10-17-2023 Cobalamin (Vitamin B12) [Mass/Vol] 359 pg/mL Normal 211-911 [facility] ([place]) Comment on above: Performed By: #### P RO #### [place] [address] BMPon 10-17-2023 BUN/Creatinine Ratio 11 ratio Normal 7-27 [facility] ([place]) Comment on above: Performed By: #### B MP, [id number], PHOS, GFR, FERR, FES, VIDH #### [place] [address] #### FOL, PTH, HCV1, B12 #### [address] [address] Calcium [Mass/Vol] 9.0 mg/dL Normal 8.4-10.2 [facility] ([place]) Comment on above: Performed By: #### B MP, [id number], PHOS, GFR, FERR, FES, VIDH #### [place] [address] #### FOL, PTH, HCV1, B12 #### [address] [address] Chloride [Moles/Vol] 105 mmol/L Normal 98-107 [facility] ([place]) Comment on above: Performed By: #### B MP, [id number], PHOS, GFR, FERR, FES, VIDH #### [place] [address] #### FOL, PTH, HCV1, B12 #### [address] [address] CO2 [Moles/Vol] 32 mmol/L High 23-31 [facility] ([place] Comment on above: Performed By: #### B MP, [id number], PHOS, GFR, FERR, FES, VIDH #### [address] [address] #### FOL, PTH, HCV1, B12 #### [address] [address] Creatinine [Mass/Vol] 1.38 mg/dL High 0.70-1.30 [facility] ([place] Comment on above: Performed By: #### B MP, [id number], PHOS, GFR, FERR, FES, VIDH #### [place] [address] #### FOL, PTH, HCV1, B12 #### [place] [address] Electrolyte Balance 7.0 mEq/L Normal 4.0-15.0 [facility] ([place]) Comment on above: Performed By: #### B MP, [id number], PHOS, GFR, FERR, FES, VIDH #### [place] [address] #### FOL, PTH, HCV1, B12 #### [place] [address] Glucose [Mass/Vol] 93 mg/dL Normal 80-115 [facility] ([place] Comment on above: Performed By: #### B MP, [id number], PHOS, GFR, FERR, FES, VIDH #### [place] [address] #### FOL, PTH, HCV1, B12 #### [place] [address] Potassium [Moles/Vol] 4.1 mmol/L Normal 3.5-5.1 [facility] ([place] Comment on above: Performed By: #### B MP, [id number], PHOS, GFR, FERR, FES, VIDH #### [place] [address] #### FOL, PTH, HCV1, B12 #### [address] [address] Sodium [Moles/Vol] 144 mmol/L Normal 136-145 [facility] ([place] Comment on above: Performed By: #### B MP, [id number], PHOS, GFR, FERR, FES, VIDH #### [place] [address] #### FOL, PTH, HCV1, B12 #### [address] [address] Urea nitrogen [Mass/Vol] 15 mg/dL Normal 7-18 [facility] ([place] Comment on above: Performed By: #### B MP, [id number], PHOS, GFR, FERR, FES, VIDH #### [place] [address] #### FOL, PTH, HCV1, B12 #### [place] [id number] Prakash 10-17-2023 Ferritin [Mass/Vol] 243.0 ng/mL Normal 26.0-388.0 [facility] ([place] Comment on above: Performed By: #### P RO #### [address] [address] FESon 10-17-2023 Iron [Mass/Vol] 75 ug/dL Normal 65-175 [facility] ([place] Comment on above: Performed By: #### P RO #### [address] [address] Iron Sat 29 % Normal [facility] ([place]) Comment on above: Performed By: #### P RO #### [address] [address] TIBC 260 mcg/dL Normal 250-450 [facility] ([place] Comment on above: Performed By: #### P RO #### [address] [address] FOLon 10-17-2023 Folate 15.35 ng/mL Normal 5.38-24.00 [facility] ([place] Comment on above: Performed By: #### P RO #### [address] [address] HCVon 10-17-2023 Hep C Ab Non-Reactive Normal Non-Reactive [facility] ([place]) Comment on above: Performed By: #### P RO #### [address] [address] Hep C Ab Int Normal [facility] ([place]) Comment on above: Result Comment: Nonr eactive: Samples with a value < 0.80 are considered nonreactive (negative) for antibodies to HCV. A negative test result does not exclude the possibility of exposure to or infection with HCV. HCV antibodies may be undetectable in some stages of the infection and in some clinical conditions. See Interp Performed By: #### P RO #### [address] [address] LABORATORYOrdered By: SYSTEM SYSTEM on 10-17-2023 25-hydroxyvitamin D3 [Mass/Vol] 15.7 ng/mL Invalid Interpretation Code AO ADM SS Comment on above: Interpretive Data: I nterpretive Values Based on Total 25(OH) Vitamin D: Deficient <20 ng/mL Insufficient 20 - <30 ng/mL Sufficient 30-100 ng/mL Calcium [Mass/Vol] 9.0 mg/dL Normal 8.4 - 10. 2 mg/dL AO ADM SS Chloride [Moles/Vol] 105 mmol/L Normal 98 - 10 7 mmol/L AO ADM SS CO2 [Moles/Vol] 32 mmol/L High 23 - 31 mmol/L AO ADM SS Cobalamin (Vitamin B12) [Mass/Vol] 359 pg/mL Normal 211 - 911 pg/mL AH ADM SS Creatinine [Mass/Vol] 1.38 mg/dL High 0.70 - 1.30 mg/dL AO ADM SS Electrolyte Balance 7.0 mEq/L Normal 4.0 - 15 .0 mEq/L AO ADM SS Ferritin [Mass/Vol] 243.0 ng/mL Normal 26.0 - 3 88.0 ng/mL AO ADM SS Folate [Mass/Vol] 15.35 ng/mL Normal 5.38 - 24. 00 ng/mL AH ADM SS GFR/1.73 sq M.predicted among blacks MDRD (S/P/Bld) [Vol rate/Area] 63 ml/min/1.73sqm Invalid Interpretation Code AO Chemistry S Comment on above: Interpretive Data: GFR Population mean for , Non- Americans Ages 20-29 = 116 mL/min/1.73 sq.m. Ages 30-39 = 107 mL/min/1.73 sq.m. Ages 40-49 = 99 mL/min/1.73 sq.m. Ages 50-59 = 93 mL/min/1.73 sq.m. Ages 60-69 = 85 mL/min/1.73 sq.m. Ages 70+ = 75 mL/min/1.73 sq.m. Chronic Kidney Disease: Less than 60 mL/min/1.73 square meters End Stage Renal Disease: Less than 15 mL/min/1.73 square meters GFR/1.73 sq M.predicted among non-blacks MDRD (S/P/Bld) [Vol rate/Area] 52 ml/min/1.73sqm Invalid Interpretation Code AO Chemistry S Comment on above: Interpretive Data: GFR Population mean for , Non- Americans Ages 20-29 = 116 mL/min/1.73 sq.m. Ages 30-39 = 107 mL/min/1.73 sq.m. Ages 40-49 = 99 mL/min/1.73 sq.m. Ages 50-59 = 93 mL/min/1.73 sq.m. Ages 60-69 = 85 mL/min/1.73 sq.m. Ages 70+ = 75 mL/min/1.73 sq.m. Chronic Kidney Disease: Less than 60 mL/min/1.73 square meters End Stage Renal Disease: Less than 15 mL/min/1.73 square meters Glucose [Mass/Vol] 93 mg/dL Normal 80 - 115 mg/dL AO ADM SS Iron [Mass/Vol] 75 ug/dL Normal 65 - 175 mcg/dL AO ADM SS Iron binding capacity [Mass/Vol] 260 mcg/dL Normal 250 - 450 mcg/dL AO ADM SS Iron Sat 29 % Invalid Interpretation Code AO ADM SS Parathyrin.intact [Mass/Vol] 78.5 pg/mL Normal 18.5 - 88.0 pg/mL AH ADM SS Phosphate [Mass/Vol] 3.2 mg/dL Normal 2.3 - 4 .1 mg/dL AO ADM SS Potassium [Moles/Vol] 4.1 mmol/L Normal 3.5 - 5.1 mmol/L AO ADM SS Sodium [Moles/Vol] 144 mmol/L Normal 136 - 145 mmol/L AO ADM SS Urea nitrogen [Mass/Vol] 15 mg/dL Normal 7 - 18 mg/dL AO ADM SS Urea nitrogen/Creatinine [Mass ratio] 11 ratio Normal 7 - 27 ratio AO ADM SS LABORATORYOrdered By: Brandee Renteria on 10-17-2023 HCV Ab IA Ql Non-Reactive (10/17/23 10:37 AM) Normal Non-Reactive AH ADM SS HCV Ab IA Ql Nonreactive: Samples with a value < 0.80 are considered nonreactive (negative) for antibodies to HCV.A negative test result does not exclude the possibility of exposure to or infection with HCV. HCV antibodies may be undetectable in some stages of the infection and in some clinical conditions. Invalid Interpretation Code Chemistry S PHOSon 10-17-2023 Phosphate [Mass/Vol] 3.2 mg/dL Normal 2.3-4.1 [facility] ([place]) Comment on above: Performed By: #### P RO #### [address] [address] PTHon 10-17-2023 PTH, Intact 78.5 pg/mL Normal 18.5-88.0 [facility] ([place]) Comment on above: Performed By: #### P RO #### [address] [address] VIDHon 10-17-2023 Vit. D 25-Hydroxy 15.7 ng/mL Normal [facility] ([place]) Comment on above: Result Comment: Inte rpretive Values Based on Total 25(OH) Vitamin D: Deficient <20 ng/mL Insufficient 20 - <30 ng/mL Sufficient 30-100 ng/mL Performed By: #### P RO #### [address] [address] .Auto Diffon 08-19-2023 Basophil, Absolute 0.0 10 3/mcL Normal 0.0-0.2 [facility] ([place]) Comment on above: Performed By: #### F ERR, FES #### [address] [address] Basophils/100 WBC (Bld) 0.6 % Normal 0.0-2.5 [facility] ([place]) Comment on above: Performed By: #### F ERR, FES #### [address] [address] Eosinophil, Absolute 0.2 10 3/mcL Normal 0.0-0.4 [facility] ([place]) Comment on above: Performed By: #### F ERR, FES #### [address] [address] Eosinophils/100 WBC (Bld) 4.0 % Normal 0.0-7.0 [facility] ([place]) Comment on above: Performed By: #### F ERR, FES #### [address] [address] Lymphocyte, Absolute 1.8 10 3/mcL Normal 0.8-3.9 [facility] ([place]) Comment on above: Performed By: #### F ERR, FES #### [address] [address] Lymphocytes/100 WBC (Bld) 34.9 % Normal 10.0-50.0 [facility] ([place]) Comment on above: Performed By: #### F ERR, FES #### [address] [address] Monocyte, Absolute 0.7 10 3/mcL Normal 0.2-1.0 [facility] ([place]) Comment on above: Performed By: #### F ERR, FES #### [address] [address] Monocytes/100 WBC (Bld) 12.9 % Normal 1.7-13.0 [facility] ([place]) Comment on above: Performed By: #### F ERR, FES #### [address] [address] Neutrophils/100 WBC (Bld) 47.6 % Normal 37.0-80.0 [facility] ([place]) Comment on above: Performed By: #### F ERR, FES #### [address] [address] .GFRon 08-19-2023 GFR 59 ml/min/1.73sqm Normal [facility] ([place]) Comment on above: Result Comment: GFR Population mean for , Non- Americans Ages 20-29 = 116 mL/min/1.73 sq.m. Ages 30-39 = 107 mL/min/1.73 sq.m. Ages 40-49 = 99 mL/min/1.73 sq.m. Ages 50-59 = 93 mL/min/1.73 sq.m. Ages 60-69 = 85 mL/min/1.73 sq.m. Ages 70+ = 75 mL/min/1.73 sq.m. Chronic Kidney Disease: Less than 60 mL/min/1.73 square meters End Stage Renal Disease: Less than 15 mL/min/1.73 square meters Performed By: #### F ERR, FES #### [place] [address] GFR Non- 49 ml/min/1.73sqm Normal [facility] ([place]) Comment on above: Result Comment: GFR Population mean for , Non- Americans Ages 20-29 = 116 mL/min/1.73 sq.m. Ages 30-39 = 107 mL/min/1.73 sq.m. Ages 40-49 = 99 mL/min/1.73 sq.m. Ages 50-59 = 93 mL/min/1.73 sq.m. Ages 60-69 = 85 mL/min/1.73 sq.m. Ages 70+ = 75 mL/min/1.73 sq.m. Chronic Kidney Disease: Less than 60 mL/min/1.73 square meters End Stage Renal Disease: Less than 15 mL/min/1.73 square meters Performed By: #### F ERR, FES #### [address] [address] .NEUABSon 08-19-2023 Neutrophil, Absolute 2.5 10 3/mcL Low 2.9-6.2 [facility] ([place]) Comment on above: Performed By: #### F ERR, FES #### [address] [address] A1Con 08-19-2023 HbA1c (Bld) [Mass fraction] 6.5 % High 4.3-6.4 [facility] ([place]) Comment on above: Performed By: #### F ERR, FES #### [address] [address] CBCon 08-19-2023 Erythrocyte distribution width (RBC) [Ratio] 14.5 % Normal 11.5-14.5 [facility] ([place]) Comment on above: Performed By: #### F ERR, FES #### [address] [address] Hematocrit (Bld) [Volume fraction] 40.8 % Low 42.0-52.0 [facility] ([place]) Comment on above: Performed By: #### F ERR, FES #### [address] [address] Hgb 13.7 G/dL Low 14.0-18.0 [facility] ([place]) Comment on above: Performed By: #### F ERR, FES #### [address] [address] MCH (RBC) [Entitic mass] 30.1 pg Normal 27.0-31.2 [facility] ([place]) Comment on above: Performed By: #### F ERR, FES #### [address] [address] MCHC 33.7 G/dL Normal 31.8-35.4 [facility] ([place]) Comment on above: Performed By: #### F ERR, FES #### [address] [address] MCV (RBC) [Entitic vol] 89.4 fL Normal 80.0-94.0 [facility] ([place]) Comment on above: Performed By: #### F ERR, FES #### [address] [address] Platelet 259 10 3/mcL Normal 130-400 [facility] ([place]) Comment on above: Performed By: #### F ERR, FES #### [address] [address] Platelet mean volume (Bld) [Entitic vol] 7.2 fL Low 7.4-10.4 [facility] ([place]) Comment on above: Performed By: #### F ERR, FES #### [address] [address] RBC 4.56 10 6/mcL Normal 4.04-6.13 [facility] ([place] Comment on above: Performed By: #### F ERR, FES #### [address] [address] WBC 5.2 10 3/mcL Normal 4.6-10.8 [facility] ([place]) Comment on above: Performed By: #### F ERR, FES #### [address] [address] CMPon 08-19-2023 Albumin Level 3.4 G/dL Normal 3.4-4.8 [facility] ([place]) Comment on above: Performed By: #### F ERR, FES #### [address] [address] Albumin/Globulin [Mass ratio] 1.0 {ratio} Low 1.1-2.5 [facility] ([place]) Comment on above: Performed By: #### F ERR, FES #### [address] [address] ALP [Catalytic activity/Vol] 79 U/L Normal 40-135 [facility] ([place]) Comment on above: Performed By: #### F ERR, FES #### [address] [address] ALT [Catalytic activity/Vol] 30 U/L Normal 16-63 [facility] ([place] Comment on above: Performed By: #### F ERR, FES #### [address] [address] AST [Catalytic activity/Vol] 21 U/L Normal 10-40 [facility] ([place] Comment on above: Performed By: #### F ERR, FES #### [address] [address] Bili Total 1.0 mg/dL Normal 0.2-1.0 [facility] ([place]) Comment on above: Result Comment: Use of this assay is not recommended for patients undergoing treatment with eltrombopag due to the potential for falsely elevated results. Performed By: #### F ERR, FES #### [address] [address] BUN/Creatinine Ratio 12 ratio Normal 7-27 [facility] ([place]) Comment on above: Performed By: #### F ERR, FES #### [address] [address] Calcium [Mass/Vol] 8.6 mg/dL Normal 8.4-10.2 [facility] ([place]) Comment on above: Performed By: #### F ERR, FES #### [address] [address] Chloride [Moles/Vol] 106 mmol/L Normal 98-107 [facility] ([place]) Comment on above: Performed By: #### F ERR, FES #### [address] [address] CO2 [Moles/Vol] 28 mmol/L Normal 23-31 [facility] ([place]) Comment on above: Performed By: #### F ERR, FES #### [address] [address] Creatinine [Mass/Vol] 1.46 mg/dL High 0.70-1.30 [facility] ([place]) Comment on above: Performed By: #### F ERR, FES #### [address] [address] Electrolyte Balance 9.0 mEq/L Normal 4.0-15.0 [facility] ([place]) Comment on above: Performed By: #### F ERR, FES #### [address] [address] Globulin 3.5 G/dL Normal [facility] ([place]) Comment on above: Performed By: #### F ERR, FES #### [place] [place], [place] [address] Glucose [Mass/Vol] 138 mg/dL High 80-115 [facility] ([place]) Comment on above: Performed By: #### F ERR, FES #### [address] [place], [place] [address] Potassium [Moles/Vol] 4.2 mmol/L Normal 3.5-5.1 [facility] ([place]) Comment on above: Performed By: #### F ERR, FES #### [address] [address] Sodium [Moles/Vol] 143 mmol/L Normal 136-145 [facility] ([place]) Comment on above: Performed By: #### F ERR, FES #### [address] [address] Total Protein 6.9 G/dL Normal 6.4-8.2 [facility] ([place]) Comment on above: Performed By: #### F ERR, FES #### [address] [address] Urea nitrogen [Mass/Vol] 17 mg/dL Normal 7-18 [facility] ([place]) Comment on above: Performed By: #### F ERR, FES #### [address] [address] LABORATORYOrdered By: SYSTEM SYSTEM on 08-19-2023 Albumin BCP dye [Mass/Vol] 3.4 G/dL Normal 3.4 - 4.8 G/dL AO ADM SS Albumin/Globulin [Mass ratio] 1.0 {ratio} Low 1.1 - 2.5 ratio AO ADM SS ALP [Catalytic activity/Vol] 79 U/L Normal 40 - 135 U/L AO ADM SS ALT With P-5'-P [Catalytic activity/Vol] 30 U/L Normal 16 - 63 U/L AO ADM SS AST With P-5'-P [Catalytic activity/Vol] 21 U/L Normal 10 - 40 U/L AO ADM SS Basophil, Absolute 0.0 103/mcL Normal 0.0 - 0.2 10^3/mcL AO Workflow SS Basophils/100 WBC (Bld) 0.6 % Normal 0.0 - 2.5 % AO Workflow SS Bilirubin [Mass/Vol] 1.0 mg/dL Normal 0.2 - 1 .0 mg/dL AO ADM SS Comment on above: Interpretive Data: U se of this assay is not recommended for patients undergoing treatment with eltrombopag due to the potential for falsely elevated results. Calcium [Mass/Vol] 8.6 mg/dL Normal 8.4 - 10. 2 mg/dL AO ADM SS Chloride [Moles/Vol] 106 mmol/L Normal 98 - 10 7 mmol/L AO ADM SS CO2 [Moles/Vol] 28 mmol/L Normal 23 - 31 mmol/L AO ADM SS Creatinine [Mass/Vol] 1.46 mg/dL High 0.70 - 1.30 mg/dL AO ADM SS Electrolyte Balance 9.0 mEq/L Normal 4.0 - 15 .0 mEq/L AO ADM SS Eosinophil, Absolute 0.2 103/mcL Normal 0.0 - 0 .4 10^3/mcL AO Workflow SS Eosinophils/100 WBC (Bld) 4.0 % Normal 0.0 - 7.0 % AO Workflow SS Erythrocyte distribution width (RBC) [Ratio] 14.5 % Normal 11.5 - 14.5 % AO Workflow SS GFR/1.73 sq M.predicted among blacks MDRD (S/P/Bld) [Vol rate/Area] 59 ml/min/1.73sqm Invalid Interpretation Code AO Chemistry S Comment on above: Interpretive Data: GFR Population mean for , Non- Americans Ages 20-29 = 116 mL/min/1.73 sq.m. Ages 30-39 = 107 mL/min/1.73 sq.m. Ages 40-49 = 99 mL/min/1.73 sq.m. Ages 50-59 = 93 mL/min/1.73 sq.m. Ages 60-69 = 85 mL/min/1.73 sq.m. Ages 70+ = 75 mL/min/1.73 sq.m. Chronic Kidney Disease: Less than 60 mL/min/1.73 square meters End Stage Renal Disease: Less than 15 mL/min/1.73 square meters GFR/1.73 sq M.predicted among non-blacks MDRD (S/P/Bld) [Vol rate/Area] 49 ml/min/1.73sqm Invalid Interpretation Code AO Chemistry S Comment on above: Interpretive Data: GFR Population mean for , Non- Americans Ages 20-29 = 116 mL/min/1.73 sq.m. Ages 30-39 = 107 mL/min/1.73 sq.m. Ages 40-49 = 99 mL/min/1.73 sq.m. Ages 50-59 = 93 mL/min/1.73 sq.m. Ages 60-69 = 85 mL/min/1.73 sq.m. Ages 70+ = 75 mL/min/1.73 sq.m. Chronic Kidney Disease: Less than 60 mL/min/1.73 square meters End Stage Renal Disease: Less than 15 mL/min/1.73 square meters Globulin 3.5 G/dL Invalid Interpretation Code AO ADM SS Glucose [Mass/Vol] 138 mg/dL High 80 - 115 mg/dL AO ADM SS HbA1c (Bld) [Mass fraction] 6.5 % High 4.3 - 6.4 % AO ADM SS Hematocrit (Bld) [Volume fraction] 40.8 % Low 42.0 - 52.0 % AO Workflow SS Hemoglobin (Bld) [Mass/Vol] 13.7 G/dL Low 14.0 - 18.0 G/dL AO Workflow SS Lymphocyte, Absolute 1.8 103/mcL Normal 0.8 - 3 .9 10^3/mcL AO Workflow SS Lymphocytes/100 WBC (Bld) 34.9 % Normal 10.0 - 50.0 % AO Workflow SS MCH (RBC) [Entitic mass] 30.1 pg Normal 27.0 - 31.2 pg AO Workflow SS MCHC 33.7 G/dL Normal 31.8 - 35.4 G/dL AO Workflow SS MCV (RBC) [Entitic vol] 89.4 fL Normal 80.0 - 94.0 fL AO Workflow SS Monocyte, Absolute 0.7 103/mcL Normal 0.2 - 1.0 10^3/mcL AO Workflow SS Monocytes/100 WBC (Bld) 12.9 % Normal 1.7 - 13.0 % AO Workflow SS Neutrophil, Absolute 2.5 103/mcL Low 2.9 - 6 .2 10^3/mcL AO Workflow SS Neutrophils/100 WBC (Bld) 47.6 % Normal 37.0 - 80.0 % AO Workflow SS Platelet mean volume (Bld) [Entitic vol] 7.2 fL Low 7.4 - 10.4 fL AO Workflow SS Platelets (Bld) [#/Vol] 259 103/mcL Normal 130 - 400 10^3/mcL AO Workflow SS Potassium [Moles/Vol] 4.2 mmol/L Normal 3.5 - 5.1 mmol/L AO ADM SS Protein [Mass/Vol] 6.9 G/dL Normal 6.4 - 8.2 G/dL AO ADM SS RBC (Bld) [#/Vol] 4.56 106/mcL Normal 4.04 - 6.1 3 10^6/mcL AO Workflow SS Sodium [Moles/Vol] 143 mmol/L Normal 136 - 145 mmol/L AO ADM SS Urea nitrogen [Mass/Vol] 17 mg/dL Normal 7 - 18 mg/dL AO ADM SS Urea nitrogen/Creatinine [Mass ratio] 12 ratio Normal 7 - 27 ratio AO ADM SS WBC (Bld) [#/Vol] 5.2 103/mcL Normal 4.6 - 10.8 10^3/mcL AO Workflow SS CT SOFT TISSUE NECK W/ CONTR Maxi 05-30-2023 CT SOFT TISSUE NECK W/ CONTRAST ORIGINAL EXAMINATION: CT neck with intravenous contrast TECHNIQUE: CT of the neck was performed following the uneventful administration of 9 mL intravenous contrast. Axial images were obtained through the neck with multiplanar reformats. Low dose CT acquisition technique included one of the following options: 1. Automated exposure control, 2. Adjustment of the MA and/or KV according to patient size, or 3. Use of iterative reconstruction. DICOM images are available. COMPARISON: Ultrasound soft tissue 04/13/2023 HISTORY: ORDERING SYSTEM PROVIDED HISTORY: Reason for Exam: Left parotid cyst mass FINDINGS: Soft tissues: No soft tissue swelling or abscess. Aerodigestive tract: No primary lesion identified within the nasopharynx, oropharynx, hypopharynx, larynx, and proximal trachea. The palatine tonsils are mildly enlarged bilaterally. Salivary glands: Redemonstrated left parotid lobe mass with central hypodensity measuring 1.5 x 1.1 x 1.9 cm (AP X transverse X craniocaudal) posterior to the angle of the mandible. There is a 6 mm enhancing lesion along the posterosuperior aspect of the cystic mass which likely correlate with the solid-appearing component seen on the prior ultrasound (best visualized on sagittal image 23). A vessel courses along the medial aspect of this lesion. Unremarkable right parotid and submandibular glands. Thyroid: Unremarkable. Lymph nodes : There are non-specific scattered sub-centimeter lymph nodes in the neck bilaterally. No pathologically enlarged or morphologically suspicious adenopathy. 1.3 cm borderline enlarged right level 2A lymph node is most likely hyperplastic or reactive. Moderate to severe degenerative changes of the right sternoclavicular joint (coronal image 37). Vessels: Punctate atherosclerotic calcifications of the left carotid bulb. Bones: No acute osseous pathology. Straightening of the normal cervical lordosis. Moderate multilevel spondylotic changes most pronounced at C4-C5 through C6-C7. Visualized lung apices: Clear. Visualized brain parenchyma: No acute pathology. Additional comment: Moderate mucosal thickening of the right maxillary sinus. The remaining paranasal sinuses are predominantly clear. IMPRESSION: Left parotid lobe predominantly cystic lesion measuring 1.9 cm with a 6 mm peripheral enhancing nodule along its posterosuperior aspect likely correlating with the solid component seen on the prior ultrasound. 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 Parotid sialocele and branchial cleft cyst are considered less likely. Further characterization with tissue sampling is recommended. Mild bilateral tonsillar hypertrophy. I have personally reviewed the images of this examination and agree with the resident's findings and interpretation. Interpreted by: Michael Trevino MD Preliminary Report By: Rohan Garcia Electronically signed By Michael Trevino MD Dictated Date: 05/30/2023 9:18:56 AM Prelim Date: 05/30/2023 12:50:53 PM Sign Date: 05/30/2023 12:50:53 PM Ordering Provider: KERMIT DENNIS Normal [facility] ([place]) .GFRon 05-26-2023 GFR 68 ml/min/1.73sqm Normal [facility] ([place]) Comment on above: Result Comment: GFR Population mean for , Non- Americans Ages 20-29 = 116 mL/min/1.73 sq.m. Ages 30-39 = 107 mL/min/1.73 sq.m. Ages 40-49 = 99 mL/min/1.73 sq.m. Ages 50-59 = 93 mL/min/1.73 sq.m. Ages 60-69 = 85 mL/min/1.73 sq.m. Ages 70+ = 75 mL/min/1.73 sq.m. Chronic Kidney Disease: Less than 60 mL/min/1.73 square meters End Stage Renal Disease: Less than 15 mL/min/1.73 square meters Performed By: #### Jorge PICKETT, CRE ####[id number] [place], [place] [address] GFR Non- 56 ml/min/1.73sqm Normal [facility] ([place]) Comment on above: Result Comment: GFR Population mean for , Non- Americans Ages 20-29 = 116 mL/min/1.73 sq.m. Ages 30-39 = 107 mL/min/1.73 sq.m. Ages 40-49 = 99 mL/min/1.73 sq.m. Ages 50-59 = 93 mL/min/1.73 sq.m. Ages 60-69 = 85 mL/min/1.73 sq.m. Ages 70+ = 75 mL/min/1.73 sq.m. Chronic Kidney Disease: Less than 60 mL/min/1.73 square meters End Stage Renal Disease: Less than 15 mL/min/1.73 square meters Performed By: #### Jorge PICKETT, CRE ####[id number] [place], [place] [address] CREon 05-26-2023 Creatinine [Mass/Vol] 1.30 mg/dL Normal 0.70-1.30 [facility] ([place]) Comment on above: Performed By: #### Jorge PICKETT, CRE ####[id number] [place], [place] [address] LABORATORYOrdered By: SYSTEM SYSTEM on 05-26-2023 Creatinine [Mass/Vol] 1.30 mg/dL Normal 0.70 - 1.30 mg/dL AO ADM SS GFR/1.73 sq M.predicted among blacks MDRD (S/P/Bld) [Vol rate/Area] 68 ml/min/1.73sqm Invalid Interpretation Code AO Chemistry S Comment on above: Interpretive Data: GFR Population mean for , Non- Americans Ages 20-29 = 116 mL/min/1.73 sq.m. Ages 30-39 = 107 mL/min/1.73 sq.m. Ages 40-49 = 99 mL/min/1.73 sq.m. Ages 50-59 = 93 mL/min/1.73 sq.m. Ages 60-69 = 85 mL/min/1.73 sq.m. Ages 70+ = 75 mL/min/1.73 sq.m. Chronic Kidney Disease: Less than 60 mL/min/1.73 square meters End Stage Renal Disease: Less than 15 mL/min/1.73 square meters GFR/1.73 sq M.predicted among non-blacks MDRD (S/P/Bld) [Vol rate/Area] 56 ml/min/1.73sqm Invalid Interpretation Code AO Chemistry S Comment on above: Interpretive Data: GFR Population mean for , Non- Americans Ages 20-29 = 116 mL/min/1.73 sq.m. Ages 30-39 = 107 mL/min/1.73 sq.m. Ages 40-49 = 99 mL/min/1.73 sq.m. Ages 50-59 = 93 mL/min/1.73 sq.m. Ages 60-69 = 85 mL/min/1.73 sq.m. Ages 70+ = 75 mL/min/1.73 sq.m. Chronic Kidney Disease: Less than 60 mL/min/1.73 square meters End Stage Renal Disease: Less than 15 mL/min/1.73 square meters US SOFT TISSUE MASS OF LT AR M OR LEGon 04-14-2023 US SOFT TISSUE MASS OF LT ARM OR LEG ORIGINAL EXAMINATION: SOFT TISSUE ULTRASOUND OF THE LEFT RJSMNNBUI84/25/2023 2:10 pm TECHNIQUE: Duplex ultrasound using B-mode/godoy scaled imaging and Doppler spectral analysis and color flow was obtained of the left extremity. COMPARISON: None HISTORY: ORDERING SYSTEM PROVIDED HISTORY: Reason for Exam: left based of first digit soft tissue mass, history of ganglion cyst removal FINDINGS: Scanning of the visible palpable lump near the base of the left thumb shows a cystic mass of 2.5 x 1.9 x 0.7 cm consistent with a ganglion cyst. This has some septations and areas of synovial thickening without blood flow. There is no obvious communication with the adjacent tendons. 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 IMPRESSION: The palpable abnormality is a ganglion cyst as described. Interpreted by: Kraig Dempsey MD Preliminary Report By: Kraig Dempsey MD Electronically signed By Kraig Dempsey MD Dictated Date: 04/14/2023 10:43:30 AM Prelim Date: 04/14/2023 10:45:05 AM Sign Date: 04/14/2023 10:45:05 AM Ordering Provider: KERMIT José [facility] ([place]) US ABDOMEN LIMITEDon 023 US ABDOMEN LIMITED ORIGINAL EXAMINATION: LIMITED ABDOMINAL [id number]/23/2023 8:36 am COMPARISON: CT 10/11/2016 and ultrasound 07/09/2016 HISTORY: ORDERING SYSTEM PROVIDED HISTORY: Reason for Exam: hyperbilirubinemia FINDINGS: There is mild coarsening and increased echogenicity of the liver. No focal lesion is seen. No intrahepatic bile duct dilatation. There is antegrade flow in the main portal vein. Common duct is 5.5 mm at the huber hepatis The gallbladder is normal. Negative sonographic Ace's sign The pancreas is completely obscured by bowel gas artifacts The right kidney is normal in size and echogenicity with no pelvocaliectasis. There are a couple of simple cysts in the kidney that are 5.8 cm and 2.7 cm. No right upper quadrant ascites. IMPRESSION: No acute findings. Hepatic steatosis or other diffuse hepatocellular disease. Interpreted by: Kraig Dempsey MD Preliminary Report By: Kraig Dempsey MD Electronically signed By Kraig Dempsey MD Dictated Date: 04/12/2023 2:00:15 PM Prelim Date: 04/12/2023 2:02:02 PM Sign Date: 04/12/2023 2:02:02 PM Ordering Provider: KERMIT José [facility] ([place]) US SOFT TISSUE MASS OF NECKo n 04-12-2023 US SOFT TISSUE MASS OF NECK ORIGINAL EXAMINATION: ULTRASOUND OF THE SOFT TISSUES OF THE HEAD AND NECK04/11/2023 8:38 am COMPARISON: None HISTORY: ORDERING SYSTEM PROVIDED HISTORY: Reason for Exam: left posterior superior mass FINDINGS: The palpable lump in the left side of the neck is within the inferior aspect of the parotid gland. This is a predominantly cystic mass of at least 1.9 x 1.1 x 1.6 cm that is mostly anechoic. At its periphery however there is some heterogeneous solid-appearing component with some areas of blood flow within it. This is at least 5 x 3 mm. There are other smaller hypoechoic and anechoic nodules in the adjacent parotid and perhaps superficial to it also that are 4 mm. No comparison images of the right side. IMPRESSION: Large complex predominantly cystic mass of the parotid gland as described. Suggest ENT consultation and CT soft tissue neck with contrast. Interpreted by: Kraig Dempsey MD Preliminary Report By: Kraig Dempsey MD Electronically signed By Kraig Dempsey MD Dictated Date: 04/12/2023 3:15:16 PM Prelim Date: 04/12/2023 3:20:48 PM Sign Date: 04/12/2023 3:20:48 PM Ordering Provider: KERMIT DENNIS Normal [facility]) Vargas 03-15-2023 U Creatinine 194.6 mg/dL Normal 39.0-259.0 [facility]) Comment on above: Performed By: #### M ALBR ####[address] [place], [place] [address] U Microalb 1552 mcg/dL Normal [facility] ([place]) Comment on above: Performed By: #### M ALBR ####[address] [place], [place] [address] U Ratio Alb/Cre 8 mcg/mg Normal 0-30 [facility] ([place]) Comment on above: Performed By: #### M ALBR ####[address] [place], [place] [address] .GFRon 02-24-2023 GFR 67 ml/min/1.73sqm Normal [facility] ([place]) Comment on above: Result Comment: GFR Population mean for , Non- Americans Ages 20-29 = 116 mL/min/1.73 sq.m. Ages 30-39 = 107 mL/min/1.73 sq.m. Ages 40-49 = 99 mL/min/1.73 sq.m. Ages 50-59 = 93 mL/min/1.73 sq.m. Ages 60-69 = 85 mL/min/1.73 sq.m. Ages 70+ = 75 mL/min/1.73 sq.m. Chronic Kidney Disease: Less than 60 mL/min/1.73 square meters End Stage Renal Disease: Less than 15 mL/min/1.73 square meters Performed By: #### F ERR, FES #### [address] [address] GFR Non- 55 ml/min/1.73sqm Normal [facility] ([place]) Comment on above: Result Comment: GFR Population mean for , Non- Americans Ages 20-29 = 116 mL/min/1.73 sq.m. Ages 30-39 = 107 mL/min/1.73 sq.m. Ages 40-49 = 99 mL/min/1.73 sq.m. Ages 50-59 = 93 mL/min/1.73 sq.m. Ages 60-69 = 85 mL/min/1.73 sq.m. Ages 70+ = 75 mL/min/1.73 sq.m. Chronic Kidney Disease: Less than 60 mL/min/1.73 square meters End Stage Renal Disease: Less than 15 mL/min/1.73 square meters Performed By: #### F ERR, FES #### [address] [address] CMPon 02-24-2023 Albumin Level 3.6 G/dL Normal 3.4-4.8 [facility] ([place]) Comment on above: Performed By: #### F ERR, FES #### [address] [address] Albumin/Globulin [Mass ratio] 1.0 {ratio} Low 1.1-2.5 [facility] ([place]) Comment on above: Performed By: #### F ERR, FES #### [address] [address] ALP [Catalytic activity/Vol] 68 U/L Normal 40-135 [facility] ([place]) Comment on above: Performed By: #### F ERR, FES #### [address] [address] ALT [Catalytic activity/Vol] 32 U/L Normal 16-63 [facility] ([place]) Comment on above: Performed By: #### F ERR, FES #### [address] [address] AST [Catalytic activity/Vol] 22 U/L Normal 10-40 [facility] ([place]) Comment on above: Performed By: #### F ERR, FES #### [address] [address] Bili Total 1.1 mg/dL High 0.2-1.0 [facility] ([place]) Comment on above: Result Comment: Use of this assay is not recommended for patients undergoing treatment with eltrombopag due to the potential for falsely elevated results. Performed By: #### F ERR, FES #### [address] [address] BUN/Creatinine Ratio 14 ratio Normal 7-27 [facility] ([place]) Comment on above: Performed By: #### F ERR, FES #### [address] [address] Calcium [Mass/Vol] 8.6 mg/dL Normal 8.4-10.2 [facility] ([place]) Comment on above: Performed By: #### F ERR, FES #### [address] [address] Chloride [Moles/Vol] 108 mmol/L High 98-107 [facility] ([place]) Comment on above: Performed By: #### F ERR, FES #### [address] [address] CO2 [Moles/Vol] 28 mmol/L Normal 23-31 [facility] ([place]) Comment on above: Performed By: #### F ERR, FES #### [address] [address] Creatinine [Mass/Vol] 1.32 mg/dL High 0.70-1.30 [facility] ([place]) Comment on above: Performed By: #### F ERR, FES #### [address] [address] Electrolyte Balance 9.0 mEq/L Normal 4.0-15.0 [facility] ([place]) Comment on above: Performed By: #### F ERR, FES #### [address] [address] Globulin 3.7 G/dL Normal [facility] ([place]) Comment on above: Performed By: #### F ERR, FES #### [address] [address] Glucose [Mass/Vol] 127 mg/dL High 80-115 [facility] ([place]) Comment on above: Performed By: #### F ERR, FES #### [address] [address] Potassium [Moles/Vol] 4.3 mmol/L Normal 3.5-5.1 [facility] ([place]) Comment on above: Performed By: #### F ERR, FES #### [address] [address] Sodium [Moles/Vol] 145 mmol/L Normal 136-145 [facility] ([place]) Comment on above: Performed By: #### F ERR, FES #### [address] [address] Total Protein 7.3 G/dL Normal 6.4-8.2 [facility] ([place]) Comment on above: Performed By: #### F ERR, FES #### [address] [address] Urea nitrogen [Mass/Vol] 18 mg/dL Normal 7-18 [facility] ([place]) Comment on above: Performed By: #### F ERR, FES #### [address] [address] LIPIDon 02-24-2023 Cholesterol [Mass/Vol] 130 mg/dL Normal 0-200 [facility] ([place]) Comment on above: Result Comment: Chol esterol Reference Interval: Less than 200 Desirable 200-239 Borderline high risk 240 and above High risk Performed By: #### F ERR, FES #### [address] [address] Cholesterol in HDL [Mass/Vol] 49 mg/dL Normal 40-60 [facility] ([place]) Comment on above: Performed By: #### F ERR, FES #### [facility] [address] [place], [place] [address] Cholesterol in LDL [Mass/Vol] 73 mg/dL Normal 0-130 [facility] ([place]) Comment on above: Performed By: #### F ERR, FES #### [facility] [address] [place], [place] [address] Triglyceride [Mass/Vol] 39 mg/dL Normal 0-150 [facility] ([place]) Comment on above: Result Comment: Trig lyceride Reference Interval: Less than 150 Normal 150-199 Borderline high risk 200-499 High risk 500 or higher Very high risk Performed By: #### F ERR, FES #### [address] [place], [place] [address] LABORATORYOrdered By: Eli Carver on 08-26-2022 Basophil, Absolute 0.0 103/mcL Invalid Interpretation Code 0.0 - 0.2 10^3/mcL AO Workflow SS Basophils/100 WBC (Bld) 0.5 % Invalid Interpretation Code 0.0 - 2.5 % AO Workflow SS Eosinophil, Absolute 0.2 103/mcL Invalid Interpretation Code 0.0 - 0.4 10^3/mcL AO Workflow SS Eosinophils/100 WBC (Bld) 4.0 % Invalid Interpretation Code 0.0 - 7.0 % AO Workflow SS Erythrocyte distribution width (RBC) [Ratio] 13.8 % Invalid Interpretation Code 11.5 - 14.5 % AO Workflow SS Hematocrit (Bld) [Volume fraction] 42.1 % Invalid Interpretation Code 42.0 - 52.0 % AO Workflow SS Hemoglobin (Bld) [Mass/Vol] 14.0 G/dL Invalid Interpretation Code 14.0 - 18.0 G/dL AO Workflow SS Lymphocyte, Absolute 1.7 103/mcL Invalid Interpretation Code 0.8 - 3.9 10^3/mcL AO Workflow SS Lymphocytes/100 WBC (Bld) 36.0 % Invalid Interpretation Code 10.0 - 50.0 % AO Workflow SS MCH (RBC) [Entitic mass] 29.8 pg Invalid Interpretation Code 27.0 - 31.2 pg AO Workflow SS MCHC 33.1 G/dL Invalid Interpretation Code 31.8 - 35.4 G/dL AO Workflow SS MCV (RBC) [Entitic vol] 89.9 fL Invalid Interpretation Code 80.0 - 94.0 fL AO Workflow SS Monocyte, Absolute 0.5 103/mcL Invalid Interpretation Code 0.2 - 1.0 10^3/mcL AO Workflow SS Monocytes/100 WBC (Bld) 11.5 % Invalid Interpretation Code 1.7 - 13.0 % AO Workflow SS Neutrophil, Absolute 2.2 103/mcL Invalid Interpretation Code 2.9 - 6.2 10^3/mcL AO Workflow SS Neutrophils/100 WBC (Bld) 48.0 % Invalid Interpretation Code 37.0 - 80.0 % AO Workflow SS Platelet mean volume (Bld) [Entitic vol] 7.5 fL Invalid Interpretation Code 7.4 - 10.4 fL AO Workflow SS Platelets (Bld) [#/Vol] 265 103/mcL Invalid Interpretation Code 130 - 400 10^3/mcL AO Workflow SS RBC (Bld) [#/Vol] 4.69 106/mcL Invalid Interpretation Code 4.04 - 6.13 10^6/mcL AO Workflow SS WBC (Bld) [#/Vol] 4.6 103/mcL Invalid Interpretation Code 4.6 - 10.8 10^3/mcL AO Workflow SS LABORATORYOrdered By: [employer] SYSTEM on 08-26-2022 Cobalamin (Vitamin B12) [Mass/Vol] 337 pg/mL Invalid Interpretation Code 211 - 911 pg/mL ADM SS Folate [Mass/Vol] 12.56 ng/mL Invalid Interpretation Code 5.38 - 24.00 ng/mL ADM SS TSH Qn 1.50 m[IU]/L Invalid Interpretation Code 0.36 - 3.74 mcIU/mL ADM SS LABORATORYOrdered By: Pamela Aguilar on 07-02-2022 Basophil, Absolute 0.0 103/mcL Invalid Interpretation Code 0.0 - 0.2 10^3/mcL AO Workflow SS Basophils/100 WBC (Bld) 0.5 % Invalid Interpretation Code 0.0 - 2.5 % AO Workflow SS Eosinophil, Absolute 0.1 103/mcL Invalid Interpretation Code 0.0 - 0.4 10^3/mcL AO Workflow SS Eosinophils/100 WBC (Bld) 2.1 % Invalid Interpretation Code 0.0 - 7.0 % AO Workflow SS Erythrocyte distribution width (RBC) [Ratio] 14.6 % Invalid Interpretation Code 11.5 - 14.5 % AO Workflow SS Hematocrit (Bld) [Volume fraction] 40.3 % Invalid Interpretation Code 42.0 - 52.0 % AO Workflow SS Hemoglobin (Bld) [Mass/Vol] 13.6 G/dL Invalid Interpretation Code 14.0 - 18.0 G/dL AO Workflow SS Lymphocyte, Absolute 1.7 103/mcL Invalid Interpretation Code 0.8 - 3.9 10^3/mcL AO Workflow SS Lymphocytes/100 WBC (Bld) 35.1 % Invalid Interpretation Code 10.0 - 50.0 % AO Workflow SS MCH (RBC) [Entitic mass] 30.0 pg Invalid Interpretation Code 27.0 - 31.2 pg AO Workflow SS MCHC 33.7 G/dL Invalid Interpretation Code 31.8 - 35.4 G/dL AO Workflow SS MCV (RBC) [Entitic vol] 89.1 fL Invalid Interpretation Code 80.0 - 94.0 fL AO Workflow SS Monocyte, Absolute 0.6 103/mcL Invalid Interpretation Code 0.2 - 1.0 10^3/mcL AO Workflow SS Monocytes/100 WBC (Bld) 12.7 % Invalid Interpretation Code 1.7 - 13.0 % AO Workflow SS Neutrophil, Absolute 2.3 103/mcL Invalid Interpretation Code 2.9 - 6.2 10^3/mcL AO Workflow SS Neutrophils/100 WBC (Bld) 49.6 % Invalid Interpretation Code 37.0 - 80.0 % AO Workflow SS Platelet mean volume (Bld) [Entitic vol] 7.5 fL Invalid Interpretation Code 7.4 - 10.4 fL AO Workflow SS Platelets (Bld) [#/Vol] 244 103/mcL Invalid Interpretation Code 130 - 400 10^3/mcL AO Workflow SS RBC (Bld) [#/Vol] 4.53 106/mcL Invalid Interpretation Code 4.04 - 6.13 10^6/mcL AO Workflow SS WBC (Bld) [#/Vol] 4.7 103/mcL Invalid Interpretation Code 4.6 - 10.8 10^3/mcL AO Workflow SS LABORATORYOrdered By: SYSTEM SYSTEM on 07-02-2022 Calcium [Mass/Vol] 9.1 mg/dL Invalid Interpretation Code 8.4 - 10.2 mg/dL AO ADM SS Chloride [Moles/Vol] 106 mmol/L Invalid Interpretation Code 98 - 107 mmol/L AO ADM SS CO2 [Moles/Vol] 31 mmol/L Invalid Interpretation Code 23 - 31 mmol/L AO ADM SS Creatinine [Mass/Vol] 1.32 mg/dL Invalid Interpretation Code 0.70 - 1.30 mg/dL AO ADM SS Electrolyte Balance 4.0 mEq/L Invalid Interpretation Code 4.0 - 15.0 mEq/L AO ADM SS Ferritin [Mass/Vol] 234.0 ng/mL Invalid Interpretation Code 26.0 - 388.0 ng/mL AO ADM SS GFR 67 ml/min/1.73sqm Invalid Interpretation Code AO Chemistry S GFR Non- 55 ml/min/1.73sqm Invalid Interpretation Code AO Chemistry S Glucose [Mass/Vol] 114 mg/dL Invalid Interpretation Code 80 - 115 mg/dL AO ADM SS Iron [Mass/Vol] 85 ug/dL Invalid Interpretation Code 65 - 175 mcg/dL AO ADM SS Iron binding capacity [Mass/Vol] 243 mcg/dL Invalid Interpretation Code 250 - 450 mcg/dL AO ADM SS Iron Sat 35 1 Invalid Interpretation Code AO ADM SS Potassium [Moles/Vol] 3.9 mmol/L Invalid Interpretation Code 3.5 - 5.1 mmol/L AO ADM SS Prostate specific Ag [Mass/Vol] 0.61 ng/mL Invalid Interpretation Code 0.00 - 4.00 ng/mL AO ADM SS Sodium [Moles/Vol] 141 mmol/L Invalid Interpretation Code 136 - 145 mmol/L AO ADM SS Urea nitrogen [Mass/Vol] 12 mg/dL Invalid Interpretation Code 7 - 18 mg/dL AO ADM SS Urea nitrogen/Creatinine [Mass ratio] 9 ratio Invalid Interpretation Code 7 - 27 ratio AO ADM SS LABORATORYOrdered By: SYSTEM SYSTEM on 06-16-2022 Albumin BCP dye [Mass/Vol] 3.6 G/dL Invalid Interpretation Code 3.4 - 4.8 G/dL AO ADM SS Albumin/Globulin [Mass ratio] 1.0 {ratio} Invalid Interpretation Code 1.1 - 2.5 ratio AO ADM SS ALP [Catalytic activity/Vol] 75 U/L Invalid Interpretation Code 40 - 135 U/L AO ADM SS ALT With P-5'-P [Catalytic activity/Vol] 26 U/L Invalid Interpretation Code 16 - 63 U/L AO ADM SS AST With P-5'-P [Catalytic activity/Vol] 17 U/L Invalid Interpretation Code 10 - 40 U/L AO ADM SS Bilirubin [Mass/Vol] 1.0 mg/dL Invalid Interpretation Code 0.2 - 1.0 mg/dL AO ADM SS Calcium [Mass/Vol] 8.9 mg/dL Invalid Interpretation Code 8.4 - 10.2 mg/dL AO ADM SS Chloride [Moles/Vol] 106 mmol/L Invalid Interpretation Code 98 - 107 mmol/L AO ADM SS CO2 [Moles/Vol] 31 mmol/L Invalid Interpretation Code 23 - 31 mmol/L AO ADM SS Creatinine [Mass/Vol] 1.46 mg/dL Invalid Interpretation Code 0.70 - 1.30 mg/dL AO ADM SS Electrolyte Balance 5.0 mEq/L Invalid Interpretation Code 4.0 - 15.0 mEq/L AO ADM SS GFR 59 ml/min/1.73sqm Invalid Interpretation Code AO Chemistry S GFR Non- 49 ml/min/1.73sqm Invalid Interpretation Code AO Chemistry S Globulin 3.5 G/dL Invalid Interpretation Code AO ADM SS Glucose [Mass/Vol] 131 mg/dL Invalid Interpretation Code 80 - 115 mg/dL AO ADM SS Lipase [Catalytic activity/Vol] 67 U/L Invalid Interpretation Code 16 - 77 U/L AO ADM SS Potassium [Moles/Vol] 3.9 mmol/L Invalid Interpretation Code 3.5 - 5.1 mmol/L AO ADM SS Protein [Mass/Vol] 7.1 G/dL Invalid Interpretation Code 6.4 - 8.2 G/dL AO ADM SS Sodium [Moles/Vol] 142 mmol/L Invalid Interpretation Code 136 - 145 mmol/L AO ADM SS Urea nitrogen [Mass/Vol] 17 mg/dL Invalid Interpretation Code 7 - 18 mg/dL AO ADM SS Urea nitrogen/Creatinine [Mass ratio] 12 ratio Invalid Interpretation Code 7 - 27 ratio AO ADM SS LABORATORYOrdered By: Ana Luisa Pinto on 06-16-2022 Appearance (U) Clear (06/16/22 8:48 AM) Invalid Interpretation Code Clear AO Auto Urine SS Basophil, Absolute 0.0 103/mcL Invalid Interpretation Code 0.0 - 0.2 10^3/mcL AO Workflow SS Basophils/100 WBC (Bld) 0.7 % Invalid Interpretation Code 0.0 - 2.5 % AO Workflow SS Bilirubin Ql (U) Negative (06/16/22 8:48 AM) Invalid Interpretation Code Negative AO Auto Urine SS Color (U) Yellow (06/16/22 8:48 AM) Invalid Interpretation Code AO Auto Urine SS Eosinophil, Absolute 0.1 103/mcL Invalid Interpretation Code 0.0 - 0.4 10^3/mcL AO Workflow SS Eosinophils/100 WBC (Bld) 2.8 % Invalid Interpretation Code 0.0 - 7.0 % AO Workflow SS Erythrocyte distribution width (RBC) [Ratio] 14.5 % Invalid Interpretation Code 11.5 - 14.5 % AO Workflow SS Glucose Test strip (U) [Mass/Vol] Negative Invalid Interpretation Code Negativemg/dL AO Auto Urine SS Hematocrit (Bld) [Volume fraction] 41.5 % Invalid Interpretation Code 42.0 - 52.0 % AO Workflow SS Hemoglobin (Bld) [Mass/Vol] 13.8 G/dL Invalid Interpretation Code 14.0 - 18.0 G/dL AO Workflow SS Hemoglobin Auto test strip (U) [Mass/Vol] Negative (06/16/22 8:48 AM) Invalid Interpretation Code Negative AO Auto Urine SS Ketones Ql (U) Negative Invalid Interpretation Code Negativemg/dL AO Auto Urine SS Lymphocyte, Absolute 1.5 103/mcL Invalid Interpretation Code 0.8 - 3.9 10^3/mcL AO Workflow SS Lymphocytes/100 WBC (Bld) 28.5 % Invalid Interpretation Code 10.0 - 50.0 % AO Workflow SS MCH (RBC) [Entitic mass] 29.8 pg Invalid Interpretation Code 27.0 - 31.2 pg AO Workflow SS MCHC 33.3 G/dL Invalid Interpretation Code 31.8 - 35.4 G/dL AO Workflow SS MCV (RBC) [Entitic vol] 89.6 fL Invalid Interpretation Code 80.0 - 94.0 fL AO Workflow SS Monocyte distribution width Auto (Bld) [Entitic vol] 17.56 Invalid Interpretation Code 0.00 - 20.00 AO Workflow SS Comment on above: Result Comment: For ED adult patients suspected of sepsis, MDW<=20.0 does not rule out sepsis or risk of sepsis Monocyte, Absolute 0.6 103/mcL Invalid Interpretation Code 0.2 - 1.0 10^3/mcL AO Workflow SS Monocytes/100 WBC (Bld) 12.3 % Invalid Interpretation Code 1.7 - 13.0 % AO Workflow SS Neutrophil, Absolute 2.8 103/mcL Invalid Interpretation Code 2.9 - 6.2 10^3/mcL AO Workflow SS Neutrophils/100 WBC (Bld) 55.7 % Invalid Interpretation Code 37.0 - 80.0 % AO Workflow SS Platelet mean volume (Bld) [Entitic vol] 7.1 fL Invalid Interpretation Code 7.4 - 10.4 fL AO Workflow SS Platelets (Bld) [#/Vol] 244 103/mcL Invalid Interpretation Code 130 - 400 10^3/mcL AO Workflow SS RBC (Bld) [#/Vol] 4.63 106/mcL Invalid Interpretation Code 4.04 - 6.13 10^6/mcL AO Workflow SS UA Leuk Est Negative (06/16/22 8:48 AM) Invalid Interpretation Code Negative AO Auto Urine SS UA Nitrite Negative (06/16/22 8:48 AM) Invalid Interpretation Code Negative AO Auto Urine SS UA pH 6.0 (06/16/22 8:48 AM) Invalid Interpretation Code 5.0 - 8.0 AO Auto Urine SS UA Protein Negative Invalid Interpretation Code Negativemg/dL AO Auto Urine SS UA Spec Grav >=1.030 *ABN* (06/16/22 8:48 AM) Invalid Interpretation Code 1.015-1.025 AO Auto Urine SS UA Specimen Type Clean Catch (06/16/22 8:48 AM) Invalid Interpretation Code AO Auto Urine SS UA Urobilinogen 1.0 E.U./dL Invalid Interpretation Code 0.2-1.0E.U./d L AO Auto Urine SS WBC (Bld) [#/Vol] 5.1 103/mcL Invalid Interpretation Code 4.6 - 10.8 10^3/mcL AO Workflow SS LABORATORYOrdered By: Pamela Aguilar on 01-12-2022 Albumin BCP dye [Mass/Vol] 3.7 G/dL Invalid Interpretation Code 3.4 - 4.8 G/dL AO ADM SS Albumin/Globulin [Mass ratio] 1.1 {ratio} Invalid Interpretation Code 1.1 - 2.5 ratio AO ADM SS ALP [Catalytic activity/Vol] 76 U/L Invalid Interpretation Code 40 - 135 U/L AO ADM SS ALT With P-5'-P [Catalytic activity/Vol] 36 U/L Invalid Interpretation Code 16 - 63 U/L AO ADM SS AST With P-5'-P [Catalytic activity/Vol] 19 U/L Invalid Interpretation Code 10 - 40 U/L AO ADM SS Bilirubin [Mass/Vol] 1.2 mg/dL Invalid Interpretation Code 0.2 - 1.0 mg/dL AO ADM SS Calcium [Mass/Vol] 8.5 mg/dL Invalid Interpretation Code 8.4 - 10.2 mg/dL AO ADM SS Chloride [Moles/Vol] 106 mmol/L Invalid Interpretation Code 98 - 107 mmol/L AO ADM SS Cholesterol [Mass/Vol] 121 mg/dL Invalid Interpretation Code 0 - 200 mg/dL AO ADM SS Cholesterol in HDL [Mass/Vol] 43 mg/dL Invalid Interpretation Code 40 - 60 mg/dL AO ADM SS Cholesterol in LDL [Mass/Vol] 71 mg/dL Invalid Interpretation Code 0 - 130 mg/dL AO ADM SS CO2 [Moles/Vol] 29 mmol/L Invalid Interpretation Code 23 - 31 mmol/L AO ADM SS Creatinine [Mass/Vol] 1.33 mg/dL Invalid Interpretation Code 0.70 - 1.30 mg/dL AO ADM SS Electrolyte Balance 5.0 mEq/L Invalid Interpretation Code 4.0 - 15.0 mEq/L AO ADM SS Globulin 3.4 G/dL Invalid Interpretation Code AO ADM SS Glucose [Mass/Vol] 107 mg/dL Invalid Interpretation Code 80 - 115 mg/dL AO ADM SS Potassium [Moles/Vol] 3.9 mmol/L Invalid Interpretation Code 3.5 - 5.1 mmol/L AO ADM SS Protein [Mass/Vol] 7.1 G/dL Invalid Interpretation Code 6.4 - 8.2 G/dL AO ADM SS Sodium [Moles/Vol] 140 mmol/L Invalid Interpretation Code 136 - 145 mmol/L AO ADM SS Triglyceride [Mass/Vol] 37 mg/dL Invalid Interpretation Code 0 - 150 mg/dL AO ADM SS Urea nitrogen [Mass/Vol] 16 mg/dL Invalid Interpretation Code 7 - 18 mg/dL AO ADM SS Urea nitrogen/Creatinine [Mass ratio] 12 ratio Invalid Interpretation Code 7 - 27 ratio AO ADM SS LABORATORYOrdered By: SYSTEM SYSTEM on 01-12-2022 GFR 66 ml/min/1.73sqm Invalid Interpretation Code AO Chemistry S GFR Non- 55 ml/min/1.73sqm Invalid Interpretation Code AO Chemistry S Jayro 02-07-2021 [place] Telephone ([facility]) HUMPHREY,OTF Matt ([id number]) 1960 Date Time Provider Department 02/07/21 HAWA REESE During your visit today, we recorded the following information about you: Hawa Reese APRN.CNP 02/07/2021 12:07 PM Signed COVID negative. Attempt to call patient [phone]. Voicemail message left requesting return call. No Mychart. Please try to Call again on 02/08/21 Hawa Reese APRN.CNP 02/08/2021 11:29 AM Signed Attempted to call patient for second time. No answer 2nd message left. NO MYCHART. Can we please send a letter on 02/09/21 if he doesn not return call. Hawa Reese APRN.JAS 02/10/2021 5:45 PM Signed Please send a certified letter with results to patient please. Pamela Lancaster LPN 02/10/2021 8:04 PM Signed Reached and she said that she is going to give him the message.Pamela Lancaster LPN Allergies As of Date: 02/07/2021 (No Known Allergies) Date Reviewed: 02/06/2021 Reviewed by: Tish Montgomery MA - Fully Assessed Reason for Visit: Results [95] Prescriptions as of 02/10/2021 - loratadine (CLARITIN) 10 mg tablet Take 10 mg by mouth once daily. - amLODIPine-benazepril (LOTREL) 10-20 mg per capsule Take 1 capsule by mouth once daily. - Hydrochlorothiazide 12.5 mg ORAL capsule Take 1 capsule by mouth once daily. - aspirin, enteric coated (ASPIR-LOW) 81 mg ORAL EC tablet Take 1 tablet by mouth once daily. Problem List As Of Date 02/07/2021 Noted Resolved Special screening for malignant neoplasms, colo*04/01/2011 Encounter Status:Closed by PAMELA LANCASTER LPN on 02/10/21 [facility] CNOVon 02-06-2021 CNOV Office Visit (UCWSTR ) OTF LEAL ([id number]) 1960 M Date Time Provider Department 02/06/21 11:15 AM GERALDINE CORRALES [facility] During your visit today, we recorded the following information about you: Temperature Pulse Respiration Blood pressure 98.2 degrees 67/minute 14/minute 108/82 Weight 123.6 kg Geraldine Corrales APRN.[employer]AMINER 02/06/2021 11:40 AM Signed SUBJECTIVE Otf Leal is a 60 year [...] Laterality Date - COLONOSCOP W/ OR W/O [facility] SPEC 04/28/2011 ALLERGIES Patient has no known [...] V01.79, ICD10: Z20.822 - 2019 CORONAVIRUS Geraldine Corrales APRN.CNP - Meets symptom-based criteria for testing and is high risk. - COVID swab collected at time of office visit - Instructed to isolate pending test results - Discussed symptom monitoring and supportive care - Red flag symptoms requiring follow up discussed This patient encounter involved the screening or treatment of novel coronavirus infection (COVID-19). Geraldine Corrales APRN.CNP 02/06/2021 11:20 AM Addendum ASSESSMENT/PLAN: 1. Suspected COVID-19 virus infection - ICD9: V01.79, ICD10: Z20.822 - 2019 CORONAVIRUS Geraldine Corrales APRN.CNP - Meets symptom-based criteria for testing and is high risk. - COVID swab collected at time of office visit - Instructed to isolate pending test results - Discussed symptom monitoring and supportive care - Red flag symptoms requiring follow up discussed This patient encounter involved the screening or treatment of novel coronavirus infection (COVID-19). Beginning Home Isolation Isolation is used to separate people infected with SARS-CoV-2, the virus that causes COVID-19, from people who are not infected. People who are in isolation should stay home until it?s safe for them to be around others. In the home, anyone sick or infected should separate themselves from others by staying in a specific ?sick room? or area and using a separate bathroom (if available). Isolation or Quarantine: What's the difference? - Quarantine keeps someone who might have been exposed to the virus away from others. - Isolation keeps someone who is infected with the virus away from others, even in their home. Who needs to isolate People who have COVID-19 - People who have symptoms of COVID-19 and are able to recover at home - People who have no symptoms (are asymptomatic) but have tested positive for infection with SARS-CoV-2 Steps to take Stay home except to get medical care - Monitor your symptoms. - Stay in a separate room from other household members, if possible - Use a separ (more content not included)... Normal [facility] Coronavirus 2019on 1 SARS-CoV-2 (COVID-19) RNA ELDA+probe Ql (Unsp spec) UPPER RESPIRATORY TRACT SWAB Normal [facility] Comment on above: Performed By: #### C OVID #### [place] [address] SARS-CoV-2 (COVID-19) RNA ELDA+probe Ql (Unsp spec) Negative for COVID19 (SARS CoV2) by RT-PCR or equivalent method. Normal Negative for COVID19 (SARS CoV2) by RT-PCR or equivalent method. [facility] Comment on above: Result Comment: This test was developed and its performance characteristics determined by [facility] [place]. This test has been authorized by FDA under an Emergency Use Authorization (EUA). This test has been validated in accordance with the FDA's Guidance Document "Policy for Diagnostics Testing in Laboratories Certified to Perform High Complexity Testing under CLIA prior to Emergency use Authorization for Coronavirus Disease 2019 during the Public Health Emergency" issued on August 18, 2019. Test performed by [facility] [place], [address] [place] [address]. Performed By: #### C OVID #### [place] [address] Vital Signs Date Time Vital Sign Value Performing Clinician Stefania wilks 02-14-2024 21:19-0400 Body height [address] DAWSON JAQUEZ MD [facility] 02-14-2024 21:19-0400 Body temperature 97.7 [degF] DR DAWSON JAQUEZ MD [facility] 02-14-2024 21:19-0400 Body weight 109.[address] DAWSON JAQUEZ MD [facility] 02-14-2024 21:19-0400 Diastolic Blood Pressure Non-Invasive 91 mm[Hg] DR DAWSON JAQUEZ MD [facility] 02-14-2024 21:19-0400 Heart rate 75 /min DR DAWSON JAQUEZ MD [facility] 02-14-2024 21:19-0400 Respiratory rate 18 /min DR DAWSON JAQUEZ MD [facility] 02-14-2024 21:19-0400 Systolic Blood Pressure Non-Invasive 141 mm[Hg] DR DAWSON JAQUEZ MD [facility] 12-07-2023 10:38-0400 Body temperature 97.88 [degF] KAYY VILLAFUERTE SMALL ORDER CUTTER-LATENT PRINT EXAMINER [facility] 12-07-2023 10:38-0400 Diastolic Blood Pressure Non-Invasive 83 mm[Hg] KAYY VILLAFUERTE SMALL ORDER CUTTER-LATENT PRINT EXAMINER [facility] 12-07-2023 10:38-0400 Heart rate 96 /min KAYY VILLAFUERTE SMALL ORDER CUTTER-LATENT PRINT EXAMINER [facility] 12-07-2023 10:38-0400 Reason For Taking VItal Signs KAYY CAROLER SMALL ORDER CUTTER-LATENT PRINT EXAMINER [facility] 12-07-2023 10:38-0400 Respiratory rate 16 /min KAYY KAPPER SMALL ORDER CUTTER-LATENT PRINT EXAMINER [facility] 12-07-2023 10:38-0400 Systolic Blood Pressure Non-Invasive 138 mm[Hg] KAYY CAROLER SMALL ORDER CUTTER-LATENT PRINT EXAMINER [facility] 12-07-2023 10:33-0400 Heart rate 96 /min KAYY KAPPER SMALL ORDER CUTTER-LATENT PRINT EXAMINER [facility] 12-07-2023 10:33-0400 Respiratory rate 16 /min KAYY KAPPER SMALL ORDER CUTTER-LATENT PRINT EXAMINER [facility] 12-07-2023 06:50-0400 Diastolic Blood Pressure Non-Invasive 85 mm[Hg] KAYY KAPPER SMALL ORDER CUTTER-LATENT PRINT EXAMINER [facility] 12-07-2023 06:50-0400 Reason For Taking VItal Signs KAYY CAROLER SMALL ORDER CUTTER-LATENT PRINT EXAMINER [facility] 12-07-2023 06:50-0400 Systolic Blood Pressure Non-Invasive 141 mm[Hg] KAYY KAPPER SMALL ORDER CUTTER-LATENT PRINT EXAMINER [facility] 12-07-2023 06:45-0400 Heart rate 96 /min KAYY KAPPER SMALL ORDER CUTTER-LATENT PRINT EXAMINER [facility] 12-07-2023 06:45-0400 Respiratory rate 18 /min KAYY KAPPER SMALL ORDER CUTTER-LATENT PRINT EXAMINER [facility] 12-07-2023 06:28-0400 Body temperature 98.78 [degF] KAYY KAPPER SMALL ORDER CUTTER-LATENT PRINT EXAMINER [facility] 12-07-2023 06:28-0400 Diastolic Blood Pressure Non-Invasive 99 mm[Hg] KAYY KAPPER SMALL ORDER CUTTER-LATENT PRINT EXAMINER [facility] 12-07-2023 06:28-0400 Heart rate 96 /min KAYY KAPPER SMALL ORDER CUTTER-LATENT PRINT EXAMINER [facility] 12-07-2023 06:28-0400 Reason For Taking VItal Signs KAYY KAPPER SMALL ORDER CUTTER-LATENT PRINT EXAMINER [facility] 12-07-2023 06:28-0400 Systolic Blood Pressure Non-Invasive 146 mm[Hg] KAYY KAPPER SMALL ORDER CUTTER-LATENT PRINT EXAMINER [facility] 12-07-2023 02:38-0400 Body temperature 99.32 [degF] KAYY KAPPER SMALL ORDER CUTTER-LATENT PRINT EXAMINER [facility] 12-07-2023 02:38-0400 Heart rate 100 /min KAYY KAPPER SMALL ORDER CUTTER-LATENT PRINT EXAMINER [facility] 12-06-2023 16:35-0400 Heart rate 92 /min KAYY KAPPER SMALL ORDER CUTTER-LATENT PRINT EXAMINER [facility] 12-05-2023 06:41-0400 Body weight 112.3 kg KAYY KAPPER SMALL ORDER CUTTER-LATENT PRINT EXAMINER [facility] 12-05-2023 05:36-0400 Heart rate 85 /min KAYY KAPPER SMALL ORDER CUTTER-LATENT PRINT EXAMINER [facility] 12-04-2023 23:36-0400 Heart rate 88 /min KAYY KAPPER SMALL ORDER CUTTER-LATENT PRINT EXAMINER [facility] 12-04-2023 09:43-0400 Body height 188 cm KAYY KAPPER SMALL ORDER CUTTER-LATENT PRINT EXAMINER [facility] 12-04-2023 09:43-0400 Body weight 109.1 kg KAYY MEDINAER SMALL ORDER CUTTER-LATENT PRINT EXAMINER [facility] 12-04-2023 09:43-0400 Body weight 30.87 kg/m2 KAYY MEDINAER SMALL ORDER CUTTER-LATENT PRINT EXAMINER [facility] 12-04-2023 04:46-0400 Blood Pressure Cuff Size KAYY CAROLER SMALL ORDER CUTTER-LATENT PRINT EXAMINER [facility] 12-04-2023 04:46-0400 Blood Pressure Location KAYY CHRISTO SMALL ORDER CUTTER-LATENT PRINT EXAMINER [facility] 12-04-2023 04:46-0400 Blood Pressure Method KAYY VILLAFUERTE SMALL ORDER CUTTER-C LITHOPRESS OPERATOR [facility] 12-04-2023 04:46-0400 Body height 188 cm KAYY MEDINAER SMALL ORDER CUTTER-LATENT PRINT EXAMINER [facility] 12-04-2023 04:46-0400 Body weight 109.1 kg KAYY MEDINAER SMALL ORDER CUTTER-LATENT PRINT EXAMINER [facility] 06-30-2022 22:06-0500 Diastolic Blood Pressure Non-Invasive 68 1 CHALINO SMITHT DO [facility] 06-30-2022 22:06-0500 Heart rate 70 /min CHALINO FROMIFEOMAT DO [facility] 06-30-2022 22:06-0500 Respiratory rate 18 /min CHALINO FROMMELT DO [facility] 06-30-2022 22:06-0500 Systolic Blood Pressure Non-Invasive 120 1 CHALINO FROMMELT DO [facility] 06-30-2022 21:05-0500 Body temperature 98.06 [degF] CHALINO FROMMELT DO [facility] 06-30-2022 21:05-0500 Diastolic Blood Pressure Non-Invasive 77 1 CHALINO SMITHT DO [facility] 06-30-2022 21:05-0500 Heart rate 66 /min CHALINO SMITHT DO [facility] 06-30-2022 21:05-0500 Respiratory rate 18 /min CHALINO SMITHT DO [facility] 06-30-2022 21:05-0500 Systolic Blood Pressure Non-Invasive 119 1 CHALINO SMITHT DO [facility] 06-16-2022 07:57-0500 Body height 188 cm NILSON ELY DO [facility] 06-16-2022 07:57-0500 Body temperature 98.42 [degF] NILSON ELY DO [facility] 06-16-2022 07:57-0500 Body weight 110 kg NILSON ELY DO [facility] 06-16-2022 07:57-0500 Diastolic Blood Pressure Non-Invasive 79 1 NILSON ELY DO [facility] 06-16-2022 07:57-0500 Heart rate 71 /min NILSON ELY DO [facility] 06-16-2022 07:57-0500 Respiratory rate 16 /min NILSON ELY DO [facility] 06-16-2022 07:57-0500 Systolic Blood Pressure Non-Invasive 114 1 NILSON ELY DO [facility] Encounters Encounter Date Encounter Type Care Provider Facility Start: 04-18-2025 ambulatory Ubaldo Friend Facility :[facility] Start: 03-14-2025 End: 03-14-2025 ambulatory Kermit Dennis [place] Start: 02-27-[address] KERMIT DENNIS DO Facili ty[facility] Start: 12-11-2024 End: 12-11-[address] KERMIT DENNIS DO [facility] Start: 12-11-2024 End: 12-11-[address] KERMIT DENNIS DO [facility] Start: 11-30-2024 End: 11-30-[address] KERMIT DENNIS DO [facility] Start: 11-30-2024 End: 11-30-[address] KERMIT DENNIS DO [facility] Start: 09-24-2024 End: 10-25-[address] KERMIT DENNIS DO [facility] Start: 09-24-2024 End: 10-25-[address] KERMIT DENNIS DO [facility] Start: 09-17-2024 End: 09-17-[address] KERMIT DENNIS DO [facility] Start: 09-14-2024 End: 09-14-[address] KERMIT DENNIS DO [facility] Start: 09-07-2024 End: 09-07-2024 ambulatory TIFFANIE BURTON MD [facility] Start: 09-06-2024 End: 09-06-2024 Emergency department patient visit TIFFANIE BURTON MD Facility[facility] Start: 08-07-2024 End: 08-07-[address] KERMIT DENNIS DO [facility] Start: 08-07-2024 End: 08-07-[address] KERMIT DENNIS DO [facility] Start: 07-25-2024 End: 07-25-[address] KERMIT DENNIS DO [facility] Start: 07-25-2024 End: 07-25-[address] KERMIT DENNIS DO [facility] Start: 07-03-2024 End: 07-07-[address] KERMIT DENNIS DO [facility] Start: 07-03-2024 End: 07-07-[address] KERMIT DENNIS DO [facility] Start: 06-26-2024 End: 06-26-[address] KERMIT DENNIS DO [facility] Start: 06-26-2024 End: 06-26-[address] KERMIT DENNIS DO [facility] Start: 02-28-2024 End: 02-28-[address] KERMIT DENNIS DO Facility:[facility] Start: 02-28-2024 End: 02-28-2024 Patient encounter procedure SOFYA TUCKER MD [facility] Start: 02-21-2024 End: 02-21-[address] KERMIT DENNIS DO Facility:[facility] Start: 02-21-2024 End: 02-21-2024 [facility] Start: 02-16-2024 End: 02-16-[address] KERMIT DENNIS DO Facility:[facility] Start: 02-16-2024 End: 02-16-[address] KERMIT DENNIS DO [facility] Start: 02-14-2024 End: 02-14-2024 Emergency department patient visit DR DAWSON JAQUEZ MD [facility] Start: 01-31-2024 End: 01-31-[address] KERMIT DENNIS DO Facility:[facility] Start: 01-06-2024 End: 01-06-[address] KERMIT DENNIS DO Facility:[facility] Start: 01-06-2024 End: 01-06-[address] KERMIT DENNIS DO [facility] Start: 01-05-2024 End: 01-05-[address] KERMIT DENNIS DO Facility:[facility] Start: 01-05-2024 End: 01-05-[address] KERMIT DENNIS DO [facility] Start: 12-04-2023 End: 12-07-2023 Evaluation and management of inpatient KAYY VILLAFUERTE SMALL ORDER CUTTER-LATENT PRINT EXAMINER [facility] Start: 2023 End: 12-13-[address] KERMIT DENNIS DO Facility:[facility] Start: 2023 End: 12-13-[address] KERMIT DENNIS DO [facility] Start: 11-03-2023 End: 11-03-[address] KERMIT DENNIS DO Facility:[facility] Start: 11-03-2023 End: 11-03-[address] KERMIT DENNIS DO [facility] Start: 10-18-2023 End: 10-18-[address] KERMIT DENNIS DO Facility:[facility] Start: 10-18-2023 End: 10-18-[address] KERMIT DENNIS DO [facility] Start: 10-17-2023 End: 10-17-[address] KERMIT DENNIS DO Facility:[facility] Start: 10-17-2023 End: 10-17-[address] KERMIT DENNIS DO [facility] Start: 10-05-[address] KERMIT DENNIS DO Facili ty:[facility] Start: 09-06-2023 End: 09-06-[address] KERMIT DENNIS DO Facility:[facility] Start: 09-06-2023 End: 09-06-[address] KERMIT DENNIS DO [facility] Start: 08-19-2023 End: 08-19-[address] KERMIT DENNIS DO Facility:[facility] Start: 08-19-2023 End: 08-19-[address] KERMIT DENNIS DO [facility] Start: 06-15-2023 End: 06-15-[address] KERMIT DENNIS DO Facility:[facility] Start: 06-15-2023 End: 06-15-[address] KERMIT DENNIS DO [facility] Start: 05-26-2023 End: 05-26-2023 ambulatory COLLINS MORRISSEY Facility:[facility] Start: 05-26-2023 End: 05-26-[address] EKRMIT DENNIS DO [facility] Start: 04-13-2023 End: 04-13-[address] KERMIT EDNNIS DO Facility:[facility] Start: 04-11-2023 End: 04-11-[address] KERMIT DENNIS DO Facility:[facility] Start: 03-15-2023 End: 03-19-[address] KERMIT DENNIS DO Facility:[facility] Start: 02-24-2023 End: 02-24-[address] KERMIT DENNIS DO Facility:[facility] Start: 09-08-2022 End: 09-08-[address] KERMIT DENNIS DO [facility] Start: 08-26-2022 End: 08-26-2022 Patient encounter procedure SOFYA TUCKER MD [facility] Start: 07-02-2022 End: 07-02-[address] KERMIT DENNIS DO [facility] Start: 06-30-2022 End: 06-30-2022 Emergency department patient visit CHALINO ESPINOZA DO [facility] Start: 06-16-2022 End: 06-16-2022 Emergency department patient visit NILSON ELY DO [facility] Start: 01-12-2022 End: 01-12-[address] KERMIT DENNIS DO [facility] Start: 08-24-2021 End: 08-24-[address] KERMIT DENNIS DO [facility] Procedures Date Procedure Procedure Detail Performing Clinician Start: 11-23-2023 Structure of ductus arteriosus (body structure) DR DAWSON JAQUEZ MD Start: 03-10-2023 Oral surgery (qualif ier value) DR KERMIT DENNIS DO Comment on above: wisdom teeth extract ed Start: 05-10-[address] er[address] injection DR KERMIT DENNIS DO Start: 11-08-[address] KERMIT DENNIS DO Comment on above: RIGHT Excision of ganglion cyst DR KERMIT DENNIS DO Comment on above: LEFT WRIST Operation on uvula DR KERMIT MARTINEZ DO Comment on above: removed Immunizations Immunization Date Immunization Notes Care Provider Fa [facility] 04-21-2023 RSV vaccine preF3, recombinant DR KERMIT DENNIS DO [facility] 04-21-2023 SARS-CoV-2 (COVID-19 ) [id number] DR KERMIT DENNIS DO [facility] 01-22-2022 SARS-CoV-2 mRNA (wmecwnsxpgs-euya-afauv se) vaccine SOFYA TUCKER MD [facility] 05-13-2021 SARS-CoV-2 mRNA (tozinameran) vaccine NILSON ELY DO [facility] 04-07-2021 zoster vaccine recombinant NILSON ELY DO [facility] 01-22-2021 zoster vaccine, live DR KERMIT DENNIS DO [facility] 09-25-2020 SARS-CoV-2 mRNA (tozinameran) vaccine DR KERMIT DENNIS DO [facility] 09-04-2020 SARS-CoV-2 mRNA (tozinameran) vaccine DR KERMIT DENNIS DO [facility] Comment on above: Result Comment: 2020: [id number] 01-04-2020 tetanus toxoid, redu amadou diphtheria toxoid, and acellular pertussis vaccine, adsorbed; Translations: [Boostrix (Tdap)] DR KERMIT DNENIS DO [facility] 11-23-2010 hepatitis B vaccine, adult dosage DR KERMIT DENNIS DO [facility] 05-25-2010 hepatitis B vaccine, adult dosage DR KERMIT DENNIS DO [facility] 04-24-2010 hepatitis B vaccine, adult dosage DR KERMIT DENNIS DO [facility] Payers Date Payer Category Payer Self-pay 2024 Unknown [id number] 2024 Private Health Insurance [id number] 2024 Unknown [id number] 2024 Unknown [id number] 2023 Unknown [id number] 2023 Unknown [id number] 1960 Unknown [id number] 2.16.8 40.1.713609.3.579.2 1960 Unknown [id number] 2.16.8 40.1.216566.3.579.2 1960 Unknown [id number] 2.16.8 40.1.372228.3.579.2 1960 Unknown [id number] 2.16.8 40.1.229184.3.579.2 1960 Unknown [id number] 2.16.8 40.1.251987.3.579.2 1960 Unknown [id number] 2.16.8 40.1.632716.3.579.2 1960 Unknown [id number] 2.16.8 40.1.210219.3.579.2.7 1960 Unknown [id number] 2.16.8 40.1.766597.3.579.2. 1960 Unknown [id number] 2.16.8 40.1.733109.3.579.2. 1960 Unknown [id number] 2.16.8 40.1.597775.3.579.2. 1960 Unknown [id number] 2.16.8 40.1.020546.3.579.2. 1960 Unknown [id number] 2.16.8 40.1.240557.3.579.2. 1960 Unknown [id number] 2.16.8 40.1.056416.3.579.2. 1960 Unknown [id number] 2.16.8 40.1.075688.3.579.2. 1960 Unknown [id number] 2.16.8 40.1.683486.3.579.2. 1960 Unknown [id number] 2.16.8 40.1.489818.3.579.2. 1960 Unknown [id number] 2.16.8 40.1.292338.3.579.2. 1960 Unknown [id number] 2.16.8 40.1.173603.3.579.2. 1960 Unknown [id number] 2.16.8 40.1.160084.3.579.2. 1960 Unknown [id number] 2.16.8 40.1.586229.3.579.2. 1960 Unknown [id number] 2.16.8 40.1.824856.3.579.2. 1960 Unknown [id number] 2.16.8 40.1.821124.3.579.2.627 1960 Unknown [id number] 2.16.8 40.1.854285.3.579.2. 1960 Unknown [id number] 2.16. 840.1.731265.3.579.2. 1960 Unknown [id number] 2.16. 840.1.663110.3.579.2. 1960 Unknown [id number] 2.16. 840.1.194488.3.579.2. 1960 Unknown [id number] 2.16.8 40.1.158481.3.579.2. 1960 Unknown [id number] 2.16.8 40.1.836952.3.579.2. 1960 Unknown [id number] 2.16.8 40.1.114777.3.579.2. 1960 Unknown [id number] 2.16.8 40.1.322225.3.579.2. 1960 Unknown [id number] 2.16.8 40.1.657446.3.579.2. 1960 Unknown [id number] 2.16.8 40.1.782028.3.579.2. 1960 Unknown [id number] 2.16.8 40.1.065797.3.579.2. 1960 Unknown [id number] 2.16.8 40.1.283155.3.579.2. 1960 Unknown [id number] 2.16.8 40.1.340173.3.579.2.62 Unknown [id number] 2.16.8 40.1.384899.3.579.2.462 Unknown [id number] 2.16.8 40.1.449061.3.579.2.462 Social History Date Type Detail Facility Start: 03-16-2019 Never smoked t obacco (finding) [facility] Comment on above: no tobacco smoke exp osure Sex Assigned At Male [facility] Sexual Orientation [facility] Start: 12-13-2018 Sex Male (finding) [facility] Functional Status Date Assessment Result Facility 02-14-2024 Functional Status Independent [facility] 02-14-2024 Functional Status Resting [facility] 12-07-2023 Functional Status Room check performed [facility] 12-06-2023 Functional Status [facility] 12-05-2023 Functional Status Repositions self [facility] 12-05-2023 Functional Status Multilevel home [facility] 12-04-2023 Functional Status [facility] 12-04-2023 Functional Status Sensory Deficits None A [facility] 2023 Functional Status Home Living Ad ditional Information OBJECTIVE Posture: slight forward head and shoulder posture Gait: amb with no AD and no deficit Transfers: WNL Sensation: no abnormalities or asymmetries Palpation: no pain with palpation at bicipital groove or anterior shoulder region Cervical ROM: restricted lateral flexion Shoulder ROM: functional MMT: 4/5 grossly due to pain Special Tests Painful Arc: pos R, neg L Drop Arm: neg bilat Infraspinatus Test: pos R Belly press (subscap): pos R Full Can (delt): neg bilat Empty Can (impin): neg bilat [facility] 06-30-2022 Functional Status ID band on, Call device within reach, Bed in low position [facility] 06-16-2022 Functional Status Independent [facility] 06-16-2022 Functional Status ID band on, Call device within reach, Bed in low position, Wheels locked, Visitor at bedside [facility] Mental Status Date Assessment Result Facility 02-14-2024 Mental Status Orientation Oriented x 4 [facility] 02-14-2024 Mental Status [facility] 12-07-2023 Mental Status Oriented x 4 [facility] 12-06-2023 Mental Status [facility] 12-06-2023 Mental Status [facility] 06-30-2022 Mental Status Oriented x 4 [facility] 06-16-2022 Mental Status Orientation Oriented x 4 [facility] 06-16-2022 Mental Status [facility] Clinical Notes 02-06-2021 to 08-07-2024 Note Date & Type Note Facility 08-07-2024 Note Exam Date Time Procedure Performing Provider Status 08/07/24 7:24 AM MRI Kidney KASSANDRACATHY Rios MD; Auth ( Verified) [id number] ORIGINAL EXAMINATION: MRI OF THE ABDOMEN WITH AND WITHOUT CONTRAST, 08/07/2024 7:25 am TECHNIQUE: Multiplanar multisequence MRI of the abdomen was performed with and without the administration of intravenous contrast. COMPARISON: Ultrasound 07/25/[address] abdomen/pelvis 10/11/2016. HISTORY: ORDERING SYSTEM PROVIDED HISTORY: Reason for Exam: bilateral renal masses on US FINDINGS: Right kidney: Normal enhancement. Bilateral T2 hyperintense nonenhancing renal cysts measuring up to 6.1 cm. No suspicious enhancing renal mass. Left kidney: Normal enhancement. Bilateral simple appearing renal cysts measuring up to 3.2 cm. A few of the cysts demonstrate thin internal septations. A left inferior renal cyst demonstrates minimally increased signal on precontrast T1 images likely representing minimal hemorrhagic/proteinaceous content. No suspicious enhancing renal mass. Previously seen echogenic left inferior pole focus on comparison ultrasound is not well evaluated on this modality. Vasculature: Patent renal arteries. No filling defects in the renal veins or vena cava. Ureters: Normal. No obstructive uropathy. Accessory organs: Normal liver, gallbladder, pancreas, spleen, and adrenal glands. Pancreatic divisum. Lymph Nodes and Soft Tissues: No lymphadenopathy. Perirenal and pararenal spaces are normal. IMPRESSION: Bilateral Bosniak 1 and II benign renal cysts. No suspicious renal lesion. Pancreatic divisum. I have personally reviewed the images of this examination and agree with the resident's findings and interpretations. Interpreted by: Cathy Hammonds MD Preliminary Report By: Todd Strickland Electronically signed By Cathy Hammonds MD Dictated Date: 08/07/2024 9:08:32 AM Prelim Date: 08/07/2024 11:00:42 AM Sign Date: 08/07/2024 11:00:42 AM Ordering Provider: [facility]02-05-2025 Note* Exam Date Time Procedure Performing Provider Status 07/25/24 7:24 AM US Renal LATASHA DOBSON MD; Auth (V erified) [id number] ORIGINAL EXAMINATION: ULTRASOUND OF THE KIDNEYS 07/25/2024 7:32 am COMPARISON: Abdominal ultrasound dated 04/11/2023 HISTORY: ORDERING SYSTEM PROVIDED HISTORY: Reason for Exam: chronic kidney disease stage 3a, rule out obstruction FINDINGS: Prostate volume of 25.7 mL. Bladder volume prevoid of 202.7 mL. Bladder wall thickness of 3.9 mm. No intraluminal debris or masses. Postvoid bladder volume of 7.2 mL which is in adequate postvoid residual. Ureteral jets were not visualized. The right kidney measures 12.5 cm. There is normal renal corticomedullary differentiation. Seen dating back to 04/11/2023 at the midpole of the right kidney there is an anechoic simple cyst with posterior acoustic enhancement measuring 5.9 x 6 x 7.5 cm, stable to minimally increased in size from prior. An additional anechoic cyst is also seen at the inferior pole measuring 4.2 x 3.3 x 3.9 cm, increased in size from prior and showing a internal septation. The left kidney measures 11.2 cm. At the inferior pole of the left kidney there is an anechoic simple cyst with posterior acoustic enhancement measuring 2.8 x 2.6 x 2.9 cm. There is an echogenic 0.7 x 0.5 x 1.3 cm focus at the inferior pole. There is no hydronephrosis. IMPRESSION: Bilateral renal cysts, mildly increased in size from prior with a cyst at the inferior pole of the right kidney showing and internal septation. Consider correlation with CT or MRI renal mass protocol for definitive Bosniak classification. Echogenic 1.3 cm focus at the inferior pole of the left kidney, difficult to evaluate if there is posterior acoustic shadowing, may reflect a nonobstructing calculus. No hydronephrosis. Interpreted by: Latasha Dobson Preliminary Report By: Latasha Dobson Electronically signed By Latasha Dobson Dictated Date: 07/25/2024 10:10:56 AM Prelim Date: 07/25/2024 10:17:25 AM Sign Date: 07/25/2024 10:17:25 AM Ordering Provider: KERMIT DENNIS [facility]08-28-2024 Hospital Discharge instructions Patient Education 02/14/2024 22:39:42 Head Injury (Adult) Head Injury (Adult) You have a head injury. It does not appear serious at this time. But symptoms of a more serious problem, such as a mild brain injury (concussion) or bruising or bleeding in the brain, may appear later. For this reason, you or someone caring for you will need to watch for the symptoms listed below. Once you re home, also be sure to follow any care instructions you re given. Home care Watch for the following symptoms Seek emergency medical care if you have any of these symptoms over the next hours to days: Headache Nausea or vomiting Dizziness Sensitivity to light or noise Unusual sleepiness or grogginess Trouble falling asleep Personality changes Vision changes Memory loss Confusion Trouble walking or clumsiness Loss of consciousness (even for a short time) Inability to be awakened Stiff neck Weakness or numbness in any part of the body Seizures General care If you were prescribed medicines for pain, use them as directed. Note: Don t take other medicines for pain without talking to your provider first. To help reduce swelling and pain, apply a cold source to the injured area for up to 20 minutes at atime. Do this as often as directed. Use a cold pack or bag of ice wrapped in a thin towel. Never apply a cold source directly to the skin. If you have cuts or scrapes as a result of your head injury, care for them as directed. For the next 24 hours (or longer, if instructed): oDon t drink alcohol or use sedatives or other medicines that make you sleepy. oDon t drive or operate machinery. oDon t do anything strenuous, such as heavy lifting or straining. oLimit tasks that require concentration. This includes reading, using a smartphone or computer, watching TV, and playing video games. oDon t return to sports or other activities that could result in another head injury. Follow-up care Follow up with your healthcare provider, or as directed. If imaging tests were done, they will be reviewed by a doctor. You will be told the results and any new findings that may affect your care. When to seek medical advice Call your healthcare provider right away if any of these occur: Pain doesn t get better or worsens New or increased swelling or bruising Fever of 100.4 F (38 C) or higher, or as directed by your provider Increased redness, warmth, drainage, or bleeding from the injured area Fluid drainage or bleeding from the nose or ears Any depression or bony abnormality in the injured area Persistent confusion or lethargy Bruising behind the ears or bruising around the eyes [id number] [employer]. [address] [place] [address]. All rights reserved. This information is not intended as a substitute for professional medical care. Always follow yourhealthcare professional's instructions. Follow Up Care 02/14/2024 21:13:11 With:KERMIT DENNIS DO Address: [address] [place] [phone] When:2-4 days [facility] 08-27-2024 Note Discharge Instructions Thank you for allowing [facility] to assist you with your healthcare needs. The following is importantdischarge information regarding your hospital visit. Diagnosis from Today's Visit Head injury What to Do Next Instructions from Your Care Team No qualifying data available. Post Acute Orders No qualifying data available. You Need to Schedule the Following Appointments Follow Up with KERMIT DENNIS DO When:Within 2-4 days Where:[address] [place] [address] [phone] Allergies NKA Medications Please ask your primary doctor or pharmacist before taking any other medication not listed, including over the counter drugs, herbal medications, vitamins and or supplements as they may interact withyour home medications. What How Much When Instructions Last Dose Unchanged amlodipine-olmesartan (amlodipine-olmesartan 5 mg-40 mg oral tablet) 1 tab(s) by mouth Once a day Duration: 100 Days Unchanged apixaban (apixaban 5 mg oral tablet) 1 tab(s) by mouth Two (2) times a day Duration: 90 Days Unchanged atorvastatin (atorvastatin 10 mg oral tablet) 1 tab(s) by mouth Once a day (in the evening) Unchanged busPIRone (busPIRone 10 mg oral tablet) 1 tab(s) by mouth Two (2) times a day Duration: 90 Days Unchanged cholecalciferol (cholecalciferol 100 mcg (4000 intl units) oral tablet) 1 tab(s) by mouth Once a day with a meal Duration: 100 Days with food Unchanged cyanocobalamin (cyanocobalamin 500 mcg sublingual tablet) 1 tab(s) under the tongue Once a day Duration: 90 Days dissolve under the tongue Unchanged hydroCHLOROthiazide (hydroCHLOROthiazide 12.5 mg oral capsule) 1 cap by mouth Once a day Duration: 90 Days Please take this list to your next doctor s visit. Bring all medications you take, including over the counter medications, herbals and other supplements with you to your doctor s visit. Patients and families are reminded to discard old lists and to update any records with all medication providers or retail pharmacies. Education Materials Head Injury (Adult) You have a head injury. It does not appear serious at this time. But symptoms of a more serious problem, such as a mild brain injury (concussion) or bruising or bleeding in the brain, may appear later. For this reason, you or someone caring for you will need to watch for the symptoms listed below. Once you re home, also be sure to follow any care instructions you re given. Home care Watch for the following symptoms Seek emergency medical care if you have any of these symptoms over the next hours to days: Headache Nausea or vomiting Dizziness Sensitivity to light or noise Unusual sleepiness or grogginess Trouble falling asleep Personality changes Vision changes Memory loss Confusion Trouble walking or clumsiness Loss of consciousness (even for a short time) Inability to be awakened Stiff neck Weakness or numbness in any part of the body Seizures General care If you were prescribed medicines for pain, use them as directed. Note: Don t take other medicines for pain without talking to your provider first. To help reduce swelling and pain, apply a cold source to the injured area for up to 20 minutes at atime. Do this as often as directed. Use a cold pack or bag of ice wrapped in a thin towel. Never apply a cold source directly to the skin. If you have cuts or scrapes as a result of your head injury, care for them as directed. For the next 24 hours (or longer, if instructed): oDon t drink alcohol or use sedatives or other medicines that make you sleepy. oDon t drive or operate machinery. oDon t do anything strenuous, such as heavy lifting or straining. oLimit tasks that require concentration. This includes reading, using a smartphone or computer, watching TV, and playing video games. oDon t return to sports or other activities that could result in another head injury. Follow-up care Follow up with your healthcare provider, or as directed. If imaging tests were done, they will be reviewed by a doctor. You will be told the results and any new findings that may affect your care. When to seek medical advice Call your healthcare provider right away if any of these occur: Pain doesn t get better or worsens New or increased swelling or bruising Fever of 100.4 F (38 C) or higher, or as directed by your provider Increased redness, warmth, drainage, or bleeding from the injured area Fluid drainage or bleeding from the nose or ears Any depression or bony abnormality in the injured area Persistent confusion or lethargy Bruising behind the ears or bruising around the eyes [id number] [employer]. [address] [place] [address]. All rights reserved. This information is not intended as a substitute for professional medical care. Always follow yourhealthcare professional's instructions. Additional Information VACCINATE! IT SAVES LIVES! Members of the community who have not yet received the COVID-19 vaccine and would like to receive it can visit one of [facility] vaccine clinics. There are many vaccine clinic locations within the [facility]. For locations and available times, please visit [email or web address]/. It is important to note that some COVID mobile vaccine clinics are held outdoors and may be canceled in rainy or stormy conditions. To learn more about pediatric vaccinations (ages 5-11), we invite you to visit the [facility] webpage. [email or web address] learn more about the COVID-19 vaccine, we invite you to visit the CDC website for a list of frequently asked questions. https://www.cdc.gov/coronavirus/2019-ncov/vaccines/faq.html [facility] Patient Portal Access Instructions: Stay connected with your healthcare team and access your personal medical information anytime with the [facility] Patient Portal. If you would like a full copy of your medical records please contact the [facility] Medical Records Department Tuesday through Tuesday between 8a.m. and 4:30p.m. Please follow the directions below to access the portal: 1.Access the email account you provided upon registration to the [facility].2.Look for an invitation email from [facility].3.Open the email and access the invitation link: Accept Invitation to [facility]4.Fill in the required ferrara to create your account. Sign into www.Crystal IS with your username and password that you [...] you will allow to register on the [facility] Patient Portal for access to your information. You can also access the [facility] Patient Portal on the [employer] jose angel. Simply click on "Health Records" under "HealthData" and then click on the [facility] logo. HOW TO SAFELY DISPOSE OF PRESCRIPTION MEDICATIONS Please use one of the following methods to safely dispose of your unused medications. 1.Use a drug disposal kit: the drug disposal pouch allows you to safely discard your old and unuseddrugs. Ask your nurse to give you one when you are discharged.2.Visit a local take-back location: Many local pharmacies and police departments have programs that collect old and unwanted prescriptiondrugs. Call your local pharmacy or go to http://bit.etouches/0A1Uh6y to find one close to you.3.Make use of household items: Use cat litter or old coffee grounds to dispose medications if other options arenot available. Mix your drugs with these household products, seal them in an airtight container andthrow it into the garbage. Call [facility]: [phone] to be sure your drugs can be [...] drowsiness, such as benzodiazepines, also known as benzos,including diazepam and alprazolam, muscle relaxants or sleep aids. Never sell or share prescriptionopioids. This is illegal. Store opioids in a secure place and out of reach of others (including children, family, friends and visitors). The last page(s) of this document has been signed and retained as a CHART COPY Signatures Patient Education Materials Head Injury (Adult) Medication Leaflets My discharge plan and instructions have been reviewed and explained to me and I,OTF LEAL M understand my current condition and have read and understand these discharge instructions. I have received a written copy of the plan/instructions. If I have questions, I am aware that I should contact my d octor. 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 Automated exposure control, iterative reconstruction, and/or weight based adjustment of the mA/kV was utilized to reduce the radiation dose to as low as reasonably achievable. COMPARISON: CT head 12/07/2023 HISTORY: ORDERING SYSTEM PROVIDED HISTORY: Reason for Exam: slipped on deck and hit head, is on blood thinners INJURY FINDINGS: BRAIN/VENTRICLES: No evidence of acute intracranial hemorrhage, midline shift, or mass effect. Godoy-white matter differentiation is maintained without evidence of acute large territorial infarction. No intra-axial mass or extra-axial fluid collection. The ventricular system and basal cisterns are patent. Scattered white matter hypodensities are nonspecific but statistically most consistent with mild chronic microvascular angiopathy. The ventricles are enlarged with commensurate enlargement of the sulci most consistent with mild volume loss. Carotid siphon calcifications are present. ORBITS: The visualized portions of the orbits demonstrate no acute abnormality. SINUSES: The visible paranasal sinuses and mastoid air cells are essentially clear. SOFT TISSUE/SKULL: No acute abnormality of the visualized skull or soft tissues. IMPRESSION: No acute intracranial abnormality. I have personally reviewed the images of this examination and agree with the resident's findings and interpretation. Interpreted by: Parker Seo Preliminary Report By: Gamaliel Gonzalez Electronically signed By Parker Seo Dictated Date: 02/14/2024 10:19:15 PM Prelim Date: 02/14/2024 10:27:39 PM Sign Date: 02/14/2024 10:35:11 PM [facility]charge instructions Patient Education 12/07/2023 12:32:06 Community-Acquired Pneumonia, Adult, Onxo-yn-Wqpu Community-Acquired Pneumonia, Adult Pneumonia is an infection of the lungs. It causes swelling in the airways of the lungs. Mucus and fluid may also build up inside the airways. One type of pneumonia can happen while a person is in a hospital. A different type can happen when a person is not in a hospital (community-acquired pneumonia). What are the causes? This condition is caused by germs (viruses, bacteria, or fungi). Some types of germs can be passed from one person to another. This can happen when you breathe in droplets from the cough or sneeze ofan infected person. What increases the risk? You are more likely to develop this condition if you: Have a long-term (chronic) disease, such as: ?Chronic obstructive pulmonary disease (COPD). ?Asthma. ?Cystic fibrosis. ?Congestive heart failure. ?Diabetes. ?Kidney disease. Have HIV. Have sickle cell disease. Have had your spleen removed. Do not take good care of your teeth and mouth (poor dental hygiene). Have a medical condition that increases the risk of breathing in droplets from your own mouth and nose. Have a weakened body defense system (immune system). Are a smoker. Travel to areas where the germs that cause this illness are common. Are around certain animals or the places they live. What are the signs or symptoms? A dry cough. A wet (productive) cough. Fever. Sweating. Chest pain. This often happens when breathing deeply or coughing. Fast breathing or trouble breathing. Shortness of breath. Shaking chills. Feeling tired (fatigue). Muscle aches. How is this treated? Treatment for this condition depends on many things. Most adults can be treated at home. In some cases, treatment must happen in a hospital. Treatment may include: Medicines given by mouth or through an IV tube. Being given extra oxygen. Respiratory therapy. In rare cases, treatment for very bad pneumonia may include: Using a machine to help you breathe. Having a procedure to remove fluid from around your lungs. Follow these instructions at home: Medicines Take svgt-zru-poyhmug and prescription medicines only as told by your doctor. ?Only take cough medicine if you are losing sleep. If you were prescribed an antibiotic medicine, take it as told by your doctor. Do not stop taking the antibiotic even if you start to feel better. General instructions Sleep with your head and neck raised (elevated). You can do this by sleeping in a recliner or by putting a few pillows under your head. Rest as needed. Get at least 8 hours of sleep each night. Drink enough water to keep your pee (urine) pale yellow. Eat a healthy diet that includes plenty of vegetables, fruits, whole grains, low-fat dairy products, and lean protein. Do not use any products that contain nicotine or tobacco. These include cigarettes, e-cigarettes, and chewing tobacco. If you need help quitting, ask your doctor. Keep all follow-up visits as told by your doctor. This is important. How is this prevented? A shot (vaccine) can help prevent pneumonia. Shots are often suggested for: People older than 65 years of age. People older than 19 years of age who: ?Are having cancer treatment. ?Have long-term (chronic) lung disease. ?Have problems with their body's defense system. You may also prevent pneumonia if you take these actions: Get the flu (influenza) shot every year. Go to the dentist as often as told. Wash your hands often. If you cannot use soap and water, use hand advertising sales consultant. Contact a doctor if: You have a fever. You lose sleep because your cough medicine does not help. Get help right away if: You are short of breath and it gets worse. You have more chest pain. Your sickness gets worse. This is very serious if: ?You are an older adult. ?Your body's defense system is weak. You cough up blood. Summary Pneumonia is an infection of the lungs. Most adults can be treated at home. Some will need treatment in a hospital. Drink enough water to keep your pee pale yellow. Get at least 8 hours of sleep each night. This information is not intended to replace advice given to you by your health care provider. Make sure you discuss any questions you have with your health care provider. Document Released: 11/22/2008 Document Revised: 09/26/2019 Document Reviewed: 02/01/2019 [employer] Patient Education 2020 [email or web address]. 12/07/2023 12:32:00 Pulmonary Embolism Pulmonary Embolism A pulmonary embolism (PE) is a sudden blockage or decrease of blood flow in one or both lungs. Mostblockages come from a blood clot that forms in the vein of a lower leg, thigh, or arm (deep vein thrombosis, DVT) and travels to the lungs. A clot is blood that has thickened into a gel or solid. PE is a dangerous and life-threatening condition that needs to be treated right away. What are the causes? This condition is usually caused by a blood clot that forms in a vein and moves to the lungs. In rare cases, it may be caused by air, fat, part of a tumor, or other tissue that moves through the veins and into the lungs. What increases the risk? The following factors may make you more likely to develop this condition: Experiencing a traumatic injury, such as breaking a hip or leg. Having: ?A spinal cord injury. ?Orthopedic surgery, especially hip or knee replacement. ?Any major surgery. ?A stroke. ?DVT. ?Blood clots or blood clotting disease. ?Long-term (chronic) lung or heart disease. ?Cancer treated with chemotherapy. ?A central venous catheter. Taking medicines that contain estrogen. These include control pills and hormone replacement therapy. Being: ?. ?In the period of time after your baby is delivered (). ?Older than age 60. ?Overweight. ?A smoker, especially if you have other risks. What are the signs or symptoms? Symptoms of this condition usually start suddenly and include: Shortness of breath during activity or at rest. Coughing, coughing up blood, or coughing up blood-tinged mucus. Chest pain that is often worse with deep breaths. Rapid or irregular heartbeat. Feeling light-headed or dizzy. Fainting. Feeling anxious. Fever. Sweating. Pain and swelling in a leg. This is a symptom of DVT, which can lead to PE. How is this diagnosed? This condition may be diagnosed based on: Your medical history. A physical exam. Blood tests. CT pulmonary angiogram. This test checks blood flow in and around your lungs. Ventilation-perfusion scan, also called a lung VQ scan. This test measures air flow and blood flow to the lungs. An ultrasound of the legs. How is this treated? Treatment for this condition depends on many factors, such as the cause of your PE, your risk for bleeding or developing more clots, and other medical conditions you have. Treatment aims to remove, dissolve, or stop blood clots from forming or growing larger. Treatment may include: Medicines, such as: ?Blood thinning medicines (anticoagulants) to stop clots from forming. ?Medicines that dissolve clots (thrombolytics). Procedures, such as: ?Using a flexible tube to remove a blood clot (embolectomy) or to deliver medicine to destroy it (catheter-directed thrombolysis). ?Inserting a filter into a large vein that carries blood to the heart (inferior vena cava). This filter (vena cava filter) catches blood clots before they reach the lungs. ?Surgery to remove the clot (surgical embolectomy). This is rare. You may need a combination of immediate, long-term (up to 3 months after diagnosis), and extended (more than 3 months after diagnosis) treatments. Your treatment may continue for several months (maintenance therapy). You and your health care provider will work together to choose the treatment program that is best for you. Follow these instructions at home: Medicines Take zggw-ivk-fufcqcj and prescription medicines only as told by your health care provider. If you are taking an anticoagulant medicine: ?Take the medicine every day at the same time each day. ?Understand what foods and drugs interact with your medicine. ?Understand the side effects of this medicine, including excessive bruising or bleeding. Ask your health care provider or pharmacist about other side effects. General instructions Wear a medical alert bracelet or carry a medical alert card that says you have had a PE and lists what medicines you take. Ask your health care provider when you may return to your normal activities. Avoid sitting or lyingfor a long time without moving. Maintain a healthy weight. Ask your health care provider what weight is healthy for you. Do not use any products that contain nicotine or tobacco, such as cigarettes, e- cigarettes, and chewing tobacco. If you need help quitting, ask your health care provider. Talk with your health care provider about any travel plans. It is important to make sure that you are still able to take your medicine while on trips. Keep all follow-up visits as told by your health care provider. This is important. Contact a health care provider if: You missed a dose of your blood thinner medicine. Get help right away if: You have: ?New or increased pain, swelling, warmth, or redness in an arm or leg. ?Numbness or tingling in an arm or leg. ?Shortness of breath during activity or at rest. ?A fever. ?Chest pain. ?A rapid or irregular heartbeat. ?A severe headache. ?Vision changes. ?A serious fall or accident, or you hit your head. ?Stomach (abdominal) pain. ?Blood in your vomit, stool, or urine. ?A cut that will not stop bleeding. You cough up blood. You feel light-headed or dizzy. You cannot move your arms or legs. You are confused or have memory loss. These symptoms may represent a serious problem that is an emergency. Do not wait to see if the symptoms will go away. Get medical help right away. Call your local emergency services (841 in the [place] Do not drive yourself to the hospital. Summary A pulmonary embolism (PE) is a sudden blockage or decrease of blood flow in one or both lungs. PE is a dangerous and life-threatening condition that needs to be treated right away. Treatments for this condition usually include medicines to thin your blood (anticoagulants) or medicines to break apart blood clots (thrombolytics). If you are given blood thinners, it is important to take the medicine every day at the same time each day. Understand what foods and drugs interact with any medicines that you are taking. If you have signs of PE or DVT, call your local emergency services (041 in the [place] This information is not intended to replace advice given to you by your health care provider. Make sure you discuss any questions you have with your health care provider. Document Released: 06/03/2001 Document Revised: 03/14/2019 Document Reviewed: 03/14/2019 [employer] Patient Education 2020 [email or web address]. Follow Up Care 12/04/2023 04:43:47 With:KERMTI DENNIS DO Address: [address] [place] [phone] When:12/09/2023 09:00:00 Comments:This is your post-hospital follow-up appointment. [facility] 06-19-2024 Note Discharge Instructions Thank you for allowing [facility] to assist you with your healthcare needs. The following is importantdischarge information regarding your hospital visit. Your Care Team [facility] Your Diagnosis Anxiety CAP (community acquired pneumonia) Chronic kidney disease, stage 3a Diabetes mellitus type 2, diet-controlled Hypertension goal BP (blood pressure) < 140/90 Nausea and vomiting Pulmonary emboli What to do next Instructions From Your Doctor You were admitted on Tuesday due to left posterior lung pain especially with coughing and deep breathing. CTA of the chest revealed multiple pulmonary emboli in the left lower. You were started on a heparin drip while you echocardiogram was pending. Echo was done and revealed EF 55-60% and no evidence of right heart strain. When you were admitted, you white blood cell count was in the normal range. CTA of the chest suggested patchy airspace disease which could be developing infection, inflammation or pulmonary infarct. We felt that this was likely related to the pulmonary emboli. However, shortly after admission, you developed fevers and, by Tuesday, you white blood cell count increased. We had started you on a Z-pack on Tuesday at your request for acute sinusitis. On Tuesday, with the fevers, leukocytosis and hypoxia, we added Ceftriaxone IV as you were felt to have early pneumonia. You have improved with IV antibiotics and were able to be weaned back to room air today. Respiratory walked you and stated you did not drop below 94% on room air with walking up and down the hallway. Your daughter requested CT of the head today due to concern about a stroke from your pulmonary emboli. CT of the head was unremarkable except for the acute sinusitis. We feel that you are medically optimized for discharge home today. We will send in a prescription for oral antibiotics, apixaban, zofran and an inhaler. The apixaban dose is currently 10 mg oral twice daily for 11 more doses (you will needa dose tonight at 9 pm). When you have completed the 10 mg doses, you will start 5 mg oral twice daily indefinitely. As we discussed, we will defer to Dr. Dennis to decide when/if you can be taken offthe apixaban. You will be on Cefdinir 300 mg oral twice daily for 5 more days. This is an antibiotic to treat your pneumonia. You have an appointment scheduled with Dr. Dennis on Tuesday for a post-hospitalization follow-up. If you have any new or worsening symptoms, please return to the ED. Scheduled Follow-Up Appointments Appointment Type When With Where Contact Information StatusPC OV Hospital Follow-Up 12/09/2023 09:00 AM EDT [facility] [address] [id number] Confirmed PC OV 02/23/2024 04:00 PM EDT KERMIT DENNIS DO [address] [id number] Confirmed Follow Up Appointments Follow Up with KERMIT DENNIS DO When:12/09/2023 09:00 AM EDT Where:[address] [place] [phone] Additional Information: This is your post-hospital follow-up appointment. The Following Activity and Diet Have Been Ordered for You Discharge Activity - Ordered -- Resume your pre-hospitalization activity, 12/07/23 12:51:00 EDT Discharge Diet - Ordered -- No changes were made to your diet during your hospital stay. Please resume your pre hospitalization diet on discharge., 12/07/23 12:51:00 EDT Allergies NK[facility] Medications Please ask your primary doctor or pharmacist before taking any other medication not listed, including over the counter drugs, herbal medications, vitamins and or supplements as they may interact withyour home medications. What How Much When Instructions Last Dose New albuterol (albuterol MDI (90 mcg/ inh) CFC free inhalation aerosol) 1 puff(s) by inhalation Every 4 hours as needed for as needed for wheezing Pickup at [facility]/pharmacy #[id number] New apixaban (apixaban 5 mg oral tablet) 1 tab(s) by mouth Two (2) times a day Pickup at [facility]/pharmacy #[id number] New apixaban (apixaban 5 mg oral tablet) 2 tab(s) by mouth Two (2) times a day as directed on package labeling Pickup at [facility]/pharmacy #[id number] New cefdinir (cefdinir 300 mg oral capsule) 1 cap by mouth Every 12 hours Duration: 5 Days Pickup at [facility]/pharmacy #[id number] New guaiFENesin (Mucinex 600 mg oral tablet, extended release) 2 tab(s) by mouth Two (2) times a day [id number] New ondansetron (Zofran 4 mg oral tablet) 1 tab(s) by mouth Every 8 hours as needed for Nausea/Vomiting Pickup at [facility]/pharmacy #[id number] Unchanged amlodipine-olmesartan (amlodipine-olmesartan 5 mg-40 mg oral tablet) 1 tab(s) by mouth Once a day Duration: 100 Days Unchanged atorvastatin (atorvastatin 10 mg oral tablet) 1 tab(s) by mouth Once a day (in the evening) Unchanged busPIRone (busPIRone 10 mg oral tablet) 1 tab(s) by mouth Two (2) times a day Duration: 90 Days Unchanged cholecalciferol (cholecalciferol 100 mcg (4000 intl units) oral tablet) 1 tab(s) by mouth Once a day with a meal Duration: 100 Days with food Unchanged cyanocobalamin (cyanocobalamin 500 mcg sublingual tablet) 1 tab(s) under the tongue Once a day Duration: 90 Days dissolve under the tongue Unchanged DME (DME MISCellaneous) See instructions BP cuff and machine, Dx: I10 Unchanged hydroCHLOROthiazide (hydroCHLOROthiazide 12.5 mg oral capsule) 1 cap by mouth Once a day Duration: 90 Days Pharmacy Information [facility]/pharmacy #[id number]: [address], [place] [phone] What How Much When Comments Stop Taking predniSONE (prednisone 10mg tab (TAPER)) Taper 40-30-20-10 x 2 days each dose by mouth Once a day with a meal Duration: 8 Days Take with food/ meal. No NSAIDs while on this med. Please take this list to your next doctor s visit. Bring all medications you take, including over the counter medications, herbals and other supplements with you to your doctor s visit. Patients and families are reminded to discard old lists and to update any records with all medication providers or retail pharmacies. Medication Leaflets apixaban (a PIX a ban) Judy What is the most important information I should know about apixaban? Apixaban increases your risk of severe or fatal bleeding, especially if you take certain medicines at the same time (including some gyoh-mpb-rrpctvm medicines). Tell your doctor about all medicines you have recently used. Call your doctor at once if you have signs of bleeding such as: easy bruising, unusual bleeding, unexpected pain or swelling, feeling very weak or dizzy, bleeding gums, nosebleeds, heavy menstrual bleeding, blood in your urine or stools, coughing up blood or vomit that looks like coffee grounds, orany bleeding that will not stop. Apixaban can cause a very serious blood clot around your spinal cord that can lead to long-term or permanent paralysis. This type of blood clot can occur during a spinal tap or spinal anesthesia (epidural), especially if you have a genetic spinal defect, if you use a spinal catheter, if you've had spinal surgery or repeated spinal taps, or if you use other drugs that can affect blood clotting. Get emergency medical help if you have symptoms of a spinal cord blood clot such as tingling, numbness, or muscle weakness especially in your legs and feet. Do not stop taking apixaban unless your doctor tells you to. Stopping suddenly can increase your risk of blood clot or stroke. What is apixaban? Apixaban is used to lower the risk of stroke caused by a blood clot in people with a heart rhythm disorder called atrial fibrillation. Apixaban is also used after hip or knee replacement surgery to prevent a type of blood clot called deep vein thrombosis (DVT), which can lead to blood clots in the lungs (pulmonary embolism). Apixaban is also used to treat DVT or pulmonary embolism (PE), and to lower your risk of having a repeat DVT or PE. Apixaban may also be used for purposes not listed in this medication guide. What should I discuss with my healthcare provider before taking apixaban? You should not take apixaban if you are allergic to it, or if you have active bleeding from a surgery, injury, or other cause. Apixaban may cause you to bleed more easily, especially if you have a bleeding disorder that is inherited or caused by disease. Tell your doctor if you have an artificial heart valve, or if you have ever had: bleeding problems; antiphospholipid syndrome, especially if you have a triple positive antibody test; or liver or kidney disease. Apixaban can cause a very serious blood clot around your spinal cord if you undergo a spinal tap orreceive spinal anesthesia (epidural). This type of blood clot could cause long-term paralysis, and may be more likely to occur if: you have a spinal catheter in place or if a catheter has been recently removed; you have a history of spinal surgery or repeated spinal taps; you have recently had a spinal tap or epidural anesthesia; you take aspirin or other NSAIDs (nonsteroidal anti-inflammatory drugs)--ibuprofen (Advil, Motrin),naproxen (Aleve), diclofenac, indomethacin, meloxicam, and others; or you are using other medicines to treat or prevent blood clots. Taking apixaban may increase the risk of bleeding while you are or during your delivery. Tell your doctor if you are or plan to become . Do not breastfeed. How should I take apixaban? Follow all directions on your prescription label and read all medication guides or instruction sheets. Your doctor may occasionally change your dose. Use the medicine exactly as directed. You may take apixaban with or without food. If you cannot swallow a tablet whole, crush it and mix with water, apple juice, or applesauce. Swallow the mixture right away without chewing. A crushed tablet mixture may also be given through a nasogastric (NG) feeding tube. Read and carefully follow any Instructions for Use provided with your medicine. Apixaban can make it easier for you to bleed, even from a minor injury. Seek medical attention if you have bleeding that will not stop. Tell your doctor if you have a planned surgery or dental work. You may need to stop taking apixabanfor a short time. Do not stop taking apixaban unless your doctor tells you to. If you stop taking apixaban for any reason, your doctor may prescribe another medicine to prevent blood clots. Store at room temperature away from moisture and heat. What happens if I miss a dose? Take the missed dose on the same day you remember it. Take your next dose at the regular time and stay on your twice-daily schedule. Do not take two doses at one time. Get your prescription refilled before you run out of medicine completely. What happens if I overdose? Seek emergency medical attention or call the Poison Help line at . What should I avoid while taking apixaban? Avoid activities that may increase your risk of bleeding or injury. Use extra care while shaving orbrushing your teeth. What are the possible side effects of apixaban? Get emergency medical help if you have signs of an allergic reaction: hives; chest pain, wheezing, difficult breathing; feeling light-headed; swelling of your face, lips, tongue, or throat. Also seek emergency medical attention if you have symptoms of a spinal blood clot such as tingling,numbness, or muscle weakness especially in your legs and feet. Call your doctor at once if you have: easy bruising, unusual bleeding (nose, mouth, vagina, or rectum), bleeding from wounds or needle injections, any bleeding that will not stop; heavy menstrual bleeding; headache, dizziness, weakness, feeling like you might pass out; urine that looks red, pink, or brown; or black or bloody stools, coughing up blood or vomit that looks like coffee grounds. This is not a complete list of side effects and others may occur. Call your doctor for medical advice about side effects. You may report side effects to FDA at 6-381-SWH-4454. What other drugs will affect apixaban? Sometimes it is not safe to use certain medications at the same time. Some drugs can affect your blood levels of other drugs you take, which may increase side effects or make the medications less effective. Many other drugs (including some pqqe-aqx-ahnhrvd medicines) can increase your risk of bleeding or blood clots. Tell your doctor about all medicines you have recently used, especially: any other medicines to treat or prevent blood clots; a blood thinner such as heparin or warfarin (Coumadin, Jantoven); an antidepressant; or aspirin or other NSAID (nonsteroidal anti-inflammatory drug) used intermediate manager. This list is not complete and many other drugs may affect apixaban. This includes prescription and ghbg-ejw-deaucfp medicines, vitamins, and herbal products. Not all possible drug interactions are listed here. Where can I get more information? Your pharmacist can provide more information about apixaban. Remember, keep this and all other medicines out of the reach of children, never share your medicines with others, and use this medication only for the indication prescribed. Every effort has been made to ensure that the information provided by [employer]') is accurate, up-to-date, and complete, but no guarantee is made to that effect. Drug information contained herein may be time sensitive. [employer] information has been compiled for use by healthcare practitioners and consumers in the [place] and therefore [employer] does not warrant that uses outside of the [place] are appropriate, unless specifically indicated otherwise. [employer] drug information does not endorse drugs, diagnose patients or recommend therapy. [employer] drug information isan informational resource designed to assist licensed healthcare practitioners in caring for their p atients and/or to serve consumers viewing this service as a supplement to, and not a substitute for, the expertise, skill, knowledge and judgment of healthcare practitioners. The absence of a warningfor a given drug or drug combination in no way should be construed to indicate that the drug or drug combination is safe, effective or appropriate for any given patient. [employer] does not assume any responsibility for any aspect of healthcare administered with the aid of information [facility] provides. The information contained herein is not intended to cover all possible uses, directions, precautions, warnings, drug interactions, allergic reactions, or adverse effects. If you have questions about the drugs you are taking, check with your doctor, nurse or pharmacist. Copyright 9573-3323 [employer]. Version: 6.01. Revision Date: 02/10/2021. Education Materials Community-Acquired Pneumonia, Adult Pneumonia is an infection of the lungs. It causes swelling in the airways of the lungs. Mucus and fluid may also build up inside the airways. One type of pneumonia can happen while a person is in a hospital. A different type can happen when a person is not in a hospital (community-acquired pneumonia). What are the causes? This condition is caused by germs (viruses, bacteria, or fungi). Some types of germs can be passed from one person to another. This can happen when you breathe in droplets from the cough or sneeze ofan infected person. What increases the risk? You are more likely to develop this condition if you: Have a long-term (chronic) disease, such as: ? Chronic obstructive pulmonary disease (COPD). ? Asthma. ? Cystic fibrosis. ? Congestive heart failure. ? Diabetes. ? Kidney disease. Have HIV. Have sickle cell disease. Have had your spleen removed. Do not take good care of your teeth and mouth (poor dental hygiene). Have a medical condition that increases the risk of breathing in droplets from your own mouth and nose. Have a weakened body defense system (immune system). Are a smoker. Travel to areas where the germs that cause this illness are common. Are around certain animals or the places they live. What are the signs or symptoms? A dry cough. A wet (productive) cough. Fever. Sweating. Chest pain. This often happens when breathing deeply or coughing. Fast breathing or trouble breathing. Shortness of breath. Shaking chills. Feeling tired (fatigue). Muscle aches. How is this treated? Treatment for this condition depends on many things. Most adults can be treated at home. In some cases, treatment must happen in a hospital. Treatment may include: Medicines given by mouth or through an IV tube. Being given extra oxygen. Respiratory therapy. In rare cases, treatment for very bad pneumonia may include: Using a machine to help you breathe. Having a procedure to remove fluid from around your lungs. Follow these instructions at home: Medicines Take inya-afm-zpprnhg and prescription medicines only as told by your doctor. ? Only take cough medicine if you are losing sleep. If you were prescribed an antibiotic medicine, take it as told by your doctor. Do not stop taking the antibiotic even if you start to feel better. General instructions Sleep with your head and neck raised (elevated). You can do this by sleeping in a recliner or by putting a few pillows under your head. Rest as needed. Get at least 8 hours of sleep each night. Drink enough water to keep your pee (urine) pale yellow. Eat a healthy diet that includes plenty of vegetables, fruits, whole grains, low-fat dairy products, and lean protein. Do not use any products that contain nicotine or tobacco. These include cigarettes, e-cigarettes, and chewing tobacco. If you need help quitting, ask your doctor. Keep all follow-up visits as told by your doctor. This is important. How is this prevented? A shot (vaccine) can help prevent pneumonia. Shots are often suggested for: People older than 65 years of age. People older than 19 years of age who: ? Are having cancer treatment. ? Have long-term (chronic) lung disease. ? Have problems with their body's defense system. You may also prevent pneumonia if you take these actions: Get the flu (influenza) shot every year. Go to the dentist as often as told. Wash your hands often. If you cannot use soap and water, use hand advertising sales consultant. Contact a doctor if: You have a fever. You lose sleep because your cough medicine does not help. Get help right away if: You are short of breath and it gets worse. You have more chest pain. Your sickness gets worse. This is very serious if: ? You are an older adult. ? Your body's defense system is weak. You cough up blood. Summary Pneumonia is an infection of the lungs. Most adults can be treated at home. Some will need treatment in a hospital. Drink enough water to keep your pee pale yellow. Get at least 8 hours of sleep each night. This information is not intended to replace advice given to you by your health care provider. Make sure you discuss any questions you have with your health care provider. Document Released: 11/22/2008 Document Revised: 09/26/2019 Document Reviewed: 02/01/2019 [employer] Patient Education 2020 [email or web address]. Pulmonary Embolism A pulmonary embolism (PE) is a sudden blockage or decrease of blood flow in one or both lungs. Mostblockages come from a blood clot that forms in the vein of a lower leg, thigh, or arm (deep vein thrombosis, DVT) and travels to the lungs. A clot is blood that has thickened into a gel or solid. PE is a dangerous and life-threatening condition that needs to be treated right away. What are the causes? This condition is usually caused by a blood clot that forms in a vein and moves to the lungs. In rare cases, it may be caused by air, fat, part of a tumor, or other tissue that moves through the veins and into the lungs. What increases the risk? The following factors may make you more likely to develop this condition: Experiencing a traumatic injury, such as breaking a hip or leg. Having: ? A spinal cord injury. ? Orthopedic surgery, especially hip or knee replacement. ? Any major surgery. ? A stroke. ? DVT. ? Blood clots or blood clotting disease. ? Long-term (chronic) lung or heart disease. ? Cancer treated with chemotherapy. ? A central venous catheter. Taking medicines that contain estrogen. These include control pills and hormone replacement therapy. Being: ? . ? In the period of time after your baby is delivered (). ? Older than age 60. ? Overweight. ? A smoker, especially if you have other risks. What are the signs or symptoms? Symptoms of this condition usually start suddenly and include: Shortness of breath during activity or at rest. Coughing, coughing up blood, or coughing up blood-tinged mucus. Chest pain that is often worse with deep breaths. Rapid or irregular heartbeat. Feeling light-headed or dizzy. Fainting. Feeling anxious. Fever. Sweating. Pain and swelling in a leg. This is a symptom of DVT, which can lead to PE. How is this diagnosed? This condition may be diagnosed based on: Your medical history. A physical exam. Blood tests. CT pulmonary angiogram. This test checks blood flow in and around your lungs. Ventilation-perfusion scan, also called a lung VQ scan. This test measures air flow and blood flow to the lungs. An ultrasound of the legs. How is this treated? Treatment for this condition depends on many factors, such as the cause of your PE, your risk for bleeding or developing more clots, and other medical conditions you have. Treatment aims to remove, dissolve, or stop blood clots from forming or growing larger. Treatment may include: Medicines, such as: ? Blood thinning medicines (anticoagulants) to stop clots from forming. ? Medicines that dissolve clots (thrombolytics). Procedures, such as: ? Using a flexible tube to remove a blood clot (embolectomy) or to deliver medicine to destroy it (catheter-directed thrombolysis). ? Inserting a filter into a large vein that carries blood to the heart (inferior vena cava). This filter (vena cava filter) catches blood clots before they reach the lungs. ? Surgery to remove the clot (surgical embolectomy). This is rare. You may need a combination of immediate, long-term (up to 3 months after diagnosis), and extended (more than 3 months after diagnosis) treatments. Your treatment may continue for several months (maintenance therapy). You and your health care provider will work together to choose the treatment program that is best for you. Follow these instructions at home: Medicines Take rjzg-ujx-fmlqqro and prescription medicines only as told by your health care provider. If you are taking an anticoagulant medicine: ? Take the medicine every day at the same time each day. ? Understand what foods and drugs interact with your medicine. ? Understand the side effects of this medicine, including excessive bruising or bleeding. Ask your health care provider or pharmacist about other side effects. General instructions Wear a medical alert bracelet or carry a medical alert card that says you have had a PE and lists what medicines you take. Ask your health care provider when you may return to your normal activities. Avoid sitting or lyingfor a long time without moving. Maintain a healthy weight. Ask your health care provider what weight is healthy for you. Do not use any products that contain nicotine or tobacco, such as cigarettes, e- cigarettes, and chewing tobacco. If you need help quitting, ask your health care provider. Talk with your health care provider about any travel plans. It is important to make sure that you are still able to take your medicine while on trips. Keep all follow-up visits as told by your health care provider. This is important. Contact a health care provider if: You missed a dose of your blood thinner medicine. Get help right away if: You have: ? New or increased pain, swelling, warmth, or redness in an arm or leg. ? Numbness or tingling in an arm or leg. ? Shortness of breath during activity or at rest. ? A fever. ? Chest pain. ? A rapid or irregular heartbeat. ? A severe headache. ? Vision changes. ? A serious fall or accident, or you hit your head. ? Stomach (abdominal) pain. ? Blood in your vomit, stool, or urine. ? A cut that will not stop bleeding. You cough up blood. You feel light-headed or dizzy. You cannot move your arms or legs. You are confused or have memory loss. These symptoms may represent a serious problem that is an emergency. Do not wait to see if the symptoms will go away. Get medical help right away. Call your local emergency services (911 in the [place] Do not drive yourself to the hospital. Summary A pulmonary embolism (PE) is a sudden blockage or decrease of blood flow in one or both lungs. PE is a dangerous and life-threatening condition that needs to be treated right away. Treatments for this condition usually include medicines to thin your blood (anticoagulants) or medicines to break apart blood clots (thrombolytics). If you are given blood thinners, it is important to take the medicine every day at the same time each day. Understand what foods and drugs interact with any medicines that you are taking. If you have signs of PE or DVT, call your local emergency services (911 in the [place] This information is not intended to replace advice given to you by your health care provider. Make sure you discuss any questions you have with your health care provider. Document Released: 06/03/2001 Document Revised: 03/14/2019 Document Reviewed: 03/14/2019 [employer] Patient Education 2020 [employer] Additional Information VACCINATE! IT SAVES LIVES! Members of the community who have not yet received the COVID-19 vaccine and would like to receive it can visit one of [facility] vaccine clinics. There are many vaccine clinic locations within the [facility]. For locations and available times, please visit [email or web address].[place].gov/. It is important to note that some COVID mobile vaccine clinics are held outdoors and may be canceled in rainy or stormy conditions. To learn more about pediatric vaccinations (ages 5-11), we invite you to visit the [facility] webpage. https://www.[facility].org/pages/8079-Cnrvf-Xqexwowvezm-Jcrhamzehp-Vcfjh-Kfq stions.htmlTo learn more about the COVID-19 vaccine, we invite you to visit the CDC website for a list of frequently asked questions.https://www.cdc.gov/coronavirus/2019-ncov/vaccines/faq.html [place] [facility] Patient Portal Access Instructions: Stay connected with your healthcare team and access your personal medical information anytime with the [facility] Patient Portal. Please follow the directions below to create your [facility] account: 1.Access the email account you provided upon registration to the hospital/physician office.2.Look for an invitation email from [facility].3.Open the email and access the invitation link: AcceptInvitation to [facility].4.Fill in the required ferrara to create your account. To access your account, visit [facility]. Click the blue button labeled "Access Patient Portal" and then log in with the username and password that you created in the steps above. You will be able to view your test results, lab results, a summary of your visits, upcoming appointments and more. There is also a convenient messaging option where you can send secure messages to your p SPHAR[employer]vider. In addition, you will have the ability to download any documents or summaries to your computer and/or send the information securely to a physician. Remember that your healthcare information is confidential, so carefully consider who you will allowto register on the [facility] [place] [facility] Patient Portal for access to your information. You can also access the [facility] Patient Portal on the [facility] jose angel. Simply click on "Patient Portal" and then log into your account. If you would like to receive a full copy of your medical records, please contact the [facility] Medical Records Department by calling [phone], Tuesday through Tuesday between 8 a.m. and 4:30 p.m. HOW TO SAFELY DISPOSE OF PRESCRIPTION MEDICATIONS Please use one of the following methods to safely dispose of your unused medications. 1.Use a drug disposal kit: the drug disposal pouch allows you to safely discard your old and unuseddrugs. Ask your nurse to give you one when you are discharged.2.Visit a local take-back location: Many local pharmacies and police departments have programs that collect old and unwanted prescriptiondrugs. Call your local pharmacy or go to http://EDUonGo.etouches/7I4Rq8v to find one close to you.3.Make use of household items: Use cat litter or old coffee grounds to dispose medications if other options arenot available. Mix your drugs with these household products, seal them in an airtight container andthrow it into the garbage. Call [facility]: [phone] to be sure your drugs can be disposed of in this way. Some medicines may require a different approach.4.Never flush your medications down the toilet. IF YOU HAVE BEEN PRESCRIBED AN OPIOID FOR PAIN If you have been prescribed [...] have withdrawal symptoms when a medication is stopped, can develop within a few days. KNOW [...] children, family, friends and visitors). The last page of this document has been signed and retained as a CHART COPY. Signatures Patient Education Materials Community-Acquired Pneumonia, Adult, [id number] Pulmonary Embolism Medication Leaflets apixaban My discharge plan and instructions have been reviewed and explained to me and I,OTF LEAL M understand my current condition and have read and understand these discharge instructions. I have received a written copy of the plan/instructions. If I have questions, I am aware that I should contact my d octor. 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 Automated exposure control, iterative reconstruction, and/or weight based adjustment of the mA/kV was utilized to reduce the radiation dose to as low as reasonably achievable. COMPARISON: None available HISTORY: ORDERING SYSTEM PROVIDED HISTORY: Reason for Exam: headaches. Pneumonia. Patient had PEs a couple days ago. FINDINGS: Custom Home Installer (topogram) images: Unremarkable BRAIN/VENTRICLES: No evidence of acute hemorrhage, mass effect, or midline shift. The godoy white matter differentiation is well maintained. No evidence of intra-axial mass lesion or extra-axial fluid collection. The ventricular system basal cisterns are patent and normal in morphology. Atherosclerotic calcifications are present in the cavernous carotid arteries. ORBITS: The visualized portions of the orbits demonstrate no acute abnormality. SINUSES: Dependent fluid within the right maxillary sinus. Aerated secretions in the ethmoid air cells bilaterally. The mild aerated secretions left maxillary sinus. May represent acute sinusitis in the appropriate clinical setting. Mastoid air cells are clear. The SOFT TISSUE/SKULL: No acute abnormality of the visualized skull or soft tissues. IMPRESSION: Acute sinusitis. No acute intracranial hemorrhage, hydrocephalus, or mass effect. I have personally reviewed the images of this examination and agree with the resident's findings and interpretation. Interpreted by: Collins Morrissey MD Preliminary Report By: Law Bruce Electronically signed By Collins Morrissey MD Dictated Date: 12/07/2023 10:29:54 AM Prelim Date: 12/07/2023 11:24:53 AM Sign Date: 12/07/2023 11:24:53 AM Ordering Provider: KAYY [facility]06-19-2024 Respiratory therapy Hospital Progress note Pt walked in hallway up and down on room air experienced no dyspnea. Saturation remained at 92% Digitally Signed by ROMARIO Irvin on 12/07/2023 08:47 AM [facility]06-18-2024 Note Date of Service 12/06/2023 Chief Complaint PE/pneumonia Subjective 63-year-old male with past medical history significant for hypertension, hyperlipidemia, type 2 diabetes mellitus, CKD stage III, anxiety. Patient presented to [facility] emergency department on 12/04/2023 with a 1 week history of cough and left-sided back pain. Patient believes that he might have a sinus infection. He also reportsthat it hurts to take a deep breath or move. He did recently travel for work. On 09/30/2023 he was seen by his PCP for left lower extremity swelling. 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 In the emergency department he was afebrile and hemodynamically stable with adequate oxygenation on room air. He was tachypneic at 23. No leukocytosis. H&H stable. D-dimer elevated at 1620. Creatinine 1.42 with a GFR of 50. This appears to be close to patient's baseline. Troponin was 6. X-ray chest showed mild hazy airspacedisease in the lung bases. CTA chest demonstrates multiple pulmonary emboli within segmental and subsegmental arteries supplying the left lower lobe and lingula. Small left effusion. Patchy airspace disease in the left lower lobe that could represent developing pulmonary infarct, atelectasis, or infiltrate. Patient was initiated on heparin by weight and subsequently admitted. Patient did later develop fever and tachypnea and required O2 via nasal cannula at 2 L. He was initiated on ceftriaxone and azithromycin. Respiratory panel was collected. 12/05/2023 echocardiogram wasdone and showed LVEF 55 to 60%, systolic function mildly reduced. No right heart strain. Overnight patient was requiring O2 via nasal cannula at 2 L. Patient admits continued fevers. Admits shortnessof breath. Reports cough with no sputum production. Denies any chest pain or palpitations. Admits some nausea and vomiting having normal bowel movements. Objective Vitals and Measurements T: 37.5 C (Oral) TMIN: 36.5 C (Oral) TMAX: 37.6 C (Oral) HR: 96 (Monitored) RR: 16 BP: 124/77 SpO2:95% WT: 112.5 kg Intake and Output 7AM Yesterday to 7AM Today Intake and Output (Last 24 hours) Intake Output Urine Voided 350.00 Urine Count 1.00 Total Summary Total Intake 0.00 Total Output 350.00 Fluid Balance -350.00 Physical Exam GEN: Appears chronically ill CHEST: Normal S1 and S2. Rhythm is regular. Clear to auscultation, without rales, rhonchi, wheezing. ABD: Positive bowel sounds x 4 quads. Soft, nondistended, nontender. EXT: No significant deformity or joint abnormality. No edema. Peripheral pulses intact. NEURO: Sensation grossly intact SKIN: Skin color normal for ethnicity PSYCH: The mental examination revealed the patient was alert and oriented x 4 Weight Current Weight Dosing Weight: 112.3 kg (12/05/23) Current Weight: 112.5 kg (12/06/23) Dosing Weight: 109.1 kg (12/04/23) Medications Medications (19) Active Scheduled: (11) albuterol - ipratropium 2.5 mg-0.5 mg/3 mL Inhal Estela UD 3 mL, Inhalation, [id number] amLODIPine 5 mg tablet 5 mg 1 tab(s), Oral, qDay apixaban 5 mg tablet 10 mg 2 tab(s), Oral, BID atorvastatin 10 mg tablet 10 mg 1 tab(s), Oral, qAM busPIRone 5 mg Tablet 10 mg 2 tab(s), Oral, BID cefTRIAXone 1 gram(s), IV Piggyback, Once cefTRIAXone 2 gram(s), IV Piggyback, qDay guaifenesin 600 mg ER 1,200 mg 2 tab(s), Oral, BID hydrochlorothiazide 12.5 mg tablet 12.5 mg 1 tab(s), Oral, qDay losartan 50 mg tablet 100 mg 2 tab(s), Oral, qDay pantoprazole 20 mg EC tablet 40 mg 2 tab(s), Oral, qDayAC Continuous: (0) PRN: (8) acetaminophen 325 mg Tablet 650 mg 2 tab(s), Oral, q4h acetaminophen 325 mg Tablet 650 mg 2 tab(s), Oral, q4h acetaminophen-HYDROcodone 325-5 mg tablet 1 tab(s), Oral, q4h benzonatate 100 mg Capsule 100 mg 1 cap(s), Oral, TID calcium carbonate 500 mg Chewable 500 mg 1 tab(s), Chewed, TID melatonin 3 mg tablet 6 mg 2 tab(s), Oral, qHS morphine 2 mg/mL 1 mL syringe 2 mg 1 mL, IV Push, q3h ondansetron 2 mg/ 1 mL 2 mL INJ 4 mg 2 mL, IV Push, q4h Lab Results 12/05 06:46 Glucose Level: 122 H Sodium Level: 138 Potassium Level: 3.8 BUN: 10 Creatinine Lvl (s): 1.10 12/05 05:38 WBC: 13.0 H Hgb: 12.4 L Hct: 37.8 L Platelet: 221 Neutrophil %: 74.1 12/04 05:24 WBC: 11.8 H Hgb: 12.9 L Hct: 39.8 L Platelet: 187 Neutrophil %: 71.4 Glucose Level: 139 H Sodium Level: 138 Potassium Level: 4.0 BUN: 10 Creatinine Lvl (s): 1.23 Imaging Results and Diagnostics XR Abdomen AP Result Date: December 06, 2023 Verified By: AC MARCELINO DO CLINICAL STATEMENT: IMPRESSION: No cause for nausea or vomiting observed. I have personally reviewed the images of thisexamination and agree with theresident's findings and interpretation. XR Chest 2 Views Result Date: December 06, 2023 Verified By: GEORGINA LEAL MD CLINICAL STATEMENT: IMPRESSION: Left lower lung consolidation. Right atelectasis. CT Angiography Chest w/ Contrast Result Date: December 04, 2023 Verified By: XAVIER SOLITARIO MD CLINICAL STATEMENT: IMPRESSION: Multiple pulmonary emboli within segmental and subsegmental arteriessupplying the left lower lobe and lingula. Small left effusion. Patchy airspace disease in the left lower lobe couldrepresent developing pulmonary infarct, atelectasis, or infiltrate. XR Chest 2 Views Result Date: December 04, 2023 Verified By: XAVIER SOLITARIO MD CLINICAL STATEMENT: IMPRESSION: Mild hazy airspace disease at the lung bases. Assessment/Plan 1. Pulmonary emboli 2. CAP (community acquired pneumonia) 3. Hypertension goal BP (blood pressure) < 140/90 4. Diabetes mellitus type 2, diet-controlled 5. Chronic kidney disease, stage 3a 6. Nausea and vomiting CTA showsPulmonary emboli multiple pulmonary emboli within segmental and subsegmental arteries supplying the left lower lobe and lingula. Echocardiogram done with no evidence of right heart strain. PESI score 93, indicating intermediate risk 3.2 to 7.1% 30-day mortality. Will transition patient from HBW to apixaban 10 mg twice daily x 7 days then 5 mg twice daily. Patient is very active. He works, exercises 4 times per week, plays golf 1-2 times per week. No recent surgeries. Pneumonia atypicals negative. Discontinue azithromycin. Patient continues to have oxygen requirements. White blood cell count trending up. Was 8.6 on admission, 13 today with no bandemia. He continues to have low-grade temperatures. Increase Rocephin to 2 g daily. Fine crackles on exam. Add DuoNebs every 4 hours while awake. Add incentive spirometer. Increase Mucinex to 1200 mg twice daily. On follow-up, he sounds like he is loosening up. HTN- SBP goal 140 or less. Continue home antihypertensives. Type 2 diabetes mellitus- Glucose goal 180 or less and avoid hypoglycemia. Diet controlled. ADA diet. CKD stage III-Improved from baseline. Nausea and vomiting patient has had 2 episodes of nausea and vomiting. KUB done and unremarkable. As needed Zofran. DVT prophylaxis: Apixaban Code Status: Full code Plan of care discussed with patient. All questions answered. Patient verbalizes understanding is agreeable to plan of care. This dictation was performed using voice recognition software and may include grammatical and/or spelling errors. Anticipated Date of Discharge Within 48 to 72 hours Time Spent 52 minutes Digitally Signed by SAWYER QUEEN on 12/06/2023 02:11 PM [facility]06-18-2024 Note ORIGINAL EXAMINATION: ONE SUPINE XRAY VIEW(S) OF THE ABDOMEN12/06/2023 11:20 am ABDOMEN 1 VIEW/KUB TECHNIQUE: AP abdomen x-ray. COMPARISON: 06/16/2022 x-ray abdomen HISTORY: ORDERING SYSTEM PROVIDED HISTORY: Reason for Exam: nausea/vomiting FINDINGS: No evidence of intraperitoneal free air. Nonobstructive bowel gas pattern. A few phleboliths observed. Degenerative changes of the bilateral SI joints, pubic symphysis. No abnormal calcifications seen over the expected renal shadow or expected course of the ureters or urinary bladder. IMPRESSION: No cause for nausea or vomiting observed. I have personally reviewed the images of this examination and agree with the resident's findings and interpretation. Interpreted by: Ac Marcelino DO Preliminary Report By: Law Bruce Electronically signed By Ac Marcelino DO Dictated Date: 12/06/2023 11:24:36 AM Prelim Date: 12/06/2023 11:39:46 AM Sign Date: 12/06/2023 11:39:46 AM Ordering Provider: [facility], [place], operated by [facility]06-18-2024 Note ORIGINAL HISTORY: Abnormal breath sounds COMPARISON: 2 days previously FINDINGS: There hazy opacities throughout the left base, possibly with a small underlying effusion. There is subsegmental atelectasis on the right. The pulmonary vasculature is unremarkable in appearance. The cardiac silhouette is somewhat obscured. IMPRESSION: Left lower lung consolidation. Right atelectasis. Interpreted by: Georgina Leal MD Preliminary Report By: Georgina Leal MD Electronically signed By Georgina Leal MD Dictated Date: 12/06/2023 12:43:44 PM Prelim Date: 12/06/2023 12:44:28 PM Sign Date: 12/06/2023 12:44:28 PM Ordering Provider: [facility], [place], operated [facility]06-17-2024 Note . MICRO - Microbiology PROCEDURE: Legionella Urine Ag [*1] SOURCE: Urine BODY SITE: COLLECTED DATE/TIME: 12/05/2023 10:13 EDT RECEIVED DATE/TIME: 12/05/2023 15:27 EDT START DATE/TIME: 12/05/2023 15:27 EDT FREE TEXT SOURCE: FINAL REPORTS Final Report [] Verified Date/Time/Personnel: 12/05/2023 16:07 EDT Presumptive negative for L. pneumophila serogroup 1 antigen in urine, suggesting no recent or current infection. Legionnaire's disease cannot be ruled out since other serogroups and species may also cause disease. Performing Locations *1: This test was performed at: [facility], [address] [place] [address], [id number] , [facility] ([place])12-05-2023 Note* Exam Date Time Procedure Performing Provider Status 12/05/23 12:45 PM Echocardiogram Compl ete w/Strain (AOH) Auth (Verified) [facility] 06-17-2024 Note Date of Service 12/05/2023 Chief Complaint left lung pain, cough, fever Subjective Patient seen and evaluated this morning while resting in bed. He started having low grade fevers after his arrival yesterday. This morning his white blood cell count increased to 11.8 and he is now on 2L of oxygen. Patient had stated yesterday that he thought he had a sinus infection yesterday as he was reporting yellowish sputum. His pain yesterday was mostly in the back around the base of his left lung. Today it is also lateral left lung. He was started on azithromycin yesterday at his request and we added ceftriaxone 1 gram IV daily today. We will check legionella and mycoplasma and de-escalate antibiotics as able. We will continue the heparin drip for now until the results of his echo ar e back. His lungs were clear to auscultation but diminished in the posterior mid to base. We are also checking a respiratory ID panel as he has had some travel recently. We will keep patient updated as test results come back. Patient denies any chills, abdominal pain, nausea or dysuria. All questions answered. Objective Vitals and Measurements T: 37.3 C (Oral) TMIN: 36.7 C (Oral) TMAX: 38.4 C (Oral) HR: 90 (Monitored) RR: 20 BP: 143/74 SpO2:95% WT: 112.3 kg Intake and Output 7AM Yesterday to 7AM Today Intake and Output (Last 24 hours) Intake Oral Intake 2750.00 Administration Information 113.23 Output Stool Count 0.00 Urine Count 5.00 Emesis Count 0.00 Total Summary Total Intake 2863.23 Total Output 0.00 Fluid Balance 2863.23 Physical Exam General: No acute distress. Patient is alert and appropriate. Skin: No rash. Skin is warm, dry and intact. HEENT: Head is normocephalic, atraumatic. Pupils are equal, round and reactive. Neck: Supple. No lymphadenopathy, thyromegaly. Lungs: Bilaterally clear but diminished without crepitation or wheeze. Unlabored. Productive cough noted. Heart: Heart is regular rhythm, S1, S2. No murmurs, gallops or rubs. Abdomen: Abdomen is soft, nontender. Bowels sounds present in all quadrants. Extremities: No clubbing, cyanosis, or edema. Peripheral pulses palpable. No calf tenderness. Neurological: Patient is awake and alert to person, place and time. Following simple commands, moving all extremities. Weight Dosing Weight: 112.3 kg (12/05/23) Dosing Weight: 109.1 kg (12/04/23) Medications Medications (20) Active Scheduled: (8) amLODIPine 5 mg tablet 5 mg 1 tab(s), Oral, qDay atorvastatin 10 mg tablet 10 mg 1 tab(s), Oral, qAM azithromycin 250 mg tablet 250 mg 1 tab(s), Oral, qDay busPIRone 5 mg Tablet 10 mg 2 tab(s), Oral, BID cefTRIAXone 1 gram(s), IV Piggyback, qDay hydrochlorothiazide 12.5 mg tablet 12.5 mg 1 tab(s), Oral, qDay losartan 50 mg tablet 100 mg 2 tab(s), Oral, qDay pantoprazole 20 mg EC tablet 40 mg 2 tab(s), Oral, qDayAC Continuous: (1) heparin 25,000 unit(s) [18 unit(s)/kg/hr] + Dextrose 5% Premix Diluent 250 mL 250 mL, Intravenous, 19.64 mL/hr PRN: (11) acetaminophen 325 mg Tablet 650 mg 2 tab(s), Oral, q4h acetaminophen 325 mg Tablet 650 mg 2 tab(s), Oral, q4h acetaminophen-HYDROcodone 325-5 mg tablet 1 tab(s), Oral, q4h benzonatate 100 mg Capsule 100 mg 1 cap(s), Oral, TID calcium carbonate 500 mg Chewable 500 mg 1 tab(s), Chewed, TID guaifenesin 100 mg/5 mL Liquid SUGAR-FREE 120 mL 200 mg 10 mL, Oral, q4h heparin 5,000 units/mL (1 mL) vial 7,637 unit(s) 1.53 mL, IV Push, q6h heparin 5,000 units/mL (1 mL) vial 4,364 unit(s) 0.87 mL, IV Push, q6h melatonin 3 mg tablet 6 mg 2 tab(s), Oral, qHS morphine 2 mg/mL 1 mL syringe 2 mg 1 mL, IV Push, q3h ondansetron 2 mg/ 1 mL 2 mL INJ 4 mg 2 mL, IV Push, q4h Lab Results 12/04 05:24 WBC: 11.8 H Hgb: 12.9 L Hct: 39.8 L Platelet: 187 Neutrophil %: 71.4 Glucose Level: 139 H Sodium Level: 138 Potassium Level: 4.0 BUN: 10 Creatinine Lvl (s): 1.23 12/03 05:07 WBC: 8.6 Hgb: 13.3 L Hct: 40.2 L Platelet: 196 Neutrophil %: 72.1 Protime: 14.1 PT International Ratio: 1.2 Glucose Level: 142 H Sodium Level: 139 Potassium Level: 3.7 BUN: 13 Creatinine Lvl (s): 1.42 H Imaging Results and Diagnostics CT Angiography Chest w/ Contrast Result Date: December 04, 2023 Verified By: XAVIER SOLITARIO MD CLINICAL STATEMENT: IMPRESSION: Multiple pulmonary emboli within segmental and subsegmental arteries supplying the leftlower lobe and lingula. Small left effusion. Patchy airspace disease in the left lower lobe could represent developing pulmonary infarct, atelectasis, or infiltrate. XR Chest 2 Views Result Date: December 04, 2023 Verified By: XAVIER SOLITARIO MD CLINICAL STATEMENT: IMPRESSION: Mild hazy airspace disease at the lung bases. EKG No qualifying data available. Assessment/Plan 1. Pulmonary emboli Acute, new onset, possibly secondary to recent travel. Continue weight-based heparin gtt per protocol. Will transition to oral anticoagulation in next 24-48 hours after results of echo are back. Sendpatient for complete echo with strain today. Monitor aPTT per protocol. Continue PO and IV pain medication and antiemetics. Repeat CBC in the am. 2. CAP (community acquired pneumonia) Acute, new onset. CTA of the chest yesterday demonstrated pulmonary infarct, atelectasis or infection yesterday. With leukocytosis and low-grade fever, infection seems likely at this point. Patient also on 2L of oxygen this morning. Will check mycoplasma antibody and urine for legionella. Start Ceftriaxone 1 gram IV daily in addition to azithromycin 250 mg PO daily. Obtain respiratory ID panel. Repeat CBC in the am. 3. Diabetes mellitus type 2, diet-controlled Chronic, diet controlled. Last HgbA1c 6.5% on 08/19/2023. Will continue ADA diet. 4. Chronic kidney disease, stage 3a Chronic, at baseline. GFR runs between 49-56 - 59 on labs today. Will avoid nephrotoxic agents. Repeat BMP in the am. 5. Anxiety Chronic. Continue current home medications. 6. Hypertension goal BP (blood pressure) < 140/90 Chronic. Continue current antihypertensives. SBP goal of 140 or less. DVT prophylaxis with [facility]. Code status: Full Code. Labs, diagnostic test and progress notes reviewed as noted in HPI. Plan of care discussed with patient. All questions answered. Patient verbalizes understanding and is agreeable with plan of care. This case was discussed with collaborating physician, Dr. Oc Zhong. Anticipated Date of Discharge next 24-48 hours Time Spent 35 minutes spent reviewing past diagnostic tests, reviewing lab results, vital sign trends, medicalhistory, reviewing medications and ordering home medications, examining patient, discussed plan of care with care team, collaborating with physician, and documenting in chart. Digitally Signed by KAYY VILLAFUERTE on 12/05/2023 11:35 AM [facility]06-16-2024 Evaluation + Plan noteExtracted from: Title:History and Physical Author:KAYY VILLAFUERTE Date:12/04/23 1. Pulmonary emboli Acute, new onset, possibly secondary to recent travel. Continue weight-based heparin gtt per protocol. Will transition to oral anticoagulation in next 24-48 hours. Send patient for complete echo with strain tomorrow. Monitor aPTT per protocol. Continue PO and IV pain medication and antiemetics. Repeat CBC in the am. 2. Diabetes mellitus type 2, diet-controlled Chronic, diet controlled. Last HgbA1c 6.5% on 08/19/2023. Will continue ADA diet. 3. Chronic kidney disease, stage 3a Chronic, at baseline. GFR runs between 49-56 - 50 on labs today. Will avoid nephrotoxic agents. Repeat BMP in the am. 4. Anxiety Chronic. Continue current home medications. 5. Hypertension goal BP (blood pressure) < 140/90 Chronic. Continue current antihypertensives. SBP goal of 140 or less. DVT prophylaxis with [facility]. Code status: Full Code. Labs, diagnostic test and progress notes reviewed as noted in HPI. Plan of care discussed with patient. All questions answered. Patient verbalizes understanding and is agreeable with plan of care. This case was discussed with collaborating physician, Dr. Oc Zhong. 75 minutes spent reviewing past diagnostic tests, reviewing lab results, vital sign trends, medical history, reviewing medications and ordering home medications, examining patient, discussed plan of care with care team, collaborating with physician, and documenting in chart. Future Appointments Appointment Date:12/09/2023 09:00:00 AM Scheduled Provider:KERMIT DENNIS DO Location:[facility] Appointment Type:[facility] Hospital Follow-Up Appointment Date:02/23/2024 04:00:00 PM Scheduled Provider:KERMIT DENNIS DO Location:[facility] Appointment Type:[facility] Future Scheduled Tests Laboratory* Vitamin B12 Level 12/17/23 * Complete Blood Count 12/17/23 * Vitamin D Level 12/17/23 [facility] 06-16-2024 Note Date of Service 12/04/2023 Chief Complaint back pain History of Present Illness Patient is a 63-year-old male, who follows with Dr. Kermit Dennis with a past medical history significant for hypertension, hyperlipidemia, type 2 diabetes mellitus, chronic kidney disease stage 3, and anxiety, presented to [facility] emergency department with the chief complaint of left back pain and cough. Patient states he has been coughing for about a week and feels that he has a cold or sinus infection. The left back pain started a few days ago but became much worse this morning. Patient states it hurts to take a deep breath or move. 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 Patient saw his PCP on 09/29 due to left lower extremity swelling and she ordered venous dopplers of the left leg. Patient had reported to his PCP that he was in [place] when this swelling started. There is no venous doppler report in the system and patient followed up with an LITHOPRESS OPERATOR a week later. His swelling had resolved at that point and he was advised that he most likely did not need the doppler. Patient denies any shortness of breath. He reiterates the only symptom was this left back pain. Patient denies any fever, chills, shortness of breath, chest pain, abdominal pain, nausea or dysuria. In the emergency department, chest x-ray revealed mild hazy airspace disease at the lung bases. CTAof the chest revealed multiple pulmonary emboli within segmental and subsegmental arteries supplying the left lower lobe and lingula. Small left effusion. Patchy airspace disease in the left lower lobe could represent developing pulmonary infarct, atelectasis, or infiltrate. EKG revealed sinus rhythm with borderline left axis deviation. CBC was unremarkable. BMP significant for glucose 142 and creatinine 1.42. Troponin negative. D-dimer elevated 1620. Patient was administered 1 liter of NS, 4 mg zofran IV, 4 mg morphine IV and 15 mg toradol IV in the ED. He was started on weight-based heparindrip (DVT/PE) in the ED. The case was discussed with the ED physician who recommended admission forfurther evaluation and treatment. Patient was transferred to telemetry for further evaluation and treatment. We will continue weight-based heparin drip with aPTT every 6 hours and adjustments per protocol. We will send patient for complete echocardiogram with strain tomorrow. Continue IV and PO pain medications and antiemetics. Repeat CBC and BMP in the am. Patient seen and evaluated after arrival to the telemetry unit. He was just medicated for pain prior to being moved to his room. He states he feels that the pain is slightly better now. Discussed plan of care with patient including continuing the heparin drip for at least 24 hours. We will transition him to oral anticoagulation possibly tomorrow and he will need to go home on oral medication for at least 3 months. We will check an echocardiogram tomorrow to rule out right heart strain. Physicalexam unremarkable except for moist-sounding cough. All questions answered. Review of Systems Review of Systems: Reviewed in detail, including general health, HEENT, cardiovascular, respiratory, gastrointestinal, genitourinary, endocrine, musculoskeletal, neurologic, vascular, skin, and psychiatric. All are negative except for those listed in the History of Present Illness. Physical Exam Vitals and Measurements T: 37.3 C (Oral) HR: 86 (Monitored) RR: 24 BP: 131/76 SpO2: 94% HT: 188 cm WT: 109.1 kg BMI: 30.87 Weight Dosing Weight: 109.1 kg (12/04/23) Dosing Weight: 109.1 kg (12/04/23) General: No acute distress. Patient is alert and appropriate. Skin: No rash. Skin is warm, dry and intact. HEENT: Head is normocephalic, atraumatic. Pupils are equal, round and reactive. Neck: Supple. No lymphadenopathy, thyromegaly. Lungs: Bilaterally clear but diminished without crepitation or wheeze. Unlabored. Heart: Heart is regular rhythm, S1, S2. No murmurs, gallops or rubs. Abdomen: Abdomen is soft, nontender. Bowels sounds present in all quadrants. Extremities: No clubbing, cyanosis, or edema. Peripheral pulses palpable. No calf tenderness. Neurological: Patient is awake and alert to person, place and time. Following simple commands, moving all extremities. Lab Results 12/03 05:07 WBC: 8.6 Hgb: 13.3 L Hct: 40.2 L Platelet: 196 Neutrophil %: 72.1 Protime: 14.1 PT International Ratio: 1.2 Glucose Level: 142 H Sodium Level: 139 Potassium Level: 3.7 BUN: 13 Creatinine Lvl (s): 1.42 H Imaging Results and Diagnostics CT Angiography Chest w/ Contrast Result Date: December 04, 2023 Verified By: XAVIER SOLITARIO MD CLINICAL STATEMENT: IMPRESSION: Multiple pulmonary emboli within segmental and subsegmental arteries supplying the leftlower lobe and lingula. Small left effusion. Patchy airspace disease in the left lower lobe could represent developing pulmonary infarct, atelectasis, or infiltrate. XR Chest 2 Views Result Date: December 04, 2023 Verified By: XAVIER SOLITARIO MD CLINICAL STATEMENT: IMPRESSION: Mild hazy airspace disease at the lung bases. Assessment/Plan 1. Pulmonary emboli Acute, new onset, possibly secondary to recent travel. Continue weight-based heparin gtt per protocol. Will transition to oral anticoagulation in next 24-48 hours. Send patient for complete echo withstrain tomorrow. Monitor aPTT per protocol. Continue PO and IV pain medication and antiemetics. Repeat CBC in the am. 2. Diabetes mellitus type 2, diet-controlled Chronic, diet controlled. Last HgbA1c 6.5% on 08/19/2023. Will continue ADA diet. 3. Chronic kidney disease, stage 3a Chronic, at baseline. GFR runs between 49-56 - 50 on labs today. Will avoid nephrotoxic agents. Repeat BMP in the am. 4. Anxiety Chronic. Continue current home medications. 5. Hypertension goal BP (blood pressure) < 140/90 Chronic. Continue current antihypertensives. SBP goal of 140 or less. DVT prophylaxis with WBH. Code status: Full Code. Labs, diagnostic test and progress notes reviewed as noted in HPI. Plan of care discussed with patient. All questions answered. Patient verbalizes understanding and is agreeable with plan of care. This case was discussed with collaborating physician, Dr. Oc Zhong. 75 minutes spent reviewing past diagnostic tests, reviewing lab results, vital sign trends, medicalhistory, reviewing medications and ordering home medications, examining patient, discussed plan of care with care team, collaborating with physician, and documenting in chart. Problem List/Past Medical History Ongoing Anxiety BMI 34.0-34.9,adult Calcification of left carotid artery Caregiver with fatigue Cerumen impaction Cervical lymphadenopathy Chest pressure Chronic kidney disease, stage 2 (mild) Chronic kidney disease, stage 3a Cyst of left parotid gland Decreased GFR Degenerative arthritis of cervical spine 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 Diabetes mellitus type 2, diet-controlled Elevated LDL cholesterol level Fatty liver Generalized abdominal pain Hyperbilirubinemia Hypertension goal BP (blood pressure) < 140/90 Left shoulder pain Leg swelling Mass of left wrist Neck mass Neutropenia Nocturia Normocytic anemia Onychomycosis of right great toe Pain of left calf Prediabetes Right rotator cuff tendinitis Right shoulder pain Right thyroid nodule Screening for hyperlipidemia Thyroid enlargement Tonsillar enlargement Vitamin B12 deficiency Vitamin D deficiency Warthin's tumor Weight loss, unintentional Historical Acute bronchitis Benign prostatic hyperplasia IBS (irritable bowel syndrome) Mixed hyperlipidemia Sinusitis Procedure/Surgical History Oral surgery: 03/10/23 Cervical epidural steroid injection: 05/10/19 Uvula operation Excision of ganglion cyst- wrist left Medications Home Medications (8) Active amlodipine-olmesartan 5 mg-40 mg oral tablet 1 tab(s), Oral, qDay atorvastatin 10 mg oral tablet 10 mg = 1 tab(s), Oral, qPM busPIRone 10 mg oral tablet 10 mg = 1 tab(s), Oral, BID cholecalciferol 100 mcg (4000 intl units) oral tablet 100 mcg = 1 tab(s), Oral, qDayM cyanocobalamin 500 mcg sublingual tablet 500 mcg = 1 tab(s), Sublingual, qDay DME MISCellaneous See Instructions hydroCHLOROthiazide 12.5 mg oral capsule 12.5 mg = 1 cap(s), Oral, qDay prednisone 10mg tab (TAPER) Taper 40-30-20-10 x 2 days each dose, Oral, qDayM Allergies NKA Social History Alcohol Use: Never., 03/16/2019 Employment/School Status: Employed. 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 Appetite Excellent. Eating Difficulties None., 06/02/2020 Caffeine intake amount: none., 03/16/2019 Sexual Self described orientation: Straight or heterosexual., 07/27/2019 Substance Abuse Use: Never., 03/16/2019 Tobacco Tobacco Use: Never (less than 100 in lifetime)., 03/16/2019 Family History Asthma: Brother. Cancer: Mother. Coronary artery disease: Father. Diabetes: Father. Diabetes mellitus: Brother and Brother. Hypertension: Father. Health Status Family Member(s) Family Member(s) Relationship: Mother, Age: 42 Years Relationship: Father, Age: 62 Years, Cause: CAD, hypertension, diabetes Relationship: Maternal Grandfather, Age: 31 Years, Cause: Killed in a railroad accident in [place] Relationship: Maternal Grandmother, Age: 82 Years, Cause: Ovarian cancer Relationship: Paternal Grandfather, Age: Unknown, Cause: old age Relationship: Paternal Grandmother, Age: 62 Years Immunizations hepatitis B adult vaccine: 0 unknown unit (11/23/10) hepatitis B adult vaccine: 0 unknown unit (05/25/10) hepatitis B adult vaccine: 0 unknown unit (04/24/10) SARS-CoV-2 mRNA (tozinameran) vaccine: 0.3 unknown unit (05/13/21) SARS-CoV-2 mRNA (tozinameran) vaccine: 30 unknown unit (09/25/20) SARS-CoV-2 mRNA (tozinameran) vaccine: 30 unknown unit (09/04/20) tetanus/diphth/pertuss (Tdap) adult/adol: 0.5 mL (01/04/20) zoster vaccine live: 0 unknown unit (01/22/21) zoster vaccine, inactivated: 1 unknown unit (04/07/21) Code Status Code Status - Ordered -- 12/04/23 7:24:00 EDT, Full Code, Constant Order Digitally Signed by KAYY VILLAFUERTE on 12/04/2023 10:27 AM [facility]06-16-2024 Note ORIGINAL EXAMINATION: CTA OF THE CHEST 12/04/2023 6:30 am TECHNIQUE: CTA of the chest was performed after the administration of intravenous contrast. Multiplanar reformatted images are provided for review. MIP images are provided for review. Automated exposure control, iterative reconstruction, and/or weight based adjustment of the mA/kV was utilized to reduce the radiation dose to as low as reasonably achievable. COMPARISON: None. HISTORY: ORDERING SYSTEM PROVIDED HISTORY: Reason for Exam: chest pain; suspect PE FINDINGS: Acute pulmonary emboli within the segmental and subsegmental pulmonary arteries supplying the left upper lobe and lingula. No saddle embolism. Pulmonary arteries are dilated measuring up to 2.8 cm at the level of the right main and 3.0 cm at the left main pulmonary arteries. Small left effusion. Hazy airspace disease at the left lung base. Heart size is mildly enlarged. Aorta is normal in caliber. No pneumothorax. No acute upper abdominal findings. No suspicious osseous lesions. IMPRESSION: Multiple pulmonary emboli within segmental and subsegmental arteries supplying the left lower lobe and lingula. Small left effusion. Patchy airspace disease in the left lower lobe could represent developing pulmonary infarct, atelectasis, or infiltrate. Interpreted by: Xavier Solitario MD Preliminary Report By: Xavier Solitario MD Electronically signed By Xavier Solitario MD Dictated Date: 12/04/2023 7:03:46 AM Prelim Date: 12/04/2023 7:06:42 AM Sign Date: 12/04/2023 7:06:42 AM Ordering Provider: [facility]06-16-2024 Note ORIGINAL EXAMINATION: TWO XRAY VIEWS OF THE CHEST 12/04/2023 5:31 am COMPARISON: None. HISTORY: ORDERING SYSTEM PROVIDED HISTORY: Reason for Exam: Chest Pain FINDINGS: Heart size is normal. Mild hazy airspace disease at the lung bases. No pneumothorax. No large effusion. IMPRESSION: Mild hazy airspace disease at the lung bases. Interpreted by: Xavier Solitario MD Preliminary Report By: Xavier Solitario MD Electronically signed By Xavier Solitario MD Dictated Date: 12/04/2023 5:54:10 AM Prelim Date: 12/04/2023 5:58:34 AM Sign Date: 12/04/2023 5:58:34 AM Ordering Provider: [facility]06-16-2024 Note Sinus rhythm Borderline left axis deviation Electronic Signature: MAGDY ALANIS MD 12/06/2023 22:40:13[facility] 01-12-2023 Hospital Discharge instructions Patient Education 06/30/2022 22:01:32 Rib Contusion Rib Contusion A rib contusion is a bruise to one or more rib bones. It may cause pain, tenderness, swelling and apurplish discoloration. There may be a sharp pain [...] your skin.) Ice the injured area for 20minutes every 1 to 2 hours the first day. Continue with ice packs 3 to 4 times a day for the next 2days, then as needed for the relief of [...] or as directed by your healthcare provider [phone] [employer]. [address] [place] [address]. All rights reserved. This information is not intended as a substitute for professional medical care. Always follow yourhealthcare professional's instructions. Follow Up Care 06/30/2022 21:01:12 With:KERMIT DENNIS DO Address: [address] [place] [phone] When:2-4 days [facility] 01-11-2023 Note Discharge Instructions Thank you for allowing [facility] to assist you with your healthcare needs. The following is importantdischarge information regarding your hospital visit. Diagnosis from Today's Visit Rib/trunk pain-swelling What to Do Next Instructions from Your Care Team No qualifying data available. Post Acute Orders No qualifying data available. You Need to Schedule the Following Appointments Follow Up with KERMIT DENNIS DO When Within 2-4 days Where: [address] [place] [phone] Allergies NKA Medications Please ask your primary doctor or pharmacist before taking any other medication not listed, including over the counter drugs, herbal medications, vitamins and or supplements as they may interact withyour home medications. What How Much When Instructions Last Dose Unchanged amlodipine-benazepril (amlodipine-benazepril 10mg-20 mg oral capsule) 1 cap by mouth [...] It may cause pain, tenderness, swelling and apurplish discoloration. There may be a sharp pain [...] your skin.) Ice the injured area for 20minutes every 1 to 2 hours the first day. Continue with ice packs 3 to 4 times a day for the next 2days, then as needed for the relief of [...] or as directed by your healthcare provider [phone] [employer]. [address] [place] [address], [place] [address]. All rights reserved. This information is not intended as a substitute for professional medical care. Always follow yourhealthcare professional's instructions. Additional Information VACCINATE! IT SAVES LIVES! Members of the community who have not yet received the COVID-19 vaccine and would like to receive it can visit one of [facility] vaccine clinics. There are many vaccine clinic locations within the [facility]. For locations and available times, please visit [email or web address]. It is important to note that some COVID mobile vaccine clinics are held outdoors and may be canceled in rainy orstormy conditions. To learn more about pediatric vaccinations (ages 5-11), we invite you to visit the [employer] [facility] webpage. https://www.[employer].org/[email or web address]-[email or web address]-[email or web address]-[email or web address] [email or web address].htmlTo learn more about the COVID-19 vaccine, we invite you to visit the [facility] website for a list of frequently asked questions. [email or web address] [facility] Patient Portal Access Instructions: Stay connected with your healthcare team and access your personal medical information anytime with the [facility] Patient Portal. If you would like a full copy of your medical records please contact the [facility] Medical Records Department Tuesday through Tuesday between 8a.m. and 4:30p.m. Please follow the directions below to access the portal: 1.Access the email account you provided upon registration to the hospital.2.Look for an invitation email from [facility].3.Open the email and access the invitation link: Accept Invitation to [facility]4.Fill in the required ferrara to create your account. Sign into www.C[employer] IS with your username and password that you [...] you will allow to register on the [facility] Patient Portal for access to your information. You can also access the [facility] Patient Portal on the [employer] jose angel. Simply click on "Health Records" under "[employer]" and then click on the [facility] logo. HOW TO SAFELY DISPOSE OF PRESCRIPTION MEDICATIONS Please use one of the following methods to safely dispose of your unused medications. 1.Use a drug disposal kit: the drug disposal pouch allows you to safely discard your old and unuseddrugs. Ask your nurse to give you one when you are discharged.2.Visit a local take-back location: Many local pharmacies and police departments have programs that collect old and unwanted prescriptiondrugs. Call your local pharmacy or go to http://EDUonGo.etouches/2M1Is0w to find one close to you.3.Make use of household items: Use cat litter or old coffee grounds to dispose medications if other options arenot available. Mix your drugs with these household products, seal them in an airtight container andthrow it into the garbage. Call [facility]: [phone] to be sure your drugs can be [...] drowsiness, such as benzodiazepines, also known as benzos,including diazepam and alprazolam, muscle relaxants or sleep aids. Never sell or share prescriptionopioids. This is illegal. Store opioids in a secure place and out of reach of others (including children, family, friends and visitors). The last page(s) of this document has been signed and retained as a CHART COPY Signatures Patient Education Materials Rib Contusion Medication Leaflets My discharge plan and instructions have been reviewed and explained to me and I,SHORT OTF M understand my current condition and have read and understand these discharge instructions. I have received a written copy of the plan/instructions. If I have questions, I am aware that I should contact my d octor. 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 Signature: Date/Time: Relationship to Patient: Witness Name/Signature: Date/Time: [facility]01-11-2023 Note ORIGINAL EXAMINATION: 2 XRAY VIEWS OF [...] Date: 06/30/2022 9:55:49 PM [facility] Note ORIGINAL EXAMINATION: 2 XRAY VIEWS OF [...] Sign Date: 06/30/2022 9:55:49 PM Ordering Provider: [facility]12-28-2022 Hospital Discharge instructions Patient Education 06/16/2022 09:49:14 Abdominal Pain, Unknown Cause, (Male) Unknown Causes of Abdominal Pain (Male) Based on your visit today, the exact cause of your abdominal pain is not clear. Your exam and testsdon't suggest a dangerous cause at this time. However, the signs of a serious problem may take moretime to appear. Although your evaluation was reassuring [...] may only require an exam by the doctoror it may include blood, urine or imaging [...] the time being. A low fat, low fiberdiet can also help. Eating several small meals [...] chest, arm, back, neck or jaw pain [phone] [employer] [place] [address]. All rights reserved. This information is not intended as a substitute for professional medical care. Always follow yourhealthcare professional's instructions. Follow Up Care 06/16/2022 07:49:29 With:KERMIT DENNIS DO Address: [address] [place] [address] [phone] When:2-4 days [facility] 12-28-2022 Note Discharge Instructions Thank you for allowing [facility] to assist you with your healthcare needs. The following is importantdischarge information regarding your hospital visit. Diagnosis from Today's Visit Abdominal pain What to Do Next Instructions from Your Care Team No qualifying data available. Post Acute Orders No qualifying data available. You Need to Schedule the Following Appointments Follow Up with KERMIT DENNIS DO When Within 2-4 days Where: [address] [place] [phone] Allergies NKA Medications Please ask your primary doctor or pharmacist before taking any other medication not listed, including over the counter drugs, herbal medications, vitamins and or supplements as they may interact withyour home medications. What How Much When Instructions Last Dose Unchanged amlodipine-benazepril (amlodipine-benazepril 10mg-20 mg oral capsule) 1 cap by mouth [...] pain is not clear. Your exam and testsdon't suggest a dangerous cause at this time. However, the signs of a serious problem may take moretime to appear. Although your evaluation was reassuring [...] may only require an exam by the doctoror it may include blood, urine or imaging [...] the time being. A low fat, low fiberdiet can also help. Eating several small meals [...] chest, arm, back, neck or jaw pain [phone] [employer]. [address] [place] [address]. All rights reserved. This information is not intended as a substitute for professional medical care. Always follow yourhealthcare professional's instructions. Additional Information VACCINATE! IT SAVES LIVES! Members of the community who have not yet received the COVID-19 vaccine and would like to receive it can visit one of [facility] vaccine clinics. There are many vaccine clinic locations within the [facility]. For locations and available times, please visit [email or web address]. It is important to note that some COVID mobile vaccine clinics are held outdoors and may be canceled in rainy orstormy conditions. To learn more about pediatric vaccinations (ages 5-11), we invite you to visit the [facility] webpage. https://www.[facility].org/pages/[email or web address]-Pxmmo-Nmjrbjtwtug-Zynekvcxbf-Mukze-Rxl stions.htmlTo learn more about the COVID-19 vaccine, we invite you to visit the [facility] website for a list of frequently asked questions. https://Lifesum.Buy.On.Social/assets/Yzfwtczi-fkj-Lzzmtaaj/qkcok-Iajybgw-Siywrcqnuv _Asked-Questions.pdf [place] [facility] Access Instructions: Stay connected with your healthcare team and access your personal medical information anytime with the [place] [facility] Patient Portal. If you would like a full copy of your medical records please contact the [facility] Medical Records Department Tuesday through Tuesday between 8a.m. and 4:30p.m. Please follow the directions below to access the portal: 1.Access the email account you provided upon registration to the [facility].2.Look for an invitation email from [facility].3.Open the email and access the invitation link: Accept Invitation to [facility]4.Fill in the required ferrara to create your account. Sign into [email or web address] with your username and password that you [...] you will allow to register on the [place] [facility] Patient Portal for access to your information. You can also access the [place] [facility] Patient Portal on the [employer] jose angel. Simply click on "Health Records" under "HealthSkout" and then click on the Siva logo. HOW TO SAFELY DISPOSE OF PRESCRIPTION MEDICATIONS Please use one of the following methods to safely dispose of your unused medications. 1.Use a drug disposal kit: the drug disposal pouch allows you to safely discard your old and unuseddrugs. Ask your nurse to give you one when you are discharged.2.Visit a local take-back location: Many local pharmacies and police departments have programs that collect old and unwanted prescriptiondrugs. Call your local pharmacy or go to http://bit.etouches/7M3Uu7e to find one close to you.3.Make use of household items: Use cat litter or old coffee grounds to dispose medications if other options arenot available. Mix your drugs with these household products, seal them in an airtight container andthrow it into the garbage. Call [facility]: [phone] to be sure your drugs can be [...] drowsiness, such as benzodiazepines, also known as benzos,including diazepam and alprazolam, muscle relaxants or sleep aids. Never sell or share prescriptionopioids. This is illegal. Store opioids in a [...] am aware that I should contact my d octor. 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 Author Type: Nurse Practitioner Type: [...] Laterality Date - COLONOSCOP W/ OR W/O [facility] SPEC 04/28/2011 ALLERGIES Patient has no known [...] V01.79, ICD10: Z20.822 - 2019 CORONAVIRUS Geraldine HoodKaitlin, JEREMY.LATENT PRINT EXAMINER - Meets symptom-based criteria for testing and is high risk. - COVID swab collected at time of office visit - Instructed to isolate pending test results - Discussed symptom monitoring and supportive care - Red flag symptoms requiring follow up discussed This patient encounter involved the screening or treatment of novel coronavirus infection (COVID-19).[facility] App[facility]ments Appointment Date:01/21/2022 08:00:00 AM Scheduled Provider:KERMIT DENNIS DO Location:[facility] Appointment Type:PC OV [facility] Evaluation + Plan note Future Appointments Appointment Date:07/15/2022 08:00:00 AM Scheduled Provider:KERMIT DENNIS DO Location:[facility] Appointment Type:PC OV Appointment Date:07/20/2022 08:00:00 AM Scheduled Provider:KERMIT DENNIS DO Location:[facility] Appointment Type:PC OV Follow Up [facility] Evaluation + Plan note Future Appointments Appointment Date:07/15/2022 08:00:00 AM Scheduled Provider:KERMIT DENNIS DO Location:[facility] Appointment Type:PC OV Appointment Date:07/20/2022 08:00:00 AM Scheduled Provider:KERMIT DENNIS DO Location:[facility] Appointment Type:PC OV Follow Up Appointment Date:09/01/2022 09:00:00 AM Scheduled Provider:KERMIT DENNIS DO Location:[facility] Appointment Type: OV Future Scheduled Tests Laboratory* Basic Metabolic Panel 06/23/22 * Cancer Antigen 125 06/23/22 * Prostate Specific Antigen 06/23/22 * AFP tumor marker 06/23/22 * Carcinoembryonic Antigen 06/23/22 * Complete Blood Count 06/23/22 * hCG, tumor marker 06/23/22 Radiology* US Thyroid 08/21/22 [facility] Evaluation + Plan note Future Appointments Appointment Date:07/15/2022 08:00:00 AM Scheduled Provider:KERMIT DENNIS DO Location:[facility] Appointment Type:PC OV Appointment Date:07/20/2022 08:00:00 AM Scheduled Provider:KERMIT DENNIS DO Location:[facility] Appointment Type:PC OV Follow Up Appointment Date:09/01/2022 09:00:00 AM Scheduled Provider:KERMIT DENNIS DO Location:[facility] Appointment Type:PC OV Diagnostic Tests Pending * Cancer Antigen 125 07/02/22 * AFP tumor marker 07/02/22 * hCG, tumor marker 07/02/22 * Carcinoembryonic Antigen 07/02/22 Future Scheduled Tests Radiology* US Thyroid 08/21/22 [facility] Evaluation + Plan note Future Appointments Appointment Date:09/14/2022 08:30:00 AM Scheduled Provider:KERMIT DENNIS DO Location:[facility] Appointment Type:PC OV Appointment Date:09/22/2022 11:30:00 AM Scheduled Provider: Location:[facility] Appointment Type:[facility] OV Follow Up Future Scheduled Tests Radiology* US Thyroid 08/21/22 [facility] Evaluation + Plan note Future Appointments Appointment Date:09/14/2022 08:30:00 AM Scheduled Provider:KERMIT DENNIS DO Location:[facility] Appointment Type:PC OV Appointment Date:09/22/2022 11:30:00 AM Scheduled Provider: Location:[facility] Appointment Type:[facility]C OV Follow Up [facility] Evaluation + Plan note Future Appointments Appointment Date:08/23/2023 08:00:00 AM Scheduled Provider:KERMIT DENNIS DO Location:[facility] Appointment Type:PC OV Future Scheduled Tests Laboratory* Hepatitis C Antibody IgG 03/17/23 [facility] evaluation + Plan note Future Appointments Appointment Date:08/23/2023 03:30:00 PM Scheduled Provider:KERMIT DENNIS DO Location:[facility] Appointment Type:PC OV Future Scheduled Tests Laboratory* Hepatitis C Antibody IgG 03/17/23 [facility] Evaluation + Plan note Future Appointments Appointment Date:02/23/2024 04:00:00 PM Scheduled Provider:KERMIT DENNIS DO Location:[facility] Appointment Type:PC OV Future Scheduled Tests Laboratory* Methylmalonic Acid, Serum 08/22/23 * Ferritin 08/22/23 * Folate Level 08/22/23 * Phosphorus Level 08/22/23 * Vitamin B12 Level 08/22/23 * Hepatitis C Antibody IgG 08/23/23 * Iron Studies 08/22/23 * PTH, Intact 08/22/23 * Vitamin D Level 08/22/23 [facility] Evaluation + Plan note Future Appointments Appointment Date:10/18/2023 11:00:00 AM Scheduled Provider: Location:[facility] Appointment Type:NUT Diet Visit Individual Appointment Date:11/03/2023 09:00:00 AM Scheduled Provider:KERMIT DENNIS DO Location:[facility] Appointment Type:PC OV Appointment Date:02/23/2024 04:00:00 PM Scheduled Provider:KERMIT DENNIS DO Location:[facility] Appointment Type:PC OV Diagnostic Tests Pending * Methylmalonic Acid, Serum 10/17/23 Future Scheduled Tests Laboratory* Complete Blood Count 12/17/23 * Vitamin D Level 12/17/23 [facility] Evaluation + Plan note Future Appointments Appointment Date:11/03/2023 09:00:00 AM Scheduled Provider:KERMIT DENNIS DO Location:[facility] Appointment Type:PC OV Appointment Date:02/23/2024 04:00:00 PM Scheduled Provider:KERMIT DENNIS DO Location:[facility] Appointment Type:PC OV Future Scheduled Tests Laboratory* Complete Blood Count 12/17/23 * Vitamin D Level 12/17/23 [facility] Evaluation + Plan note Future Appointments Appointment Date:02/23/2024 04:00:00 PM Scheduled Provider:KERMIT DENNIS DO Location:[facility] Appointment Type:PC OV Future Scheduled Tests Laboratory* Vitamin B12 Level 12/17/23 * Complete Blood Count 12/17/23 * Vitamin D Level 12/17/23 [facility] Evaluation + Plan note Future Appointments Appointment Date:12/16/2023 08:30:00 AM Scheduled Provider:KERMIT DENNIS DO Location:[facility] Appointment Type:PC OV Appointment Date:02/23/2024 04:00:00 PM Scheduled Provider:KERMIT DENNIS DO Location:[facility] Appointment Type:PC OV Future Scheduled Tests Laboratory* Vitamin B12 Level 12/17/23 * Complete Blood Count 12/17/23 * Vitamin D Level 12/17/23 [facility] Evaluation + Plan note Future Appointments Appointment Date:02/16/2024 08:00:00 AM Scheduled Provider:KERMIT DENNIS DO Location:[facility] Appointment Type:PC OV Appointment Date:02/23/2024 04:00:00 PM Scheduled Provider:KERMIT DENNIS DO Location:[facility] Appointment Type:PC OV Future Scheduled Tests Laboratory* Basic Metabolic Panel 01/05/24 * Vitamin B12 Level 01/05/24 * Vitamin B12 Level 12/17/23 * Complete Blood Count 12/17/23 * Complete Blood Count 01/05/24 * Vitamin D Level 12/17/23 * Vitamin D Level 01/05/24 [facility] Evaluation + Plan note Future Appointments Appointment Date:02/16/2024 08:00:00 AM Scheduled Provider:KERMIT DENNIS DO Location:[facility] Appointment Type:PC OV Appointment Date:02/23/2024 04:00:00 PM Scheduled Provider:KERMIT DENNIS DO Location:[facility] Appointment Type:PC OV Diagnostic Tests Pending * Vitamin B12 Level 01/06/24 Future Scheduled Tests Laboratory* Vitamin B12 Level 12/17/23 * Complete Blood Count 12/17/23 * Vitamin D Level 12/17/23 [facility] Evaluation + Plan note Future Appointments Appointment Date:02/16/2024 08:00:00 AM Scheduled Provider:KERMIT DENNIS DO Location:[facility] Appointment Type:PC OV Appointment Date:02/23/2024 04:00:00 PM Scheduled Provider:KERMIT DENNIS DO Location:[facility] Appointment Type:PC OV Appointment Date:02/28/2024 09:30:00 AM Scheduled Provider:SOFYA TUCKER MD Location:[facility] Appointment Type:[facility]M ONC OV Follow Up Future Scheduled Tests Laboratory* Methylmalonic Acid, Serum 02/21/24 * Ferritin 02/21/24 * Folate Level 02/21/24 * Lactate Dehydrogenase 02/21/24 * Thyroid Stimulating Hormone 02/21/24 * Vitamin B12 Level 02/21/24 * Complete Blood Count 02/21/24 * Iron Studies 02/21/24 * Complete Metabolic Panel 02/21/24 [facility] Evaluation + Plan note Future Appointments Appointment Date:02/28/2024 09:30:00 AM Scheduled Provider:SOFYA TUCKER MD Location:[facility] Appointment Type:[facility] OV Follow Up Appointment Date:05/01/2024 08:30:00 AM Scheduled Provider:KEMRIT DENNIS DO Location:[facility] Appointment Type:PC Wellness Annual Future Scheduled Tests Laboratory* Methylmalonic Acid, Serum 02/21/24 * Ferritin 02/21/24 * Folate Level 02/21/24 * Lactate Dehydrogenase 02/21/24 * Thyroid Stimulating Hormone 02/21/24 * Vitamin B12 Level 02/21/24 * Complete Blood Count 02/21/24 * Iron Studies 02/21/24 * Complete Metabolic Panel 02/21/24 [facility] Evaluation + Plan note Future Appointments Appointment Date:02/28/2024 09:30:00 AM Scheduled Provider:SOFYA TUCKER MD Location:[facility] Appointment Type:[facility]M ONC OV Follow Up Appointment Date:05/01/2024 08:30:00 AM Scheduled Provider:KERMIT DENNIS DO Location:[facility] Appointment Type: Wellness Annual Diagnostic Tests Pending * Complete Metabolic Panel 02/21/24 * Thyroid Stimulating Hormone 02/21/24 * Methylmalonic Acid, Serum 02/21/24 * Ferritin 02/21/24 * Lactate Dehydrogenase 02/21/24 [facility] Evaluation + Plan note Future Appointments Appointment Date:02/29/2024 08:15:00 AM Scheduled Provider: Location:[facility] Appointment Type:PC Nurse BP Check Appointment Date:05/01/2024 08:30:00 AM Scheduled Provider:KERMIT DENNIS DO Location:[facility] Appointment Type:PC Wellness Annual Appointment Date:06/26/2024 10:00:00 AM Scheduled Provider: Location:[facility] Appointment Type:[facility]M ONC OV Follow Up Diagnostic Tests Pending * Copper, Serum 02/28/24 Future Scheduled Tests Laboratory* Prostate Specific Antigen 06/29/24 * Complete Blood Count 06/29/24 [facility] Evaluation + Plan note Future Appointments Appointment Date:07/03/2024 08:00:00 AM Scheduled Provider:KERMIT DENNIS DO Location:[facility] Appointment Type:PC OV Future Scheduled Tests Laboratory* Prostate Specific Antigen 06/29/24 * Complete Blood Count 06/29/24 [facility] Evaluation + Plan note Future Appointments Appointment Date:10/02/2024 08:30:00 AM Scheduled Provider:KERMIT DENNIS DO Location:[facility] Appointment Type:PC OV Future Scheduled Tests Laboratory* Prostate Specific Antigen 06/29/24 * Complete Blood Count 06/29/24 Radiology* US Renal 07/03/24 [facility] Evaluation + Plan note Future Appointments Appointment Date:10/02/2024 08:30:00 AM Scheduled Provider:KERMIT DENNIS DO Location:[facility] Appointment Type:PC OV Future Scheduled Tests Laboratory* Prostate Specific Antigen 06/29/24 * Complete Blood Count 06/29/24 Radiology* MRI Kidney 07/25/24 [facility] evaluation + Plan note Future Appointments Appointment Date:10/02/2024 08:30:00 AM Scheduled Provider:KERMIT DENNIS DO Location:[facility] Appointment Type:PC OV Future Scheduled Tests Laboratory* Prostate Specific Antigen 06/29/24 * Complete Blood Count 06/29/24 * Complete Metabolic Panel 08/14/24 [facility] Evaluation + Plan note Future Appointments Appointment Date:12/13/2024 04:30:00 PM Scheduled Provider:KERMIT DENNIS DO Location:[facility] Appointment Type:PC OV Future Scheduled Tests Laboratory* Prostate Specific Antigen 06/29/24 * Protein Electrophoresis Urine 09/17/24 * Complete Blood Count 06/29/24 [facility] Evaluation + Plan note Future Appointments Appointment Date:12/13/2024 04:30:00 PM Scheduled Provider:KERMIT DENNIS DO Location:[facility] Appointment Type:PC OV [facility] Evaluation + Plan note Future Appointments Appointment Date:12/13/2024 04:30:00 PM Scheduled Provider:KERMIT DENNIS DO Location:[facility] Appointment Type:PC OV Diagnostic Tests Pending * Protein Electrophoresis Urine 12/11/24 [facility] course Narrative No data available for this section [facility] Discharge instructions No data available for this section [facility] Progress note No data available for this section [facility] Summary Purpose Family History No Family History [...] this section No Family History Records Found No data available for this section No Family History Records Found No data available for this section No data available for this section No data available for this section No data available for this section No data available for this section No data available for this section No data available for this section No Family History Records FoundNo Family History Records Found Advance Directives No Advanced Directives Records FoundNo Advanced Directives Records FoundNo Advanced Directives Records FoundNo Advanced Directives Records FoundNo Advanced Directives Records Found Additional Source Comments (unrecognized sect ion and content) No Status Records FoundNo Status Records FoundNo Status Records FoundNo Status Records FoundNo Status Records Found INFORMATION SOURCE (unrecogn ized section and content) DATE CREATED AUTHOR 07/24/2021 [facility] DATE CREATED AUTHOR AUTHOR'S ORGANIZ ATION 02/22/2024 [facility] ([place] DATE CREATED AUTHOR AUTHOR'S ORGANIZ ATION 03/17/2024 [facility] DATE CREATED AUTHOR AUTHOR'S ORGANIZ ATION 03/01/2025 [facility] DATE CREATED AUTHOR AUTHOR'S ORGANIZ ATION 04/17/2025 [facility] Care Team (unrecognized sect ion and content) Care Team Personnel Name: Anabel Decision Analyst Kayy PT Position: P3 Scheduling - Ton Container Filler Advanced Member Role: Other Name: KERMIT DENNIS DO Position: P4 Physician - Primary Care Med Service: Active Provider Member Role: Primary Care Physician Address: Address: [address] [place] [address] Care Team Related Persons Name: JOCELYN LEAL Address: Home [address] [place] [id number] [place] Name: SHORT, EMERY Name: SHORT, EMERY Name: SHORT MARTÍNEZ Care Team Personnel Name: Gilmer Little Clerk Kayy PT Position: P3 Scheduling - Ton Container Filler Advanced Member Role: Other Name: KERMIT DENNIS DO Position: P4 Physician - Primary Care Member Role: Primary Care Physician Address: Address: [address] [place] [address] Care Team Related Persons Name: JOCELYN LEAL Address: Home [address], [place] [id number] [place] Name: SHORT, EMERY Name: SHORT, EMERY Name: SHORT, MARTÍNEZ Care Team Personnel Name: Anabel Decision Analyst Kayy PT Position: P3 Scheduling - Ton Container Filler Advanced Member Role: Other Name: KERMIT DENNIS DO Position: P4 Physician - Primary Care Member Role: Primary Care Physician Address: Address: [address] [place] [address]- Care Team Related Persons Name: HUMPHREYJOCELYN Address: Home [address], [place] [id number] [place] Name: SHORT, EMERY Name: SHORT, EMERY Name: SHORT, MARTÍNEZ Care Team Personnel Name: Gilmer Little Clerk Kayy PT Position: P3 Scheduling - Ton Container Filler Advanced Member Role: Other Name: KERMIT DENNIS DO Position: P4 Physician - Primary Care Member Role: Primary Care Physician Address: Address: [address] [place] [id number] [place] [address] Care Team Related Persons Name: JOCELYN LEAL Address: Home [address], [place] [phone] [place] Name: SHORT, EMERY Name: SHORT, EMERY Name: SHORT, MARTÍNEZ Care Team Personnel Name: Gilmer Little Clerk Kayy PT Position: P3 Scheduling - Ton Container Filler Advanced Member Role: Other Name: KERMIT DENNIS DO Position: P4 Physician - Primary Care Member Role: Primary Care Physician Address: Address: [address] [place] [address]- Care Team Related Persons Name: JOCELYN LEAL Address: [address], [place] [id number] [place] Name: SHORT, EMERY Name: SHORT, EMERY Name: SHORT, MARTÍNEZ Patient Care team informatio n (unrecognized section and content) Care Team Personnel Name: Gilmer Little Clerk Kayy PT Position: P3 Scheduling - Ton Container Filler Advanced Member Role: Other Name: KERMIT DENNIS DO Position: P4 Physician - Primary Care Member Role: Primary Care Physician Address: Address: [address] [place] [address]- Care Team Related Persons Name: JOCELYN LEAL Address: [address], [place] [id number] [place] Name: SHORT, EMERY Name: SHORT, EMERY Name: SHORT, MARTÍNEZ Care Team Personnel Name: Gilmer Little Clerk Kayy PT Position: P3 Scheduling - Ton Container Filler Advanced Member Role: Other Name: KERMIT DENNIS DO Position: P4 Physician - Primary Care Member Role: Primary Care Physician Address: Address: [address] [place] [address]- Care Team Related Persons Name: HUMPHREY JOCELYN Address: Home [address], [place] [id number] [place] Name: SHORT, EMERY Name: SHORT, EMERY Name: SHORT, MARTÍNEZ Care Team Personnel Name: Anabel Decision Analyst Kayy PT Position: P3 Scheduling - Ton Container Filler Advanced Member Role: Other Name: KERMIT DENNIS DO Position: P4 Physician - Primary Care Member Role: Primary Care Physician Address: Address: [address] [place] [address]- Care Team Related Persons Name: HUMPHREYJOCELYN Address: [address], [place] [phone] [place] Name: SHORT, EMERY Name: SHORT, EMERY Name: SHORT, MARTÍNEZ Care Team Personnel Name: Gilmer Little Clerk Kayy PT Position: P3 Scheduling - Ton Container Filler Advanced Member Role: Other Name: KERMIT DENNIS DO Position: P4 Physician - Primary Care Member Role: Primary Care Physician Address: Address: [address] [place] [address]- Care Team Related Persons Name: HUMPHREYJOCELYN Address: [address], [place] [phone] [place] Name: SHORT, EMERY Name: SHORT, EMERY Name: SHORT, MARTÍNEZ Care Team Personnel Name: Anabel Decision Analyst Kayy PT Position: P3 Scheduling - Ton Container Filler Advanced Member Role: Other Name: KERMIT DENNIS DO Position: P4 Physician - Primary Care Member Role: Primary Care Physician Address: Address: [address] [place] [address]- Care Team Related Persons Name: HUMPHREYJOCELYN Address: Home [address], [place] [phone] [place] Name: SHORT, EMERY Name: SHORT, EMERY Name: SHORT, MARTÍNEZ Care Team Personnel Name: Gilmer Little Clerk Kayy PT Position: P3 Scheduling - Ton Container Filler Advanced Member Role: Other Name: KERMIT DENNIS DO Position: P4 Physician - Primary Care Member Role: Primary Care Physician Address: Address: [address] [place] [address]- Care Team Related Persons Name: HUMPHREY JOCELYN Address: [address], [place] [phone] [place] Name: SHORT, EMERY Name: SHORT, EMERY Name: SHORT, MARTÍNEZ Care Team Personnel Name: Anabel Decision Analyst Kayy PT Position: P3 Scheduling - Ton Container Filler Advanced Member Role: Other Name: KERMIT DENNIS DO Position: P4 Physician - Primary Care Member Role: Primary Care Physician Address: Address: [address] [place] [address]- Care Team Related Persons Name: HUMPHREYJOCELYN Address: [address], [place] [phone] [place] Name: SHORT, EMERY Name: SHORT, EMERY Name: SHORT, MARTÍNEZ Care Team Personnel Name: Gilmer Little Clerk Kayy PT Position: P3 Scheduling - Ton Container Filler Advanced Member Role: Other Name: KERMIT DENNIS DO Position: P4 Physician - Primary Care Member Role: Primary Care Physician Address: Address: [address] [place] [address]- Care Team Related Persons Name: HUMPHREYJOCELYN Address: [address], [place] [phone] [place] Name: SHORT, EMERY Name: SHORT, EMERY Name: SHORT, MARTÍNEZ Care Team Personnel Name: Anabel Decision Analyst Kayy PT Position: P3 Scheduling - Ton Container Filler Advanced Member Role: Other Name: KERMIT DENNIS DO Position: P4 Physician - Primary Care Member Role: Primary Care Physician Address: Address: [address] [place] [address]- Care Team Related Persons Name: HUMPHREYJOCELYN Address: [address], [place] [phone] [place] Name: SHORT, EMERY Name: SHORT, EMERY Name: SHORT, MARTÍNEZ Care Team Personnel Name: Gilmer Little Clerk Kayy PT Position: P3 Scheduling - Ton Container Filler Advanced Member Role: Other Name: KERMIT DENNIS DO Position: P4 Physician - Primary Care Member Role: Primary Care Physician Address: Address: [address] [place] [phone]- Care Team Related Persons Name: JOCELYN LEAL Address: [address], [place] [phone] [place] Name: SHORT, EMERY Name: SHORT, EMERY Name: SHORT, MARTÍNEZ Name: SHORT, MARTÍNEZ Care Team Personnel Name: Gilmer Little Clerk Kayy PT Position: P3 Scheduling - Ton Container Filler Advanced Member Role: Other Name: KERMIT DENNIS DO Position: P4 Physician - Primary Care Member Role: Primary Care Physician Address: Address: [address] [place] [address] Care Team Related Persons Name: HUMPHREY JOCELYN Address: Home [address], [place] [id number] [place] Name: SHORT, EMERY Name: SHORT, EMERY Name: SHORT, MARTÍNEZ Name: SHORT, MARTÍNEZ Care Team Personnel Name: Gilmer Little Clerk Kayy PT Position: P3 Scheduling - Ton Container Filler Advanced Member Role: Other Name: KERMIT DENNIS DO Position: P4 Physician - Primary Care Member Role: Primary Care Physician Address: Address: [address] [place] [address] Care Team Related Persons Name: ALVIN LEALBETH Address: Home [address], [place] [id number] [place] Name: SHORT, EMERY Name: SHORT, EMERY Name: SHORT, MARTÍNEZ Name: SHORT, MARTÍNEZ Care Team Personnel Name: Gilmer Little Clerk Kayy PT Position: P3 Scheduling - Ton Container Filler Advanced Member Role: Other Name: KERMIT DENNIS DO Position: P4 Physician - Primary Care Member Role: Primary Care Physician Address: Address: [address] [place] [address]- Care Team Related Persons Name: JOCELYN LEAL Address: Home [address], [place] [id number] [place] Name: SHORT, EMERY Name: SHORT, EMERY Name: SHORT, MARTÍNEZ Name: SHORT, MARTÍNEZ Care Team Personnel Name: Anabel Decision Analyst Kayy PT Position: P3 Scheduling - Ton Container Filler Advanced Member Role: Other Name: KERMIT DENNIS DO Position: P4 Physician - Primary Care Member Role: Primary Care Physician Address: Address: [address] [place] [address] Care Team Related Persons Name: JOCELYN LEAL Address: Home [address], [place] [id number] [place] Name: SHORT, EMERY Name: SHORT, EMERY Name: SHORT, MARTÍNEZ Name: SHORT, MARTÍNEZ Care Team Personnel Name: Anabel Decision Analyst Kayy PT Position: P3 Scheduling - Ton Container Filler Advanced Member Role: Other Name: KERMIT DENNIS DO Position: P4 Physician - Primary Care Member Role: Primary Care Physician Address: Address: [address] [place] [address] Care Team Related Persons Name: JOCELYN LEAL Address: [address], [place] [id number] [place] Name: SHORT, EMERY Name: SHORT, EMERY Name: SHORT, MARTÍNEZ Name: SHORT, MARTÍNEZ Care Team Personnel Name: Anabel Decision Analyst Kayy PT Position: P3 Scheduling - Ton Container Filler Advanced Member Role: Other Name: KERMIT DENNIS DO Position: P4 Physician - Primary Care Member Role: Primary Care Physician Address: Address: [address] [place] [address] Care Team Related Persons Name: JOCELYN LEAL Address: Home [address], [place] [id number] [place] Name: SHORT, EMERY Name: SHORT, EMERY Name: SHORT, MARTÍNEZ Name: SHORT, MARTÍNEZ Care Team Personnel Name: Anabel Decision Analyst Kayy PT Position: P3 Scheduling - Ton Container Filler Advanced Member Role: Other Name: KERMIT DENNIS DO Position: P4 Physician - Primary Care Member Role: Primary Care Physician Address: Address: [address] [place], [place] [address] Care Team Related Persons Name: JOCELYN LEAL Address: [address] [id number] [place] Name: SHORT, EMERY Name: SHORT, EMERY Name: SHORT, MARTÍNEZ Name: SHORT, MARTÍNEZ Care Team Personnel Name: Anabel, Decision Analyst Kayy PT Position: P3 Scheduling - Ton Container Filler Advanced Member Role: Other Name: KERMIT DENNIS DO Position: P4 Physician - Primary Care Member Role: Primary Care Physician Address: [address] [place] [address] Telecom: Care Team Related Persons Name: SHORT, JOCELYN Name: SHORT, EMERY Name: SHORT, EMERY Name: SHORT, MARTÍNEZ Name: SHORT, MARTÍNEZ Care Team Personnel Name: Anabel, Decision Analyst Kayy PT Position: P3 Scheduling - Ton Container Filler Advanced Member Role: Other Name: KERMIT DENNIS DO Position: P4 Physician - Primary Care Member Role: Primary Care Physician Address: [address] [place] [address] Telecom: Care Team Related Persons Name: SHORT, JOCELYN Name: SHORT, EMERY Name: SHORT, EMERY Name: SHORT, MARTÍNEZ Name: SHORT, MARTÍNEZ Care Team Personnel Name: Anabel, Decision Analyst Kayy PT Position: P3 Scheduling - Ton Container Filler Advanced Member Role: Other Name: KERMIT DENNIS DO Position: P4 Physician - Primary Care Member Role: Primary Care Physician Address: [address] [place] [address] Telecom: Care Team Related Persons Name: SHORT, JOCELYN Name: SHORT, EMERY Name: SHORT, EMERY Name: SHORT, MARTÍNEZ Name: SHORT, MARTÍNEZ Care Team Personnel Name: Anabel, Decision Analyst Kayy PT Position: P3 Scheduling - Ton Container Filler Advanced Member Role: Other Name: KERMIT DENNIS DO Position: P4 Physician - Primary Care Member Role: Primary Care Physician Address: [address] [place], [place] [address]- [place] Telecom: Care Team Related Persons Name: SHORT, JOCELYN Name: SHORT, EMERY Name: SHORT, EMERY Name: SHORT, MARTÍNEZ Name: SHORT, MARTÍNEZ Care Team Personnel Name: Anabel Decision Analyst Kayy PT Position: P3 Scheduling - Ton Container Filler Advanced Member Role: Other Name: KERMIT DENNIS DO Position: P4 Physician - Primary Care Member Role: Primary Care Physician Address: [address] [place] [address] Telecom: Care Team Related Persons Name: SHORT, JOCELYN Name: SHORT, EMERY Name: SHORT, EMERY Name: SHORT, MARTÍNEZ Name: SHORT, MARTÍNEZ Care Team Personnel Name: Anabel, Decision Analyst Kayy PT Position: P3 Scheduling - Ton Container Filler Advanced Member Role: Other Name: KERMIT DENNIS DO Position: P4 Physician - Primary Care Member Role: Primary Care Physician Address: [address] [place] [address] Telecom: Care Team Related Persons Name: SHORT, JOCELYN Name: SHORT, EMERY Name: SHORT, EMERY Name: SHORT, MARTÍNEZ Name: SHORT, MARTÍNEZ Care Team Personnel Name: Anabel Decision Analyst Kayy PT Position: P3 Scheduling - Ton Container Filler Advanced Member Role: Other Name: KERMIT DENNIS DO Position: P4 Physician - Primary Care Member Role: Primary Care Physician Address: [address] [place] [address] Telecom: Care Team Related Persons Name: SHORT, JOCELYN Name: SHORT, EMERY Name: SHORT, EMERY Name: SHORT, MARTÍNEZ Name: SHORT, MARTÍNEZ FOR RECORDS PERTAINING TO PATIENTS WHO ARE [...] BE BASED ON THE PRIMARY CLINICAL RECORDS. [facility] [employer] [facility]. provides no warranty or guarantee of the accuracy or completeness of information in this document.
[2025-04-18] MEDS: Lactated Ringers 1,000 ML 15 ML IV (05:54)
--- NOTE | 2025-04-18 06:30 | COLBX_PTH ---
PATIENT: OTF YIN LOC: EN U#:[id number] AGE/SX: 64/M ROOM: RE04/18/[address]: Dr. Ubaldo Jules DO : 1960 BED: DIS: 04/18/2025 SPEC #: [id number] RECD: 04/18/25 08:00 STATUS: KELLI JENI #: [id number] RUDY: 04/18/25 06:[address]: Ubaldo Jules DEPT: SURGICAL PATHOLOGY RECD BY: Gregg Link ENTERED: 04/18/25 12:24 SP TYPE: COLON BX OT DR: Dr. Kermit Fuentes DO Tissues: A - SPLENIC FLEXURE B - Cecum, NOS C - Transverse colon Procedures: Surgery Specimen Level IV HEADER OPERATION: Colonoscopy, polypectomy, biopsy PRE-OP DIAGNOSIS: Encounter for screening colonoscopy TISSUE SUBMITTED: A- Splenic flexure polyp, B- Cecum biopsy, C- Transverse polyp MICROSCOPIC DIAGNOSIS A. Splenic flexure, polyp, biopsy: - Mucosal prolapse with hyperplastic crypt change. B. Cecum, biopsy: - Small intestinal mucosa with reactive mucosal lymphoid aggregate. C. Transverse colon, polyp, biopsy: - Tubular adenoma. MICROSCOPIC DESCRIPTION Slides are reviewed. GROSS DESCRIPTION A. Received in fixative is one container labeled with the patient's name and designated "Splenic flexure polyp." The specimen consists of a 0.9 x 0.7 x 0.3 cm ramírez-red granular, slightly irregular polypoid tissue fragment. The resection margin is inked green and the specimen is bisected. Entirely submitted in 1 cassette. B. Received in fixative is one container labeled with the patient's name and designated "Cecum biopsy." The specimen consists of two irregular fragments of ramírez tissue that measure 0.3 and 0.4 cm. The specimen is totally submitted in one cassette. C. Received in fixative is one container labeled with the patient's name and designated "Transverse polyp." The specimen consists of one irregular fragment of ramírez tissue that measures 0.4 cm. The specimen is totally submitted in one cassette. [place] 04/18/2025 CPT:11361r3
--- NOTE | 2025-04-18 06:32 | PCM.PRE.AN2 ---
ASA Classification* ASA Classification ASA Classification: 2 Assessment & Plan Anesthesia* Anesthesia Assessment Anesthesia Assessment: Discussed sedation and/or anesthesia options, risks, benefits, and alternatives with patient/parents/legal guardian/POA. Questions invited. The patient/parents/legal guardian/POA seems to understand and agrees to proceed with anesthesia plan. Reviewed the physical assessment, medical history, allergy history and patient home medications list prior to surgery/procedure/anesthetic and documented any changes. Performed airway and anesthesia risk assessments. Anesthesia Type Anesthesia Type: MAC History Source History Obtained from:: Patient and Chart Anesthesia Focused Assessment* Temperature: 97.4 F Pulse Rate: 64 Blood Pressure: 122/82 Respiratory Rate: 16 Pulse Ox: 100 Oxygen Delivery Method: Room Air Airway Assessment Mouth opens: >3 cm Mallampati Score: II Teeth Condition: Missing (Several missing teeth. Rest are tight.) Neck Range of motion (ROM): Limited ROM (Somewhat Decreased) Labs Anesthesia Preop lab: CBC WBC, (4.4-11.0) 3.9 K/mm3 L 07/08/15, 09:14 RBC, (4.6-6.2) 5.03 M/mm3 07/08/15, 09:14 Hgb, (13.0-16.5) 15.0 g/dl 07/08/15, 09:14 Hct, (40-54) 46.7 % 07/08/15, 09:14 Plt Count, (150-450) 265 K/mm3 07/08/15, 09:14 CHEMISTRY Potassium, (3.5-5.1) 4.2 mmol/L 07/08/15, 09:14 Sodium, (136-145) 143 mmol/L 07/08/15, 09:14 BUN, (7-18) 13 mg/dL 07/08/15, 09:14 Creatinine, (0.70-1.30) 1.34 mg/dL H 07/08/15, 09:14 Glucose, (70-110) 100 mg/dL 07/08/15, 09:14 COAG Pre-Assessment Diagnosis/Proposed Procedure Planned Operative Procedure(s): CSCOPE Anesthesia History Anesthesia History - mexican food cook: Anesthesia History - mexican food cook Hx Hospitalization No 04/16/25 12:39 Any Problems With Anesthesia No 04/16/25 12:39 Cholinesterase deficiency No 04/16/25 12:39 You/Your Family Experience No 04/16/25 12:39 fever (hyperthermia) with Relationship Recent Exposure to Contagious No 04/18/25 05:45 Disease Does patient have nerve No 04/16/25 12:39 stimulator Patient instructed to have device shut off --Does patient have Pacemaker No 04/18/25 05:46 or ICD? When Was Last Pacemaker Check QUESTION #4 FULL TEXT: You/Your Family Experience fever (hyperthermia) with Anesthesia Last Oral Intake Last Oral intake: Last Oral Intake NPO since 02:00 04/18/25 05:46 Meds taken in AM with sips of Yes 04/18/25 05:46 water? Meds patient instructed to take am of surgery Any additional information?: Yes NPO since: 02:00 (Patient finishes prep at 2 AM.) Meds taken in AM with sips of water?: Yes PONV PONV - mexican food cook: PONV - mexican food cook Female No 04/16/25 12:39 HX of Motion Sickness No 04/16/25 12:39 HX of N/V After Surgery No 04/16/25 12:39 Non-Smoker Yes 04/16/25 12:39 Duration of Surgery greater No 04/16/25 12:39 than 60 minutes Number of Risk Factors 1 04/16/25 12:39 PONV Score Low Risk 04/16/25 12:39 Height & Weight Height & Weight: Anesthesia: Height & Weight Height 6 ft 2 in 04/18/25 05:46 Weight: 107.501 kg 04/18/25 05:46 Body Mass Index (BMI) 30.4 04/18/25 05:46 Respiratory Assessment Respiratory Assessment - mexican food cook: Respiratory Tract Infection Hx - mexican food cook Hx Respiratory Tract Infection No 04/16/25 12:39 STOP Sleep Apnea STOP Sleep Apnea - mexican food cook: STOP Sleep Apnea - mexican food cook Hx Hypertension Yes: CONTROLLED WITH MED 04/16/25 12:39 Hx Sleep Apnea No 04/16/25 12:39 CPAP BIPAP Do you snore loudly (louder No 04/16/25 12:39 than talking or can be heard Do you often feel tired/ Yes 04/16/25 12:39 fatigued/ sleepy during daytime? Has anyone observed you stop No 04/16/25 12:39 breathing during sleep? STOP Results Positive 04/16/25 12:39 QUESTION #5 FULL TEXT : Do you snore loudly (louder than talking or can be heard through closed doors)? 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 Specify any problems Hx of Preganancy in last 3 N/A 04/16/25 12:39 Months Nurse Filling Out Transfusion DSCHRIBER 04/16/25 12:39 & Questions: Date: 04/16/25 04/16/25 12:39 Time: 12:41 04/16/25 12:39 Patient unable to answer at this time (ie. confused, unrespo /Reproduction History /Reproductive History - mexican food cook: /Reproductive Hx- mexican food cook Hx Now No 04/16/25 12:39 Gestational Age (in weeks): EDC: Hx Hx Para Hx Section SAB No 04/16/25 12:39 Active Medications Active Medications: Current Medications Generic Name Dose Route Start Last Admin Trade Name Freq PRN Reason Stop Dose Admin Lactated Ringer's 1,000 mls @ 15 mls/hr 04/18/25 05:45 04/18/25 05:54 IV 15 mls/hr .Q48H SEBAS Administration PFSH Medical History History of steroid therapy Diabetes DVT (deep venous thrombosis) Hypertension Cardiology follow-up encounter 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 Degenerative arthritis of cervical spine Cyst of left parotid gland Cervical radiculopathy Cervical lymphadenopathy Calcification of left carotid artery Anxiety BERTIN (generalized anxiety disorder) Home Medications Medication Instructions Recorded Last Taken Type atorvastatin 10 mg tablet 10 mg PO DAILY 07/22/22 04/17/25 History hydrochlorothiazide 12.5 mg tablet 12.5 mg PO DAILY 07/22/22 04/17/25 History amlodipine 10 mg-olmesartan 40 mg 1 tab PO QDAY 09/18/24 04/18/25 05:00 History tablet apixaban 5 mg tablet 5 mg PO BID 09/18/24 04/14/25 History buspirone 10 mg tablet 10 mg PO BID 09/18/24 04/17/25 History cholecalciferol (vitamin D3) 100 100 mcg PO QDAY 09/18/24 04/15/25 History mcg (4,000 unit) tablet cyanocobalamin (vitamin B-12) 500 500 mcg PO QDAY 03/04/25 04/15/25 History mcg tablet tirzepatide 7.5 mg/0.5 mL 7.5 mg subcut MO 03/14/25 04/08/25 History subcutaneous pen injector (Jorgero) Allergy/AdvReac Type Severity Reaction Status Date / Time No Known Allergies Allergy Verified 04/18/25 05:43 Family History Brother Asthma Diabetes Mother Cancer Hodgkin's lymphoma Father CAD (coronary artery disease) Diabetes Hypertension Surgical History Hx of colonoscopy H/O uvulectomy Social History Smoking Status: Never smoker alcohol intake: current alcohol intake frequency: holidays/special occasions only Alcohol type: wine substance use type: does not use what type of physical activity do you participate in: walking and other details: golf frequency: 5-6 times per week Review of Systems (Anesthesia) ROS Narrative System reviewed and no additional complaints, except as documented.
--- NOTE | 2025-04-18 06:45 | PCM.HP.STD ---
HPI - General General Date of Admission: 04/18/25 Date of Service: 04/18/25 Chief Complaint: Surveillance colonoscopy HPI Narrative MIKE YIN, is a 64 M who presents [Chief Complaint: Screening colonoscopy Patient referred from primary care provider to be scheduled for screening colonoscopy. Patient's last colonoscopy was in 2019 and he had 1 polyp. Pathology was consistent with a tubular adenoma. Recommendation was to repeat colonoscopy in 5 years. Patient denies any GI symptoms today. He has a normal bowel movement 2 times per day. Patient does have a cousin who had colon cancer who was diagnosed in his 40s. Patient is on Eliquis due to pulmonary embolisms that were found in November 2024. 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 Degenerative arthritis of cervical spine Cyst of left parotid gland Cervical radiculopathy Cervical lymphadenopathy Calcification of left carotid artery Anxiety BERTIN (generalized anxiety disorder) Home Medications Medication Instructions Recorded Last Taken Type atorvastatin 10 mg tablet 10 mg PO DAILY 07/22/22 04/17/25 History hydrochlorothiazide 12.5 mg tablet 12.5 mg PO DAILY 07/22/22 04/17/25 History amlodipine 10 mg-olmesartan 40 mg 1 tab PO QDAY 09/18/24 04/18/25 05:00 History tablet apixaban 5 mg tablet 5 mg PO BID 09/18/24 04/14/25 History buspirone 10 mg tablet 10 mg PO BID 09/18/24 04/17/25 History cholecalciferol (vitamin D3) 100 100 mcg PO QDAY 09/18/24 04/15/25 History mcg (4,000 unit) tablet cyanocobalamin (vitamin B-12) 500 500 mcg PO QDAY 03/04/25 04/15/25 History mcg tablet tirzepatide 7.5 mg/0.5 mL 7.5 mg subcut MO 03/14/25 04/08/25 History subcutaneous pen injector (Mounjaro) Allergy/AdvReac Type Severity Reaction Status Date / Time No Known Allergies Allergy Verified 04/18/25 05:43 Family History Brother Asthma Diabetes Mother Cancer Hodgkin's lymphoma Father CAD (coronary artery disease) Diabetes Hypertension Surgical History Hx of colonoscopy H/O uvulectomy Social History Smoking Status: Never smoker alcohol intake: current alcohol intake frequency: holidays/special occasions only Alcohol type: wine substance use type: does not use what type of physical activity do you participate in: walking and other details: golf frequency: 5-6 times per week ROS Constitutional Constitutional: Denies fatigue, fever(s), poor appetite, weight gain or weight loss Gastrointestinal Gastrointestinal: Denies belching, bloating, change in bowel habits, change in stool character, chewing difficulty, coffee ground emesis, constipation, cramping, diarrhea, dyspepsia, dysphagia, early satiety, excessive flatus, fecal incontinence, heartburn, hematemesis, hematochezia, hemorrhoids, loose stools, melena, nausea, odynophagia, rectal bleeding, tenesmus, vomiting or weight changes Vital Signs Vital Signs Vital Signs: 04/18/25 05:45 04/18/25 05:46 04/18/25 06:36 Temperature 97.4 F L 97.4 F L Temperature Source Temporal Pulse Rate 64 64 Respiratory Rate 16 16 Respiratory Pattern Normal Blood Pressure 122/82 H 122/82 H Blood Pressure Mean 95 Blood Pressure Source Monitor Blood Pressure Position Semi-Fowlers Blood Pressure Location Left Arm Pulse Ox 100 100 Oxygen Delivery Method Room Air Room Air Weight Weight: 237 lb Body Mass Index (BMI) 30.4 Physical Exam Const alert, oriented x3, no apparent distress and healthy appearing General Appearance: cooperative GI normal to inspection, nondistended, normoactive bowel sounds, soft to palpation, non-tender and non-distended Percussion: normal to percussion Rectal Exam: deferred Assessment & Plan Assessment/Plan (1) Encounter for screening colonoscopy: PLAN: Assessment and Plan Assessment and Plan (1) Encounter for screening colonoscopy: Status: Acute Plan: Mike is a 64-year-old male patient here today for screening colonoscopy. Patient referred from his primary care provider. Last colonoscopy was in 2019 with 1 tubular adenoma polyp and recommendation for repeat in 5 years. Patient does have a family history of colon cancer in one of his cousins who was diagnosed at age 40 however no one in his intermediate family. He denies any GI symptoms at this time. Patient is on Eliquis due to history of PE. Patient was agreeable to undergo colonoscopy and will do MiraLAX and Dulcolax prep. - Colonoscopy - Follow-up after procedure - Medications: New polyethylene glycol 3350 colonoscopy prep 238 grams PO ONCE 238 grams 0RF bisacodyl colonoscopy prep 20 mg (4 x 5 mg) PO ONCE 4 tabs 0RF ]
--- NOTE | 2025-04-18 07:30 | PCM.POST.ANE ---
Anesthesia: Postop Eval I Current Vital Signs Temperature: 98.1 F Pulse Rate: 70 Blood Pressure: 111/69 Respiratory Rate: 16 Pulse Ox: 100 Oxygen Delivery Method: Room Air Assessment Airway patent: Yes Spontaneous unlabored respirations: Yes Mental status: Awake and Calm nausea: No Vomiting: No Anesthesia Complication: No Fluid Hydration Crystalloid volume administer (ml): 700 Total IV fluid infused: 700 Progress Note Anesthesia document: Postop Eval 1 completed: Yes
--- NOTE | 2025-04-18 07:33 | OP.COLON_ITS ---
Patient Name: Mike Leal Procedure Date: 04/18/2025 6:17 AM Date of : 1960 Age: 64 Procedure: Colonoscopy Indications: High risk colon cancer surveillance: Personal history of colonic polyps Providers: Ubaldo Jules DO Referring MD: Kermit Fuentes Do Medicines: Monitored Anesthesia Care Patient Profile: This is a 64 year old male. Refer to note in patient chart for documentation of history and physical. Last Colonoscopy: 5 years ago. Complications: No immediate complications. Procedure: Pre-Anesthesia Assessment: - Prior to the procedure, a History and Physical was performed, and patient medications and allergies were reviewed. The patient is competent. The risks and benefits of the procedure and the sedation options and risks were discussed with the patient. All questions were answered and informed consent was obtained. Patient identification and proposed procedure were verified by the physician in the pre-procedure area. Mental Status Examination: alert and oriented. Airway Examination: normal oropharyngeal airway and neck mobility. Respiratory Examination: clear to auscultation. CV Examination: normal. Prophylactic Antibiotics: The patient does not require prophylactic antibiotics. Prior Anticoagulants: The patient has taken no anticoagulant or antiplatelet agents except for NSAID medication. ASA Grade Assessment: II - A patient with mild systemic disease. After reviewing the risks and benefits, the patient was deemed in satisfactory condition to undergo the procedure. The anesthesia plan was to use monitored anesthesia care (MAC). Immediately prior to administration of medications, the patient was re-assessed for adequacy to receive sedatives. The heart rate, respiratory rate, oxygen saturations, blood pressure, adequacy of pulmonary ventilation, and response to care were monitored throughout the procedure. The physical status of the patient was re-assessed after the procedure. After I obtained informed consent, the scope was passed under direct vision. Throughout the procedure, the patient's blood pressure, pulse, and oxygen saturations were monitored continuously. The Colonoscope was introduced through the anus and advanced to the cecum, identified by appendiceal orifice and ileocecal valve. The colonoscopy was performed without difficulty. The patient tolerated the procedure well. The quality of the bowel preparation was adequate. The ileocecal valve, appendiceal orifice, and rectum were photographed. Scope In: 6:57:03 AM Scope Withdrawal Time 0 hours 15 minutes 47 seconds Scope Out: 7:20:42 AM Total Procedure Duration Time 0 hours 23 minutes 39 seconds Findings: The perianal and digital rectal examinations were normal. A few diverticula were found in the recto-sigmoid colon and sigmoid colon. Two sessile polyps were found in the splenic flexure and transverse colon. These polyps were removed with a hot snare. Resection and retrieval were complete. Verification of patient identification for the specimen was done. Estimated blood loss was minimal. A localized area of granular mucosa was found in the cecum. Biopsies were taken with a cold forceps for histology. Verification of patient identification for the specimen was done. Estimated blood loss was minimal. Impression: - Diverticulosis in the recto-sigmoid colon and in the sigmoid colon. - Two polyps at the splenic flexure and in the transverse colon, removed with a hot snare. Resected and retrieved. - Granularity in the cecum. Biopsied. Recommendation: - Discharge patient to home. - Resume previous diet. - Continue present medications. - Await pathology results. - Repeat colonoscopy in 5 years for surveillance. Procedure Code(s): --- Professional --- 99041, Colonoscopy, flexible; with removal of tumor(s), polyp(s), or other lesion(s) by snare technique 36069, 59, Colonoscopy, flexible; with biopsy, single or multiple CPT copyright 2021 [employer]. All rights reserved. The codes documented in this report are preliminary and upon [employer] compliance internship review may be revised to meet current compliance requirements. Ubaldo Jules DO 04/18/2025 7:31:53 AM This report has been signed electronically. Number of Addenda: 0 Note Initiated On: 04/18/2025 6:17 AM
--- NOTE | 2025-04-18 07:33 | OP.PROVAT_ITS ---
04/18/2025 Kermit Fuentes Do Re : Colonoscopy procedure for Mike Lael Dear Gina This procedure was performed on March. My impressions and recommendations are as follows: Impressions : - Diverticulosis in the recto-sigmoid colon and in the sigmoid colon. - Two polyps at the splenic flexure and in the transverse colon, removed with a hot snare. Resected and retrieved. - Granularity in the cecum. Biopsied. Recommendations : - Discharge patient to home. - Resume previous diet. - Continue present medications. - Await pathology results. - Repeat colonoscopy in 5 years for surveillance. My findings are described in the full procedure note, which is enclosed. If I can be of further assistance, please feel free to contact me at . Sincerely, Ubaldo Jules, 04/18/2025 7:31:53 AM This report has been signed electronically.
--- NOTE | 2025-04-18 11:32 | PCM.POSTANE2 ---
Anesthesia Postop Eval I Sum Postop Eval Completion status Anesthesia document: Postop Eval 1 completed: Yes Anesthesia Postop Eval I Summary Anesthesia Postop Eval I Summary: Anesthesia Postop Eval I: Assessment Summary Airway patent Yes 04/18/25 07:31 [email or web address] Spontaneous unlabored Yes 04/18/25 07:31 [email or web address] respirations Mental status Awake,Calm 04/18/25 07:31 [email or web address] nausea No 04/18/25 07:31 [email or web address] Vomiting No 04/18/25 07:31 [email or web address] Anesthesia Postop Eval I: Fluid Summary Crystalloid volume administer 700 04/18/25 07:31 [email or web address] (ml) Colloids volume administered ( ml) Blood Product volume administered (ml) Total IV fluid infused 700 04/18/25 07:31 [email or web address] Anesthesia Postop Eval I: Summary Notes Anesthesia Complication No 04/18/25 07:31 [email or web address] Anesthesia Complication Comment: Post-operative progress note Anesthesia: Postop Eval II Evaluation Mental status: Awake and Calm Pain Level: 0 nausea: No Vomiting: No Complications Anesthesia Complication: No
== END 2025-04-18 07:55 | disposition home or self-care (01) ==
LOC: EN 05:12 → AC 05:14
PROVIDERS: PCP Student in an Organized Health Care Education/Training Program; Referring Provider Student in an Organized Health Care Education/Training Program; Visit Provider Internal Medicine Gastroenterology
DX: Z12.11 Encounter for screening for malignant neoplasm of colon (principal); E11.9 Type 2 diabetes mellitus without complications; K63.5 Polyp of colon; Z86.718 Personal history of other venous thrombosis and embolism; Z79.01 Long term (current) use of anticoagulants; F41.1 Generalized anxiety disorder; Z86.0100 Personal history of colon polyps, unspecified; I10 Essential (primary) hypertension; K57.30 Diverticulosis of large intestine without perforation or abscess without bleeding; Z80.0 Family history of malignant neoplasm of digestive organs; Z79.899 Other long term (current) drug therapy
CPT/HCPCS: 45385; 45380; 88305; J2405